=== PATIENT | female | born 1955 | race Caucasian/White ===

== ENCOUNTER → 2023-11-05 12:55 | Outpatient (REF) | payer MEDICARE, BC, SELFPAY | LOC: RAD 12:55 | PROVIDERS: ATTENDING PHYSICIAN Physician Assistant Medical; FAMILY PHYSICIAN Family Medicine | DX: M53.3 Sacrococcygeal disorders, not elsewhere classified (principal) | CPT/HCPCS: 72220 ==

== ENCOUNTER → 2024-01-13 08:18 | Outpatient (REF) | payer MEDICARE, BC, SELFPAY | LOC: WDC 08:18 | PROVIDERS: ATTENDING PHYSICIAN Obstetrics & Gynecology; FAMILY PHYSICIAN Family Medicine | DX: Z12.31 Encounter for screening mammogram for malignant neoplasm of breast (principal) | CPT/HCPCS: 77063; 77067 ==

== ENCOUNTER → 2024-06-11 07:40 | Outpatient (REF) | payer MEDICARE, BC, SELFPAY ==
[2024-06-11 09:21] LABS: ALT (SGPT) 22 U/L (0-35); AST (SGOT) 26 U/L (14-36); Albumin 4.5 g/dl (3.5-5.0); Alkaline Phosphatase 73 U/L (38-126); Blood Urea Nitrogen 23 mg/dl (7-17); Calcium 10.2 mg/dl (8.4-10.2); Carbon Dioxide 29 mmol/L (22-30); Chloride 100 mmol/L (98-107); Glucose 86 mg/dl (70-99); HDL Cholesterol 86 mg/dl; LDL Cholesterol, Calculated 98 mg/dl; Potassium 4.7 mmol/L (3.5-5.1); Sodium 139 mmol/L (135-145); Total Bilirubin 0.7 mg/dl (0.2-1.3); Total Cholesterol 207 mg/dl (50-199); Total Protein 7.1 g/dl (6.3-8.2); Triglyceride 115 mg/dl (10-149); Very Low Density Lipoprotein 23 mg/dl (0-30); eGFR > 60.00
[2024-06-11 10:09] LABS: TSH Reflex To Free T4 0.83 uIU/ml (0.47-4.68)
== END ==
LOC: REG 07:40
PROVIDERS: ATTENDING PHYSICIAN Family Medicine
DX: E87.1 Hypo-osmolality and hyponatremia (principal); I10 Essential (primary) hypertension; E78.5 Hyperlipidemia, unspecified
CPT/HCPCS: 36415; 80053; 80061; 84443

== ENCOUNTER 2024-06-18 15:29 | Emergency (ER) | payer MEDICARE, BC, SELFPAY ==
[2024-06-18 15:32] VITALS: BP 179/92
[2024-06-18 16:03] VITALS: BP 155/77
[2024-06-18 16:04] VITALS: BP 155/77
--- NOTE | 2024-06-18 16:08 | ED.GENMED ---
History of Present Illness
General
Chief Complaint: Blood Pressure Problem
Time Seen by Provider: 06/18/24 16:08
History of Present Illness
History of Present Illness:
HPI: Patient presents due to blood pressure concerns. She states that her blood pressure systolic is normally in the 130s range or so. She takes lisinopril 30 mg daily, metoprolol 100 mg twice a day, and yesterday her primary put her on amlodipine
5 mg. She took that yesterday and this morning and blood pressures were still in the 150s to 170s range. She also had some 'extra beats' and her nurse practitioner sent her here for further evaluation. She tells me she is not stressed about
anything but feels very 'jittery'.
EXAM:
GENERAL: Well appearing in no distress
HEENT: Moist oral mucosa
CARDIOVASCULAR: No murmurs, normal heart rate, regular rhythm, No chest wall tenderness, ectopy noted
PULMONARY: No respiratory distress, breath sounds are clear and equal
ABDOMEN: Soft with no peritoneal signs, no tenderness
NEUROLOGIC: Excellent strength all extremities, no coordination deficits
PSYCHIATRIC: Appropriate mental status, normal insight and judgement, some pressured speech and appears somewhat anxious
EXTREMITIES: Nontender, no edema, moves all extremities equally
SKIN: No rash, no lesions
TIME OF INITIAL ENCOUNTER: 4:15 PM
NUMBER AND COMPLEXITY OF PROBLEMS ADDRESSED AT THE ENCOUNTER
� Chronic conditions affecting care: COPD, high blood pressure, hyperlipidemia
� Acute Exacerbation and/or Progression of Chronic Illness: This is an acute exacerbation of chronic high blood pressure
� Differential Diagnosis includes: Poorly controlled blood pressure, anxiety
AMOUNT AND/OR COMPLEXITY OF DATA TO BE REVIEWED AND ANALYZED
� I performed an independent evaluation of and my interpretation is:
EKG: Sinus 76, atrial and ventricular ectopy noted
CT:
X-rays:
Laboratory Studies: CBC unremarkable, chemistries unremarkable
Other:
� Review of other/old records: I reviewed records, the patient had sigmoid stricture status post robotic low anterior resection in [place] of last year
� Clinical information was obtained by an independent historian: None needed
� Prescriptions/Medications Considered but not given:
� Further testing considered but not performed:
RISK OF COMPLICATIONS AND/OR MORBIDITY OR MORTALITY OF PATIENT MANAGEMENT
� Social determinants of health affecting care: Lives at home with
� Discussion with other providers:
� Escalation of care including admission/observation vs risk of discharge considered: The patient is already on lisinopril and metoprolol. Amlodipine 5 mg was added yesterday and today. She does feel very 'jittery' and we did
give a low dose of Ativan. On reassessment at 6:15 PM, the patient still has a jittery and does feel appear somewhat anxious but she tells me that she is not anxious. We agreed to have her increase amlodipine to 10 mg starting tomorrow and she
already has cardiology follow-up arranged for this coming Saturday.
Past History
Past History
ED Past Medical History: COPD, GERD, HTN and Other
ED Past Surgical History: Orthopedic (Knee surgery)
Social History
Tobacco: Former smoker
Alcohol: Daily (7-7)
Personal:
Living: with family
Employment: Employed
Family History
Family History: Hypertension; Negative Early CAD, CAD or Sudden
Phy Exam
Physical Exam
Physical Exam:
See HPI
Course
Orders/Labs/Results
Orders:
Orders
06/18/24 15:34
EKG [Electrocardiogram (*1)] Urgent
Reason for Study: Hypertension, Benign
EKG- Treatment ONCE
06/18/24 16:22
Lorazepam [Ativan] 0.5 mg IV NOW STA
06/18/24 16:33
Basic Metabolic Panel Urgent
Complete Blood Count/With Diff Urgent
Abnormal Lab Results
06/18/24
16:33
RBC 3.92 L 10^6/uL
(4.20-5.40)
Hct 35.8 L %
(37.0-47.0)
MCH 31.4 H pg
(27.0-31.0)
RDW 15.5 H %
(11.5-14.5)
MPV 11.7 H fL
(7.4-10.4)
Absolute Monos (auto) 0.8 H 10^3/uL
(0.1-0.6)
BUN 29 H mg/dl
(7-17)
06/18/24 16:33
06/18/24 16:33
Vital Signs
Initial and Last Documented VS:
Initial Vital Signs
Temp Pulse Resp BP Pulse Ox
98.2 F 83 16 179/92 98
06/18/24 15:32 06/18/24 15:32 06/18/24 15:32 06/18/24 15:32 06/18/24 15:32
Last Documented Vital Signs
Temp Pulse Resp BP Pulse Ox
98.2 F 85 18 156/77 96
06/18/24 15:32 06/18/24 17:39 06/18/24 17:39 06/18/24 17:39 06/18/24 17:39
*Critical Care Note
Total Time (30-74mins, 75-104mins- exclusive of procedures): Not Applicable
ED Attending Note
-
Portions of this chart may have been created with voice recognition software.� Occasional wrong word or��sound alike� substitutions may have occurred due to the inherent limitations of voice recognition software.
Discharge Plan
Departure
Patient Disposition: Home (Routine Discharge)
Date of Disposition: 06/18/24
Time of Disposition: 18:14
Patient with high blood pressure during this ER visit?: Yes
Discharge Problem:
Poor high blood pressure control
Instructions: High Blood Pressure (DC), BLOOD PRESSURE
Prescriptions:
No Action
metoprolol tartrate 100 MG tablet
100 mg PO BID
Patient Comments:
06/28/23 patient uses [employer]. Note in pharmacy records confirms this
Asmanex Twisthaler 220 mcg/ actuation (120) aerosol powdr breath activated
1 inh INHALATION BID
Stiolto Respimat 2.5-2.5 mcg/actuation mist
2 puff INHALATION DAILY
pantoprazole 40 MG tablet,delayed release (DR/EC)
40 mg PO DAILY
lisinopril 20 mg Tablet
30 mg PO HS
Patient Comments:
06/28/23 patient states she is taking 1 and 1/2 tablets of her lisinopril 20mg.
atorvastatin 10 mg Tablet
10 mg PO HS
multivitamin
1 tab PO DAILY
acetaminophen [acetaminophen] 325 mg tablet
650 mg PO Q4HPRN PRN (Reason: mild pain) Qty: 1 0RF
tramadol 50 mg tablet
25 - 50 mg PO Q6HPRN PRN (Reason: severe pain/breakthrough pain) Qty: 20 0RF
Referrals:
Winifred Catalan DO [Family Provider] -
Activity Restrictions/Additional Instructions:
Your blood pressures have been in the 150s to 160s range. Tomorrow morning, I recommend you take 2 of the amlodipine 5 mg (10 mg at a time). This is in addition to your lisinopril and metoprolol. Follow-up with your electric tool repairer on Saturday.
Return here if worse. Basic blood work is normal. Your EKG shows extra beats which is very common.
Interventions
Interventions:
*Risk Screen - Suicide Last Done: 06/18/24 15:32
*General Assessment Last Done: 06/18/24 15:32
*Neglect/Abuse Screening Last Done: 06/18/24 15:32
*ED COVID-19 Vaccine History Last Done: 06/18/24 15:32
ED- Cardiac Assessment Last Done: 06/18/24 16:05
ED- Neurological Assessment Last Done: 06/18/24 16:05
ED- Pulmonary Assessment Last Done: 06/18/24 16:05
Discharge Date and Time
Print Language: KHMER
[2024-06-18 16:18] VITALS: BP 176/72
[2024-06-18] MEDS: ATIVAN 0.5 MG IV (16:33)
[2024-06-18 17:00] VITALS: BP 156/77
[2024-06-18 17:12] LABS: % Basophils 0.3 % (0-2); % Eosinophils 0.6 % (0-6); % Immature Granulocytes 0.4 % (0-0.5); % Lymphocytes 27.1 % (20.5-51.1); % Monocytes 8.7 % (1.7-9.3); % Neutrophils 62.9 % (42.2-75.2); Absolute Eosinophils 0.1 10^3/uL (0-0.7); Absolute Lymphocytes 2.6 10^3/uL (1.2-3.4); Absolute Monocytes 0.8 10^3/uL (0.1-0.6); Hematocrit 35.8 % (37.0-47.0); Hemoglobin 12.3 g/dL (12.0-16.0); Mean Corp Hgb Conc. 34.4 g/dL (33.0-37.0); Mean Corpuscular Hgb 31.4 pg (27.0-31.0); Mean Corpuscular Volume 91.3 fL (81.0-99.0); Mean Platelet Volume 11.7 fL (7.4-10.4); Nucleated Red Blood Cells % 0 %; Platelet Count 294 10^3/uL (130-400); Red Blood Cell Count 3.92 10^6/uL (4.20-5.40); Red Cell Dist. Width 15.5 % (11.5-14.5); White Blood Cell Count 9.6 10^3/uL (4.8-10.8)
[2024-06-18 17:30] LABS: Blood Urea Nitrogen 29 mg/dl (7-17); Calcium 9.8 mg/dl (8.4-10.2); Carbon Dioxide 24 mmol/L (22-30); Chloride 103 mmol/L (98-107); Glucose 89 mg/dl (70-99); Potassium 4.5 mmol/L (3.5-5.1); Sodium 139 mmol/L (135-145); eGFR > 60.00
[2024-06-18 17:39] VITALS: BP 156/77
== END 2024-06-18 18:36 | disposition home or self-care (01) ==
LOC: EMR 15:29
PROVIDERS: EMERGENCY PHYSICIAN Emergency Medicine; FAMILY PHYSICIAN Family Medicine
DX: I10 Essential (primary) hypertension (principal); Z87.891 Personal history of nicotine dependence
CPT/HCPCS: 99284; 96374; 80048; 85025; 93005

== ENCOUNTER → 2024-06-23 14:15 | Outpatient (REF) | payer MEDICARE, BC, SELFPAY | LOC: RCS 14:15 | PROVIDERS: ATTENDING PHYSICIAN Internal Medicine Interventional Cardiology; FAMILY PHYSICIAN Family Medicine | DX: R06.09 Other forms of dyspnea (principal); I10 Essential (primary) hypertension; R00.2 Palpitations; E78.2 Mixed hyperlipidemia | CPT/HCPCS: 93306 ==

== ENCOUNTER 2024-07-01 11:29 | Emergency (ER) | payer MEDICARE, BC, SELFPAY ==
[2024-07-01 11:37] VITALS: BP 147/76
[2024-07-01 11:54] LABS: % Basophils 0.3 % (0-2); % Eosinophils 0.4 % (0-6); % Immature Granulocytes 0.2 % (0-0.5); % Lymphocytes 13.6 % (20.5-51.1); % Monocytes 7.1 % (1.7-9.3); % Neutrophils 78.4 % (42.2-75.2); Absolute Eosinophils 0.1 10^3/uL (0-0.7); Absolute Lymphocytes 1.6 10^3/uL (1.2-3.4); Absolute Monocytes 0.8 10^3/uL (0.1-0.6); Absolute Neutrophils 9.3 10^3/uL (1.4-6.5); Hematocrit 35.9 % (37.0-47.0); Hemoglobin 12.4 g/dL (12.0-16.0); Mean Corp Hgb Conc. 34.5 g/dL (33.0-37.0); Mean Corpuscular Hgb 30.5 pg (27.0-31.0); Mean Corpuscular Volume 88.4 fL (81.0-99.0); Mean Platelet Volume 10.6 fL (7.4-10.4); Nucleated Red Blood Cells % 0 %; Platelet Count 311 10^3/uL (130-400); Red Blood Cell Count 4.06 10^6/uL (4.20-5.40); Red Cell Dist. Width 14.6 % (11.5-14.5); White Blood Cell Count 11.9 10^3/uL (4.8-10.8)
[2024-07-01 12:20] LABS: ALT (SGPT) 34 U/L (0-35); AST (SGOT) 33 U/L (14-36); Albumin 4.4 g/dl (3.5-5.0); Alkaline Phosphatase 69 U/L (38-126); Blood Urea Nitrogen 23 mg/dl (7-17); Calcium 9.9 mg/dl (8.4-10.2); Carbon Dioxide 25 mmol/L (22-30); Chloride 99 mmol/L (98-107); Glucose 109 mg/dl (70-99); Potassium 4.6 mmol/L (3.5-5.1); Sodium 136 mmol/L (135-145); Total Bilirubin 0.3 mg/dl (0.2-1.3); Total Protein 7.1 g/dl (6.3-8.2); eGFR > 60.00
[2024-07-01 12:22] LABS: Troponin I < 0.012 ng/ml
--- NOTE | 2024-07-01 13:07 | ED.GENMED ---
History of Present Illness
General
Chief Complaint: Heart Rate Problem
Source: patient
Exam Limitations: none
Time Seen by Provider: 07/01/24 12:56
History of Present Illness
History of Present Illness:
68-year-old female presents for reevaluation. She was here about 2 weeks ago for similar complaints including jitteriness heart racing and skipped beats. She was found to have elevated blood pressure reading at that visit and her amlodipine was
increased from 5 mg to 10 mg daily. She states she does not quite feel right. She noted some exertional dyspnea several days ago with her grandkids. She denies chest pain. In the interim she has seen cardiology and had an echocardiogram.
Echocardiogram shows an ejection fraction of 52%. No other wall motion abnormalities noted. She denies swelling in the legs. Occasionally has a burning discomfort in her chest but thinks it might be related to her reflux. She denies fevers. No
headache. No other complaints
Past History
Past History
ED Past Medical History: COPD, GERD, HTN and Other
ED Past Surgical History: Orthopedic (Knee surgery)
Social History
Tobacco: Former smoker
Alcohol: Daily (7-7)
Personal:
Living: with family
Employment: Employed
Family History
Family History: Hypertension; Negative Early CAD, CAD or Sudden
Phy Exam
Physical Exam
Physical Exam:
General: Overall well-appearing female no acute respiratory distress HEENT: Normocephalic atraumatic
Heart: Regular rate and rhythm
Lungs: Clear no wheeze
Abdomen is soft nontender nondistended no guarding or rebound normal bowel sounds
Extremities: No cyanosis or edema
Skin: Warm no rash
Neuro: alert and oriented. No tremor.
Course
Orders/Labs/Results
Orders:
Orders
07/01/24 11:31
Electrocardiogram (*1) Urgent
Reason for Study: Chest Pain
EKG- Treatment ONCE
07/01/24 11:47
CMP [Comprehensive Metabolic Panel] Urgent
Complete Blood Count/With Diff Urgent
Troponin I Urgent
07/01/24 13:11
CR Chest - 2 Views Urgent
Comment:
Reason For Exam: sob
07/01/24 14:41
ECG [Electrocardiogram (*1)] Urgent
Reason for Study: Chest Pain
Other Reason for Exam: serial troponin
EKG- Treatment ONCE
07/01/24 14:42
D-Dimer Urgent
Troponin I Urgent
Abnormal Lab Results
07/01/24
11:47
WBC 11.9 H 10^3/uL
(4.8-10.8)
RBC 4.06 L 10^6/uL
(4.20-5.40)
Hct 35.9 L %
(37.0-47.0)
RDW 14.6 H %
(11.5-14.5)
MPV 10.6 H fL
(7.4-10.4)
Absolute Neuts (auto) 9.3 H 10^3/uL
(1.4-6.5)
Absolute Monos (auto) 0.8 H 10^3/uL
(0.1-0.6)
Neutrophils % 78.4 H %
(42.2-75.2)
Lymphocytes % 13.6 L %
(20.5-51.1)
BUN 23 H mg/dl
(7-17)
Glucose 109 H mg/dl
(70-99)
07/01/24 11:47
07/01/24 11:47
Vital Signs
Initial and Last Documented VS:
Initial Vital Signs
Temp Pulse Resp BP Pulse Ox
98.3 F 85 16 147/76 100
07/01/24 11:37 07/01/24 11:37 07/01/24 11:37 07/01/24 11:37 07/01/24 11:37
Last Documented Vital Signs
Temp Pulse Resp BP Pulse Ox
98.3 F 80 16 139/81 100
07/01/24 11:37 07/01/24 14:55 07/01/24 14:55 07/01/24 14:20 07/01/24 14:55
MDM/Problems Addressed
Differential Diagnosis Includes:
68-year-old female with generalized unwell sensation. Here 2 weeks ago for the same has seen cardiology in the interim. Currently on amlodipine 10 mg daily and metoprolol 100 mg twice a day and lisinopril 30 mg daily. Blood pressure is stable
heart rate in the 70s to 80s. There are premature atrial complexes noted on the EKG.
Labs ordered through triage were reviewed without significant finding. Troponin is undetectable
*Critical Care Note
Total Time (30-74mins, 75-104mins- exclusive of procedures): Not Applicable
Update Note
Update Note:
Patient reevaluated. Initial and repeat troponin undetectable. D-dimer normal. Chest x-ray clear. Vital signs are stable here. Etiology of patient's symptoms somewhat unclear but she does have a an appointment in the near future with cardiology
for stress test. I advise she keep this. No indication for admission at this time. Stable for discharge
ED Attending Note
-
Portions of this chart may have been created with voice recognition software.� Occasional wrong word or��sound alike� substitutions may have occurred due to the inherent limitations of voice recognition software.
Discharge Plan
Departure
Patient Disposition: Home (Routine Discharge)
Date of Disposition: 07/01/24
Time of Disposition: 15:47
Patient with high blood pressure during this ER visit?: No
Discharge Problem:
Weakness
Instructions: Palpitations (DC)
Prescriptions:
No Action
metoprolol tartrate 100 MG tablet
100 mg PO BID
Patient Comments:
06/28/23 patient uses [employer]. Note in pharmacy records confirms this
Asmanex Twisthaler 220 mcg/ actuation (120) aerosol powdr breath activated
1 inh INHALATION BID
Stiolto Respimat 2.5-2.5 mcg/actuation mist
2 puff INHALATION DAILY
pantoprazole 40 MG tablet,delayed release (DR/EC)
40 mg PO DAILY
lisinopril 20 mg Tablet
30 mg PO HS
Patient Comments:
06/28/23 patient states she is taking 1 and 1/2 tablets of her lisinopril 20mg.
atorvastatin 10 mg Tablet
10 mg PO HS
multivitamin
1 tab PO DAILY
acetaminophen [acetaminophen] 325 mg tablet
650 mg PO Q4HPRN PRN (Reason: mild pain) Qty: 1 0RF
tramadol 50 mg tablet
25 - 50 mg PO Q6HPRN PRN (Reason: severe pain/breakthrough pain) Qty: 20 0RF
Referrals:
Winifred Catalan DO [Family Provider] -
Activity Restrictions/Additional Instructions:
Please continue current medications. Return here for worsening symptoms otherwise follow-up with cardiology as planned
Interventions
Interventions:
*Risk Screen - Suicide Last Done: 07/01/24 11:37
*General Assessment Last Done: 07/01/24 11:37
*Neglect/Abuse Screening Last Done: 07/01/24 11:37
*ED COVID-19 Vaccine History Last Done: 07/01/24 11:37
ED- Cardiac Assessment Last Done: 07/01/24 13:00
ED- Pulmonary Assessment Last Done: 07/01/24 13:00
Discharge Date and Time
Print Language: ESTONIAN
[2024-07-01 13:26] VITALS: BMI 20.9
[2024-07-01 14:20] VITALS: BP 139/81
[2024-07-01 15:16] LABS: D-Dimer < 0.27 ug/mlFEU (0.00-0.50)
[2024-07-01 15:19] LABS: Troponin I < 0.012 ng/ml
== END 2024-07-01 16:33 | disposition home or self-care (01) ==
LOC: EMR 11:29
PROVIDERS: Physician Assistant; Student in an Organized Health Care Education/Training Program; EMERGENCY PHYSICIAN Emergency Medicine; FAMILY PHYSICIAN Family Medicine
DX: R53.1 Weakness (principal); J44.9 Chronic obstructive pulmonary disease, unspecified; I10 Essential (primary) hypertension; K21.9 Gastro-esophageal reflux disease without esophagitis; Z82.49 Family history of ischemic heart disease and other diseases of the circulatory system; Z87.891 Personal history of nicotine dependence
CPT/HCPCS: 99283; 71046; 80053; 84484; 85025; 85379; 93005

== ENCOUNTER → 2024-07-08 08:01 | Outpatient (REF) | payer MEDICARE, BC, SELFPAY | LOC: DHCBC/DCA 08:01 | PROVIDERS: ATTENDING PHYSICIAN Internal Medicine Interventional Cardiology; FAMILY PHYSICIAN Family Medicine | DX: R06.09 Other forms of dyspnea (principal); I10 Essential (primary) hypertension; R00.2 Palpitations; E78.2 Mixed hyperlipidemia | CPT/HCPCS: 78452; 93017; A9500 ==

== ENCOUNTER 2024-12-21 23:55 | Inpatient (IN) | payer MEDICARE, BC, SELFPAY ==
[2024-12-21] VITALS (10 sets, daily range): BP systolic 132–191; BP diastolic 76–119; BMI 22.8; BMI 22.7
[2024-12-21 15:26] LABS: % Basophils 0.5 % (0-2); % Eosinophils 1.3 % (0-6); % Immature Granulocytes 0.5 % (0-0.5); % Lymphocytes 20.8 % (20.5-51.1); % Monocytes 7.4 % (1.7-9.3); % Neutrophils 69.5 % (42.2-75.2); Absolute Eosinophils 0.1 10^3/uL (0-0.7); Absolute Lymphocytes 1.7 10^3/uL (1.2-3.4); Absolute Monocytes 0.6 10^3/uL (0.1-0.6); Absolute Neutrophils 5.6 10^3/uL (1.4-6.5); Hematocrit 37.8 % (37.0-47.0); Hemoglobin 12.7 g/dL (12.0-16.0); Mean Corp Hgb Conc. 33.6 g/dL (33.0-37.0); Mean Corpuscular Hgb 30.2 pg (27.0-31.0); Mean Platelet Volume 11.5 fL (7.4-10.4); Nucleated Red Blood Cells % 0 %; Platelet Count 309 10^3/uL (130-400); Red Cell Dist. Width 14.4 % (11.5-14.5)
[2024-12-21 15:35] LABS: ALT (SGPT) 18 U/L (0-35); AST (SGOT) 21 U/L (14-36); Albumin 4.2 g/dl (3.5-5.0); Alkaline Phosphatase 79 U/L (38-126); Blood Urea Nitrogen 19 mg/dl (7-17); Calcium 10.1 mg/dl (8.4-10.2); Carbon Dioxide 23 mmol/L (22-30); Chloride 105 mmol/L (98-107); Estimated Creatinine Clearance 66 ml/min; Glucose 103 mg/dl (70-99); Potassium 4.1 mmol/L (3.5-5.1); Sodium 137 mmol/L (135-145); Total Bilirubin 0.5 mg/dl (0.2-1.3); Total Protein 6.8 g/dl (6.3-8.2); eGFR > 60.00
--- NOTE | 2024-12-21 15:42 | ED.CVA ---
History of Present Illness
<Crystal Sandoval PA-C - Last Filed: 12/21/24 21:34>
General
Chief Complaint: CVA/TIA Symptoms
Source: patient and family
Exam Limitations: none
Time Seen by Provider: 12/21/24 15:22
Onset of Stroke Symptoms
Onset of symptoms known: No
Time pt last seen normal is known: No
History of Present Illness
History of Present Illness:
69yoF with a history of hypertension, hyperlipidemia, and COPD presenting with her for evaluation of speech disturbance. Patient has had speech difficulty over the past 4 to 5 days. She states she is jumbling her words and unable to read.
Her symptoms seem to be gradually getting worse. She is otherwise asymptomatic and denies any headache, visual changes, paresthesias, weakness, balance issues, chest pain, shortness of breath. No prior history of TIA or CVA. She does not take any
blood thinners. No recent travel.
Past History
<Crystal Sandoval PA-C - Last Filed: 12/21/24 21:34>
Past History
ED Past Medical History: COPD, GERD, HTN and Other
ED Past Surgical History: Orthopedic (Knee surgery)
Social History
Tobacco: Former smoker
Alcohol: Daily (7-7)
Personal:
Living: with family
Employment: Employed
Family History
Family History: Hypertension; Negative Early CAD, CAD or Sudden
Phy Exam
<Crystal Sandoval PA-C - Last Filed: 12/21/24 21:34>
General Physical Exam
General Presentation: well appearing and no apparent distress
General age: appears stated age
General Skin: warm and dry
General Habitus: normal
General Mental: alert
ENT Exam
ENT Exam: normocephalic
Eye Exam
Eye Exam: PERRL, EOMI, conjunctiva normal and visual iqbal normal
Pulmonary Exam
Pulmonary Exam: no respiratory distress
Neurological Exam
Neurological Exam: alert, CN II-XII intact, expressive aphasia and other (Expressive aphasia noted. Unable to read any words or phrases on NIHSS cards. Able to name some objects correctly but unable to name most objects on card. No dysarthria.)
NIH Stroke Score
Level of Consciousness: 0 - Alert
LOC questions: 0-Answers both correctly
LOC Commands: 0-Performs both correctly
Best Gaze: 0-Normal
Visual Iqbal: 0=Normal, no visual loss
Facial palsy: 0=Normal, symmetrical
Motor - Right Arm: 0=No drift 10 seconds
Motor - Left Arm: 0=No drift 10 seconds
Motor - Right Le-No drift 5 seconds
Motor - Left Le-No drift 5 seconds
Limb Ataxia: 0-Absent
Sensation: 0-Normal
Best Language: 2-Severe aphasia
Dysarthria: 0-Normal
Extinction and Inattention: 0-No abnormality
Total Score:: 2
Course
<Crystal Sandoval PA-C - Last Filed: 12/21/24 21:34>
Orders/Labs/Results
Orders:
Orders
12/21/24 14:12
CT Head W/o Iv Contrast Urgent
Comment:
Reason For Exam: aphasia 4-5 days
12/21/24 15:16
Complete Blood Count/With Diff Urgent
Comprehensive Metabolic Panel Urgent
12/21/24 15:42
Electrocardiogram (*1) Urgent
Reason for Study: TIA/Stroke
EKG- Treatment ONCE
12/21/24 19:20
Dexamethasone Sod Phosphate [Decadron] 10 mg IV NOW STA
Levetiracetam Injectable [Keppra] 500 mg IV NOW STA
12/22/24 02:00
Dexamethasone Sod Phosphate [Decadron] 4 mg IV Q6H
Abnormal Lab Results
12/21/24
15:16
MPV 11.5 H fL
(7.4-10.4)
BUN 19 H mg/dl
(7-17)
Glucose 103 H mg/dl
(70-99)
12/21/24 15:16
12/21/24 15:16
Vital Signs
Initial and Last Documented VS:
Initial Vital Signs
Temp Pulse Resp BP Pulse Ox
98.2 F 88 16 132/87 97
12/21/24 14:08 12/21/24 14:08 12/21/24 14:08 12/21/24 14:08 12/21/24 14:08
Last Documented Vital Signs
Temp Pulse Resp BP Pulse Ox
98.2 F 79 18 176/90 97
12/21/24 14:08 12/21/24 18:36 12/21/24 18:36 12/21/24 18:36 12/21/24 18:36
<Can Jimenez MD - Last Filed: 12/21/24 21:09>
Orders/Labs/Results
Orders:
Orders
12/21/24 14:12
CT Head W/o Iv Contrast Urgent
Comment:
Reason For Exam: aphasia 4-5 days
12/21/24 15:16
Complete Blood Count/With Diff Urgent
Comprehensive Metabolic Panel Urgent
12/21/24 15:42
Electrocardiogram (*1) Urgent
Reason for Study: TIA/Stroke
EKG- Treatment ONCE
12/21/24 19:20
Dexamethasone Sod Phosphate [Decadron] 10 mg IV NOW STA
Levetiracetam Injectable [Keppra] 500 mg IV NOW STA
12/22/24 02:00
Dexamethasone Sod Phosphate [Decadron] 4 mg IV Q6H
Abnormal Lab Results
12/21/24
15:16
MPV 11.5 H fL
(7.4-10.4)
BUN 19 H mg/dl
(7-17)
Glucose 103 H mg/dl
(70-99)
12/21/24 15:16
12/21/24 15:16
Vital Signs
Initial and Last Documented VS:
Initial Vital Signs
Temp Pulse Resp BP Pulse Ox
98.2 F 88 16 132/87 97
12/21/24 14:08 12/21/24 14:08 12/21/24 14:08 12/21/24 14:08 12/21/24 14:08
Last Documented Vital Signs
Temp Pulse Resp BP Pulse Ox
98.2 F 79 18 176/90 97
12/21/24 14:08 12/21/24 18:36 12/21/24 18:36 12/21/24 18:36 12/21/24 18:36
<Crystal Sandoval PA-C - Last Filed: 12/21/24 21:34>
MDM/Problems Addressed
Differential Diagnosis Includes:
69yoF here with speech difficulty x 4-5 days. Unable to get out her words or read. Otherwise asymptomatic. She has expressive aphasia on exam. Unable to read words on NIHSS cards. Neuro exam otherwise non-focal. Differential diagnosis includes but
is not limited to: CVA, brain tumor, MS
Initial ED plan: Check CBC, CMP, EKG, and CT head.
<Crystal Sandoval PA-C - Last Filed: 12/21/24 21:34>
*Critical Care Note
Total Time (30-74mins, 75-104mins- exclusive of procedures): Not Applicable
<Crystal Sandoval PA-C - Last Filed: 12/21/24 21:34>
Update Note
Update Note:
CT head shows 'New mass within the left parietal lobe measuring approximately 2.1 x 1.8 x 2.2 cm with marked surrounding vasogenic edema. Rightward midline shift.' Findings highly suspicious for neoplasm. Case discussed with neurosurgeon, .
Henok, who recommends transfer to [facility] for further care as well as Decadron 10mg x1 and 4mg Q6 thereafter and Keppra 500mg BID. Results discussed with patient and via phone. [facility] reviewing bed situation. Case signed out to
Dr. Jimenez pending transfer.
ED Attending Note
<Crystal Sandoval PA-C - Last Filed: 12/21/24 21:34>
-
Portions of this chart may have been created with voice recognition software.� Occasional wrong word or��sound alike� substitutions may have occurred due to the inherent limitations of voice recognition software.
<Can Jimenez MD - Last Filed: 12/21/24 21:09>
ED Attending Note
Patient seen and examined by attending physician: Yes
I performed the substantive portion of visit, reviewed & personally made and approve the management plan that is documented in note by myself or JAMIE.: Yes
ED Attending Note:
I have seen and evaluated the patient with a [id number] encounter. I have spoken to the [PA] and involved in the medical history, the physical exam, medical decision making.
Evaluation and management service: agree unless noted differently below.
Results interpretation: agree unless noted differently below.
69-year-old woman presenting to the emergency department concerns for aphasia for the past 4 to 5 days. She denies any numbness tingling. No weakness.
During my evaluation patient without any gross motor or sensory deficits. Does have normal [id number]. She does have some component of expressive aphasia that is only noticeable intermittently.
Concern for CVA versus brain mass.CT scan obtained does show new mass with vasogenic edema and right midline shift. Possible additional lesions in the left frontal and right parietal lobes. Discussed with neurosurgery who recommended transfer,
Decadron and Keppra.
Unfortunately no beds available at [facility] until tomorrow. Discussed with hospitalist who accepted patient to their service.
Discharge Plan
Departure
Patient Disposition: Admit
Date of Disposition: 12/21/24
Time of Disposition: 19:20
Presentation/result/management discussed w/ accepting MD/DO: Hospitalist
Discharge Problem:
Brain mass, Vasogenic cerebral edema
Prescriptions:
No Action
metoprolol tartrate 100 MG tablet
100 mg PO BID
Patient Comments:
06/28/23 patient uses [employer]. Note in pharmacy records confirms this
Asmanex Twisthaler 220 mcg/ actuation (120) aerosol powdr breath activated
1 inh INHALATION R BID
Stiolto Respimat 2.5-2.5 mcg/actuation mist
2 puff INHALATION R DAILY
pantoprazole 40 MG tablet,delayed release (DR/EC)
40 mg PO DAILY
atorvastatin 10 mg Tablet
10 mg PO HS
Theragen Tablet
1 tab PO DAILY Qty: 0
lisinopril 40 mg Tablet
40 mg PO HS
Referrals:
UNKNOWN - PT DOES,NOT KNOW [Family Provider] -
Interventions
Interventions:
*Risk Screen - Suicide Last Done: 12/21/24 14:08
*General Assessment Last Done: 12/21/24 14:08
*Neglect/Abuse Screening Last Done: 12/21/24 16:00
*ED COVID-19 Vaccine History Last Done: 12/21/24 14:08
ED- Pulmonary Assessment Last Done: 12/21/24 15:54
ED- Neurological Assessment Last Done: 12/21/24 15:07
ED- Cardiac Assessment Last Done: 12/21/24 15:54
ED Swallowing Screen Last Done: 12/21/24 18:40
Discharge Date and Time
Print Language: ARMENIAN
[2024-12-21] MEDS: KEPPRA 500 MG IV (19:36)
[2024-12-21] MEDS: DECADRON 10 MG IV (19:37)
--- NOTE | 2024-12-21 23:55 | HPS.HSE ---
Family Physician
-
Family Physician: NOT KNOW UNKNOWN - PT DOES
Chief Complaint
-
Speech abnormality
History of Present Illness
Patient is a 69y F with PMH significant for hypertension and COPD who presents to ED complaining of speech disturbance x several days. Patient has been having jumbled / at times nonsensical speech for about 4-5 days. No noted focal weakness,
numbness, etc. No complaints of headache or vision changes. No prior h/o similar symptoms / complaints.
Patient presented to the ED today for further evaluation.
CT scan done here shows L parietal mass with marked vasogenic edema and midline shift. Possible additional lesions seen in the L frontal and R parietal areas.
No known history of malignancy.
Medical History
Past Medical History
Past Medical History: Reports Other
Additional Past Medical History:
Hypertension
COPD
GERD
Diverticular Disease / Sigmoid Stricture
Anxiety / Depression
Past Surgical History: Reports Other
Additional Past Surgical History:
Robotic Low Anterior Resection / Sigmoidectomy with Primary Anastomosis
Right Knee Arthroscopy
Cataracts
Social History
Tobacco: Former Smoker
Alcohol: None
Drug: None
Family History
Family History: Other (Patient reports strong family history of malignancy.)
Allergies / Home Medications
Allergies reflects when Allergies were last updated in [facility].
Home Medications with original date entered in [facility]
Allergy/Medication List:
Allergies
Allergy/AdvReac Type Severity Reaction Status Date / Time
codeine AdvReac headache Verified 12/21/24 14:11
Home Medications
metoprolol tartrate 100 mg tablet 100 mg PO BID Blood Pressure 04/04/19
mometasone 220 mcg/actuation(120 doses)breath activated powder inhaler (Asmanex Twisthaler) 1 inh inhalation R BID sob 06/05/23
pantoprazole 40 mg tablet,delayed release 40 mg PO DAILY Gastrointestinal Issue 06/05/23
tiotropium 2.5 mcg-olodaterol 2.5 mcg/actuation mist for inhalation (Stiolto Respimat) 2 puff inhalation R DAILY Lung/Breathing Issues 06/05/23
atorvastatin 10 mg tablet 10 mg PO HS High Cholesterol 06/28/23
therapeutic multivitamin 1 tab PO DAILY Supplement ##0 08/23/23
lisinopril 40 mg tablet 40 mg PO HS 12/21/24
Review of Systems
-
History Source: Patient
A 12 point ROS was completed and negative except as noted: Yes
Constitutional: Denies Fever or Chills
Respiratory: Denies Cough or Trouble Breathing
Cardiac: Denies Chest Pain or Palpitations
Abdomen/GI: Denies Abdominal Pain, Nausea, Vomiting or Diarrhea
Musculoskeletal: Denies Joint Pain or Edema
Neurological: Reports Other (Speech disturbance); Denies Dizzy or Headache
Psych: Denies Depression or Anxiety
Physical Exam
Vital Signs
Vital Signs
Temp Pulse Resp BP Pulse Ox
98.2 F 74 24 171/81 94
12/21/24 14:08 12/21/24 21:30 12/21/24 21:30 12/21/24 21:00 12/21/24 21:30
Physical Exam
General: Other (69y F sleeping comfortably. Wakes easily. No distress.)
HEENT: Moist mucous membranes and PERRLA
Respiratory: Clear; No Wheezes, Rales or Rhonchi
Cardiac: S1/S2 and Regular Rhythm; No Murmur
GI: Soft, Non Tender, Non Distended and Normal Bowel Sounds
Musculoskeletal: No Clubbing, No Cyanosis and No Edema
Neuro: Awake, Alert and Other (Moves all extremities without focal weakness, ataxia, etc. No dysarthria, normal words - but content not clear at times. Word-finding difficulty.)
Laboratory Results
-
12/21/24 15:16
12/21/24 15:16
Laboratory Results
Total Bilirubin 0.5 mg/dl (0.2-1.3) 12/21/24 15:16
AST 21 U/L (14-36) 12/21/24 15:16
ALT 18 U/L (0-35) 12/21/24 15:16
Alkaline Phosphatase 79 U/L (38-126) 12/21/24 15:16
Impression/Plan
-
A/P: Patient is a 69y F with PMH significant for hypertension and COPD who presents to ED for evaluation of speech disturbance.
Left Parietal Mass with Marked Vasogenic Edema and Midline Shift
Expressive Aphasia secondary to the above
- Admit to ICU for further evaluation and treatment.
- Patient has been accepted at [facility] by Dr. Whiting and we are awaiting bed availability.
- Continue with IV dexamethasone 4mg IV q6, Keppra 1000mg BID.
- Monitor BP with goal for normotension. IV hydralazine if needed.
- Follow for any changes in neurologic exam.
- MRI in AM if transfer not yet executed.
- two additional lesions suspected in L frontal and R parietal areas.
- ? primary v metastatic disease.
- No prior h/o malignancy. Had sigmoid resection previously for diverticular disease / stricture. Path from that surgery was unremarkable.
Benign Hypertension
- BP somewhat elevated at present - see above re: BP control.
- Continue metoprolol with holding parameters.
- Avoid hypotension.
COPD without Acute Exacerbation
- Albuterol PRN.
DVT Prophylaxis: SCDs
Code Status: Full
[2024-12-22] VITALS (9 sets, daily range): BP systolic 115–157; BP diastolic 59–94
[2024-12-22] MEDS: DECADRON 4 MG IV ×2 (03:07→08:07)
[2024-12-22 06:57] LABS: Hematocrit 40.7 % (37.0-47.0); Hemoglobin 13.9 g/dL (12.0-16.0); Mean Corp Hgb Conc. 34.2 g/dL (33.0-37.0); Mean Corpuscular Hgb 30.8 pg (27.0-31.0); Mean Corpuscular Volume 90.2 fL (81.0-99.0); Mean Platelet Volume 12.2 fL (7.4-10.4); Platelet Count 305 10^3/uL (130-400); Red Blood Cell Count 4.51 10^6/uL (4.20-5.40); Red Cell Dist. Width 14.5 % (11.5-14.5); White Blood Cell Count 9.8 10^3/uL (4.8-10.8)
[2024-12-22 07:20] LABS: Blood Urea Nitrogen 18 mg/dl (7-17); Carbon Dioxide 19 mmol/L (22-30); Chloride 107 mmol/L (98-107); Estimated Creatinine Clearance 76 ml/min; Glucose 140 mg/dl (70-99); Potassium 4.6 mmol/L (3.5-5.1); Sodium 140 mmol/L (135-145); eGFR > 60.00
--- NOTE | 2024-12-22 07:23 | CON.INTV ---
Consultation
Consultation Request
Date/Time Consultation Requested: 12/22/24
Date/Time Consultation Performed: 12/22/24
Performing Provider: Suzanne
Reason for Consultation: ICU
Medical History
-
History of Present Illness:
Patient is a 69-year-old female with previous history of COPD, hypertension presenting with complaints of speech difficulty for several days. She has difficulty expressing her words, at times it is jumbled. At times she does feel confusion. She
has no notable focal deficits or numbness. CT obtained of her head indicating new left parietal mass with marked vasogenic edema with midline shift. There are additional lesions within the left frontal and right parietal areas, she has no known
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 She had a prior CT in 2022 where this mass was not evident.
She does have significant family history of cancers especially in her two brothers, father and nephew. She had been obtaining her yearly routine mammograms and colonoscopies. She is a former smoker but quit over 25 years ago. Chest x-ray
completed was negative.
She is evaluated by neurosurgery at [facility], accepted for transfer to their facility.
Past Medical History
Past Medical History: Other (see list below)
Social History
Tobacco: Former Smoker
Alcohol: None
Drug: None
Family History
Family History: Reviewed & Not Pertinent
Allergies / Home Medications
Allergies
Allergy/AdvReac Type Severity Reaction Status Date / Time
codeine AdvReac headache Verified 12/21/24 14:11
Home Medications
�Medication �Instructions �Recorded �Confirmed �Last Taken �Type
metoprolol tartrate 100 mg tablet 100 mg PO BID Blood Pressure 04/04/19 12/21/24 08/29/23 05:30 History
mometasone 220 mcg/actuation(120 1 inh inhalation R BID sob 06/05/23 12/21/24 08/29/23 05:30 History
doses)breath activated powder
inhaler (Asmanex Twisthaler)
pantoprazole 40 mg tablet,delayed 40 mg PO DAILY Gastrointestinal 06/05/23 12/21/24 08/29/23 05:30 History
release Issue
tiotropium 2.5 mcg-olodaterol 2.5 2 puff inhalation R DAILY 06/05/23 12/21/24 08/26/23 History
mcg/actuation mist for inhalation Lung/Breathing Issues
(Stiolto Respimat)
atorvastatin 10 mg tablet 10 mg PO HS High Cholesterol 06/28/23 12/21/24 08/28/23 23:30 History
therapeutic multivitamin 1 tab PO DAILY Supplement ##0 08/23/23 12/21/24 08/15/23 History
lisinopril 40 mg tablet 40 mg PO HS 12/21/24 12/21/24 Unknown History
Review of Systems
-
History Source: Patient
All other systems: Negative unless noted
Vitals / Labs / Diagnostic Testing
Vital Signs
Temp Pulse Resp BP Pulse Ox
98.2 F 88 17 138/59 94
12/21/24 14:08 12/22/24 05:00 12/22/24 05:00 12/22/24 04:00 12/21/24 21:30
Lab Data
12/22/24 04:20
12/22/24 04:20
Diagnostic Testing:
Physical Exam
-
HEENT: Normocephalic, Anicteric and Moist Mucous Membranes
Cardiovascular: S1/S2 and Regular Rhythm
Respiratory: Clear and Non-Labored Respirations
GI: Soft, Non Distended and Non Tender
Neurology: Awake, Alert, Oriented, No Motor Deficits and Other (fast paced talking)
Skin: Warm and Dry
General: Comfortable and Other (NAD)
Assessment
-
Patient is a 69-year-old female with previous history of COPD, hypertension presenting with complaints of speech difficulty for several days. She has difficulty expressing her words, at times it is jumbled. At times she does feel confusion. She
has no notable focal deficits or numbness. CT obtained of her head indicating new left parietal mass with marked vasogenic edema with midline shift. There are additional lesions within the left frontal and right parietal areas, she has no known
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 She had a prior CT in 2022 where this mass was not evident.
She does have significant family history of cancers especially in her two brothers, father and nephew. She had been obtaining her yearly routine mammograms and colonoscopies. She is a former smoker but quit over 25 years ago. Chest x-ray
completed was negative. She is evaluated by neurosurgery at [place], accepted for transfer to their facility.
Brain mass, new suspicious for primary malignancy
Change in MS, confused speech
Hyperglycemia
Conditions present prior to admission
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
Mild obstruction- [place] 01/28/24 FVC 3.23 L 96%, FEV1 2.03 L 79% ratio 63%
Former smoker, quit >25 years ago, not obtaining yearly LDCTs
Other constipation
Palpitations
Anxiety
Mixed hyperlipidemia
Gastroesophageal reflux disease
Colon stricture
Sigmoid diverticulitis
Hypertension
Basal cell, Right side of nose-MOHS
arthroscopic right knee
tooth impant
Cataract surgery
Low Anterior bowel Resection 08/2023
Plan
Endorses current signs of MS changes/she is able to communicate to me and follow commands
She had sudden change prompting HCT showing new mass, prior scan 2022 negative
Psychiatric history noted above including anxiety
Denies pain at this time.
Pain/sedation: PRN
RASS goals: 0
Neuro and Neurosx evaluation, primary [employer] malignancy suspected
She had routine screening with mammograms/colonscopy--negative
There is strong fam hx of cancers, one brother also had a primary [employer] cancer treated at [place]
Transferred to [facility] to NSx service, accepted
Will likely need PET/CT
Hemodynamically stable, not requiring pressors.
Cardiac history reviewed--HTN
Prior ECHO reviewed indicating no acute findings, stable EF/no RWMA
Resume home meds
Monitor on telemetry
Oxygen needs: stable on Ra
Prior history of lung disease: COPD/emphysema, mild- follows at our office
Can resume inhalers
Supplemental O2 as indicated to maintain sats > 89%
CXR/CT reviewed indicating no acute process
NPO, resume diet when able
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
Aspiration precautions, HOB > 30 degrees
Speech therapy eval can be considered if at elevated risk
GI prophylaxis if indicated for mechanical ventilation >48 hours, prior history of GERD, stress ulcer formation in the critically ill
Creat at baseline, no history of renal disease
Void trials
Follow urine output, critical I/Os
Replete electrolytes as needed
No signs/symptoms suspicious for infectious etiology at this time
Observe off antibiotics for now
Follow fever trend, WBC count
CBC stable, no signs of bleeding or coagulopathy.
DVT prophylaxis as assessed based on risk, including mechanical SCDs
Can transfuse if indicated for Hb <7, plt < 10
INR WNL
No prior h/o diabetes or thyroid disease
Monitor accuchecks PRN/SS coverage if needed
We reviewed her plan of care. Extensive reviewed of medical records.
If bed delayed, can start the process of CT CAP to evaluate for other lesions that may be helpful to biopsy. Otherwise, agree with transfer to NSx service.
Diagnostic Data
Chest X-Ray: 07/01/24- No acute cardiopulmonary abnormality.
CT Scan:
HCT 12/21/24- New mass within the left parietal lobe measuring approximately 2.1 x 1.8 x 2.2 cm with marked surrounding vasogenic edema. Rightward midline shift. Possible additional lesions in the left frontal and right parietal lobes. No intracranial
hemorrhage. No convincing acute infarcts.Findings highly suspicious for intracranial neoplasm (primary and/or metastatic). Further workup with MRI recommended when feasible.
Brain MRI 06/06/23-1. No MRI evidence for acute infarct or intracranial hemorrhage.
2. Minimal periventricular white matter leukoaraiosis.
3. Severe facet joint disease in the upper cervical spine.
HCT 06/05/23- No acute intracranial abnormality.
Echo: 06/23/24- 1. Normal left ventricular size and systolic function without regional wall motion abnormalities. Estimated left ventricular ejection fraction 52% by Sidhu's method. Normal diastolic function.
2. Normal right ventricular size and systolic function.
3. No significant valvular abnormalities.
4. No pericardial effusion.
5. No evidence of pulmonary hypertension.
PFT's: Pulmonary function studies-12/04/21: Spirometry demonstrated mild obstructive lung disease. The forced vital capacity was 3.10 L or 90% of predicted. The FEV1 was 1.91 L or 73% of predicted. The FEV1/FVC ratio was 62%. The midlung flows
were 37% of predicted. The lung volumes revealed a normal total lung capacity of 5.6 L or 103% of predicted. The diffusing capacity was moderately reduced at 14.9 or 63% of predicted
On her 6 minute walk test 12/06/21: She ambulated 1250 feet which was 200 feet further than 2 years previously. Her maximum heart rate increased by 10 bpm. Her lowest oxygen saturation was better at 95% and previously her lowest oxygen saturation
was 93%. Her perceived dyspnea remains negligible
Reports and relevant images were personally reviewed.
Critical Care time 75 mins -- The patient is admitted for acute critical illness for the treatment of vital organ failure and/or prevention of further life-threatening conditions. Total care includes time spent in review of history, physical exam,
medications, hemodynamic/ventilator parameters, laboratory data, imaging and discussion with house staff, pharmacy, respiratory therapy, environmental engineering intern, and nursing.
[2024-12-22] MEDS: KEPPRA 1000 MG IV (08:08)
[2024-12-22] MEDS: PROTONIX 40 MG PO (08:08)
[2024-12-22] MEDS: LOPRESSOR 100 MG PO (08:41)
== END 2024-12-22 09:34 | disposition other institution (70) | DRG 70 ==
LOC: ED 23:55
PROVIDERS: Emergency Medicine; ADMITTING PHYSICIAN Hospitalist; ATTENDING PHYSICIAN Internal Medicine; CONSULT PHYSICIAN Internal Medicine; EMERGENCY PHYSICIAN Student in an Organized Health Care Education/Training Program
DX: G93.89 Other specified disorders of brain (principal); G93.6 Cerebral edema; Z87.891 Personal history of nicotine dependence; Z80.9 Family history of malignant neoplasm, unspecified; I10 Essential (primary) hypertension
CPT/HCPCS: 70450; 80048; 80053; 85025; 85027; 93005; 96374; 96375; 99285

== ENCOUNTER 2025-01-29 22:45 | Inpatient (IN) | payer MEDICARE, BC, SELFPAY ==
[2025-01-29] VITALS (9 sets, daily range): BP systolic 143–174; BP diastolic 58–138
[2025-01-29 16:57] LABS: % Basophils 0.4 % (0-2); % Eosinophils 0.4 % (0-6); % Immature Granulocytes 1.6 % (0-0.5); % Lymphocytes 14.7 % (20.5-51.1); % Monocytes 6.1 % (1.7-9.3); % Neutrophils 76.8 % (42.2-75.2); Absolute Immature Granulocytes 0.1 10^3/uL (0-0.05); Absolute Lymphocytes 1.2 10^3/uL (1.2-3.4); Absolute Monocytes 0.5 10^3/uL (0.1-0.6); Absolute Neutrophils 6.3 10^3/uL (1.4-6.5); Hematocrit 35.9 % (37.0-47.0); Hemoglobin 12.4 g/dL (12.0-16.0); Mean Corp Hgb Conc. 34.5 g/dL (33.0-37.0); Mean Corpuscular Hgb 31.1 pg (27.0-31.0); Mean Platelet Volume 9.9 fL (7.4-10.4); Nucleated Red Blood Cells % 0 %; Platelet Count 280 10^3/uL (130-400); Red Blood Cell Count 3.99 10^6/uL (4.20-5.40); Red Cell Dist. Width 15.2 % (11.5-14.5); White Blood Cell Count 8.2 10^3/uL (4.8-10.8)
[2025-01-29 17:11] LABS: ALT (SGPT) 22 U/L (0-35); AST (SGOT) 21 U/L (14-36); Albumin 3.4 g/dl (3.5-5.0); Alkaline Phosphatase 54 U/L (38-126); Blood Urea Nitrogen 15 mg/dl (7-17); Calcium 8.8 mg/dl (8.4-10.2); Carbon Dioxide 26 mmol/L (22-30); Chloride 100 mmol/L (98-107); Glucose 102 mg/dl (70-99); Potassium 4.1 mmol/L (3.5-5.1); Sodium 127 mmol/L (135-145); Total Bilirubin 0.5 mg/dl (0.2-1.3); Total Protein 5.9 g/dl (6.3-8.2); eGFR > 60.00
[2025-01-29] MEDS: ZOFRAN 4 MG IV (17:18)
[2025-01-29] MEDS: DECADRON 10 MG IV (17:19)
[2025-01-29] MEDS: DILAUDID 0.5 MG IV (17:19)
--- NOTE | 2025-01-29 21:05 | ED.GENMED ---
History of Present Illness
General
Chief Complaint: Change in Mental Status
Source: spouse
Exam Limitations: none
Time Seen by Provider: 01/29/25 16:31
Nursing documentation reviewed up to this point in time: agreed with
History of Present Illness
History of Present Illness:
Patient to ED after syncopal episode at home. Spouse states she became confused this afternoon, follower by a syncopal event. SHe was transported here by EMS. On arrival she is awake but confused. Appears uncomfortable. Currently receiving
treatment for brain CA. She completed a course of radiation last week and is due to begin chemo next week. Spouse also reports that she is no longer taking steroids. Steroids were stopped after last radiation treatment. He denies fever/chlls,
n/v/d. No seizure activty. Brought to ED by EMS for eval.
Past History
Past History
ED Past Medical History: COPD, GERD, HTN and Other
ED Past Surgical History: Orthopedic (Knee surgery)
Social History
Tobacco: Former smoker
Alcohol: Daily (7-7)
Personal:
Living: with family
Employment: Employed
Family History
Family History: Hypertension; Negative Early CAD, CAD or Sudden
Review of Systems
Review of Systems
Allergies reviewed?: Yes
All Other Systems: ROS reviewed and negative except as documented in HPI and ROS
Constitutional: Reports no symptoms
EENT: Reports no symptoms
Respiratory: Reports no symptoms
Cardiac: Reports no symptoms
ABD/GI: Reports no symptoms
: Reports no symptoms
Musculoskeletal: Reports no symptoms
Skin: Reports no symptoms
Neurological: Reports other (confused)
Phy Exam
General Physical Exam
General Presentation: moderate distress
General Skin: warm and dry
General Habitus: frail
General Mental: confused
Cardiovascular Exam
Cardiovascular Exam: regular rate/rhythm
Pulmonary Exam
Pulmonary Exam: lungs clear and no respiratory distress
Gastrointestinal Exam
Gastrointestinal Exam: normal bowel sounds, non tender, soft and no organomegaly
Neurological Exam
Neurological Exam: no motor deficits, no sensory deficits and other (confused)
Musculoskeletal Exam
Musculoskeletal Exam: full ROM
Skin Exam
Skin Exam: normal color, warm/dry and no rash
Psychiatric Exam
Psychiatric Exam: anxious
Course
Orders/Labs/Results
Orders:
Orders
01/29/25 16:37
Electrocardiogram (*1) Urgent
Reason for Study: Fatigue / Weakness
EKG- Treatment ONCE
01/29/25 16:40
CT Head W/o Iv Contrast Urgent
Comment:
Reason For Exam: brain CA, change in mental status, [place] [facility]
01/29/25 16:44
Complete Blood Count/With Diff Urgent
Comprehensive Metabolic Panel Urgent
01/29/25 17:14
Dexamethasone Sod Phosphate [Decadron] 10 mg IV NOW STA
HYDROmorphone [Dilaudid] 0.5 mg IV NOW STA
Ondansetron Injectable [Zofran] 4 mg IV NOW STA
01/29/25 22:21
Admit/Transfer Patient As Directed
Co-Sign Provider:
Level of Care: Inpatient admission
Assign to:: ICU
Physician / Group: Live
Diagnosis: Brain Masses with Edema, Syncope
Reason for Hospitalization: Brain Masses with Edema, Syncope
Expected length of stay greater than two midnights?: Yes
ELOS- Estimated Length of Stay in days: 3
I certify the patient meets the requirements for IP care: Yes
01/29/25 22:22
PRN Pain Medication Management As Directed
May give lesser potent ordered pain med per pt: Yes
preference::
Protocol:: Medication orders for pain may be administered in a
manner that supports deferring to patient preference
when the pt is:
- Requesting an ordered lesser potent pain medication.
Least to most potent pain medications are defined
as: acetaminophen < NSAID < tramadol < opioids
(morphine, oxycodone, hydromorphone).
- Requesting a lesser dose of the same medication IF
ORDERED.
- Requesting a less intrusive route of administration
if both routes are prescribed by the provider (PO <
IV).
01/29/25 22:23
Code Status As Directed
Resuscitation Status: Full Code
01/29/25 23:00
Flush (0.9% Sodium Chloride) [Flush (Nss)] See Dose Instructions IV PER PROTOCOL
01/30/25 01:08
Acetaminophen [Tylenol] 650 mg PO Q4HPRN PRN
Albuterol Nebs [Ventolin Nebules] 2.5 mg INH R Q4HPRN PRN
Dexamethasone Sod Phosphate [Decadron] 6 mg IV Q6
HYDROmorphone [Dilaudid] 0.5 mg IV Q4HPRN PRN
HydrALAZINE [Apresoline] 5 mg IV Q4HPRN PRN
Ondansetron Injectable [Zofran] 4 mg IV Q6HPRN PRN
01/30/25 01:08
Consult Notification Routine
Specialty to Notify: Radiation Oncology
Date consulting provider notified: 01/30/25
Time consulting provider notified: 10:55
Notified:: Provider
Comment: CONSULT CANCELLED
Activity As Directed
Activity Level: Ambulate
With Assistance
Elevate HOB [Head of Bed-Restrictions] As Directed
Elevation Level: 30 degress
I/O [Intake/ Output] As Directed
Frequency: Per unit guidelines
Neurological Checks As Directed
Frequency: q4h
Pneumatic Compression Sleeves As Directed
Type: Knee high
Vital Signs As Directed
Frequency: Per unit guidelines
Oxygen Therapy [O2 Therapy] [RESP] Routine
Titrate/Wean O2 to maintain O2 sat greater than (%): 94
Ot Eval And Treat Routine
PT Consult [Pt Eval And Treat] Routine
Activity Level: Ambulate
With Assistance
Speech Therapy Eval & Treat Routine
DX Deep Vein Thrombosis Video Routine
01/30/25 05:14
Basic Metabolic Panel IN AM
Complete Blood Count/No Diff IN AM
01/30/25 08:00
Amlodipine [Norvasc] 5 mg PO DAILY
Levetiracetam [Keppra] 500 mg PO BID
Metoprolol [Lopressor] 100 mg PO BID
Tiotropium [place] 2.5 Mcg [Spiriva Respimat 2.5 Mcg] 2 puff INH R DAILY
01/30/25 22:00
Atorvastatin [Lipitor] 10 mg PO HS
Abnormal Lab Results
01/29/25
16:44
RBC 3.99 L 10^6/uL
(4.20-5.40)
Hct 35.9 L %
(37.0-47.0)
MCH 31.1 H pg
(27.0-31.0)
RDW 15.2 H %
(11.5-14.5)
Abs Immat Gran (auto) 0.1 H 10^3/uL
(0-0.05)
Immature Gran % 1.6 H %
(0-0.5)
Neutrophils % 76.8 H %
(42.2-75.2)
Lymphocytes % 14.7 L %
(20.5-51.1)
Sodium 127 L mmol/L
(135-145)
Glucose 102 H mg/dl
(70-99)
Total Protein 5.9 L g/dl
(6.3-8.2)
Albumin 3.4 L g/dl
(3.5-5.0)
01/29/25 16:44
01/29/25 16:44
Vital Signs
Initial and Last Documented VS:
Initial Vital Signs
Temp Pulse Resp BP Pulse Ox
97.6 F 71 18 161/81 91
01/29/25 16:32 01/29/25 16:32 01/29/25 16:32 01/29/25 16:32 01/29/25 16:32
Last Documented Vital Signs
Temp Pulse Resp BP Pulse Ox
98.2 F 78 16 135/66 98
01/31/25 11:00 01/31/25 11:00 01/31/25 11:00 01/31/25 11:00 01/31/25 11:00
*Critical Care Note
Total Time (30-74mins, 75-104mins- exclusive of procedures): Not Applicable
Update Note
Update Note:
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 Given decadron and dilaudid and she appears much more comfortable although confusion persists. Case discussed with Dr. Whiting, CT reviewed with him. No need for transfert tonight,
however admission with steroid boost followed by steroid taper recommended. Will admit to hospitalist service.
ED Attending Note
-
Portions of this chart may have been created with voice recognition software.� Occasional wrong word or��sound alike� substitutions may have occurred due to the inherent limitations of voice recognition software.
Discharge Plan
Departure
Patient Disposition: Admit
Date of Disposition: 01/29/25
Time of Disposition: 21:19
Presentation/result/management discussed w/ accepting MD/DO: Hospitalist
Patient with high blood pressure during this ER visit?: No
Condition: Fair
Covid-19: Not Applicable
Discharge Problem:
Confusion
Interventions
Interventions:
*Risk Screen - Suicide Last Done: 01/29/25 17:33
*General Assessment Last Done: 01/29/25 16:42
*Neglect/Abuse Screening Last Done: 01/29/25 17:33
*ED- Fall Risk Assessment Last Done: 01/29/25 22:00
*ED COVID-19 Vaccine History Last Done: 01/29/25 22:00
*Nursing Disposition Last Done: 01/30/25 00:55
ED- Neurological Assessment Last Done: 01/29/25 17:33
Discharge Date and Time
Discharge Date/Time: 01/30/25 00:55
--- NOTE | 2025-01-29 21:37 | PHANOTE ---
med rec note- called spouse on file, went striaht to voice mail, left my nu,cherelle to call back when he can to go over patient medication list
--- NOTE | 2025-01-29 22:26 | HPS.HSE ---
Family Physician
-
Family Physician: Winifred Catalan
Chief Complaint
-
Headache, Syncope
History of Present Illness
Patient is a 69y F with PMH significant for lung cancer with metastases to the brain who presents to ED for evaluation of syncopal episode at home. History obtained from the via phone. Patient previously admitted here 12/21 - 12/22 for
newly noted brain lesions with edema and transferred to [facility] for further evaluation. Patient presented with speech difficulty / confusion. She was started on IV steroids and her clinical symptoms greatly improved. Patient was evaluated at [facility]
where further work-up revealed evidence of lung primary with mets to the brain.
She was treated with several sessions of XRT. Her steroid course was tapered and states that her last nava was Saturday of this week.
Since that time, she has become progressively more restless. She has been sleeping poorly and complaining of intermittent headaches.
Today she was complaining of severe headache at home and she passed out. states that she was unconscious for about 5 minutes. When she regained consciousness she was very confused and had difficulty again with speech / word finding.
In the ED at the time of my examination , patient is resting comfortably. Her headache is improved after medication.
Her speech is not slurred; however, she is unable to answer any of my questions due to confusion / poor recall.
Medical History
Past Medical History
Past Medical History: Reports Other
Additional Past Medical History:
Lung Cancer with Mets to Brain
Hypertension
COPD
GERD
Diverticular Disease / Sigmoid Stricture
Anxiety / Depression
Past Surgical History: Reports Other
Additional Past Surgical History:
Robotic Low Anterior Resection / Sigmoidectomy with Primary Anastomosis
Right Knee Arthroscopy
Cataracts
Social History
Tobacco: Former Smoker
Alcohol: None
Drug: None
Family History
Family History: Other (Patient reports strong family history of malignancy.)
Allergies / Home Medications
Allergies reflects when Allergies were last updated in [employer].
Home Medications with original date entered in [employer]
Allergy/Medication List:
Allergies
Allergy/AdvReac Type Severity Reaction Status Date / Time
codeine Allergy headache Verified 01/29/25 22:06
Home Medications
metoprolol tartrate 100 mg tablet 100 mg PO BID Blood Pressure 04/04/19
mometasone 220 mcg/actuation(120 doses)breath activated powder inhaler (Asmanex Twisthaler) 1 inh inhalation R BID sob 06/05/23
pantoprazole 40 mg tablet,delayed release 40 mg PO DAILY Gastrointestinal Issue 06/05/23
tiotropium 2.5 mcg-olodaterol 2.5 mcg/actuation mist for inhalation (Stiolto Respimat) 2 puff inhalation R DAILY Lung/Breathing Issues 06/05/23
atorvastatin 10 mg tablet 10 mg PO HS High Cholesterol 06/28/23
therapeutic multivitamin 1 tab PO DAILY Supplement ##0 08/23/23
lisinopril 40 mg tablet 40 mg PO HS 12/21/24
amlodipine 5 mg tablet (Norvasc) 5 mg PO DAILY 01/29/25
atorvastatin 10 mg tablet (Lipitor) 10 mg PO DAILY 01/29/25
folic acid 1 mg tablet 1 mg PO DAILY 01/29/25
levetiracetam 500 mg tablet (Keppra) 500 mg PO DAILY 01/29/25
memantine 10 mg tablet 10 mg PO BID 01/29/25
ondansetron HCl 8 mg tablet 8 mg PO [id number] PRN nausea 01/29/25
Review of Systems
-
History Source: Patient and Family
A 12 point ROS was completed and negative except as noted: Yes
Constitutional: Reports Fatigue; Denies Fever or Chills
Respiratory: Denies Cough or Trouble Breathing
Cardiac: Reports Syncope; Denies Chest Pain or Palpitations
Abdomen/GI: Denies Abdominal Pain, Nausea, Vomiting or Diarrhea
: Denies Dysuria or Frequency
Musculoskeletal: Denies Joint Pain or Edema
Neurological: Reports Headache; Denies Dizzy, Weakness or Numbness
Psych: Denies Depression or Anxiety
Physical Exam
Vital Signs
Vital Signs
Temp Pulse Resp BP Pulse Ox
97.6 F 72 17 174/67 93
01/29/25 16:32 01/29/25 21:00 01/29/25 20:30 01/29/25 20:00 01/29/25 20:30
Physical Exam
General: Other (69y F in no acute distress.)
HEENT: Moist mucous membranes and PERRLA
Respiratory: Clear; No Wheezes, Rales or Rhonchi
Cardiac: S1/S2 and Regular Rhythm; No Murmur
GI: Soft, Non Tender, Non Distended and Normal Bowel Sounds
Musculoskeletal: No Clubbing, No Cyanosis and No Edema
Neuro: Other (Awake and interactive. Not oriented to situation / time. Poor recall of recent events. Answers 'I don't know' to most questions.)
Laboratory Results
-
01/29/25 16:44
01/29/25 16:44
Laboratory Results
Total Bilirubin 0.5 mg/dl (0.2-1.3) 01/29/25 16:44
AST 21 U/L (14-36) 01/29/25 16:44
ALT 22 U/L (0-35) 01/29/25 16:44
Alkaline Phosphatase 54 U/L (38-126) 01/29/25 16:44
Impression/Plan
-
A/P: Patient is a 69y F with PMH significant for lung cancer with mets to the brain s/p recent radiation and steroid course who presents to ED for evaluation of headache and syncopal event today.
Left Frontal Lobe Mass with Mild Vasogenic Edema
Left Parietal Lobe Mass with Significant Vasogenic Edema
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
Expressive Aphasia / Confusion secondary to the above
- Admit to ICU for further evaluation and treatment.
- Restart IV dexamethasone at 6mg q6 and begin to taper after initial 24 hours.
- Monitor for clinical improvement with steroids.
- Continue Keppra for seizure prophylaxis.
- Monitor BP with goal for normotension. IV hydralazine if needed.
- Follow for any changes in neurologic exam.
- s/p XRT and scheduled to begin chemo Saturday.
- Local [facility] eval for additional recommendations.
- Has appt with [facility] on Saturday and would like to make that appt if at all possible.
Benign Hypertension
- BP somewhat elevated at present - see above re: BP control.
- Continue metoprolol and amlodipine with holding parameters.
- Avoid hypotension.
COPD without Acute Exacerbation
- Albuterol PRN.
DVT Prophylaxis: SCDs
Code Status: Full
[2025-01-30] VITALS (22 sets, daily range): BP systolic 102–158; BP diastolic 58–120; PULSE 87; O2SAT 94; BMI 24.2
--- NOTE | 2025-01-30 01:46 | PTCARENOTE ---
Pt. transferred from ED, walked to bed from stretcher w.o issues.
Offers no complaints at this time. Confused at times, can be oriented w. assistance.
Hemodynamically stable, RA maintaining own airway.
[2025-01-30] MEDS: DECADRON 6 MG IV ×5 (01:52→23:41)
--- NOTE | 2025-01-30 05:11 | PTCARENOTE ---
No change in pt. assessment.
[2025-01-30 05:30] LABS: Hematocrit 36.6 % (37.0-47.0); Hemoglobin 12.9 g/dL (12.0-16.0); Mean Corp Hgb Conc. 35.2 g/dL (33.0-37.0); Mean Corpuscular Hgb 31.1 pg (27.0-31.0); Mean Corpuscular Volume 88.2 fL (81.0-99.0); Mean Platelet Volume 9.8 fL (7.4-10.4); Platelet Count 285 10^3/uL (130-400); Red Blood Cell Count 4.15 10^6/uL (4.20-5.40); Red Cell Dist. Width 15.1 % (11.5-14.5); White Blood Cell Count 10.7 10^3/uL (4.8-10.8)
[2025-01-30 05:41] LABS: INR 0.94; PT 12.9 Sec (11.4-14.6)
[2025-01-30 05:42] LABS: APTT 25.2 Sec (23.4-35.0)
[2025-01-30 06:08] LABS: Blood Urea Nitrogen 13 mg/dl (7-17); Calcium 9.4 mg/dl (8.4-10.2); Carbon Dioxide 20 mmol/L (22-30); Chloride 106 mmol/L (98-107); Estimated Creatinine Clearance 82 ml/min; Glucose 128 mg/dl (70-99); Phosphorus 3.6 mg/dl (2.5-4.5); Potassium 4.8 mmol/L (3.5-5.1); Sodium 131 mmol/L (135-145); eGFR > 60.00
[2025-01-30] MEDS: NORVASC 5 MG PO (07:54)
[2025-01-30] MEDS: KEPPRA 500 MG PO ×2 (07:54→21:08)
[2025-01-30] MEDS: LOPRESSOR 100 MG PO ×2 (07:54→21:07)
[2025-01-30] MEDS: TYLENOL 650 MG PO ×2 (07:54→12:45)
--- NOTE | 2025-01-30 08:16 | CON.INTV ---
Consultation
Consultation Request
Date/Time Consultation Requested: 01/30/2025 - 0143
Date/Time Consultation Performed: 01/30/2025 - 0758
Requesting Provider: UNIQUE Sher
Performing Provider: Dr. Philip
Reason for Consultation: AMS/Possible seizure
Medical History
-
Chief Complaint: Significant headache, AMS
History of Present Illness:
69-year-old female with a past medical history of metastatic NSCLC with mets to brain s/p XRT X10 sessions (started on 12/24/2024), COPD, GERD, anxiety/depression, and diverticular disease who presented with episode of passing out at home with
headache and altered mental status. Patient has metastatic lung cancer to the brain, with lung biopsy at [facility] on 12/29/2024 showing adenocarcinoma. She started to get radiation treatment on December 24, and was on outpatient steroids until this past
Saturday. She has become more restless with increasing headache and poor sleep since the steroids have stopped. CT head on 01/29/2025 showed multiple intraparenchymal masses with increased size of the left frontal lobe mass, as well as the right
occipitotemporal lobe and right cerebellar mass compared to previous CT head on 12/21/2024. The left parietal lobe mass is stable with large amount of surrounding vasogenic edema. CXR showed no acute cardiopulmonary abnormality with trace left
basilar opacities likely representing atelectasis. She was given Decadron in the ER plus hydromorphone and Zofran. Given her neurological changes, she was admitted to the ICU for further monitoring. [employer] services consulted for additional
recommendations.
When I saw the patient this morning, she was resting in bed in no acute distress. Multiple family members at bedside including the daughter and . Patient is sitting in chair no acute distress, heart rate 86, BP 118/71 and saturating 93% on
room air. She no longer endorses a headache, and is not confused. Denies chest pain, SOB, nausea, fevers or chills.
PMHx: Emphysema, arthritis, history of right sided basal carcinoma s/p Mohs, GERD, history of palpitations, hypertension, anxiety, metastatic NSCLC
PSHx: Right knee arthroscopy, tooth implant surgery, cataract surgery, low anterior resection of bowel (08/2023)
Past Medical History
Past Medical History: Other (Above as per HPI)
Past Surgical History: Other (Above as per HPI)
Social History
Tobacco: Former Smoker (33-jije-srew history, quit smoking at age 39)
Alcohol: Occasional (Socially)
Drug: None
Personal:
Living: With Family (: Isidoro)
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
Family History
Family History: CAD (Father), Cancer (Father: Prostate cancer; Brother: Melanoma) and Other (Mother: Pacemaker)
Allergies / Home Medications
Allergies
Allergy/AdvReac Type Severity Reaction Status Date / Time
codeine Allergy headache Verified 01/29/25 22:06
Home Medications
�Medication �Instructions �Recorded �Confirmed �Last Taken �Type
metoprolol tartrate 100 mg tablet 100 mg PO BID Blood Pressure 04/04/19 12/21/24 08/29/23 05:30 History
mometasone 220 mcg/actuation(120 1 inh inhalation R BID sob 06/05/23 12/21/24 08/29/23 05:30 History
doses)breath activated powder
inhaler (Asmanex Twisthaler)
pantoprazole 40 mg tablet,delayed 40 mg PO DAILY Gastrointestinal 06/05/23 12/21/24 08/29/23 05:30 History
release Issue
tiotropium 2.5 mcg-olodaterol 2.5 2 puff inhalation R DAILY 06/05/23 12/21/24 08/26/23 History
mcg/actuation mist for inhalation Lung/Breathing Issues
(Stiolto Respimat)
atorvastatin 10 mg tablet 10 mg PO HS High Cholesterol 06/28/23 12/21/24 08/28/23 23:30 History
therapeutic multivitamin 1 tab PO DAILY Supplement ##0 08/23/23 12/21/24 08/15/23 History
lisinopril 40 mg tablet 40 mg PO HS Blood Pressure 12/21/24 12/21/24 Unknown History
amlodipine 5 mg tablet (Norvasc) 5 mg PO DAILY Blood Pressure 01/29/25 Unknown History
atorvastatin 10 mg tablet (Lipitor) 10 mg PO DAILY High Cholesterol 01/29/25 Unknown History
folic acid 1 mg tablet 1 mg PO DAILY Supplement 01/29/25 Unknown History
levetiracetam 500 mg tablet 500 mg PO DAILY Seizures 01/29/25 Unknown History
(Keppra)
memantine 10 mg tablet 10 mg PO BID Mental Health/Anxiety 01/29/25 Unknown History
ondansetron HCl 8 mg tablet 8 mg PO [id number] PRN nausea 01/29/25 Unknown History
Review of Systems
-
History Source: Patient
All other systems: Negative unless noted
Vitals / Labs / Diagnostic Testing
Vital Signs
Temp Pulse Resp BP Pulse Ox
98.0 F 85 18 139/71 94
01/30/25 08:00 01/30/25 08:28 01/30/25 08:28 01/30/25 07:54 01/30/25 08:44
Lab Data
01/30/25 05:14
01/30/25 05:14
Laboratory Results
01/30/25
05:14
PT 12.9
INR 0.94
APTT 25.2
Diagnostic Testing:
Physical Exam
-
HEENT: Normocephalic and Anicteric
Cardiovascular: S1/S2 and Peripheral Edema (negative)
Respiratory: Wheeze (negative), Rales (negative), Rhonchi (negative) and Non-Labored Respirations
GI: Soft, Non Distended, Non Tender and Normal Bowel Sounds
Neurology: Awake, Alert, No Motor Deficits (Normal electronics processor strength bilaterally, normal plantarflexion bilaterally), Tremors (negative) and Other (Normal H test, EOMI, pupils equally round at 3 mm and reactive to light)
Skin: Warm and Dry
General: Respiratory Distress (negative), Comfortable, Fever (negative) and Chills (negative)
Assessment
-
Assessment: 69-year-old female with a past medical history of metastatic NSCLC with mets to brain s/p XRT X10 sessions (started on 12/24/2024), COPD, GERD, anxiety/depression, and diverticular disease who presented with episode of passing out at
home with headache and altered mental status. Patient has metastatic lung cancer to the brain, with lung biopsy at [facility] on 12/29/2024 showing adenocarcinoma. She started to get radiation treatment on December 24, and was on outpatient steroids until
this past Saturday. She has become more restless with increasing headache and poor sleep since the steroids have stopped. CT head on 01/29/2025 showed multiple intraparenchymal masses with increased size of the left frontal lobe mass, as well as the
right occipitotemporal lobe and right cerebellar mass compared to previous CT head on 12/21/2024. The left parietal lobe mass is stable with large amount of surrounding vasogenic edema. CXR showed no acute cardiopulmonary abnormality with trace left
basilar opacities likely representing atelectasis. She was given Decadron in the ER plus hydromorphone and Zofran. Given her neurological changes, she was admitted to the ICU for further monitoring. [facility] Blocking Operator services consulted for additional
recommendations.
Chronic conditions DIRECTOR ENGINEERING: Emphysema/COPD, arthritis, history of right sided basal carcinoma s/p Mohs, GERD, history of palpitations, hypertension, anxiety, metastatic NSCLC
Impression:
#Altered mental status with significant headache and episode of unresponsiveness with concern for seizure versus CVA
#Metastatic lung adenocarcinoma with mets to brain s/p brain radiation + outpatient steroids which were recently stopped this past week on Saturday (01/26/2025)
#Hyponatremia (has a history of hyponatremia going back as far as , and it appears her sodium predominantly ranges from 131�137)
#GOLD Class II COPD with insignificant bronchodilator response with no evidence of air trapping or hyperinflation via PFTs from 01/28/2024 � not currently in an acute exacerbation
#GERD
#Hypertension
#Anxiety
#Former tobacco smoker (40-PY Hx - quit smoking at age 39)
Plan:
- Neurosurgery saw the patient and believe that her presentation was most likely postradiation effects and she was resumed on IV steroids which has markedly improved her symptoms
- Continue with Decadron 6 mg IV q6hr for now; transition to PO steroids after 24 hrs of IV steroids as per NSx
- q4hr neurochecks
- No acute neurosurgical intervention recommended at this time
- Continue with Keppra, as per neurosurgery
- Patient has an outpatient neurology appointment on Saturday (02/01/2025), and the family wishes to hopefully be discharged by tomorrow so that Harleen can make this appt
- Official disposition deferred to hospitalist
- Patient follows with [facility] with Dr. Ibrahim. Advised to continue following with Oncology
- Patient is on Stiolto as an outpatient, continue with Spiriva + Striverdi with prn albuterol (not currently bronchospastic)
- Resume her home inhalers upon discharge
- Trend serum Na
- Maintain SpO2 >88-90%
- Maintain MAP>65
- Replete electrolytes with K>4, Mg>2
- Maintain euglycemia with goal BG 140-180
- Trend H/H and transfuse if needed to keep Hb>7g/dL; keep plt>20k, unless there is concern for bleeding then keep plt>50k
- Incentive spirometer encouraged 10x per hour for at least 4 hrs a day
- DVT ppx -deferred to neurosurgery if patient is safe to obtain chemical prophylaxis given her intracranial metastatic disease
Code status: Full code
Patient follows with us in the [facility] office with last visit on 01/28/[address] Trevino. She was told to follow-up in 1 year. Outpatient pulmonary office follow-up will be arranged.
Patient is stable for downgrade out of ICU to telemetry. No additional recommendations at this time. [facility] Blocking Operator/Pulmonary service will now sign off. Thank you for allowing us to be involved in the care of this patient. Please reconsult if there
are any additional questions/concerns, or if patient's respiratory status deteriorates.
Data:
CT head without contrast 01/29/2025:
Redemonstration of multiple intraparenchymal masses, with increased size of masses in the left frontal lobe, right occipitotemporal lobe, and right cerebellum compared to the previous head CT from 12/21/2024. Stable size of the mass in the left
parietal lobe with a large amount of surrounding vasogenic edema. Slightly increased rightward midline shift.
CXR 01/30/2025: No acute cardiopulmonary abnormality. Trace left basilar opacities favored to represent atelectasis.
[facility] imaging:
MRI brain without/with contrast 12/22/2024:
Multiple intracranial masses identified in the supratentorial and infratentorial compartment. Multiplicity of the lesions raises metastasis as primary differential consideration. Dominant partially solid and cystic lesion in the left temporal lobe
is associated with a large amount of vasogenic edema and compression of the atrium and occipital horn of the left lateral ventricle. Additional dominant lesion in the left frontal lobe associated with mild vasogenic edema. There is diffuse left
hemispheric cerebral edema with approximately 3 mm rightward midline shift as well as a mild medial deviation of the left uncus concerning for impending uncal herniation.
Mild lack of FLAIR suppression noted within the left cerebral sulci without appreciable leptomeningeal enhancement. This could be related to venous congestion in the setting of cerebral edema. Leptomeningeal metastasis considered less likely but
not entirely excluded.
CT head without contrast 12/23/2024: Left frontal and parietal as well as right cerebellar lesions. Suggestive of metastasis. Left parietal large vasogenic edema with mass effect and 4 mm midline shift to the right. Periventricular chronic small
vessel ischemia and volume loss.
CT chest/abdomen/pelvis without IV contrast 12/22/2024: 2.2 cm spiculated right upper lobe mass consistent with neoplasm. No other concerning masses. No concerning lymphadenopathy.
Total time spent today was 58 minutes for this encounter. Time includes reviewing laboratory test/imaging results, reviewing pertinent medical records, obtaining and reviewing medical history, performing an appropriate exam, ordering medications,
tests and procedures. Time also includes documentation of this encounter, coordinating patient care and communicating with other healthcare professionals. Total time does not include separately billed tests performed on this date of service.
--- NOTE | 2025-01-30 08:19 | PTCARENOTE ---
Pt received from night shift manager RN. AAOx2-3, impulsive, forgetful and disorganized. Neuro checks intact. NSR on tele, + pulses, no edema. KH SCDs in place. BReath sounds diminished, currently on RA with a 94% sat. Currently on a CLD, pt tells me she
feels like she has a good appetite, she just wants browning and eggs. BRP x1, HOB 30�. IV sites intact. Call romero within reach.
[2025-01-30] MEDS: SPIRIVA RESPIMAT 2.5 MCG 2 PUFF INH (08:22)
[2025-01-30] MEDS: STRIVERDI RESPIMAT 2 PUFF INH (08:22)
--- NOTE | 2025-01-30 09:35 | CON.NS ---
Chief Complaint
-
syncope, known brain mets
History of Present Illness
Harleen is a 69 yo female known to our service for mutliple brain mets. She recently completed XRT and her steroids were stopped on saturday of this past week. She had a syncopal episode and was brought to the ER for evaluation. During the week she was
complaining of headache. Since being admited she has been having speech difficulty. She has been started on high dose steroids.
Review of Systems
-
10 pt ROS completed
Medication and Allergies
Home Medications
Home Medications
�Medication �Instructions �Recorded
metoprolol tartrate 100 mg tablet 100 mg PO BID Blood Pressure 04/04/19
mometasone 220 mcg/actuation(120 1 inh inhalation R BID sob 06/05/23
doses)breath activated powder
inhaler (Asmanex Twisthaler)
pantoprazole 40 mg tablet,delayed 40 mg PO DAILY Gastrointestinal 06/05/23
release Issue
tiotropium 2.5 mcg-olodaterol 2.5 2 puff inhalation R DAILY 06/05/23
mcg/actuation mist for inhalation Lung/Breathing Issues
(Stiolto Respimat)
atorvastatin 10 mg tablet 10 mg PO HS High Cholesterol 06/28/23
therapeutic multivitamin 1 tab PO DAILY Supplement ##0 08/23/23
lisinopril 40 mg tablet 40 mg PO HS Blood Pressure 12/21/24
amlodipine 5 mg tablet (Norvasc) 5 mg PO DAILY Blood Pressure 01/29/25
atorvastatin 10 mg tablet (Lipitor) 10 mg PO DAILY High Cholesterol 01/29/25
folic acid 1 mg tablet 1 mg PO DAILY Supplement 01/29/25
levetiracetam 500 mg tablet 500 mg PO DAILY Seizures 01/29/25
(Keppra)
memantine 10 mg tablet 10 mg PO BID Mental Health/Anxiety 01/29/25
ondansetron HCl 8 mg tablet 8 mg PO [id number] PRN nausea 01/29/25
Allergies
Allergies
Allergy/AdvReac Type Severity Reaction Status Date / Time
codeine Allergy headache Verified 01/29/25 22:06
Physical Exam
-
Exam:
speech clear
MAEx4 without drift
sensory intact
CN's intact
no cerebellar findings
mild right UE weakness
CT head:
Redemonstration of multiple intraparenchymal masses, with increased size of masses in the left frontal lobe, right occipitotemporal lobe, and right cerebellum compared to the previous head CT from 12/21/2024. Stable size of the mass in the left
parietal lobe with a large amount of surrounding vasogenic edema. Slightly increased rightward midline shift.
My interpretation of her films shows relative stability except for some mild increase in left frontal lesion edema
Problems
-
Problem Status Onset Code
Confusion R41.0
Assessment / Plan
-
Brain metastasis
-Likely post radiation effect causing patients presentation
-Rec for 6q6 IV decadron x 24 hours followed by slow taper to off over 5 days (can be transitioned to PO after 24 hours on IV)
-no surgical needs
-continue keppra
-ok to downgrade level of care
-will sign off, reconsult prn
--- NOTE | 2025-01-30 10:01 | W.PN.HOSP.TC ---
Today's Communication/Plan
-
Maintained on steroids
Sodium bicarb 3 doses
Await further recommendation by neurosurgery/radiation oncology
Assessment / Plan
Assessment / Plan
Left Frontal Lobe Mass with Mild Vasogenic Edema
Left Parietal Lobe Mass with Significant Vasogenic Edema
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
Expressive Aphasia / Confusion secondary to the above
- Admit to ICU for further evaluation and treatment.
- Restart IV dexamethasone at 6mg q6 and begin to taper after initial 24 hours.
- Continue Keppra for seizure prophylaxis. Monitor for any seizure-like activity.
- Monitor BP with goal for normotension. IV hydralazine if needed.
- Follow for any changes in neurologic exam.
- s/p XRT and scheduled to begin chemo Saturday.
- Local RadOnc /neurosurgery and oncology has been consulted for further help
- Has appt with [facility] on Saturday and would like to make that appt if at all possible.
Benign Hypertension
- BP somewhat elevated at present - see above re: BP control.
- Continue metoprolol and amlodipine with holding parameters.
- Avoid hypotension.
COPD without Acute Exacerbation
- Albuterol PRN.
Hyponatremia
- Suspecting euvolemic in nature, sodium is improved from 127 to 131
- continue monitor
Metabolic acidosis
- reason unclear, provide some oral bicarb
DVT Prophylaxis: SCDs
Code Status: Full
Total critical care time 39 mins . Total critical care time documented does not include time spent on separately billed procedures or the services of residents, students, nurses or physician assistants. I personally saw and examined the patient. I
have reviewed all diagnostic interpretations and treatment plans as written. I was present for the boudreaux portions of any procedures performed and the inclusive time noted in any critical care statement. Critical care time includes patient management
by me, time spent at the patients bedside, time to review lab and imaging results, discussing patient care, documentation in the medical record, and time spent with the family or caregiver.
Anticipated Discharge: 24 - 48 hours
Subjective/Interval History
-
Date of Service: January 30, 2025
Patient sitting comfortably in bed
Remains forgetful and somewhat disoriented
Have left-sided headache
No nausea or vomiting
No repeat episode of syncope reported
No seizure-like activity reported
Objective Data
-
Labs:
Laboratory Results
01/30/25
05:14
WBC 10.7
Hgb 12.9
Hct 36.6 L
Plt Count 285
PT 12.9
INR 0.94
APTT 25.2
Sodium 131 L
Potassium 4.8
Chloride 106
Carbon Dioxide 20 L
BUN 13
Creatinine 0.5 L
Glucose 128 H
Calcium 9.4
Vital Signs:
Vital Signs
Temp Pulse Resp BP Pulse Ox
98.0 F 85 18 139/71 94
01/30/25 08:00 01/30/25 08:28 01/30/25 08:28 01/30/25 07:54 01/30/25 08:44
I&O
01/29/25 01/30/25 01/31/25
06:59 06:59 06:59
Intake Total 50 / 50
Balance 50 / 50
Review of Systems
-
Respiratory: Reports No Symptoms
Cardiac: Reports No Symptoms
Abdomen/GI: Reports No Symptoms
Physical Exam
-
General: No Apparent Distress and Comfortable
HEENT: Negative Oxygen
Respiratory: Clear to Auscultation
Cardiac: Regular Rhythm and S1/S2; Negative Murmur or Rub
GI: Soft, Nontender and Nondistended
Musculoskeletal: No Edema
Neuro: Awake, Alert, No Motor Deficits and Nonfocal/Grossly Intact; Negative Oriented
Psych: Calm
[2025-01-30] MEDS: SODIUM BICARBONATE 650 MG PO ×2 (10:21→21:08)
--- NOTE | 2025-01-30 10:34 | CM ---
CM following re: discharge planning.
Reviewed p[t's chart, met with pt. pt's and daughter Marii at bedside.
Pt is a 69 year old female, admitted with primary dx of Left Frontal Lobe Mass with Mild Vasogenic Edema. PMH significant for lung cancer with metastases to the brain.
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 pt described herself as independent in all areas [employer]. No DME, VN or SNF history. Pt stated she wll start chemotherapy on coming Saturday. Pt expressed
her desire to return back home at discharge.
PCP: Winifred Catalan
Pharmacy: [facility].
D/C plan: home with anticipated no needs. to transport at discharge.
CM will follow with discharge plan updates as hospitalization progresses
--- NOTE | 2025-01-30 11:45 | PTOTSP ---
Speech Pathology
Clinical Swallow Evaluation
69F with admission for brain masses with edema presents with a functional oropharyngeal swallow. No overt concerns for aspiration or dysphagia this date. Recent lung cancer dx with mets to brain. Recently finished up XRT. Steroids stopped on
Saturday, but has since been resumed during this admission. New c/o difficulties with speech and word finding that was observed during today's evaluation. Family/caregivers state that word finding difficulties have been present in the past, but
resolved with steroid use.
Recommend:
1. Regular textures (IDDSI 7), thin liquids (IDDSI 0)
2. Meds whole with thin liquid wash
3. Reflux precautions
4. [facility]ITEM service to follow up re: to assess diet level tolerance; perform cognitive-communication evaluation
--- NOTE | 2025-01-30 13:08 | PTCARENOTE ---
Pt reassessed, neuro checks intact. OOB to chair. Pt complaining of a 5/10 MONTES DE OCA, worsens intermittently while ambulating with staff. No further complaints. Medicated with tylenol and pt now resting back in bed.
--- NOTE | 2025-01-30 13:26 | CON.ONC ---
Consultation
-
Date Consultation Requested: 01/30/25
Date Consultation Performed: 01/30/25
Requesting Provider: Igor collado
Performing Provider: jose ramon deras
Reason for Consultation: increase size of brain mets
Impression
Impression
- syncope
- ACCOUNT COORDINATOR metastases
- stage IV NSCLC not yet on tx
Plan
Plan
- presenting after syncopal episode at home that was proceeded by worsening headaches since stopping steroids 01/25. CT head with slightly increased size of multiple brain masses with mild vasogenic edema.
- radiation-oncology consulted, no role for additional XRT as completed WBRT 01/11.
- neurosurgery consulted. no surgical intervention with multiple lesions.
- dex 10 followed by dex 6q6 started. continue and can likely wean to dex 4 q8 to continue on discharge.
- pt scheduled to start systemic therapy 02/03 which is best next step to help get control of disease and symptoms. ideally will be able to be discharged to home in next 48 hours to proceed.
Patient History
History of Present Illness
Ms Palacios is a 69y F with oncological hx significant for newly diagnosed lung adenocarcinoma in December with RUL mass, thoracic adenopathy and multiple brain metastases s/p WBRT (completed 01/06) who presented to ED for evaluation of syncopal episode
at home. CT head on admission showed same number of ACCOUNT COORDINATOR lesions with stable larger left parietal lesion however mild growth in size of 3.8 cm, 1.5 cm, 1.6 cm lesions with ongoing mild vasogenic edema. She had weaned off her dexamethasone on 01/25.
She is scheduled to start systemic therapy with carbo/ alimta/Keytruda on 02/03. Pt was experiencing headaches over this week which improved with tylenol and now are almost gone. she notes pain in left hip however this is chronic condition pre-dating
cancer diagnosis, no bone lesion on PET/CT. Denies change in vision, dizziness, gait disturbance, slurred speech now or leading up to event. Her daughter notes some word finding difficulty.
Past-Medical/Surgical History
stage IV lung adenocarcinoma
HTN
HLD
COPD
Patient Medication
�Medication �Instructions �Recorded �Confirmed �Last Taken �Type
metoprolol tartrate 100 mg tablet 100 mg PO BID Blood Pressure 04/04/19 12/21/24 08/29/23 05:30 History
mometasone 220 mcg/actuation(120 1 inh inhalation R BID sob 06/05/23 12/21/24 08/29/23 05:30 History
doses)breath activated powder
inhaler (Asmanex Twisthaler)
pantoprazole 40 mg tablet,delayed 40 mg PO DAILY Gastrointestinal 06/05/23 12/21/24 08/29/23 05:30 History
release Issue
tiotropium 2.5 mcg-olodaterol 2.5 2 puff inhalation R DAILY 06/05/23 12/21/24 08/26/23 History
mcg/actuation mist for inhalation Lung/Breathing Issues
(Stiolto Respimat)
atorvastatin 10 mg tablet 10 mg PO HS High Cholesterol 06/28/23 12/21/24 08/28/23 23:30 History
therapeutic multivitamin 1 tab PO DAILY Supplement ##0 08/23/23 12/21/24 08/15/23 History
lisinopril 40 mg tablet 40 mg PO HS Blood Pressure 12/21/24 12/21/24 Unknown History
amlodipine 5 mg tablet (Norvasc) 5 mg PO DAILY Blood Pressure 01/29/25 Unknown History
atorvastatin 10 mg tablet (Lipitor) 10 mg PO DAILY High Cholesterol 01/29/25 Unknown History
folic acid 1 mg tablet 1 mg PO DAILY Supplement 01/29/25 Unknown History
levetiracetam 500 mg tablet 500 mg PO DAILY Seizures 01/29/25 Unknown History
(Keppra)
memantine 10 mg tablet 10 mg PO BID Mental Health/Anxiety 01/29/25 Unknown History
ondansetron HCl 8 mg tablet 8 mg PO [id number] PRN nausea 01/29/25 Unknown History
Active Medications
Generic Name Dose Route Start Last Admin
Trade Name Freq PRN Reason Stop Dose Admin
Acetaminophen 650 mg 01/30/25 01:08 01/30/25 12:45
Acetaminophen 325 Mg Tablet PO 02/27/25 01:07 650 mg
Q4HPRN PRN Administration
Mild Pain / Temp > 101
Albuterol Sulfate 2.5 mg 01/30/25 01:08
Albuterol Nebs 2.5 Mg/3 Ml Ampul INH
R Q4HPRN PRN
SOB
Protocol
Amlodipine Besylate 5 mg 01/30/25 08:00 01/30/25 07:54
Amlodipine 5 Mg Tablet PO 02/27/25 07:59 5 mg
DAILY HILDA Administration
Atorvastatin Calcium 10 mg 01/30/25 22:00
Atorvastatin (Lipitor) 10 Mg Tablet PO 02/27/25 21:59
HS HILDA
Dexamethasone Sodium Phosphate 6 mg 01/30/25 01:08 01/30/25 12:46
Dexamethasone 4 Mg/Ml 1 Ml Vial IV 02/27/25 01:07 6 mg
Q6 HILDA Administration
Hydralazine HCl 5 mg 01/30/25 01:08
Hydralazine 20 Mg/Ml Vial IV 02/27/25 01:07
Q4HPRN PRN
SBP > 160
Hydromorphone HCl 0.5 mg 01/30/25 01:08
Hydromorphone 0.5 Mg/0.5 Ml Syringe IV 02/13/25 01:07
Q4HPRN PRN
Severe Pain
Levetiracetam 500 mg 01/30/25 08:00 01/30/25 07:54
Levetiracetam 500 Mg Regular Release Tablet PO 02/27/25 07:59 500 mg
BID HILDA Administration
Metoprolol Tartrate 100 mg 01/30/25 08:00 01/30/25 07:54
Metoprolol 100 Mg Regular Release Tablet PO 02/27/25 07:59 100 mg
BID HILDA Administration
Olodaterol 2 puff 01/30/25 08:00 01/30/25 08:22
Olodaterol (Striverdi Respimat) 2.5 Mcg Inhaler INH 02/27/25 07:59 2 puff
R DAILY HILDA Administration
Ondansetron HCl 4 mg 01/30/25 01:08
Ondansetron 4 Mg/2 Ml Vial IV 02/27/25 01:07
Q6HPRN PRN
nausea and vomiting
Sodium Bicarbonate 650 mg 01/30/25 11:00 01/30/25 10:21
Sodium Bicarbonate 650 Mg Tablet PO 01/31/25 08:01 650 mg
BID HILDA Administration
Sodium Chloride 0 flush 01/29/25 23:00
Sodium Chloride 0.9% (Flush) Syringe IV 02/26/25 22:59
PER PROTOCOL HILDA
Tiotropium Loman 2 puff 01/30/25 08:00 01/30/25 08:22
Tiotropium (Spiriva Respimat) 2.5 Mcg Inhaler INH 02/27/25 07:59 2 puff
R DAILY HILDA Administration
Review of Systems
-
History Source: Patient and Family (daughter )
Constitutional: Denies Fever
Respiratory: Reports Cough and Trouble Breathing
Cardiac: Denies Chest Pain
Musculoskeletal: Reports Joint Pain; Denies Joint Swelling
Neuro: Reports Headache; Denies Dizzy, Weakness or Ataxia
Physical Exam
-
General: Well Developed, Well Nourished and No Apparent Distress
HEENT: Other (alopecia ); Negative Jaundice
Cardiology: Normal Sinus Rhythm
Pulmonary: Clear; Negative Wheezes
Musculoskeletal: No Cyanosis and No Edema
Neurology: Non Focal and No Lateralizing Symptoms
Psych: Calm
Labs
Lab Results
WBC 10.7 10^3/uL (4.8-10.8) 01/30/25 05:14
RBC 4.15 10^6/uL (4.20-5.40) L 01/30/25 05:14
Hgb 12.9 g/dL (12.0-16.0) 01/30/25 05:14
Hct 36.6 % (37.0-47.0) L 01/30/25 05:14
MCV 88.2 fL (81.0-99.0) 01/30/25 05:14
MCH 31.1 pg (27.0-31.0) H 01/30/25 05:14
MCHC 35.2 g/dL (33.0-37.0) 01/30/25 05:14
RDW 15.1 % (11.5-14.5) H 01/30/25 05:14
Plt Count 285 10^3/uL (130-400) 01/30/25 05:14
MPV 9.8 fL (7.4-10.4) 01/30/25 05:14
Abs Immat Gran (auto) 0.1 10^3/uL (0-0.05) H 01/29/25 16:44
Absolute Neuts (auto) 6.3 10^3/uL (1.4-6.5) 01/29/25 16:44
Absolute Lymphs (auto) 1.2 10^3/uL (1.2-3.4) 01/29/25 16:44
Absolute Monos (auto) 0.5 10^3/uL (0.1-0.6) 01/29/25 16:44
Absolute Eos (auto) 0.0 10^3/uL (0-0.7) 01/29/25 16:44
Absolute Basos (auto) 0.0 10^3/uL (0-0.2) 01/29/25 16:44
Immature Gran % 1.6 % (0-0.5) H 01/29/25 16:44
Neutrophils % 76.8 % (42.2-75.2) H 01/29/25 16:44
Lymphocytes % 14.7 % (20.5-51.1) L 01/29/25 16:44
Monocytes % 6.1 % (1.7-9.3) 01/29/25 16:44
Eosinophils % 0.4 % (0-6) 01/29/25 16:44
Basophils % 0.4 % (0-2) 01/29/25 16:44
Creatinine 0.5 mg/dL (0.6-1.0) L 01/30/25 05:14
Vital Signs
Vital Signs
Temp Pulse Resp BP Pulse Ox
98.4 F 84 17 102/66 95
01/30/25 12:09 01/30/25 13:00 01/30/25 13:00 01/30/25 13:00 01/30/25 13:00
[2025-01-30] MEDS: FLOVENT 220 MCG INHALER 2 PUFF INH (19:49)
[2025-01-30] MEDS: LIPITOR 10 MG PO (21:08)
--- NOTE | 2025-01-30 21:30 | TRANSFER ---
Received pt via wheelchair as a telemetry downgrade from ICU; AAOx3, offers no complaints, denies pain. Full assessment as documented. Neurological check performed, unchanged from previous, see flowsheet. Pt is oriented but forgetful/impulsive, bed
alarm in place for pt safety. Oriented to new unit, room and call romero, resting comfortably at this time.
[2025-01-31 03:04] VITALS: BP 161/93
[2025-01-31] MEDS: DECADRON 6 MG IV ×2 (06:06→11:27)
[2025-01-31 07:00] VITALS: BP 153/80
[2025-01-31] MEDS: SODIUM BICARBONATE 650 MG PO (07:53)
[2025-01-31] MEDS: SPIRIVA RESPIMAT 2.5 MCG 2 PUFF INH (07:54)
[2025-01-31] MEDS: LOPRESSOR 100 MG PO (07:54)
[2025-01-31] MEDS: STRIVERDI RESPIMAT 2 PUFF INH (07:54)
[2025-01-31] MEDS: NORVASC 5 MG PO (07:54)
[2025-01-31] MEDS: FLOVENT 220 MCG INHALER 2 PUFF INH (07:54)
[2025-01-31] MEDS: KEPPRA 500 MG PO (07:54)
[2025-01-31 08:21] LABS: Blood Urea Nitrogen 18 mg/dl (7-17); Calcium 9.7 mg/dl (8.4-10.2); Carbon Dioxide 25 mmol/L (22-30); Chloride 100 mmol/L (98-107); Estimated Creatinine Clearance 82 ml/min; Glucose 134 mg/dl (70-99); Magnesium 2.2 mg/dl (1.6-2.3); Phosphorus 2.9 mg/dl (2.5-4.5); Potassium 4.7 mmol/L (3.5-5.1); Sodium 132 mmol/L (135-145); eGFR > 60.00
[2025-01-31 08:33] LABS: Hematocrit 36.7 % (37.0-47.0); Hemoglobin 12.7 g/dL (12.0-16.0); Mean Corp Hgb Conc. 34.6 g/dL (33.0-37.0); Mean Corpuscular Volume 89.5 fL (81.0-99.0); Mean Platelet Volume 10.6 fL (7.4-10.4); Platelet Count 344 10^3/uL (130-400); Red Cell Dist. Width 15.4 % (11.5-14.5); White Blood Cell Count 17.1 10^3/uL (4.8-10.8)
[2025-01-31 11:00] VITALS: BP 135/66
--- NOTE | 2025-01-31 11:32 | W.PN.HOSP.TC ---
Today's Communication/Plan
-
d/c home
Assessment / Plan
Assessment / Plan
Left Frontal Lobe Mass with Mild Vasogenic Edema
Left Parietal Lobe Mass with Significant Vasogenic Edema
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
Expressive Aphasia / Confusion secondary to the above
- Continue Keppra for seizure prophylaxis. Monitor for any seizure-like activity.
- Follow for any changes in neurologic exam.
- s/p XRT and scheduled to begin chemo Saturday.
- Not a candidate for further radiation as patient just finished radiation therapy on 01/11.
- Patient is recommended to be discharged on dexamethasone 4 mg every 8 hour by neurology
- Has appt with [facility] on Saturday and would like to make that appt if at all possible.
Benign Hypertension
- BP somewhat elevated at present - see above re: BP control.
- Continue metoprolol and amlodipine with holding parameters.
- Avoid hypotension.
COPD without Acute Exacerbation
- Albuterol PRN.
Hyponatremia
- Suspecting euvolemic in nature, sodium is improved from 127 to 131
- continue monitor
Metabolic acidosis
- reason unclear, provide some oral bicarb
DVT Prophylaxis: SCDs
Code Status: Full
More than 30 minutes spent in discharge including
Final examination of the patient
Summarizing hospital stay
Instructions for continuing care to all relevant caregivers
Preparation of discharge records, prescriptions, and referral forms
Total time spent (in minutes): 40mins
Anticipated Discharge: Today
Subjective/Interval History
-
Date of Service: January 31, 2025
Mentation is improved
Has some headache
No nausea or vomiting
Objective Data
-
Labs:
Laboratory Results
01/31/25
06:30
WBC 17.1 H
Hgb 12.7
Hct 36.7 L
Plt Count 344 D
Sodium 132 L
Potassium 4.7
Chloride 100
Carbon Dioxide 25
BUN 18 H
Creatinine 0.6
Glucose 134 H
Calcium 9.7
Vital Signs:
Vital Signs
Temp Pulse Resp BP Pulse Ox
98.2 F 78 16 135/66 98
01/31/25 11:00 01/31/25 11:00 01/31/25 11:00 01/31/25 11:00 01/31/25 11:00
I&O
01/30/25 01/31/25 02/01/25
06:59 06:59 06:59
Intake Total 50 / 50 480 / 480
Balance 50 / 50 480 / 480
Review of Systems
-
Respiratory: Reports No Symptoms
Cardiac: Reports No Symptoms
Abdomen/GI: Reports No Symptoms
Physical Exam
-
General: No Apparent Distress and Comfortable
HEENT: Negative Oxygen
Respiratory: Clear to Auscultation
Cardiac: Regular Rhythm and S1/S2; Negative Murmur or Rub
GI: Soft, Nontender and Nondistended
Musculoskeletal: No Edema
Neuro: Awake, Alert, No Motor Deficits and Nonfocal/Grossly Intact; Negative Oriented
Psych: Calm
--- NOTE | 2025-01-31 11:52 | W.PN.ONC2 ---
Today's Communication / Plan
-
- ok to d/c today from onc standpoint on Dex 4q8hrs.
Impression
Impression
- syncope
- TRAFFIC LIEUTENANT metastases
- stage IV NSCLC not yet on tx
Plan
Plan
- presenting after syncopal episode at home that was proceeded by worsening headaches since stopping steroids 01/25. CT head with slightly increased size of multiple brain masses with mild vasogenic edema.
- radiation-oncology consulted, no role for additional XRT as completed WBRT 01/11.
- neurosurgery consulted. no surgical intervention with multiple lesions.
- dex 10 followed by dex 6q6 started. can decrease and continue dex 4 q8 to on discharge. will taper after systemic tx started.
- pt scheduled to start systemic therapy 02/03 which is best next step to help get control of disease and symptoms. MONTES DE OCA now resolved and stable for discharge.
Subjective/Objective
Chief Complaint
TRAFFIC LIEUTENANT metastases, MONTES DE OCA, syncope
Subjective
pt with resolution of MONTES DE OCA since steroids restarted. No dizziness or lightheadedness.
Vital Signs:
Vital Signs
Temp Pulse Resp BP Pulse Ox
98.2 F 78 16 135/66 98
01/31/25 11:00 01/31/25 11:00 01/31/25 11:00 01/31/25 11:00 01/31/25 11:00
Lab Results:
Laboratory Data
WBC 17.1 10^3/uL (4.8-10.8) H 01/31/25 06:30
Hgb 12.7 g/dL (12.0-16.0) 01/31/25 06:30
Plt Count 344 10^3/uL (130-400) D 01/31/25 06:30
PT 12.9 Sec (11.4-14.6) 01/30/25 05:14
INR 0.94 01/30/25 05:14
APTT 25.2 Sec (23.4-35.0) 01/30/25 05:14
eGFR > 60.00 01/31/25 06:30
Physical Exam
HEENT: No Jaundice
Cardiology: Normal Sinus Rhythm
Pulmonary: Clear
Extremities: No Edema
Neuro: Non Focal
Review of Systems
Review of Systems
Constitutional: Reports Fatigue; Denies Fever
Respiratory: Denies Dyspnea
Cardiovascular: Denies Chest Pain
Neurological: Denies Headache or Numbness
--- NOTE | 2025-01-31 13:25 | W.DCSUMMARY ---
Discharge Summary
Discharge Data
Date of Admission: 01/29/25
Date of Discharge: 01/31/25
-
Pending Results: No
Hospital Course
Discharging Physician : Dr Igor Barnes
Disposition : To home
Primary care physician : Dr Winifred Catalan
Principal Discharge diagnosis :
Left frontal lobe parietal lobe mass with vasogenic edema
Acute metabolic encephalopathy
Syncope
Chronic Discharge diagnosis :
Essential hypertension
Chronic obstructive pulmonary disease
Chronic hyponatremia
Hyperlipidemia
Hospital Course :
Patient is 69-year-old female with above-mentioned past medical history was brought into [place] ER after having a syncope episode. Patient history of brain mets from primary lung cancer and undergone brain radiation course just recently. Patient
is planned to follow-up with [facility] oncology for initiation of chemotherapy. In ER patient had CT head which showed left frontal lobe/parietal lobe mass with vasogenic edema surrounded. Patient was started on IV steroids.
Neurosurgery/oncology/radiation oncology were involved in care. As patient just recently finished radiation therapy no further radiation was recommended. Not a candidate for any kind of surgery either. Patient was planned to be managed on IV
steroids with which patient had improvement in symptoms within 48 hours. At discharge patient transition to oral dexamethasone 4 mg every 8 hour with patient have a follow-up with you by oncology tomorrow.
Important imaging findings :
None
Procedure findings :
None
Discharge Plan
-
Patient Disposition: Home (Routine Discharge)
Discharge Diagnosis/Procedures: Cerebral edema from metastatic lung cancer
Condition: Fair
Diet: Regular
Activity: As tolerated
Driving Restrictions: As prior to admission
Bathing Restrictions: OK to Shower
Referrals:
Haseeb Trevino MD [Active] - in two to three weeks
Winifred Catalan DO [Family Provider] - in one week
Prescriptions:
New
dexamethasone 4 mg tablet
4 mg PO Q8H Qty: 90 1RF
Continued
metoprolol tartrate 100 MG tablet
100 mg PO BID
Asmanex Twisthaler 220 mcg/ actuation (120) aerosol powdr breath activated
1 inh INHALATION R BID
Stiolto Respimat 2.5-2.5 mcg/actuation mist
2 puff INHALATION R DAILY
pantoprazole 40 MG tablet,delayed release (DR/EC)
40 mg PO DAILY
atorvastatin 10 mg Tablet
10 mg PO HS
therapeutic multivitamin Tablet
1 tab PO DAILY Qty: 0
lisinopril 40 mg Tablet
40 mg PO HS
atorvastatin [Lipitor] 10 mg Tablet
10 mg PO DAILY
levetiracetam [Keppra] 500 mg Tablet
500 mg PO DAILY
ondansetron HCl 8 mg Tablet
8 mg PO [id number] PRN (Reason: nausea)
amlodipine [Norvasc] 5 mg Tablet
5 mg PO DAILY
folic acid 1 mg Tablet
1 mg PO DAILY
memantine 10 mg Tablet
10 mg PO BID
Discharge Orders:
Discharge Patient (As Directed); Ordered 01/31/25
Ordered By: Igor Barnes
Discharge Date and Time
Discharge Date/Time: 01/31/25 12:01
Print Language: [id number]
== END 2025-01-31 12:01 | disposition home or self-care (01) | DRG 80 ==
LOC: 2 NORTH 22:45
PROVIDERS: Nurse Practitioner; Nurse Practitioner Family; ADMITTING PHYSICIAN Hospitalist; ATTENDING PHYSICIAN Hospitalist; CONSULT PHYSICIAN Internal Medicine Critical Care Medicine; CONSULT PHYSICIAN Internal Medicine Hematology & Oncology; EMERGENCY PHYSICIAN Emergency Medicine; FAMILY PHYSICIAN Family Medicine; OTHER PHYSICIAN Neurological Surgery
DX: G93.6 Cerebral edema (principal); G93.41 Metabolic encephalopathy; C34.90 Malignant neoplasm of unspecified part of unspecified bronchus or lung; E87.20 Acidosis, unspecified; C79.31 Secondary malignant neoplasm of brain; E87.1 Hypo-osmolality and hyponatremia; R56.9 Unspecified convulsions; I10 Essential (primary) hypertension; J44.9 Chronic obstructive pulmonary disease, unspecified; E78.00 Pure hypercholesterolemia, unspecified; K21.9 Gastro-esophageal reflux disease without esophagitis; F41.9 Anxiety disorder, unspecified; Z87.891 Personal history of nicotine dependence; Z92.3 Personal history of irradiation; Z79.899 Other long term (current) drug therapy
CPT/HCPCS: 70450; 71045; 80048; 80053; 83735; 84100; 85025; 85027; 85610; 85730; 92610; 93005; 94640; 96374; 96375; 97163; 97167; 99285

== ENCOUNTER → 2025-02-10 10:07 | Outpatient (REF) | payer MEDICARE, BC, SELFPAY ==
[2025-02-10 11:25] LABS: Hematocrit 34.2 % (37.0-47.0); Hemoglobin 11.7 g/dL (12.0-16.0); Mean Corp Hgb Conc. 34.2 g/dL (33.0-37.0); Mean Corpuscular Volume 90.5 fL (81.0-99.0); Mean Platelet Volume 11.2 fL (7.4-10.4); Platelet Count 162 10^3/uL (130-400); Red Blood Cell Count 3.78 10^6/uL (4.20-5.40); Red Cell Dist. Width 15.1 % (11.5-14.5); White Blood Cell Count 32.5 10^3/uL (4.8-10.8)
[2025-02-10 11:51] LABS: % Immature Granulocytes 7.5 % (0-0.5); % Lymphocytes 1.8 % (20.5-51.1); % Monocytes 3.4 % (1.7-9.3); % Neutrophils 87.3 % (42.2-75.2); Absolute Immature Granulocytes 2.4 10^3/uL (0-0.05); Absolute Lymphocytes 0.6 10^3/uL (1.2-3.4); Absolute Monocytes 1.1 10^3/uL (0.1-0.6); Absolute Neutrophils 28.3 10^3/uL (1.4-6.5); Nucleated Red Blood Cells % 0 %
[2025-02-10 11:58] LABS: ALT (SGPT) 27 U/L (0-35); AST (SGOT) 19 U/L (14-36); Albumin 3.8 g/dl (3.5-5.0); Alkaline Phosphatase 104 U/L (38-126); Blood Urea Nitrogen 20 mg/dl (7-17); Calcium 8.9 mg/dl (8.4-10.2); Carbon Dioxide 28 mmol/L (22-30); Chloride 98 mmol/L (98-107); Glucose 89 mg/dl (70-99); Potassium 4.5 mmol/L (3.5-5.1); Sodium 130 mmol/L (135-145); Total Bilirubin 0.9 mg/dl (0.2-1.3); Total Protein 5.9 g/dl (6.3-8.2); eGFR > 60.00
[2025-02-10 12:12] LABS: Free T4 1.18 ng/dl (0.78-2.19)
[2025-02-10 12:26] LABS: TSH 0.14 uIU/ml (0.47-4.68)
[2025-02-13 01:29] LABS: Total T3 (Sendout) 38 ng/dL (80-200)
== END ==
LOC: REG 10:07
PROVIDERS: ATTENDING PHYSICIAN Internal Medicine Hematology & Oncology; FAMILY PHYSICIAN Family Medicine
DX: C34.12 Malignant neoplasm of upper lobe, left bronchus or lung (principal); Z79.899 Other long term (current) drug therapy
CPT/HCPCS: 36415; 80053; 84439; 84443; 84480; 85025

== ENCOUNTER 2025-02-13 23:45 | Observation (INO) | payer MEDICARE, BC, SELFPAY ==
[2025-02-13 20:02] VITALS: BP 190/86
[2025-02-13] MEDS: MORPHINE SULFATE 2 MG IV (21:22)
[2025-02-13 21:26] LABS: Hematocrit 28.6 % (37.0-47.0); Hemoglobin 10.3 g/dL (12.0-16.0); Mean Corpuscular Hgb 31.5 pg (27.0-31.0); Mean Corpuscular Volume 87.5 fL (81.0-99.0); Mean Platelet Volume 11.8 fL (7.4-10.4); Platelet Count 106 10^3/uL (130-400); Red Blood Cell Count 3.27 10^6/uL (4.20-5.40); Red Cell Dist. Width 14.7 % (11.5-14.5); White Blood Cell Count 15.8 10^3/uL (4.8-10.8)
--- NOTE | 2025-02-13 21:36 | ED.GENMED ---
History of Present Illness
General
Chief Complaint: Back Pain
Time Seen by Provider: 02/13/25 20:48
History of Present Illness
History of Present Illness:
Patient presents to the emergency department with lower abdominal and lower back pain. Gradual onset throughout this afternoon. Denies any fevers chills, nausea, vomiting, diarrhea, constipation. Denies urinary symptoms. Has a history of lung
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 She is currently on chemo and radiation. Denies any injury. Denies any pain shooting down the legs. Denies any incontinence or anesthesia between her legs
Past History
Past History
ED Past Medical History: COPD, GERD, HTN and Other
ED Past Surgical History: Orthopedic (Knee surgery)
Social History
Tobacco: Former smoker
Alcohol: Daily (7-7)
Personal:
Living: with family
Employment: Employed
Family History
Family History: Hypertension; Negative Early CAD, CAD or Sudden
Phy Exam
Physical Exam
Physical Exam:
GENERAL APPEARANCE: NAD, well developed/ well nourished
EYES lids/conjunctiva normal
EARS/NOSE/THROAT Mucous membranes moist, uvula midline without oral pharyngeal erythema, exudate or swelling
HEAD/NECK normocephalic atraumatic, neck is supple.
RESPIRATORY respiratory effort normal, speaks in full sentences, no accessory muscle use. Lungs clear to auscultation without rhonchi, wheezes, rales
CARDIAC Regular rate and rhythm, no edema.
ABDOMINAL Soft, mild lower abdominal ttp,
MUSCLES/EXTREMITIES No abnormal range of motion, no swelling.
BACK mild lower lumbar ttp diffusely, no visible or palpable abnormalities
SKIN Warm, pink and dry. No rashes
NEUROLOGICAL Speech is clear and appropriate. Normal level of consciousness. 5/5 strength in all extremities.
PSYCH Normal mood and affect. Judgement/competence is appropriate
Course
Orders/Labs/Results
Orders:
Orders
02/13/25 21:02
Morphine Sulfate 2 mg IV NOW STA
Bladder Scan As Directed
Follow Bladder Retention/Intermittent Cath Algorithm?: No
02/13/25 21:03
CT Abd/Pel (IV only)-DH only Urgent
Comment:
Reason For Exam: lower abdominal pain, low back pain, lung/brain CA
02/13/25 21:16
Complete Blood Count/With Diff Urgent
Comprehensive Metabolic Panel Urgent
02/13/25 22:05
Urinalysis Reflex To Culture Urgent
Date Specimen was Collected: 02/13/25
Time Specimen was Collected: 22:05
02/13/25 22:09
NSS 500mL Bolus over 30 minutes 0.9% Sodium Chloride 500 ml [Nss] 500 ml IV BOLUS
Abnormal Lab Results
02/13/25
21:16
WBC 15.8 H 10^3/uL
(4.8-10.8)
RBC 3.27 L 10^6/uL
(4.20-5.40)
Hgb 10.3 L g/dL
(12.0-16.0)
Hct 28.6 L %
(37.0-47.0)
MCH 31.5 H pg
(27.0-31.0)
RDW 14.7 H %
(11.5-14.5)
Plt Count 106 L D 10^3/uL
(130-400)
MPV 11.8 H fL
(7.4-10.4)
Sodium 126 L mmol/L
(135-145)
BUN 23 H mg/dl
(7-17)
Creatinine 0.5 L mg/dL
(0.6-1.0)
Glucose 104 H mg/dl
(70-99)
Calcium 8.2 L mg/dl
(8.4-10.2)
Total Protein 5.1 L g/dl
(6.3-8.2)
Albumin 3.1 L g/dl
(3.5-5.0)
02/13/25 21:16
02/13/25 21:16
Vital Signs
Initial and Last Documented VS:
Initial Vital Signs
Temp Pulse Resp BP Pulse Ox
97.9 F 72 18 190/86 98
02/13/25 20:02 02/13/25 20:02 02/13/25 20:02 02/13/25 20:02 02/13/25 20:02
Last Documented Vital Signs
Temp Pulse Resp BP Pulse Ox
97.9 F 72 18 190/86 98
02/13/25 20:02 02/13/25 20:02 02/13/25 20:02 02/13/25 20:02 02/13/25 20:02
*Critical Care Note
Total Time (30-74mins, 75-104mins- exclusive of procedures): Not Applicable
ED Attending Note
-
Portions of this chart may have been created with voice recognition software.� Occasional wrong word or��sound alike� substitutions may have occurred due to the inherent limitations of voice recognition software.
Discharge Plan
Departure
Prescriptions:
No Action
Asmanex Twisthaler 220 mcg/ actuation (120) aerosol powdr breath activated
1 inh INHALATION R BID
pantoprazole 40 MG tablet,delayed release (DR/EC)
40 mg PO DAILY
lisinopril 40 mg Tablet
40 mg PO HS
Neulasta 6 mg/0.6 mL Syringe
6 mg SC ONCE
pemetrexed disodium [Alimta] 500 mg Recon Soln
500 mg IV Q21D
Rx Instructions:
Carbo AUC 5 with Alimta (pemetrexed) every 21 days, for 6 cycles
levetiracetam [Keppra] 500 mg Tablet
500 mg PO DAILY
folic acid 1 mg Tablet
1 mg PO DAILY
memantine 10 mg Tablet
10 mg PO BID
dexamethasone 4 mg tablet
4 mg PO Q8H Qty: 90 1RF
Referrals:
Winifred Catalan DO [Family Provider, Family Practice]
Interventions
Interventions:
*Risk Screen - Suicide Last Done: 02/13/25 20:02
*General Assessment Last Done: 02/13/25 20:02
*Neglect/Abuse Screening Last Done: 02/13/25 20:02
*ED- Fall Risk Assessment Last Done: 02/13/25 21:40
ED-Musculoskeletal Assessment Last Done: 02/13/25 21:00
Discharge Date and Time
Print Language: ICELANDIC
[2025-02-13 21:48] LABS: ALT (SGPT) 26 U/L (0-35); AST (SGOT) 16 U/L (14-36); Albumin 3.1 g/dl (3.5-5.0); Alkaline Phosphatase 71 U/L (38-126); Blood Urea Nitrogen 23 mg/dl (7-17); Calcium 8.2 mg/dl (8.4-10.2); Carbon Dioxide 22 mmol/L (22-30); Chloride 102 mmol/L (98-107); Glucose 104 mg/dl (70-99); Potassium 4.3 mmol/L (3.5-5.1); Sodium 126 mmol/L (135-145); Total Bilirubin 0.4 mg/dl (0.2-1.3); Total Protein 5.1 g/dl (6.3-8.2); eGFR > 60.00
[2025-02-13 22:21] LABS: Urine Albumin Negative (Neg - Trace); Urine Bilirubin Negative (Negative); Urine Character Clear (Clear); Urine Color Yellow; Urine Glucose Negative (Negative); Urine Ketone Negative (Negative); Urine Leukocyte 1+ (Negative); Urine Nitrite Negative (Negative); Urine Occult Blood Negative (Negative); Urine Urobilinogen Negative (Neg - 1+); Urine pH 6.5 (5.0-9.0)
[2025-02-13 22:27] LABS: Urine Bacteria Moderate (Negative); Urine Red Blood Cell 0-2 /HPF (0-2); Urine Squamous Cell 0-2 /LPF (Few)
[2025-02-13] MEDS: NSS 500 IV (22:50)
[2025-02-13] MEDS: ROCEPHIN 1000 MG IV (23:13)
--- NOTE | 2025-02-13 23:33 | HPS.HSE ---
Family Physician
-
Family Physician: Winifred Catalan
Chief Complaint
-
Back Pain
History of Present Illness
Patient is a 69y F with PMH significant for lung cancer with mets to the brain who presents to ED complaining of back pain. Patient states that she had sudden onset of low back pain this afternoon. She denies any specific injury, heavy lifting,
fall, trauma, etc. She reports pain across the lower back / bilaterally. She also notes discomfort in the lower abdomen / pelvic area. Patient is followed by [facility] and started chemotherapy with her first dose on 02/03. Her treatment
was followed by Neulasta dose on 02/04.
Patient complains of feeling shaky / jittery on her current steroid dose. Prior attempts to wean her steroids have resulted in aphasia / confusion presentation due to increased cerebral edema (see prior admission 01/29 - 01/31).
Patient denies any fevers, cough, N/V/D. She states that she is urinating less than usual. No dysuria. No hematuria.
Medical History
Past Medical History
Past Medical History: Reports Other
Additional Past Medical History:
Lung Cancer with Mets to Brain
Hypertension
COPD
GERD
Diverticular Disease / Sigmoid Stricture
Anxiety / Depression
Past Surgical History: Reports Other
Additional Past Surgical History:
Robotic Low Anterior Resection / Sigmoidectomy with Primary Anastomosis
Right Knee Arthroscopy
Cataracts
Social History
Tobacco: Former Smoker
Alcohol: None
Drug: None
Family History
Family History: Other (Patient reports strong family history of malignancy.)
Allergies / Home Medications
Allergies reflects when Allergies were last updated in [facility].
Home Medications with original date entered in [facility]
Allergy/Medication List:
Allergies
Allergy/AdvReac Type Severity Reaction Status Date / Time
codeine Allergy headache Verified 01/29/25 22:06
Home Medications
mometasone 220 mcg/actuation(120 doses)breath activated powder inhaler (Asmanex Twisthaler) 1 inh inhalation R BID sob 06/05/23
pantoprazole 40 mg tablet,delayed release 40 mg PO DAILY Gastrointestinal Issue 06/05/23
folic acid 1 mg tablet 1 mg PO DAILY Supplement 01/29/25
levetiracetam 500 mg tablet (Keppra) 500 mg PO DAILY Seizures 01/29/25
dexamethasone 4 mg tablet 4 mg PO Q8H #90 tabs 01/31/25
pegfilgrastim 6 mg/0.6 mL subcutaneous syringe (Neulasta) 6 mg SC ONCE 02/12/25
pemetrexed disodium 500 mg intravenous powder for solution (Alimta) 500 mg IV Q21D 02/12/25
clonazepam 0.5 mg tablet 0.5 mg PO HS PRN Insomnia 02/13/25
ondansetron 8 mg disintegrating tablet 8 mg PO Q8H PRN N/V 02/13/25
Review of Systems
-
History Source: Patient
Constitutional: Reports Fatigue; Denies Fever
EENT: Denies Sore Throat
Respiratory: Denies Cough or Trouble Breathing
Cardiac: Denies Chest Pain or Palpitations
Abdomen/GI: Reports Abdominal Pain; Denies Nausea, Vomiting or Diarrhea
: Reports Difficulty Voiding; Denies Dysuria, Frequency, Urgency or Bleeding
Musculoskeletal: Reports Other (Low Back Pain); Denies Joint Pain or Edema
Neurological: Denies Dizzy or Headache
Psych: Denies Depression or Anxiety
Physical Exam
Vital Signs
Vital Signs
Temp Pulse Resp BP Pulse Ox
97.9 F 72 18 190/86 98
02/13/25 20:02 02/13/25 20:02 02/13/25 20:02 02/13/25 20:02 02/13/25 20:02
Physical Exam
General: Other (69y F in no acute distress.)
HEENT: Moist mucous membranes and PERRLA
Respiratory: Clear; No Wheezes, Rales or Rhonchi
Cardiac: S1/S2 and Regular Rhythm; No Murmur
GI: Soft, Non Distended, Normal Bowel Sounds and Other (Mild suprapubic tenderness. No rebound / guarding. Pos BS.)
Musculoskeletal: No Clubbing, No Cyanosis and Other (Trace - 1+ edema at ankles. Mild tenderness over R paraspinal lumbar area.)
Neuro: AO x 3
Laboratory Results
-
02/13/25 21:16
02/13/25 21:16
Laboratory Results
Total Bilirubin 0.4 mg/dl (0.2-1.3) 02/13/25 21:16
AST 16 U/L (14-36) 02/13/25 21:16
ALT 26 U/L (0-35) 02/13/25 21:16
Alkaline Phosphatase 71 U/L (38-126) 02/13/25 21:16
Impression/Plan
-
A/P: Patient is a 69y F with PMH significant for lung cancer with metastases to the brain s/p XRT and currently on chemotherapy who presents to ED complaining of low back pain / lower abdominal pain.
Low Back Pain / Pelvic Pain
- Observe overnight for further evaluation and treatment.
- ? musculoskeletal pain. ? disc disease, spinal metastases, etc.
- CT scan with no obvious abnormality in abd / pelvis.
- Initial dose of ceftriaxone given in the ED for possible UTI - but UA unimpressive.
- Hold additional doses for now pending culture data.
- Heat to area, pain control, supportive care, PT eval.
- Consider MRI spine for further evaluation if symptoms worsen / persist.
- ? radiculopathy based on distribution of pain.
Leukocytosis
- WBC = 15.8. No differential was performed.
- This is significant decreased from 02/10 (32.5) and is likely due to GCSF and systemic steroid treatment.
- All cell lines are otherwise decreased - likely due to chemotherapy.
- Follow CBC for changes.
- Monitor for any fever or other indication of infection.
- Observe off of additional abx for now as noted above.
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
- No new aphasia, confusion, etc.
- Continue current dexamethasone dose, Keppra prophylaxis, etc.
- Follow-up with [facility] as planned for additional treatment.
Hyponatremia
- Acute on chronic. Na = 126 compared to recent baseline around 130.
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
- Fluid restriction. Follow for improvement.
COPD without Acute Exacerbation
- Continue inhaled medications.
DVT Prophylaxis: SCDs
Code Status: Full
[2025-02-14 00:02] LABS: Lactic Acid 1.2 mmol/L (0.7-2.0)
[2025-02-14 02:02] VITALS: BMI 22.4
[2025-02-14 02:03] VITALS: BP 158/81
--- NOTE | 2025-02-14 02:11 | PTCARENOTE ---
Pt admitted to 330 from ED. Pt AAOx3. Ambulated from stretcher to bed without issues. Pt refusing heating pad and tylenol at this time for reported lower back pain. No N/V. Per patient, takes decadron at 6am, 3pm, and 6pm at home. Pt scheduled
for decadron q8 hours in NOV with dose next due at 0200. Pt refusing med at this time, reporting she would like to stay on her home regimen. ALTAGRACIA Rodriguez made aware of patient's request. Pt on a 1440 mL/day fluid restriction. Pt made aware and
verbalizes understanding. SCDs in place. Call romero within reach. Bed in lowest position.
[2025-02-14 05:58] LABS: Hematocrit 29.8 % (37.0-47.0); Hemoglobin 10.5 g/dL (12.0-16.0); Mean Corp Hgb Conc. 35.2 g/dL (33.0-37.0); Mean Corpuscular Hgb 31.4 pg (27.0-31.0); Mean Corpuscular Volume 89.2 fL (81.0-99.0); Mean Platelet Volume 11.2 fL (7.4-10.4); Platelet Count 96 10^3/uL (130-400); Red Blood Cell Count 3.34 10^6/uL (4.20-5.40); Red Cell Dist. Width 14.7 % (11.5-14.5); White Blood Cell Count 16.6 10^3/uL (4.8-10.8)
[2025-02-14] MEDS: DECADRON 4 MG PO (06:12)
[2025-02-14 06:24] LABS: Blood Urea Nitrogen 19 mg/dl (7-17); Calcium 8.4 mg/dl (8.4-10.2); Carbon Dioxide 23 mmol/L (22-30); Chloride 105 mmol/L (98-107); Estimated Creatinine Clearance 88 ml/min; Glucose 83 mg/dl (70-99); Potassium 4.3 mmol/L (3.5-5.1); Sodium 132 mmol/L (135-145); eGFR > 60.00
[2025-02-14 07:00] VITALS: BP 163/69
[2025-02-14] MEDS: FLOVENT 110 MCG INHALER 2 PUFF INH (07:39)
[2025-02-14] MEDS: KEPPRA 500 MG PO (07:59)
[2025-02-14] MEDS: FOLVITE 1 MG PO (08:00)
[2025-02-14] MEDS: LOPRESSOR 100 MG PO (09:02)
[2025-02-14 10:15] VITALS: BP 136/81; BP 144/75; PULSE 82; PULSE 92; O2SAT 95
--- NOTE | 2025-02-14 10:27 | W.PN.HOSP.TC ---
Today's Communication/Plan
-
dc to home
Assessment / Plan
Assessment / Plan
A/P: Patient is a 69y F with PMH significant for lung cancer with metastases to the brain s/p XRT and currently on chemotherapy who presents to ED complaining of low back pain / lower abdominal pain.
Low Back Pain / Pelvic Pain
- She was observed overnight for further evaluation and treatment and acute symptoms have fully resolved
- ? musculoskeletal pain. ? disc disease, spinal metastases, stool/constipation, etc.
offered to give her a laxative, but she declined, stating she will take at home
- CT scan with no obvious abnormality in abd / pelvis.
- Initial dose of ceftriaxone given in the ED for possible UTI - but UA unimpressive.
- Hold additional doses for now pending culture data.
- Heat to area, pain control, supportive care, PT eval.
- Consider MRI spine for further evaluation if symptoms worsen / persist.
- ? radiculopathy based on distribution of pain.
Leukocytosis
- WBC = 15.8. No differential was performed.
- This is significant decreased from 02/10 (32.5) and is likely due to GCSF and systemic steroid treatment.
- All cell lines are otherwise decreased - likely due to chemotherapy.
- Follow CBC for changes.
- Monitor for any fever or other indication of infection.
- Observe off of additional abx for now as noted above.
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
- No new aphasia, confusion, etc.
- Continue current dexamethasone dose, Keppra prophylaxis, etc.
- Follow-up with [facility] as planned for additional treatment.
Hyponatremia
- Acute on chronic. Na = 126-->132 compared to recent baseline around 130.
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
- Fluid restriction. Follow for improvement.
COPD without Acute Exacerbation
- Continue inhaled medications.
DVT Prophylaxis: SCDs
Code Status: Full
Pt wants to go home and feels comfortable taking her home to continue treatment for the metastatic lung cancer
dc to home
Anticipated Discharge: Today
Subjective/Interval History
-
Date of Service: February 14, 2025
Feels well, abdominal/back pain resolved
Objective Data
-
Labs:
Laboratory Results
02/14/25
04:40
WBC 16.6 H
Hgb 10.5 L
Hct 29.8 L
Plt Count 96 L
Sodium 132 L
Potassium 4.3
Chloride 105
Carbon Dioxide 23
BUN 19 H
Creatinine 0.5 L
Glucose 83
Calcium 8.4
Vital Signs:
Vital Signs
Temp Pulse Resp BP Pulse Ox
98.6 F 74 16 163/69 97
02/14/25 07:00 02/14/25 07:46 02/14/25 07:46 02/14/25 07:00 02/14/25 07:46
Review of Systems
-
History Source: Patient and Family ( at bedside)
Constitutional: Denies Fever
EENT: Reports No Symptoms Reported
Respiratory: Reports No Symptoms
Cardiac: Reports No Symptoms
Abdomen/GI: Reports No Symptoms; Denies Abdominal Pain (resolved)
Genitourinary: Reports No Symptoms
Neuro: Reports No Symptoms
Physical Exam
-
General: Well Developed, Well Nourished and No Apparent Distress
HEENT: Normocephalic, Atraumatic and Moist Mucous Membranes
Respiratory: Clear to Auscultation (distant BS); Negative Wheezes, Rales or Rhonchi
Cardiac: Regular Rhythm and S1/S2
GI: Soft, Nontender and Nondistended
Musculoskeletal: No Clubbing, No Cyanosis and No Edema
--- NOTE | 2025-02-14 10:46 | CM ---
Patient seen at bedside
OBS status - form explained & signed. In chart
hospitalist states to dc today
Lives with in a rancher home, 3 steps to enter. Has supportive daughters.
PLOF: independent, no assistive device
DME: Cane, walker, commode, shower chair
Denies VN/Rehab
PT stated eval-no needs
Denies insecurities
PCP: Winifred Catalan
Pharmacy: [facility]
PLAN: home, no needs
to transport
--- NOTE | 2025-02-14 10:57 | W.DS.TRANS ---
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
-
Discharge Instructions:
Discharge Diagnosis/Procedures Abdominal Pain
Diet As tolerated
Activity As tolerated
Driving Restrictions No driving
Bathing Restrictions None
Instructions:
Stand-Alone Forms:
Changes to Home Medications: No
Discharge Medications:
DC Medications w/original date entered in [facility]
mometasone 220 mcg/actuation(120 doses)breath activated powder inhaler (Asmanex Twisthaler) 1 inh inhalation R BID sob 06/05/23
pantoprazole 40 mg tablet,delayed release 40 mg PO DAILY Gastrointestinal Issue 06/05/23
folic acid 1 mg tablet 1 mg PO DAILY Supplement 01/29/25
dexamethasone 4 mg tablet 4 mg PO Q8H #90 tabs 01/31/25
pegfilgrastim 6 mg/0.6 mL subcutaneous syringe (Neulasta) 6 mg SC ONCE 02/12/25
pemetrexed disodium 500 mg intravenous powder for solution (Alimta) 500 mg IV Q21D 02/12/25
clonazepam 0.5 mg tablet 0.5 mg PO HS PRN Insomnia 02/13/25
ondansetron 8 mg disintegrating tablet 8 mg PO Q8H PRN N/V 02/13/25
amlodipine 5 mg tablet 5 mg PO DAILY #30 tabs 02/14/25
atorvastatin 10 mg tablet (Lipitor) 10 mg PO DAILY #30 tabs 02/14/25
levetiracetam 500 mg tablet (Keppra) 500 mg PO BID Seizures #0 tabs 02/14/25
lisinopril 40 mg tablet 40 mg PO DAILY #30 tabs 02/14/25
metoprolol tartrate 100 mg tablet 100 mg PO BID #0 tabs 02/14/25
Home Medication Changes
Pending Results: Yes (Blood and Urine cultures are negative to date, have not been finalized)
[2025-02-14 11:13] VITALS: BP 117/70
== END 2025-02-14 11:13 | disposition home or self-care (01) ==
LOC: 3 WEST ACU 23:45
PROVIDERS: ADMITTING PHYSICIAN Hospitalist; ATTENDING PHYSICIAN Internal Medicine; EMERGENCY PHYSICIAN Emergency Medicine; FAMILY PHYSICIAN Family Medicine
DX: R10.9 Unspecified abdominal pain (principal); R10.2 Pelvic and perineal pain; M51.360 Other intervertebral disc degeneration, lumbar region with discogenic back pain only; C79.31 Secondary malignant neoplasm of brain; C34.90 Malignant neoplasm of unspecified part of unspecified bronchus or lung; J44.9 Chronic obstructive pulmonary disease, unspecified; I10 Essential (primary) hypertension; K21.9 Gastro-esophageal reflux disease without esophagitis; D72.829 Elevated white blood cell count, unspecified; E87.1 Hypo-osmolality and hyponatremia; F41.9 Anxiety disorder, unspecified; F32.A Depression, unspecified; I70.0 Atherosclerosis of aorta; K57.30 Diverticulosis of large intestine without perforation or abscess without bleeding; Z87.891 Personal history of nicotine dependence; Z82.49 Family history of ischemic heart disease and other diseases of the circulatory system; Z92.21 Personal history of antineoplastic chemotherapy; Z79.52 Long term (current) use of systemic steroids; Z87.19 Personal history of other diseases of the digestive system; Z90.49 Acquired absence of other specified parts of digestive tract; Z88.5 Allergy status to narcotic agent; Z79.51 Long term (current) use of inhaled steroids; Z92.3 Personal history of irradiation
CPT/HCPCS: 51798; 74177; 80048; 80053; 81003; 81015; 83605; 85025; 85027; 87040; 87086; 87088; 87186; 94640; 96374; 96375; 97162; 99285; G0378; Q9967

== ENCOUNTER → 2025-02-16 08:28 | Outpatient (REF) | payer MEDICARE, BC, SELFPAY ==
[2025-02-16 08:53] VITALS: BP 128/78; BP_SYST 76
[2025-02-16 09:05] VITALS: BMI 24.0
[2025-02-16] MEDS: ANCEF 10 IV (09:28)
[2025-02-16 10:35] VITALS: BP 163/67; BP_SYST 64
[2025-02-16 10:40] VITALS: BP 154/66
[2025-02-16 10:55] VITALS: BP 155/68
[2025-02-16 11:15] VITALS: BP 155/80
== END ==
LOC: RADI 08:28
PROVIDERS: ATTENDING PHYSICIAN Internal Medicine Hematology & Oncology; FAMILY PHYSICIAN Family Medicine
DX: C34.12 Malignant neoplasm of upper lobe, left bronchus or lung (principal)
CPT/HCPCS: 36561; 76937; 77001; 99152; 99153; C1788

== ENCOUNTER → 2025-02-19 10:02 | Outpatient (REF) | payer MEDICARE, BC, SELFPAY ==
[2025-02-19 11:38] LABS: Blood Urea Nitrogen 21 mg/dl (7-17); Calcium 8.7 mg/dl (8.4-10.2); Carbon Dioxide 23 mmol/L (22-30); Chloride 101 mmol/L (98-107); Glucose 96 mg/dl (70-99); Potassium 4.7 mmol/L (3.5-5.1); Sodium 128 mmol/L (135-145); eGFR > 60.00
[2025-02-20 15:38] LABS: Adrenocorticotropic Hormone 1.6 pg/mL (7.2-63.3)
== END ==
LOC: REG 10:02
PROVIDERS: ATTENDING PHYSICIAN Registered Nurse; FAMILY PHYSICIAN Family Medicine
DX: C34.12 Malignant neoplasm of upper lobe, left bronchus or lung (principal); Z79.899 Other long term (current) drug therapy
CPT/HCPCS: 36415; 80048; 82024

== ENCOUNTER 2025-02-28 23:47 | Observation (INO) | payer MEDICARE, BC, SELFPAY ==
[2025-02-28 19:29] VITALS: BP 128/96
--- NOTE | 2025-02-28 20:48 | ED.GENMED ---
History of Present Illness
General
Chief Complaint: Cough
Time Seen by Provider: 02/28/25 20:37
History of Present Illness
History of Present Illness:
69-year-old female with history of lung cancer currently on chemotherapy presents to the emergency department for evaluation of intractable productive cough for the past 5 days. She has began chemo this week. Denies chest pain or dyspnea. No
fevers, chills, or sweats but does admit to fatigue secondary to frequent coughing. Last chemo treatment was 5 days ago
Past History
Past History
ED Past Medical History: COPD, GERD, HTN and Other
ED Past Surgical History: Orthopedic (Knee surgery)
Social History
Tobacco: Former smoker
Alcohol: Daily (7-7)
Personal:
Living: with family
Employment: Employed
Family History
Family History: Hypertension; Negative Early CAD, CAD or Sudden
Review of Systems
Review of Systems
Allergies reviewed?: Yes
All Other Systems: ROS reviewed and negative except as documented in HPI and ROS
Phy Exam
Physical Exam
Physical Exam:
GEN: Well appearing, NAD, WDWN
HEENT: Oral mucosa moist, no scleral icterus
Cardiac: Mildly tachycardic, regular. Trace edema bilateral ankles no significant pretibial edema
Lung: No respiratory distress, no tachypnea, lungs clear with the exception of scant wheeze in the right lower field
MSK: No gross deformity or injuries
Skin: Good color, no pallor or jaundice, no rashes
Neuro: AO x3, moves all extremities freely
Psych: Calm, cooperative
Sepsis
Sepsis Screening
Sepsis Assessment: Sepsis Ruled Out
Sepsis Screen
Sepsis Screen: Sepsis Ruled Out
Date: 03/01/25
Time: 02:07
Course
Orders/Labs/Results
Orders:
Orders
02/28/25 19:33
CR Chest - 2 Views Urgent
Comment:
Reason For Exam: cough, on chemo
02/28/25 20:47
Ipratropium/Albuterol Sulfate [Duoneb] 3 ml INH R NOW STA
02/28/25 21:11
COVID-19 Antigen Urgent
Source: Nasal Swab
Influenza A+B Rapid Molecular Urgent
DEE Source: Nasal Swab
Specimen Description:
02/28/25 21:39
Complete Blood Count/With Diff Urgent
Comprehensive Metabolic Panel Urgent
Serum Osmolality Urgent
Comment: ADD ON
02/28/25 22:09
Add On- LAB Urgent
Tests Added?: serum osmolality
02/28/25 23:08
Osmolality, Random Urine Urgent
Date Specimen was Collected: 02/28/25
Time Specimen was Collected: 23:01
Urinalysis Reflex To Culture Urgent
Date Specimen was Collected: 02/28/25
Time Specimen was Collected: 23:01
Urine Microscopic Reflex Cult Urgent
Urine Sodium Urgent
Date Specimen was Collected: 02/28/25
Time Specimen was Collected: 23:01
Urine Culture Urgent
DEE Source: U
Specimen Description:
Date Specimen was Collected: 02/28/25
Time Specimen was Collected: 23:01
02/28/25 23:33
Admit/Transfer Patient As Directed
Co-Sign Provider:
Level of Care: Observation services
Assign to:: Telemetry
Physician / Group: giacomo
Diagnosis: cough, hyponatremia
Reason for Telemetry: Arrhythmia
Date to Stop Telemetry: 03/03/25
Time to Stop Telemetry: 11:00
Code Status As Directed
Resuscitation Status: Full Code
PRN Pain Medication Management As Directed
May give lesser potent ordered pain med per pt: Yes
preference::
Protocol:: Medication orders for pain may be administered in a
manner that supports deferring to patient preference
when the pt is:
- Requesting an ordered lesser potent pain medication.
Least to most potent pain medications are defined
as: acetaminophen < NSAID < tramadol < opioids
(morphine, oxycodone, hydromorphone).
- Requesting a lesser dose of the same medication IF
ORDERED.
- Requesting a less intrusive route of administration
if both routes are prescribed by the provider (PO <
IV).
03/01/25 00:37
Activity As Directed
Activity Level: As Tolerated
Vital Signs As Directed
Frequency: Per unit guidelines
DX Deep Vein Thrombosis Video Routine
03/01/25 06:00
Complete Blood Count/With Diff IN AM
Comprehensive Metabolic Panel IN AM
03/01/25 08:00
CT Chest With Iv Contrast Routine
Reason For Exam: pneumonia cough
Heparin 5,000 units SC Q12
Ipratropium/Albuterol Sulfate [Duoneb] 3 ml INH R QID
03/01/25 Dinner
Regular
At Your Request: Full Participation
Does patient need a safe tray?: No
Fluid Restriction: 1200 mL/day (40 oz)
03/03/25 11:00
DC Protocol for Telemetry ONCE
Abnormal Lab Results
02/28/25 02/28/25
21:39 23:08
WBC 18.4 H 10^3/uL
(4.8-10.8)
RBC 3.25 L 10^6/uL
(4.20-5.40)
Hgb 10.3 L g/dL
(12.0-16.0)
Hct 28.5 L %
(37.0-47.0)
MCH 31.7 H pg
(27.0-31.0)
RDW 15.7 H %
(11.5-14.5)
MPV 10.7 H fL
(7.4-10.4)
Abs Immat Gran (auto) 0.6 H 10^3/uL
(0-0.05)
Absolute Neuts (auto) 17.5 H 10^3/uL
(1.4-6.5)
Absolute Lymphs (auto) 0.3 L 10^3/uL
(1.2-3.4)
Immature Gran % 3.0 H %
(0-0.5)
Neutrophils % 94.7 H %
(42.2-75.2)
Lymphocytes % 1.7 L %
(20.5-51.1)
Monocytes % 0.3 L %
(1.7-9.3)
Sodium 123 L mmol/L
(135-145)
Chloride 95 L mmol/L
(98-107)
BUN 18 H mg/dl
(7-17)
Glucose 126 H mg/dl
(70-99)
Serum Osmolality 263 L mOsm/kg
(275-300)
Calcium 8.2 L mg/dl
(8.4-10.2)
Total Protein 5.4 L g/dl
(6.3-8.2)
Albumin 3.3 L g/dl
(3.5-5.0)
Leukocyte Esterase Rfl 3+ A
(Negative)
Urine WBC (Reflex) 30-40 A /HPF
(0-5)
Urine Bacteria (Reflex) Many A
(Negative)
Urine Osmolality 291 L mOsm/kg
(300-900)
Urine Sodium 28 L mmol/L
(30-90)
02/28/25 21:39
02/28/25 21:39
Vital Signs
Initial and Last Documented VS:
Initial Vital Signs
Temp Pulse Resp BP Pulse Ox
98.1 F 103 24 128/96 96
02/28/25 19:29 02/28/25 19:29 02/28/25 19:29 02/28/25 19:29 02/28/25 19:29
Last Documented Vital Signs
Temp Pulse Resp BP Pulse Ox
97.6 F 95 16 145/82 93
03/01/25 00:39 03/01/25 00:39 03/01/25 00:39 03/01/25 00:39 03/01/25 00:39
MDM/Problems Addressed
MDM/Problems Addressed:
69-year-old female currently on chemotherapy for lung cancer presents for weakness and coughing. In regards to the coughing her chest x-ray is clear and lungs are globally clear, she does have leukocytosis however no fever, most likely viral
etiology at this time. She did improve on a breathing treatment as far as the coughing is concerned. In regards to her weakness this is most likely due to hyponatremia which may be a and syndrome of inappropriate ADH on the basis of her chronic
steroid use, does not take any SSRIs or diuretic medications. Certainly could be hypovolemic in nature given her lack of intake since chemotherapy. Sodium has been gradually downtrending since December however at a level of 123 with systemic weakness
reasonable to admit for further manage
*Critical Care Note
Total Time (30-74mins, 75-104mins- exclusive of procedures): Not Applicable
ED Attending Note
-
Portions of this chart may have been created with voice recognition software.� Occasional wrong word or��sound alike� substitutions may have occurred due to the inherent limitations of voice recognition software.
Discharge Plan
Departure
Patient Disposition: Admit
Date of Disposition: 02/28/25
Time of Disposition: 23:14
Admit to: Med/Surg
Presentation/result/management discussed w/ accepting MD/DO: Hospitalist
Discharge Problem:
Hyponatremia, Upper respiratory infection, viral
Interventions
Interventions:
*Risk Screen - Suicide Last Done: 02/28/25 19:29
*General Assessment Last Done: 02/28/25 19:29
*Neglect/Abuse Screening Last Done: 02/28/25 19:29
*ED- Fall Risk Assessment Last Done: 02/28/25 22:25
*ED COVID-19 Vaccine History Last Done: 02/28/25 22:25
*Nursing Disposition Last Done: 03/01/25 00:30
ED- Pulmonary Assessment Last Done: 02/28/25 21:42
Discharge Date and Time
Discharge Date/Time: 03/01/25 00:44
[2025-02-28] MEDS: DUONEB 3 ML INH (21:04)
[2025-02-28 21:35] LABS: COVID-19 Antigen Negative (Negative)
[2025-02-28 22:05] LABS: ALT (SGPT) 31 U/L (0-35); AST (SGOT) 22 U/L (14-36); Albumin 3.3 g/dl (3.5-5.0); Alkaline Phosphatase 76 U/L (38-126); Blood Urea Nitrogen 18 mg/dl (7-17); Calcium 8.2 mg/dl (8.4-10.2); Carbon Dioxide 23 mmol/L (22-30); Chloride 95 mmol/L (98-107); Glucose 126 mg/dl (70-99); Potassium 4.2 mmol/L (3.5-5.1); Sodium 123 mmol/L (135-145); Total Bilirubin 0.5 mg/dl (0.2-1.3); Total Protein 5.4 g/dl (6.3-8.2); eGFR > 60.00
[2025-02-28 22:06] LABS: % Basophils 0.3 % (0-2); % Lymphocytes 1.7 % (20.5-51.1); % Monocytes 0.3 % (1.7-9.3); % Neutrophils 94.7 % (42.2-75.2); Absolute Basophils 0.1 10^3/uL (0-0.2); Absolute Immature Granulocytes 0.6 10^3/uL (0-0.05); Absolute Lymphocytes 0.3 10^3/uL (1.2-3.4); Absolute Monocytes 0.1 10^3/uL (0.1-0.6); Absolute Neutrophils 17.5 10^3/uL (1.4-6.5); Hematocrit 28.5 % (37.0-47.0); Hemoglobin 10.3 g/dL (12.0-16.0); Mean Corp Hgb Conc. 36.1 g/dL (33.0-37.0); Mean Corpuscular Hgb 31.7 pg (27.0-31.0); Mean Corpuscular Volume 87.7 fL (81.0-99.0); Mean Platelet Volume 10.7 fL (7.4-10.4); Nucleated Red Blood Cells % 0 %; Platelet Count 167 10^3/uL (130-400); Red Blood Cell Count 3.25 10^6/uL (4.20-5.40); Red Cell Dist. Width 15.7 % (11.5-14.5); White Blood Cell Count 18.4 10^3/uL (4.8-10.8)
[2025-02-28 22:22] LABS: Osmolality Serum 263 mOsm/kg (275-300)
[2025-02-28 23:09] VITALS: BP 136/72
[2025-02-28 23:19] LABS: Osmolality Urine 291 mOsm/kg (300-900); Urine Albumin Negative (Neg - Trace); Urine Bilirubin Negative (Negative); Urine Character Slightly Cloudy (Clear); Urine Color Yellow; Urine Glucose Negative (Negative); Urine Ketone Negative (Negative); Urine Leukocyte 3+ (Negative); Urine Nitrite Negative (Negative); Urine Occult Blood Negative (Negative); Urine Urobilinogen Negative (Neg - 1+)
[2025-02-28 23:34] LABS: Urine Sodium 28 mmol/L (30-90); Urine Squamous Cell None seen /LPF (Few); Urine White Cell 30-40 /HPF (0-5)
[2025-02-28 23:35] LABS: Urine Bacteria Many (Negative); Urine Red Blood Cell None Seen /HPF (0-2)
--- NOTE | 2025-02-28 23:35 | HPS.HSE ---
Addendum entered and electronically signed by Ana Martel MD 02/28/25 23:38:
Patient did have some sore throat associated with a cough. This could be viral acute bronchitis.
Original Note:
Family Physician
-
Family Physician: Winifred Catalan
Chief Complaint
-
cough
History of Present Illness
69-year-old female past medical history of metastatic lung cancer with metastases to the brain on chemotherapy status post radiation, hypertension, hyponatremia, COPD, GERD, diverticular disease/sigmoid stricture, anxiety/depression presenting with
productive cough that started yesterday with yellow sputum. She has some shortness of breath. Denies any fevers or chills. She feels very fatigued after the chemotherapy.
Denies any headache, blurry vision, numbness or tingling or neurological symptoms.
She had her last dose of chemotherapy 5 days ago. Patient is on steroids every day.
She denies any vomiting or diarrhea. She is unsure about her fluid intake and states that is variable.
She is a former smoker. Denies alcohol use.
Patient was admitted 2 weeks ago for abdominal pain and lower back pain secondary to constipation.
Medical History
Past Medical History
Past Medical History: Reports Other (metastatic lung cancer with metastases to the brain on chemotherapy status post radiation, hypertension, hyponatremia, COPD, GERD, diverticular disease/sigmoid stricture, anxiety/depression)
Past Surgical History: Reports Other (Orthopedic (Knee surgery))
Social History
Tobacco: Former Smoker
Alcohol: None
Drug: None
Family History
Family History: Not pertinent
Allergies / Home Medications
Allergies reflects when Allergies were last updated in [facility].
Home Medications with original date entered in [facility]
Allergy/Medication List:
Allergies
Allergy/AdvReac Type Severity Reaction Status Date / Time
codeine Allergy headache Verified 01/29/25 22:06
Home Medications
mometasone 220 mcg/actuation(120 doses)breath activated powder inhaler (Asmanex Twisthaler) 1 inh inhalation R BID sob 06/05/23
pantoprazole 40 mg tablet,delayed release 40 mg PO DAILY Gastrointestinal Issue 06/05/23
folic acid 1 mg tablet 1 mg PO DAILY Supplement 01/29/25
dexamethasone 4 mg tablet 4 mg PO Q8H #90 tabs 01/31/25
pegfilgrastim 6 mg/0.6 mL subcutaneous syringe (Neulasta) 6 mg SC ONCE 02/12/25
pemetrexed disodium 500 mg intravenous powder for solution (Alimta) 500 mg IV Q21D 02/12/25
clonazepam 0.5 mg tablet 0.5 mg PO HS PRN Insomnia 02/13/25
ondansetron 8 mg disintegrating tablet 8 mg PO Q8H PRN N/V 02/13/25
amlodipine 5 mg tablet 5 mg PO DAILY #30 tabs 02/14/25
atorvastatin 10 mg tablet (Lipitor) 10 mg PO DAILY #30 tabs 02/14/25
levetiracetam 500 mg tablet (Keppra) 500 mg PO BID Seizures #0 tabs 02/14/25
lisinopril 40 mg tablet 40 mg PO DAILY #30 tabs 02/14/25
metoprolol tartrate 100 mg tablet 100 mg PO BID #0 tabs 02/14/25
Review of Systems
-
History Source: Patient
A 12 point ROS was completed and negative except as noted: Yes
Constitutional: Reports No Symptoms
EENT: Reports No Symptoms
Respiratory: Reports See HPI
Cardiac: Reports No Symptoms
Abdomen/GI: Reports See HPI
: Reports No Symptoms
Musculoskeletal: Reports No Symptoms
Skin: Reports No Symptoms
Neurological: Reports No Symptoms
Endocrine: Reports No Symptoms
Hematologic/Lymphatic: Reports No Symptoms
Psych: Reports No Symptoms
Physical Exam
Vital Signs
Vital Signs
Temp Pulse Resp BP Pulse Ox
98.1 F 103 24 136/72 94
02/28/25 19:29 02/28/25 19:29 02/28/25 19:29 02/28/25 23:09 02/28/25 23:15
Physical Exam
General: Well Developed, Well Nourished and No Apparent Distress
HEENT: NormoCephalic, Moist mucous membranes and Atraumatic
Respiratory: Clear
Cardiac: S1/S2 and Regular Rhythm; No Murmur or Rub
GI: Soft, Non Tender, Non Distended and Normal Bowel Sounds; No Organomegaly
Rectal: Deferred by Provider
Musculoskeletal: No Clubbing, No Cyanosis and No Edema
Skin: No Rash
Neuro: Nonfocal/grossly intact
Laboratory Results
-
02/28/25 21:39
02/28/25 21:39
Laboratory Results
Total Bilirubin 0.5 mg/dl (0.2-1.3) 02/28/25 21:39
AST 22 U/L (14-36) 02/28/25 21:39
ALT 31 U/L (0-35) 02/28/25 21:39
Alkaline Phosphatase 76 U/L (38-126) 02/28/25 21:39
Data Reviewed
-
Lab Data: Labs Reviewed by me
Old Records: Reviewed
Impression/Plan
-
IMPRESSION:
PLAN:
# Cough unclear etiology possibly COPD flare versus pneumonia missed by chest x-ray
-Chest x-ray shows no acute disease of the chest
-Patient already on steroids
- Check COVID and influenza
-DuoNebs every 6 hours
- Check CT chest
# Worsening of chronic hyponatremia likely SIADH from malignancy/brain metastases
- Sodium 123
- Urine sodium, osmolality pending
- 40 ounce fluid restriction
Metastatic lung cancer with metastases to the brain
- Started chemotherapy
- Status post brain radiation
Brain metastases
- Continue Keppra
Leukocytosis
- Possibly secondary to dexamethasone/in the last
Chronic anemia
- Hemoglobin stable 10.3
COPD
Essential hypertension
- Continue amlodipine, metoprolol, lisinopril
GERD
- Continue Protonix
Diverticular disease/stricture status post sigmoidectomy
Anxiety/depression
- Continue clonazepam
Former smoker
Degenerative disc disease
Constipation
Full code
DVT prophylaxis�heparin
Regular diet
[2025-03-01 00:39] VITALS: BP 145/82; BMI 21.8
[2025-03-01 03:24] VITALS: BP 125/70
[2025-03-01 07:15] VITALS: BP 138/71
--- NOTE | 2025-03-01 07:18 | PTCARENOTE ---
Patient arrived on unit @0029 via stretcher from ED, ambulate to room with standby assist. Patient AAOx3, denies any pain or discomfort. Patient with occasional non productive cough, on room air. Skin assessment completed, med rec completed,
oriented to unit, call romero within reach.
[2025-03-01] MEDS: DUONEB 3 ML INH (07:31)
[2025-03-01 09:04] LABS: Hematocrit 29.8 % (37.0-47.0); Hemoglobin 10.7 g/dL (12.0-16.0); Mean Corp Hgb Conc. 35.9 g/dL (33.0-37.0); Mean Corpuscular Hgb 31.3 pg (27.0-31.0); Mean Corpuscular Volume 87.1 fL (81.0-99.0); Mean Platelet Volume 10.2 fL (7.4-10.4); Platelet Count 164 10^3/uL (130-400); Red Blood Cell Count 3.42 10^6/uL (4.20-5.40); Red Cell Dist. Width 15.9 % (11.5-14.5); White Blood Cell Count 13.1 10^3/uL (4.8-10.8)
[2025-03-01 09:21] LABS: ALT (SGPT) 29 U/L (0-35); AST (SGOT) 20 U/L (14-36); Albumin 3.4 g/dl (3.5-5.0); Alkaline Phosphatase 76 U/L (38-126); Blood Urea Nitrogen 13 mg/dl (7-17); Calcium 8.9 mg/dl (8.4-10.2); Carbon Dioxide 27 mmol/L (22-30); Chloride 96 mmol/L (98-107); Estimated Creatinine Clearance 88 ml/min; Glucose 101 mg/dl (70-99); Potassium 3.9 mmol/L (3.5-5.1); Sodium 128 mmol/L (135-145); Total Bilirubin 0.8 mg/dl (0.2-1.3); Total Protein 5.6 g/dl (6.3-8.2); eGFR > 60.00
--- NOTE | 2025-03-01 10:00 | W.PN.UPDATE ---
Update Note
Progress Note Update
Patient is upset and agitated. She wishes to leave AGAINST MEDICAL ADVICE.
Patient was counseled to stay in the hospital for further treatment.
She was informed of her risks of respiratory failure and .
Despite being informed of these risks, she insisted on leaving AGAINST MEDICAL ADVICE.
[2025-03-01 11:00] VITALS: BP 108/62
[2025-03-01 11:19] LABS: % Basophils 0.3 % (0-2); % Eosinophils 0.1 % (0-6); % Immature Granulocytes 7.2 % (0-0.5); % Lymphocytes 5.9 % (20.5-51.1); % Monocytes 0.2 % (1.7-9.3); % Neutrophils 86.3 % (42.2-75.2); Absolute Immature Granulocytes 0.9 10^3/uL (0-0.05); Absolute Lymphocytes 0.8 10^3/uL (1.2-3.4); Absolute Neutrophils 11.3 10^3/uL (1.4-6.5); Nucleated Red Blood Cells % 0 %
[2025-03-01] MEDS: DUONEB INH (11:29)
[2025-03-01 11:42] VITALS: BP 108/67
--- NOTE | 2025-03-01 12:08 | CM ---
CM met with pt at bedside. OBS form signed and placed in chart.
Harleen lives with her in one story home with 3 entry steps. Daughters are supportive.
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
DME: Cane, walker, commode, shower chair
no history of SNF or VN
PCP: Winifred Catalan
Pharmacy: [facility]
PLAN: home, no needs
to transport
[2025-03-01] MEDS: LOPRESSOR 5 MG IV (12:17)
--- NOTE | 2025-03-01 12:20 | PTCARENOTE ---
MD Do just left bedside. pt expressing she wants to leave AMA.. prior to MD Do made aware of pts tachycardia. IV metoprolol administered per orders. pt denies any symptoms, reports she is agitated and has not slept all night. pt continues to be
on monitoring analyst. awaiting further orders and disposition.
--- NOTE | 2025-03-01 12:24 | PTCARENOTE ---
Do presents AMA and going over risk. pt signed form. pt awaiting transportation home.
--- NOTE | 2025-03-01 12:52 | CM ---
Pt is agitated that she has so many people coming into her room; just wants to go home and sleep.
Per RN, pt is going to sign out AMA.
Gallego signed and placed in chart.
--- NOTE | 2025-03-01 15:02 | W.DCSUMMARY ---
Discharge Summary
Discharge Data
Date of Admission: 02/28/25
Date of Discharge: 03/01/25
-
Pending Results: No
Hospital Course
Discharge diagnosis:
Pneumonia
Cough
Worsening chronic hyponatremia
Metastatic lung cancer with metastases to the brain
Brain metastases
Leukocytosis currently on dexamethasone
Chronic anemia
Gastroesophageal reflux disease
Anxiety/depression
CT chest:
Subtle lingular pneumonia.
Right upper lobe pulmonary mass measuring 2 x 1.5 cm. Mild superior right hilar adenopathy. Direct comparison with any prior examination (not available at this facility) is recommended in this patient with history of lung carcinoma treated with
chemotherapy.
Hospital course:
69-year-old female with a past medical history of chronic hyponatremia, metastatic lung cancer with metastases to the brain, chronic anemia, and anxiety/depression presented with a cough. Her chest x-ray upon admission was negative for acute
cardiopulmonary pathology. A chest CT was ordered, which resulted the following day. The plan was to start her on IV antibiotics. However, she was quite distressed about the noise caused by the neighboring patients. She wished to leave AGAINST
MEDICAL ADVICE. She was in sinus tachycardia, with a heart rate in the 130s. She was treated with IV metoprolol. She has hyponatremia likely from SIADH from her lung cancer. Her sodium improved to 128 with fluid restriction, it was 123 upon
admission. She was counseled that she has a risk of worsening respiratory failure and if she leaves AGAINST MEDICAL ADVICE. She was adamant about leaving, and signed the AGAINST MEDICAL ADVICE paperwork. A 7-day course of cefdinir and
doxycycline was sent to her pharmacy. She has been instructed to follow-up with her primary care doctor in 1-2 days, and her usual administrative services director as soon as possible.
Disposition: AGAINST MEDICAL ADVICE
Discharge Plan
-
Patient Disposition: Against Medical Advice
Discharge Diagnosis/Procedures: Subtle pneumonia, lung cancer, cough, hyponatremia, sinus tachycardia
Condition: Serious
Diet: As tolerated
Activity: As tolerated
Activity Restrictions/Additional Instructions:
Please follow-up with your family doctor in 1-2 days, and your administrative services director as soon as possible.
Referrals:
Winifred Catalan DO [Family Provider, Family Practice] - in one to two days
Prescriptions:
New
cefdinir 300 mg capsule
300 mg PO BID 7 Days Qty: 14 0RF
doxycycline monohydrate 100 mg capsule
100 mg PO BID 7 Days Qty: 14 0RF
Continued
Asmanex Twisthaler 220 mcg/ actuation (120) aerosol powdr breath activated
1 inh INHALATION R BID
pantoprazole 40 MG tablet,delayed release (DR/EC)
40 mg PO QPM
folic acid 1 mg Tablet
1 mg PO DAILY
clonazepam 0.5 mg Tablet
0.5 mg PO HSPRN PRN (Reason: Insomnia)
levetiracetam [Keppra] 500 mg Tablet
500 mg PO BID Qty: 0 0RF
atorvastatin [Lipitor] 10 mg tablet
10 mg PO QPM
metoprolol tartrate 100 mg tablet
100 mg PO BID
dexamethasone 4 mg tablet
4 mg PO BID
lisinopril 40 mg tablet
40 mg PO QPM
Stiolto Respimat 2.5-2.5 mcg/actuation Mist
2 puff INHALATION R DAILY
ondansetron HCl 8 mg Tablet
8 mg PO [id number] PRN (Reason: nausea)
therapeutic multivitamin Tablet
1 tab PO DAILY
guaifenesin 100 mg/5 mL Liquid
200 mg PO Q6HPRN PRN (Reason: cough)
docusate sodium [Colace] 100 mg Capsule
100 mg PO BIDPRN PRN (Reason: constipation)
carboplatin 150 mg Recon Soln
506 mg IV Q21D
Keytruda 25 mg/mL Solution
200 mg IV Q21D
pemetrexed 500 mg Recon Soln
900 mg IV Q21D
Discharge Orders:
Discharge Patient (As Directed); Ordered 03/01/25
Ordered By: Yair Astudillo
Discharge Date and Time
Discharge Date/Time: 03/01/25 13:40
Print Language: SALVADOREAN
== END 2025-03-01 13:40 | disposition left against medical advice (07) ==
LOC: 3 WEST ACU 23:47
PROVIDERS: Physician Assistant; ADMITTING PHYSICIAN Hospitalist; ATTENDING PHYSICIAN Family Medicine; EMERGENCY PHYSICIAN Student in an Organized Health Care Education/Training Program; FAMILY PHYSICIAN Family Medicine
DX: R05.8 Other specified cough (principal); J18.9 Pneumonia, unspecified organism; J44.0 Chronic obstructive pulmonary disease with (acute) lower respiratory infection; R53.1 Weakness; K21.9 Gastro-esophageal reflux disease without esophagitis; I10 Essential (primary) hypertension; E87.1 Hypo-osmolality and hyponatremia; D64.9 Anemia, unspecified; K59.00 Constipation, unspecified; D72.829 Elevated white blood cell count, unspecified; F41.9 Anxiety disorder, unspecified; R59.0 Localized enlarged lymph nodes; C34.90 Malignant neoplasm of unspecified part of unspecified bronchus or lung; C79.31 Secondary malignant neoplasm of brain; F32.A Depression, unspecified; Z92.3 Personal history of irradiation; Z92.21 Personal history of antineoplastic chemotherapy; Z87.891 Personal history of nicotine dependence; Z79.52 Long term (current) use of systemic steroids; Z82.49 Family history of ischemic heart disease and other diseases of the circulatory system; Z87.19 Personal history of other diseases of the digestive system; Z88.5 Allergy status to narcotic agent; Z79.51 Long term (current) use of inhaled steroids; Z11.52 Encounter for screening for COVID-19
CPT/HCPCS: 71046; 71260; 80053; 81003; 81015; 83930; 83935; 84300; 85025; 87077; 87086; 87502; 87811; 94640; 99285; Q9967

== ENCOUNTER → 2025-03-03 14:46 | Outpatient (REF) | payer MEDICARE, BC, SELFPAY ==
[2025-03-03 15:14] LABS: % Basophils 0.7 % (0-2); % Immature Granulocytes 2.6 % (0-0.5); % Monocytes 1.7 % (1.7-9.3); Absolute Basophils 0.1 10^3/uL (0-0.2); Absolute Immature Granulocytes 0.2 10^3/uL (0-0.05); Absolute Lymphocytes 0.3 10^3/uL (1.2-3.4); Absolute Monocytes 0.1 10^3/uL (0.1-0.6); Absolute Neutrophils 7.7 10^3/uL (1.4-6.5); Hemoglobin 10.4 g/dL (12.0-16.0); Mean Corp Hgb Conc. 35.9 g/dL (33.0-37.0); Mean Corpuscular Hgb 31.3 pg (27.0-31.0); Mean Corpuscular Volume 87.3 fL (81.0-99.0); Mean Platelet Volume 10.8 fL (7.4-10.4); Nucleated Red Blood Cells % 0 %; Platelet Count 142 10^3/uL (130-400); Red Blood Cell Count 3.32 10^6/uL (4.20-5.40); Red Cell Dist. Width 15.4 % (11.5-14.5); White Blood Cell Count 8.4 10^3/uL (4.8-10.8)
[2025-03-03 15:39] LABS: ALT (SGPT) 34 U/L (0-35); AST (SGOT) 24 U/L (14-36); Albumin 3.6 g/dl (3.5-5.0); Alkaline Phosphatase 73 U/L (38-126); Blood Urea Nitrogen 18 mg/dl (7-17); Calcium 9.2 mg/dl (8.4-10.2); Carbon Dioxide 26 mmol/L (22-30); Chloride 94 mmol/L (98-107); Glucose 125 mg/dl (70-99); Potassium 5.5 mmol/L (3.5-5.1); Sodium 125 mmol/L (135-145); eGFR > 60.00
[2025-03-03 15:57] LABS: Free T4 1.37 ng/dl (0.78-2.19)
[2025-03-03 16:11] LABS: TSH 0.08 uIU/ml (0.47-4.68)
== END ==
LOC: REG 14:46
PROVIDERS: ATTENDING PHYSICIAN Internal Medicine Hematology & Oncology; FAMILY PHYSICIAN Family Medicine
DX: C34.12 Malignant neoplasm of upper lobe, left bronchus or lung (principal); Z79.899 Other long term (current) drug therapy
CPT/HCPCS: 36415; 80053; 84439; 84443; 84480; 85025

== ENCOUNTER 2025-03-04 17:58 | Inpatient (IN) | payer MEDICARE, BC, SELFPAY ==
[2025-03-04] VITALS (7 sets, daily range): BP systolic 130–145; BP diastolic 67–93; BMI 24.0; BMI 21.3
--- NOTE | 2025-03-04 12:46 | ED.GENMED ---
History of Present Illness
General
Chief Complaint: Abnormal Lab Value
Source: patient
Exam Limitations: none
Time Seen by Provider: 03/04/25 12:26
History of Present Illness
History of Present Illness:
Note:
CHIEF COMPLAINT(S)
Persistent cough and low sodium levels.
HISTORY OF PRESENT ILLNESS
The patient is a 69-year-old female with a history of lung cancer and chronic obstructive pulmonary disease (COPD), presenting with a persistent cough that began on and hyponatremia. She reports undergoing chemotherapy with two treatments
and received radiation therapy two months ago. She denies current fever. The cough does not bring up sputum. She has a history of smoking.
ADDITIONAL HISTORY OBTAINED FROM SOURCES OTHER THAN THE PATIENT
Per healthcare providers, the patient was previously advised to stay in the hospital for management of sodium levels but elected to leave.
CHRONIC MEDICAL CONDITIONS SIGNIFICANTLY AFFECTING CARE
Chronic conditions affecting care: lung cancer, chronic obstructive pulmonary disease (COPD).
SOCIAL DETERMINANTS AFFECTING HEALTH
The patient has a history of smoking. She reports no current alcohol or illegal drug use.
PAST SURGICAL HISTORY
The patient has had cataract surgery on both eyes.
PHYSICAL EXAM
- Respiratory: Lungs clear bilaterally, with decreased breath sounds; no wheezing noted.
- Cardiac: S1, S2 present; no S3, S4 noted; no murmurs.
- Abdomen: Soft, non-tender, non-distended.
- Extremities: No edema; normal pulses in lower extremities.
Nursing notes reviewed and vital signs reviewed.
PLAN
- Administer a breathing treatment.
- Obtain a chest X-ray.
- Monitor blood sodium levels.
DIFFERENTIAL DIAGNOSIS
The differential diagnosis includes, in no particular order, and is not limited to:
1. Hyponatremia secondary to SIADH
2. Paraneoplastic syndrome
3. Chronic obstructive pulmonary disease exacerbation
4. Respiratory infection
5. Lung cancer progression
6. Heart failure
7. Pulmonary embolism
8. Medication side effect
9. Aspiration pneumonia
10. Anxiety-related hyperventilation
CARE-UPDATE
03/04/25 - 15:11
Chest x-ray reveals worsening left basal pneumonia. IV ceftazidime and vancomycin initiated for healthcare-associated pneumonia. Patient to be admitted under hospitalist care for ongoing management.
Disposition:
ASSESSMENT
The patient is assessed with pneumonia, hyponatremia, and lung cancer.
DISPOSITION
Admit to telemetry under hospitalist care.
PLAN
Initiate IV cefepime and vancomycin for healthcare-associated pneumonia. Monitor sodium levels and manage care under hospitalist supervision.
RADIOLOGY � INDEPENDENT INTERPRETATION:
- My independent interpretation of the chest X-ray is worsening left basal pneumonia.
MEDICATION RECONCILIATION
Administered IV ceftazidime and vancomycin.
MEDICAL DECISION MAKING
Chronic conditions affecting care: lung cancer, chronic obstructive pulmonary disease (COPD).
Differential diagnoses considered included hyponatremia secondary to SIADH, paraneoplastic syndrome, and possible progression of lung cancer.
PATHOLOGIES TO CONSIDER
- Potential complications related to lung cancer and associated paraneoplastic effects.
- Consider possible pulmonary embolism or cardiac involvement in light of respiratory symptoms and cancer history.
Past History
Past History
ED Past Medical History: COPD, GERD, HTN and Other
ED Past Surgical History: Orthopedic (Knee surgery)
Social History
Tobacco: Former smoker
Alcohol: Daily (7-7)
Personal:
Living: with family
Employment: Employed
Family History
Family History: Hypertension; Negative Early CAD, CAD or Sudden
Phy Exam
Physical Exam
Physical Exam:
.
Course
Orders/Labs/Results
Orders:
Orders
03/04/25 12:31
IV Insert/Care/Rem.- Treatment PRN
03/04/25 12:41
Ipratropium/Albuterol Sulfate [Duoneb] 3 ml INH R NOW STA
03/04/25 12:45
CR Chest - 2 Views Urgent
Comment:
Reason For Exam: short of breath
03/04/25 13:13
Complete Blood Count/With Diff Urgent
Comprehensive Metabolic Panel Urgent
Serum Osmolality Urgent
03/04/25 14:35
Osmolality, Random Urine Urgent
Date Specimen was Collected: 03/04/25
Time Specimen was Collected: 12:34
Urine Sodium Urgent
Date Specimen was Collected: 03/04/25
Time Specimen was Collected: 12:34
03/04/25 15:06
Cefepime HCl [Maxipime] 2,000 mg IV NOW STA
Vancomycin [Vancocin] 2,000 mg 0.9% Sodium Chloride 500 ml [Nss] 500 ml IV NOW
Abnormal Lab Results
03/04/25
13:13
RBC 3.12 L 10^6/uL
(4.20-5.40)
Hgb 9.9 L g/dL
(12.0-16.0)
Hct 26.9 L %
(37.0-47.0)
MCH 31.7 H pg
(27.0-31.0)
RDW 15.3 H %
(11.5-14.5)
Plt Count 114 L 10^3/uL
(130-400)
Abs Immat Gran (auto) 0.1 H 10^3/uL
(0-0.05)
Absolute Lymphs (auto) 0.3 L 10^3/uL
(1.2-3.4)
Immature Gran % 1.2 H %
(0-0.5)
Neutrophils % 89.5 H %
(42.2-75.2)
Lymphocytes % 5.8 L %
(20.5-51.1)
Sodium 125 L mmol/L
(135-145)
Chloride 97 L mmol/L
(98-107)
BUN 18 H mg/dl
(7-17)
Creatinine 0.5 L mg/dL
(0.6-1.0)
Glucose 102 H mg/dl
(70-99)
Serum Osmolality 260 L mOsm/kg
(275-300)
Total Protein 5.5 L g/dl
(6.3-8.2)
Albumin 3.3 L g/dl
(3.5-5.0)
03/04/25 13:13
03/04/25 13:13
Vital Signs
Initial and Last Documented VS:
Initial Vital Signs
Temp Pulse Resp BP Pulse Ox
98.2 F 98 15 145/93 98
03/04/25 12:10 03/04/25 12:10 03/04/25 12:10 03/04/25 12:10 03/04/25 12:10
Last Documented Vital Signs
Temp Pulse Resp BP Pulse Ox
98.2 F 98 15 145/93 98
03/04/25 12:10 03/04/25 12:10 03/04/25 12:10 03/04/25 12:10 03/04/25 12:48
*Pulse Oximetry
SaO2: 98
Oxygen Mode of Delivery: Room air
*Critical Care Note
Total Time (30-74mins, 75-104mins- exclusive of procedures): Not Applicable
ED Attending Note
-
Portions of this chart may have been created with voice recognition software.� Occasional wrong word or��sound alike� substitutions may have occurred due to the inherent limitations of voice recognition software.
Discharge Plan
Departure
Patient Disposition: Admit
Date of Disposition: 03/04/25
Time of Disposition: 15:08
Admit to: Telemetry
Presentation/result/management discussed w/ accepting MD/DO: Hospitalist
Patient with high blood pressure during this ER visit?: Yes
Condition: Fair
Discharge Problem:
Pneumonia, Acute hyponatremia, Lung cancer
Prescriptions:
No Action
Asmanex Twisthaler 220 mcg/ actuation (120) aerosol powdr breath activated
1 inh INHALATION R BID
pantoprazole 40 MG tablet,delayed release (DR/EC)
40 mg PO QPM
folic acid 1 mg Tablet
1 mg PO DAILY
clonazepam 0.5 mg Tablet
0.5 mg PO HSPRN PRN (Reason: Insomnia)
levetiracetam [Keppra] 500 mg Tablet
500 mg PO BID Qty: 0 0RF
atorvastatin [Lipitor] 10 mg tablet
10 mg PO QPM
metoprolol tartrate 100 mg tablet
100 mg PO BID
dexamethasone 4 mg tablet
4 mg PO BID
lisinopril 40 mg tablet
40 mg PO QPM
Stiolto Respimat 2.5-2.5 mcg/actuation Mist
2 puff INHALATION R DAILY
ondansetron HCl 8 mg Tablet
8 mg PO [id number] PRN (Reason: nausea)
therapeutic multivitamin Tablet
1 tab PO DAILY
guaifenesin 100 mg/5 mL Liquid
200 mg PO Q6HPRN PRN (Reason: cough)
docusate sodium [Colace] 100 mg Capsule
100 mg PO BIDPRN PRN (Reason: constipation)
carboplatin 150 mg Recon Soln
506 mg IV Q21D
Keytruda 25 mg/mL Solution
200 mg IV Q21D
pemetrexed 500 mg Recon Soln
900 mg IV Q21D
cefdinir 300 mg capsule
300 mg PO BID 7 Days Qty: 14 0RF
doxycycline monohydrate 100 mg capsule
100 mg PO BID 7 Days Qty: 14 0RF
Referrals:
Jeromy Catalan MD [Family Provider, Internal Medicine]
Interventions
Interventions:
*Risk Screen - Suicide Last Done: 06/19/25 12:10
*General Assessment Last Done: 03/04/25 12:10
*Neglect/Abuse Screening Last Done: 03/04/25 12:10
*ED- Fall Risk Assessment Last Done: 03/04/25 12:24
*ED COVID-19 Vaccine History Last Done: 03/04/25 12:10
Discharge Date and Time
Print Language: CITIZEN [place]
[2025-03-04] MEDS: DUONEB 3 ML INH (12:49)
[2025-03-04 13:44] LABS: % Basophils 0.4 % (0-2); % Immature Granulocytes 1.2 % (0-0.5); % Lymphocytes 5.8 % (20.5-51.1); % Monocytes 3.1 % (1.7-9.3); % Neutrophils 89.5 % (42.2-75.2); Absolute Immature Granulocytes 0.1 10^3/uL (0-0.05); Absolute Lymphocytes 0.3 10^3/uL (1.2-3.4); Absolute Monocytes 0.2 10^3/uL (0.1-0.6); Absolute Neutrophils 4.6 10^3/uL (1.4-6.5); Hematocrit 26.9 % (37.0-47.0); Hemoglobin 9.9 g/dL (12.0-16.0); Mean Corp Hgb Conc. 36.8 g/dL (33.0-37.0); Mean Corpuscular Hgb 31.7 pg (27.0-31.0); Mean Corpuscular Volume 86.2 fL (81.0-99.0); Mean Platelet Volume 9.9 fL (7.4-10.4); Nucleated Red Blood Cells % 0 %; Platelet Count 114 10^3/uL (130-400); Red Blood Cell Count 3.12 10^6/uL (4.20-5.40); Red Cell Dist. Width 15.3 % (11.5-14.5); White Blood Cell Count 5.1 10^3/uL (4.8-10.8)
[2025-03-04 13:47] LABS: Osmolality Serum 260 mOsm/kg (275-300)
[2025-03-04 13:58] LABS: ALT (SGPT) 31 U/L (0-35); AST (SGOT) 20 U/L (14-36); Albumin 3.3 g/dl (3.5-5.0); Alkaline Phosphatase 68 U/L (38-126); Blood Urea Nitrogen 18 mg/dl (7-17); Calcium 8.7 mg/dl (8.4-10.2); Carbon Dioxide 23 mmol/L (22-30); Chloride 97 mmol/L (98-107); Estimated Creatinine Clearance 88 ml/min; Glucose 102 mg/dl (70-99); Potassium 4.4 mmol/L (3.5-5.1); Sodium 125 mmol/L (135-145); Total Bilirubin 0.8 mg/dl (0.2-1.3); Total Protein 5.5 g/dl (6.3-8.2); eGFR > 60.00
[2025-03-04 15:10] LABS: Osmolality Urine 457 mOsm/kg (300-900)
[2025-03-04 15:11] LABS: Urine Sodium 16 mmol/L (30-90)
--- NOTE | 2025-03-04 15:27 | ED.GENMED ---
History of Present Illness
General
Chief Complaint: Abnormal Lab Value
Source: patient
Exam Limitations: none
Time Seen by Provider: 03/04/25 12:26
Nursing documentation reviewed up to this point in time: agreed with
History of Present Illness
History of Present Illness:
Note:
CHIEF COMPLAINT(S)
Persistent cough and low sodium levels.
HISTORY OF PRESENT ILLNESS
The patient is a 69-year-old female with a history of lung cancer and chronic obstructive pulmonary disease (COPD), presenting with a persistent cough that began on and hyponatremia. She reports undergoing chemotherapy with two treatments
and received radiation therapy two months ago. She denies current fever. The cough does not bring up sputum. She has a history of smoking.
ADDITIONAL HISTORY OBTAINED FROM SOURCES OTHER THAN THE PATIENT
Per healthcare providers, the patient was previously advised to stay in the hospital for management of sodium levels but elected to leave.
CHRONIC MEDICAL CONDITIONS SIGNIFICANTLY AFFECTING CARE
Chronic conditions affecting care: lung cancer, chronic obstructive pulmonary disease (COPD).
SOCIAL DETERMINANTS AFFECTING HEALTH
The patient has a history of smoking. She reports no current alcohol or illegal drug use.
PAST SURGICAL HISTORY
The patient has had cataract surgery on both eyes.
PHYSICAL EXAM
- Respiratory: Lungs rhonchi bilaterally, wheezing noted.
- Cardiac: S1, S2 present; no S3, S4 noted; no murmurs.
- Abdomen: Soft, non-tender, non-distended.
- Extremities: No edema; normal pulses in lower extremities.
Nursing notes reviewed and vital signs reviewed.
PLAN
- Administer a breathing treatment.
- Obtain a chest X-ray.
- Monitor blood sodium levels.
DIFFERENTIAL DIAGNOSIS
The differential diagnosis includes, in no particular order, and is not limited to:
1. Hyponatremia secondary to SIADH
2. Paraneoplastic syndrome
3. Chronic obstructive pulmonary disease exacerbation
4. Respiratory infection
5. Lung cancer progression
6. Heart failure
7. Pulmonary embolism
8. Medication side effect
9. Aspiration pneumonia
10. Anxiety-related hyperventilation
CARE-UPDATE
03/04/25 - 15:11
Chest x-ray reveals worsening left basal pneumonia. IV cefepime and vancomycin initiated for healthcare-associated pneumonia. Patient to be admitted under hospitalist care for ongoing management.
Disposition:
ASSESSMENT
The patient is assessed with pneumonia, hyponatremia, and lung cancer.
DISPOSITION
Admit to telemetry under hospitalist care.
PLAN
Initiate IV cefepime and vancomycin for healthcare-associated pneumonia. Monitor sodium levels and manage care under hospitalist supervision.
RADIOLOGY � INDEPENDENT INTERPRETATION:
- My independent interpretation of the chest X-ray is worsening left basal pneumonia.
MEDICATION RECONCILIATION
Administered IV cefepime and vancomycin.
MEDICAL DECISION MAKING
Chronic conditions affecting care: lung cancer, chronic obstructive pulmonary disease (COPD).
Differential diagnoses considered included hyponatremia secondary to SIADH, paraneoplastic syndrome, and possible progression of lung cancer.
PATHOLOGIES TO CONSIDER
- Potential complications related to lung cancer and associated paraneoplastic effects.
- Consider possible pulmonary embolism or cardiac involvement in light of respiratory symptoms and cancer history.
Past History
Past History
ED Past Medical History: COPD, GERD, HTN and Other
ED Past Surgical History: Orthopedic (Knee surgery)
Social History
Tobacco: Former smoker
Alcohol: Daily (7-7)
Personal:
Living: with family
Employment: Employed
Family History
Family History: Hypertension; Negative Early CAD, CAD or Sudden
Phy Exam
Physical Exam
Physical Exam:
.
Course
Orders/Labs/Results
Orders:
Orders
03/04/25 12:31
IV Insert/Care/Rem.- Treatment PRN
03/04/25 12:41
Ipratropium/Albuterol Sulfate [Duoneb] 3 ml INH R NOW STA
03/04/25 12:45
CR Chest - 2 Views Urgent
Comment:
Reason For Exam: short of breath
03/04/25 13:13
Complete Blood Count/With Diff Urgent
Comprehensive Metabolic Panel Urgent
Serum Osmolality Urgent
03/04/25 14:35
Osmolality, Random Urine Urgent
Date Specimen was Collected: 03/04/25
Time Specimen was Collected: 12:34
Urine Sodium Urgent
Date Specimen was Collected: 03/04/25
Time Specimen was Collected: 12:34
03/04/25 15:06
Cefepime HCl [Maxipime] 2,000 mg IV NOW STA
Vancomycin [Vancocin] 2,000 mg 0.9% Sodium Chloride 500 ml [Nss] 500 ml IV NOW
Abnormal Lab Results
03/04/25 03/04/25
13:13 14:35
RBC 3.12 L 10^6/uL
(4.20-5.40)
Hgb 9.9 L g/dL
(12.0-16.0)
Hct 26.9 L %
(37.0-47.0)
MCH 31.7 H pg
(27.0-31.0)
RDW 15.3 H %
(11.5-14.5)
Plt Count 114 L 10^3/uL
(130-400)
Abs Immat Gran (auto) 0.1 H 10^3/uL
(0-0.05)
Absolute Lymphs (auto) 0.3 L 10^3/uL
(1.2-3.4)
Immature Gran % 1.2 H %
(0-0.5)
Neutrophils % 89.5 H %
(42.2-75.2)
Lymphocytes % 5.8 L %
(20.5-51.1)
Sodium 125 L mmol/L
(135-145)
Chloride 97 L mmol/L
(98-107)
BUN 18 H mg/dl
(7-17)
Creatinine 0.5 L mg/dL
(0.6-1.0)
Glucose 102 H mg/dl
(70-99)
Serum Osmolality 260 L mOsm/kg
(275-300)
Total Protein 5.5 L g/dl
(6.3-8.2)
Albumin 3.3 L g/dl
(3.5-5.0)
Urine Sodium 16 L mmol/L
(30-90)
03/04/25 13:13
03/04/25 13:13
Vital Signs
Initial and Last Documented VS:
Initial Vital Signs
Temp Pulse Resp BP Pulse Ox
98.2 F 98 15 145/93 98
03/04/25 12:10 03/04/25 12:10 03/04/25 12:10 03/04/25 12:10 03/04/25 12:10
Last Documented Vital Signs
Temp Pulse Resp BP Pulse Ox
98.2 F 98 15 145/93 98
03/04/25 12:10 03/04/25 12:10 03/04/25 12:10 03/04/25 12:10 03/04/25 12:48
*Pulse Oximetry
SaO2: 98
Oxygen Mode of Delivery: Room air
Patient hypoxic: no
*Critical Care Note
Total Time (30-74mins, 75-104mins- exclusive of procedures): Not Applicable
ED Attending Note
-
Portions of this chart may have been created with voice recognition software.� Occasional wrong word or��sound alike� substitutions may have occurred due to the inherent limitations of voice recognition software.
Discharge Plan
Departure
Patient Disposition: Admit
Date of Disposition: 03/04/25
Time of Disposition: 15:08
Admit to: Telemetry
Presentation/result/management discussed w/ accepting MD/DO: Hospitalist
Patient with high blood pressure during this ER visit?: Yes
Condition: Fair
Discharge Problem:
Pneumonia, Acute hyponatremia, Lung cancer
Prescriptions:
No Action
Asmanex Twisthaler 220 mcg/ actuation (120) aerosol powdr breath activated
1 inh INHALATION R BID
pantoprazole 40 MG tablet,delayed release (DR/EC)
40 mg PO QPM
folic acid 1 mg Tablet
1 mg PO DAILY
clonazepam 0.5 mg Tablet
0.5 mg PO HSPRN PRN (Reason: Insomnia)
levetiracetam [Keppra] 500 mg Tablet
500 mg PO BID Qty: 0 0RF
atorvastatin [Lipitor] 10 mg tablet
10 mg PO QPM
metoprolol tartrate 100 mg tablet
100 mg PO BID
dexamethasone 4 mg tablet
4 mg PO BID
lisinopril 40 mg tablet
40 mg PO QPM
Stiolto Respimat 2.5-2.5 mcg/actuation Mist
2 puff INHALATION R DAILY
ondansetron HCl 8 mg Tablet
8 mg PO [id number] PRN (Reason: nausea)
therapeutic multivitamin Tablet
1 tab PO DAILY
guaifenesin 100 mg/5 mL Liquid
200 mg PO Q6HPRN PRN (Reason: cough)
docusate sodium [Colace] 100 mg Capsule
100 mg PO BIDPRN PRN (Reason: constipation)
carboplatin 150 mg Recon Soln
506 mg IV Q21D
Keytruda 25 mg/mL Solution
200 mg IV Q21D
pemetrexed 500 mg Recon Soln
900 mg IV Q21D
cefdinir 300 mg capsule
300 mg PO BID 7 Days Qty: 14 0RF
doxycycline monohydrate 100 mg capsule
100 mg PO BID 7 Days Qty: 14 0RF
Referrals:
Jeromy Catalan MD [Family Provider, Internal Medicine]
Interventions
Interventions:
*Risk Screen - Suicide Last Done: 03/04/25 12:10
*General Assessment Last Done: 03/04/25 12:10
*Neglect/Abuse Screening Last Done: 03/04/25 12:10
*ED- Fall Risk Assessment Last Done: 03/04/25 12:24
*ED COVID-19 Vaccine History Last Done: 03/04/25 12:10
Discharge Date and Time
Print Language: URDU
[2025-03-04] MEDS: MAXIPIME 2000 MG IV (15:28)
[2025-03-04] MEDS: VANCOCIN 540 MG IV (15:51)
--- NOTE | 2025-03-04 16:19 | PHANOTE ---
03/04/2025, was not able to confirm pt.'s Keytruda, Pemetrexed, and Carboplatin with OID at time of interview.
--- NOTE | 2025-03-04 17:33 | HPS.HSE ---
Family Physician
-
Family Physician: Jeromy Catalan
Chief Complaint
-
cough
History of Present Illness
69, female, history of metastatic lung CA with mets to the brain on chemotherapy/immunotherapy s/p radiation, hypertension, hyponatremia, COPD, GERD, diverticular disease, anxiety/depression, presented with ongoing productive cough which has been
progressively getting worse. He states that the cough began last weekend, yellowish/clear, not too much fever or chills unable to tell me temp associated shortness of breath dyspnea on exertion.
Tells me her next chemotherapy is to Wednesdays from today. She is a former smoker, does not drink alcohol, bowel surgery 2 years ago
Medical History
Past Medical History
Past Medical History: Reports Cancer, COPD and Hypercholesterolemia
Past Surgical History: Reports Bowel Resection
Social History
Tobacco: Former Smoker
Alcohol: None
Drug: None
Family History
Family History: Not pertinent
Allergies / Home Medications
Allergies reflects when Allergies were last updated in [facility].
Home Medications with original date entered in [facility]
Allergy/Medication List:
Allergies
Allergy/AdvReac Type Severity Reaction Status Date / Time
codeine Allergy headache Verified 01/29/25 22:06
Home Medications
mometasone 220 mcg/actuation(120 doses)breath activated powder inhaler (Asmanex Twisthaler) 1 inh inhalation R BID sob 06/05/23
pantoprazole 40 mg tablet,delayed release 40 mg PO QPM Gastrointestinal Issue 06/05/23
folic acid 1 mg tablet 1 mg PO DAILY Supplement 01/29/25
clonazepam 0.5 mg tablet 0.5 mg PO HSPRN PRN Insomnia 02/13/25
levetiracetam 500 mg tablet (Keppra) 500 mg PO BID Seizures #0 tabs 02/14/25
atorvastatin 10 mg tablet (Lipitor) 10 mg PO QPM High Cholesterol 03/01/25
carboplatin 150 mg intravenous solution 506 mg IV Q21D 03/01/25
cefdinir 300 mg capsule 300 mg PO BID 7 days #14 caps 03/01/25
dexamethasone 4 mg tablet 4 mg PO BID Anti-Inflammatory 03/01/25
docusate sodium 100 mg capsule (Colace) 100 mg PO DAILYPRN PRN constipation 03/01/25
doxycycline monohydrate 100 mg capsule 100 mg PO BID 7 days #14 caps 03/01/25
lisinopril 40 mg tablet 40 mg PO QPM Blood Pressure 03/01/25
metoprolol tartrate 100 mg tablet 100 mg PO BID Blood Pressure 03/01/25
pembrolizumab 25 mg/mL intravenous solution (Keytruda) 200 mg IV Q21D 03/01/25
pemetrexed 500 mg intravenous powder for solution 900 mg IV Q21D 03/01/25
therapeutic multivitamin 1 tab PO DAILY 03/01/25
lidocaine-prilocaine 2.5 %-2.5 % topical cream 1 applic topical DIRECTED 03/04/25
Review of Systems
-
A 12 point ROS was completed and negative except as noted: Yes
Physical Exam
Vital Signs
Vital Signs
Temp Pulse Resp BP Pulse Ox
98.2 F 98 15 144/71 91
03/04/25 12:10 03/04/25 12:10 03/04/25 12:10 03/04/25 17:00 03/04/25 17:30
Physical Exam
General: No Apparent Distress
Laboratory Results
-
03/04/25 13:13
03/04/25 13:13
Laboratory Results
Total Bilirubin 0.8 mg/dl (0.2-1.3) 03/04/25 13:13
AST 20 U/L (14-36) 03/04/25 13:13
ALT 31 U/L (0-35) 03/04/25 13:13
Alkaline Phosphatase 68 U/L (38-126) 03/04/25 13:13
Impression/Plan
-
NAD
Scleral Anicteric
MMM
No JVD
CTABL
RRR, S1/S2
Soft, NT, ND, BS+
Warm, Dry
AAOx3
Calm
Pna - likely bacterial, productive cough
- No requiring o2
- Start vanc/zosyn/azithro (immunocompromised/atypical coverage)
- Procal
- Legionella/Strep pneumo AG
- Antitussive/Mucolytics
- ID consult
Chronic hyponatremia likely SIADH from malignancy/brain metastases
- Sodium 125
- 40 ounce fluid restriction
Metastatic lung cancer with metastases to the brain
- On chemo
- Status post brain radiation
Brain metastases
- Continue Keppra
- Continue Dex BID
Essential hypertension
- Continue amlodipine, metoprolol, lisinopril
GERD
- Continue Protonix
Diverticular disease/stricture status post sigmoidectomy
Anxiety/depression
- Continue clonazepam
--- NOTE | 2025-03-04 18:56 | PHA.VAN.IN ---
Assessment
- Assessment
Renal Function: Appears similar to baseline
Concomitant Antimicrobials: ZOSYN, AZITHROMYCIN
- Previous Dosing Experience
Previous Regimen: NONE
AUC Dosing Plan
- Dosing Variables
Dosing Weight (kg): 63.6
Dosing CrCl (ml/min): 88
Vd coefficient (L/kg): 0.7
- Empiric Dosing
Initial / Loading Dose: 2GM [Based on wt of 71.7kg in ED]
Maintenance Regimen: 750MG IV Q12H
Estimated AUC (mcg*h/mL): 452
Estimated Peak (mcg*h/mL): 27.8
Estimated Trough (mcg/ml): 11.9
Estimated Half Life (H): 8.9
Pharmacokinetics Vancomycin I
- -
Patient Age: 69
Patient Sex: Female
Vancomycin Day #: 1
Indication: Pulmonary/Respiratory
Requesting Provider: KEENAN AMARO
Height / Weight:
Height 5 ft 8 in
Actual Weight 63.616 kg
Pertinent Past Medical History: CANCER, COPD
- Vital Signs / Lab Results
Temp Pulse Resp BP Pulse Ox
98.2 F 98 15 135/67 94
03/04/25 12:10 03/04/25 12:10 03/04/25 12:10 03/04/25 18:08 03/04/25 18:05
Lab Results - Hematology
03/04/25
13:13
WBC 5.1
Lab Results - Chemistry
03/04/25
13:13
BUN 18 H
Creatinine 0.5 L
Estimated Creat Clear 88
Albumin 3.3 L
[2025-03-04] MEDS: LOVENOX 40 MG SC (20:06)
[2025-03-04] MEDS: ZITHROMAX 252.5 MG IV (20:06)
[2025-03-04] MEDS: LIPITOR 10 MG PO (20:06)
[2025-03-04] MEDS: PROTONIX 40 MG PO (20:06)
[2025-03-04] MEDS: DECADRON 4 MG PO (20:07)
[2025-03-04] MEDS: KEPPRA 500 MG PO (20:07)
[2025-03-04] MEDS: ZESTRIL 40 MG PO (20:07)
[2025-03-04] MEDS: LOPRESSOR 100 MG PO (20:07)
[2025-03-04] MEDS: ZOSYN 50 IV (22:02)
[2025-03-04] MEDS: KLONOPIN 0.5 MG PO (22:53)
[2025-03-04] MEDS: FLOVENT 110 MCG INHALER INH (23:08)
[2025-03-05 03:11] LABS: Procalcitonin 0.07 ng/ml (0.0-0.25)
[2025-03-05] MEDS: ZOSYN 50 IV ×2 (05:32→11:42)
[2025-03-05 05:58] LABS: Hematocrit 23.9 % (37.0-47.0); Hemoglobin 8.6 g/dL (12.0-16.0); Mean Corpuscular Hgb 31.4 pg (27.0-31.0); Mean Corpuscular Volume 87.2 fL (81.0-99.0); Mean Platelet Volume 11.3 fL (7.4-10.4); Platelet Count 87 10^3/uL (130-400); Red Blood Cell Count 2.74 10^6/uL (4.20-5.40); Red Cell Dist. Width 15.4 % (11.5-14.5); White Blood Cell Count 4.2 10^3/uL (4.8-10.8)
[2025-03-05] MEDS: VANCOCIN 150 IV (06:06)
[2025-03-05 06:30] LABS: Blood Urea Nitrogen 14 mg/dl (7-17); Calcium 8.8 mg/dl (8.4-10.2); Carbon Dioxide 28 mmol/L (22-30); Chloride 104 mmol/L (98-107); Estimated Creatinine Clearance 88 ml/min; Glucose 93 mg/dl (70-99); Potassium 4.2 mmol/L (3.5-5.1); Sodium 137 mmol/L (135-145); eGFR > 60.00
[2025-03-05] MEDS: DUONEB 3 ML INH ×2 (07:13→11:13)
[2025-03-05] MEDS: FLOVENT 110 MCG INHALER 2 PUFF INH (07:13)
[2025-03-05 07:30] VITALS: BP 133/74
--- NOTE | 2025-03-05 08:03 | PHA.VAN.FU ---
Vancomycin Assessment / Plan
- Assessment
Renal Function: Stable
WBC's are: Trending Down (4.2 from 5.1 yesterday)
In the past 24 hrs, patient has been: Afebrile
Concomitant Antimicrobials: Azithromycin, Zosyn
- Dosing Plan
Continue: Vancomycin 750mg IV Q12H
- Monitoring Plan
No level(s) ordered at this time: Consider levels when at steady state with current regimen
- Follow Up
Pharmacy will continue to follow.
Vancomycin Follow UP
- -
Patient Age: 69
Patient Sex: Female
Vancomycin Day #: 2
Indication: Pulmonary/Respiratory
Requesting Provider: KEENAN AMARO
Pertinent Antimicrobial Allergies:
No pertinent allergies to ABX
Height / Weight:
Height 5 ft 8 in
Actual Weight 63.616 kg
Pertinent Past Medical History: CANCER, COPD
- Vital Signs / Lab Results
Temp Pulse Resp BP Pulse Ox
97.6 F 96 18 138/82 94
03/04/25 23:29 03/05/25 07:18 03/05/25 07:18 03/04/25 23:29 03/05/25 07:18
Lab Results - Hematology
03/04/25 03/05/25
13:13 05:25
WBC 5.1 4.2 L
Lab Results - Chemistry
03/04/25 03/05/25
13:13 05:25
BUN 18 H 14
Creatinine 0.5 L 0.5 L
Estimated Creat Clear 88 88
Albumin 3.3 L
[2025-03-05] MEDS: DECADRON 4 MG PO (08:12)
[2025-03-05] MEDS: KEPPRA 500 MG PO (08:12)
[2025-03-05] MEDS: FOLVITE 1 MG PO (08:12)
[2025-03-05] MEDS: LOPRESSOR 100 MG PO (08:13)
[2025-03-05] MEDS: SAFETUSSIN DM (SUGAR/ALCOHOL FREE) 200 MG PO (08:15)
--- NOTE | 2025-03-05 08:50 | CON.ID ---
Consultation
-
Date/Time Consultation Requested: 03/04/2025 1725
Date/Time Consultation Performed: March 05, 2025 0850
Requesting Provider: Dr. Marquis Barnes
Performing Provider: Dr. Macy Mccarthy
Reason for Consultation: Pneumonia
Chief Complaint / Past History
Chief Complaint
Cough
History of Present Illness
69-year-old female with recent diagnosis of non-small cell lung cancer with multiple brain mets completed radiation then started systemic therapy since February 03 and she has had 2 cycles who presented to the hospital March 04 complaining of persistent
productive cough. She had recent multiple hospitalizations last being February 28 to March 01 complaining of cough. Chest x-ray unremarkable. The chest CT showed right upper lung mass with minimal left lingular opacity. COVID negative. Influenza
negative. However patient left AGAINST MEDICAL ADVICE. She was discharged on cefdinir plus doxycycline. She continued to cough productive of clear and some yellow sputum. Positive rhinorrhea. No fevers or chills. No shortness of breath. In
the ER chest x-ray showed progression of the left opacity. Procalcitonin negative. Patient states her recently had similar symptoms with cough no other ill contacts. She has a cold sore on her left upper lip present since last week.
Initially started with a blister and now scabbing.
Past History
Additional Past Medical History:
Stage IV non-small cell lung cancer dx'd 12/29/24 with multiple brain mets status post XRT, started therapy 02/03
COPD
Hypertension
Anxiety/depression
Port placement 02/16/25
Colon stricture status post sigmoidectomy
Right knee arthroscopic surgery
Allergy History:
codeine Allergy (Verified 01/29/25 22:06)
headache
Medications Reviewed: Yes
Current Antibiotics:
Vancomycin
Zosyn
Azithromycin
Social History
Tobacco: Former Smoker
Alcohol: None
Drug: None
Personal:
Living: With Family
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
Family History
Family History: Not Pertinent
Review of Systems
Review of Systems
General: Negative Fever, Chills or Change in Appetite
HEENT: Negative Lymphadenopathy, Headache or Pharyngitis
Cardiovascular: Negative Chest Pain or Edema
Respiratory: Cough; Negative Dyspnea
Gasteroenterology: Negative Nausea, Vomiting or Diarrhea
Genital / Urological: Negative Dysuria or Flank Pain
Endocrine: Negative Weakness
Neurological: Negative Dizziness
All systems: All other systems were reviewed and were negative
Vital Signs
Temp Pulse Resp BP Pulse Ox
97.9 F 106 20 133/74 90
03/05/25 07:30 03/05/25 07:30 03/05/25 07:30 03/05/25 07:30 03/05/25 07:30
Physical Exam
Physical Exam
Constitutional: No Acute Distress and Comfortable
Head: Other (No frontal or max or sinus tenderness)
Eyes: No Conjunctival Hemorrhage and Sclera Anicteric
Oral: Other (Left upper lip)
Cardiovascular: Regular Rate and S1/S2
Pulmonary: Clear
Gastrointestinal: Soft, Non Tender and Non Distended
Extremities: Negative Edema
Musculoskeletal: Negative Spinal Tenderness
Neurological: AO x 3
Lines: Port (Right chest wall no erythema)
Lab / Diagnostic Study Results
03/05/25 05:25
03/05/25 05:25
Abs Immat Gran (auto) 0.1 10^3/uL (0-0.05) H 03/04/25 13:13
Absolute Neuts (auto) 4.6 10^3/uL (1.4-6.5) 03/04/25 13:13
Absolute Lymphs (auto) 0.3 10^3/uL (1.2-3.4) L 03/04/25 13:13
Absolute Monos (auto) 0.2 10^3/uL (0.1-0.6) 03/04/25 13:13
Absolute Basos (auto) 0.0 10^3/uL (0-0.2) 03/04/25 13:13
Immature Gran % 1.2 % (0-0.5) H 03/04/25 13:13
Neutrophils % 89.5 % (42.2-75.2) H 03/04/25 13:13
Lymphocytes % 5.8 % (20.5-51.1) L 03/04/25 13:13
Monocytes % 3.1 % (1.7-9.3) 03/04/25 13:13
Eosinophils % 0.0 % (0-6) 03/04/25 13:13
Basophils % 0.4 % (0-2) 03/04/25 13:13
Procalcitonin 0.07 ng/ml (0.0-0.25) 03/05/25 01:58
Microbiology Results
03/04/25 CXR: Ill-defined right suprahilar mass, better seen on prior CT. Worsening left basilar pneumonia.
03/01/[address]: Subtle lingular pneumonia. Right upper lobe pulmonary mass measuring 2 x 1.5 cm. Mild superior right hilar adenopathy. Direct comparison with any prior examination (not available at this facility) is recommended in this patient
with history of lung carcinoma treated with chemotherapy.
Assessment / Plan
# Cough
# Stage IV lung cancer with brain mets on systemic therapy since 02/03/25
- Procalcitonin 0.07 -> ruled out bacterial pneumonia.
- Suspect Viral PNA vs lung cancer
- DC abx's.
- Recommend supportive care with anti-tussive, nasal spray.
# Orolabial HSV
- can give Valacyclovir 1g po q12 for 2 doses.
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
Stage IV non-small cell lung cancer dx'd 12/29/24 with multiple brain mets status post XRT, started therapy 02/03
COPD
Hypertension
Anxiety/depression
Port placement 02/16/25
Colon stricture status post sigmoidectomy
Right knee arthroscopic surgery
Care Review
Plan reviewed with: Physician (Dr. Curly Barnes)
[2025-03-05] MEDS: VALTREX 1000 MG PO (11:42)
--- NOTE | 2025-03-05 12:20 | CM ---
Per nurse, patient will d/c today. Patient seen bedside w/ spouse, initial assessment completed. Patient is a 69 y/o female, history of metastatic lung CA with mets to the brain on chemotherapy/immunotherapy s/p radiation, hypertension,
hyponatremia, COPD, GERD, diverticular disease, anxiety/depression, presented with ongoing productive cough.
Patient resides w/ spouse in a single story home, 2 steps to enter. Independent in all areas, no DME. Per patient and spouse, they have inherited DME from grandparents but they do not use any at this time. No SNF/HC hx reported.
Address, point of contact and insurance verified
PCP: Jeromy Catalan
Pharmacy: [facility]
Patient aware of d/c today. IMM verbally reviewed, declined copy, copy on chart
Plan: Home, no needs
--- NOTE | 2025-03-05 13:02 | W.DCSUMMARY ---
Addendum entered and electronically signed by Marquis Barnes MD 03/06/25 15:14:
Pancytopenia likely multifactorial in the setting of viral infection leading to leukopenia and thrombocytopenia and anemia secondary to chemo
Original Note:
Discharge Summary
Discharge Data
Date of Admission: 03/04/25
Date of Discharge: 03/05/25
-
Pending Results: No
Hospital Course
69, female, history of metastatic lung CA with mets to the brain on chemotherapy/immunotherapy s/p radiation, hypertension, hyponatremia, COPD, GERD, diverticular disease, anxiety/depression
Presented with worsening productive cough fortunately did not require supplemental oxygen. Started on IV antibiotics by the ER. Procalcitonin was low chest x-ray was unremarkable. Evaluated by infectious diseases did not believe this was a
bacterial infection therefore IV antibiotics discontinued. Discharged home with supportive care. Noted to have a cold sore on the top left lip that appears scabbed over. However, reports getting worse therefore asked for a treatment plan.
2 doses of valacyclovir plan 1 received 1 and final dose should be provided tonight at home.
Outpatient PCP oncology follow-up.
Seen and examined on the day of discharge. No new complaints. No acute overnight events.
updated via phone. Told me about goals were getting worse over the last couple weeks asking for treatment
Informed him that this is likely viral as no white count afebrile low procalcitonin. Recommend supportive care. Informed COVID flu negative from 02/28/2025
NAD
Scleral Anicteric
MMM
Cold sore, scab over top left lip
No JVD
CTABL
RRR, S1/S2
Soft, NT, ND, BS+
Warm, Dry
AAOx3
Calm
More than 30 minutes spent in discharge including
Final examination of the patient
Summarizing hospital stay
Instructions for continuing care to all relevant caregivers
Preparation of discharge records, prescriptions, and referral forms
Total time spent (in minutes): 33mins
Discharge Plan
-
Patient Disposition: Home (Routine Discharge)
Discharge Diagnosis/Procedures: viral bronchitis
hyponatremia
Condition: Good
Diet: As tolerated
Activity: As tolerated
Activity Restrictions/Additional Instructions:
Presented with worsening productive cough fortunately did not require supplemental oxygen. Started on IV antibiotics by the ER. Procalcitonin was low chest x-ray was unremarkable. Evaluated by infectious diseases did not believe this was a
bacterial infection therefore IV antibiotics discontinued. Discharged home with supportive care. Noted to have a cold sore on the top left lip that appears scabbed over. However, reports getting worse therefore asked for a treatment plan.
2 doses of valacyclovir plan 1 received 1 and final dose should be provided tonight at home.
Outpatient PCP oncology follow-up.
Referrals:
Jeromy Catalan MD [Family Provider, Internal Medicine]
Steve Ibrahim MD [Active, Hematology / Oncology] - in two weeks
Prescriptions:
New
dextromethorphan-guaifenesin [MAXTussin DM] 10-100 mg/5 mL Liquid
10 ml PO Q6HPRN PRN (Reason: cough) Qty: 800 0RF
valacyclovir 500 mg Tablet
1,000 mg PO HS Qty: 1 0RF
fluticasone propionate [Allergy Relief (fluticasone)] 50 mcg/actuation spray,suspension
1 spray intranasal BID Qty: 16 0RF
Continued
Asmanex Twisthaler 220 mcg/ actuation (120) aerosol powdr breath activated
1 inh INHALATION R BID
pantoprazole 40 MG tablet,delayed release (DR/EC)
40 mg PO QPM
folic acid 1 mg Tablet
1 mg PO DAILY
clonazepam 0.5 mg Tablet
0.5 mg PO HSPRN PRN (Reason: Insomnia)
levetiracetam [Keppra] 500 mg Tablet
500 mg PO BID Qty: 0 0RF
atorvastatin [Lipitor] 10 mg tablet
10 mg PO QPM
metoprolol tartrate 100 mg tablet
100 mg PO BID
dexamethasone 4 mg tablet
4 mg PO BID
lisinopril 40 mg tablet
40 mg PO QPM
therapeutic multivitamin Tablet
1 tab PO DAILY
docusate sodium [Colace] 100 mg Capsule
100 mg PO DAILYPRN PRN (Reason: constipation)
carboplatin 150 mg Recon Soln
506 mg IV Q21D
Keytruda 25 mg/mL Solution
200 mg IV Q21D
pemetrexed 500 mg Recon Soln
900 mg IV Q21D
lidocaine-prilocaine 2.5-2.5 % Cream
1 applic TOPICAL DIRECTED
Patient Comments:
03/04/2025, apply to port site.
doxycycline monohydrate 100 mg capsule
100 mg PO BID
Patient Comments:
03/04/2025, filled on 03/01/2025 and instructed to take 1 capsule BID for 7 days.
cefdinir 300 mg capsule
300 mg PO BID
Patient Comments:
03/04/2025, filled on 03/01/2025 and instructed to take 1 capsule BID for 7 days.
Discharge Orders:
Discharge Patient (As Directed); Ordered 03/05/25
Ordered By: Marquis Barnes
Discharge Date and Time
Print Language: PANAMANIAN
--- NOTE | 2025-03-05 13:19 | PN.CDI ---
CDI
- -
CDI:
Physician Documentation Request
Admit Date: 03/04/25 17:58
Dear Doctor Cameron,
Please review the following and provide your response in the progress notes.
Clinical Indicators:
Pt admitted with PNA/ Lung cancer with Brain mets
Documented per H&P,' metastatic lung CA with mets to the brain on chemotherapy/immunotherapy...Tells me her next chemotherapy is to Wednesdays from today...pembrolizumab 25 mg/mL intravenous solution (Keytruda) 200 mg IV Q21D 03/01/25 ...'
Bloodcounts are as below
03/05/25
05:25
WBC 4.2 L
Hgb 8.6 L
Hct 23.9 L
Plt Count 87 L D
Please provide a diagnosis for the above lab findings:
Pancytopenia due to chemotherapy
Drug induced Pancytopenia
Anemia /Thrombocytopenia
Other ( please specify)
Use of terms such as suspected, likely, concern for, or probable (associated with a specific diagnosis that is being evaluated, monitored, or treated as if it exists) are acceptable and can be coded in the inpatient setting, when documented at the
time of discharge.
Thank you,
Sarah Salcido RN
CDI Specialist
[place] [facility]
Please use your independent medical judgment in providing your response.
== END 2025-03-05 13:43 | disposition home or self-care (01) | DRG 180 ==
LOC: 4 WEST ACU 17:58
PROVIDERS: ADMITTING PHYSICIAN Hospitalist; CONSULT PHYSICIAN Internal Medicine Infectious Disease; EMERGENCY PHYSICIAN Emergency Medicine; FAMILY PHYSICIAN Family Medicine
DX: C34.90 Malignant neoplasm of unspecified part of unspecified bronchus or lung (principal); D61.810 Antineoplastic chemotherapy induced pancytopenia; J18.9 Pneumonia, unspecified organism; C79.31 Secondary malignant neoplasm of brain; E22.2 Syndrome of inappropriate secretion of antidiuretic hormone; Z87.891 Personal history of nicotine dependence; I10 Essential (primary) hypertension; K21.9 Gastro-esophageal reflux disease without esophagitis; F32.A Depression, unspecified; F41.9 Anxiety disorder, unspecified; K57.30 Diverticulosis of large intestine without perforation or abscess without bleeding; B00.1 Herpesviral vesicular dermatitis; D64.81 Anemia due to antineoplastic chemotherapy; D69.6 Thrombocytopenia, unspecified
CPT/HCPCS: 36415; 71046; 71260; 80048; 80053; 83930; 83935; 84145; 84300; 84439; 84443; 84480; 85025; 85027; 87449; 87641; 87899; 94640; 96374; 96375; 99285; Q9967

== ENCOUNTER → 2025-03-10 12:25 | Outpatient (REF) | payer MEDICARE, BC, SELFPAY ==
[2025-03-10 13:38] LABS: Hematocrit 26.4 % (37.0-47.0); Hemoglobin 9.2 g/dL (12.0-16.0); Mean Corp Hgb Conc. 34.8 g/dL (33.0-37.0); Mean Corpuscular Hgb 31.1 pg (27.0-31.0); Mean Corpuscular Volume 89.2 fL (81.0-99.0); Mean Platelet Volume 11.6 fL (7.4-10.4); Platelet Count 127 10^3/uL (130-400); Red Blood Cell Count 2.96 10^6/uL (4.20-5.40); Red Cell Dist. Width 15.3 % (11.5-14.5); White Blood Cell Count 7.2 10^3/uL (4.8-10.8)
[2025-03-10 13:51] LABS: ALT (SGPT) 38 U/L (0-35); AST (SGOT) 23 U/L (14-36); Albumin 3.9 g/dl (3.5-5.0); Alkaline Phosphatase 57 U/L (38-126); Blood Urea Nitrogen 18 mg/dl (7-17); Calcium 8.9 mg/dl (8.4-10.2); Carbon Dioxide 21 mmol/L (22-30); Chloride 98 mmol/L (98-107); Glucose 99 mg/dl (70-99); Potassium 4.6 mmol/L (3.5-5.1); Sodium 126 mmol/L (135-145); Total Bilirubin 0.5 mg/dl (0.2-1.3); Total Protein 6.2 g/dl (6.3-8.2); eGFR > 60.00
[2025-03-10 14:19] LABS: TSH 0.48 uIU/ml (0.47-4.68)
[2025-03-10 14:39] LABS: Free T4 0.95 ng/dl (0.78-2.19)
[2025-03-10 14:50] LABS: Absolute Neutrophils -Man Diff 5.5 10^3/uL (1.4-6.5); Band Neutrophils 5 % (0-3); Lymphocytes 12 % (20-51); Metamyelocytes 7 % (-); Monocytes 2 % (2-9); Myelocytes 2 % (-); Platelets Checked Yes; Segmented Neutrophils 72 % (42-75)
[2025-03-10 14:51] LABS: Normal RBC Morphology Yes; Nucleated Red Blood Cells 3 (-); Total Cells Counted 100
[2025-03-13 04:50] LABS: Total T3 (Sendout) 52 ng/dL (80-200)
== END ==
LOC: REG 12:25
PROVIDERS: ATTENDING PHYSICIAN Internal Medicine Hematology & Oncology; FAMILY PHYSICIAN Family Medicine
DX: C34.12 Malignant neoplasm of upper lobe, left bronchus or lung (principal); Z79.899 Other long term (current) drug therapy
CPT/HCPCS: 36415; 80053; 84439; 84443; 84480; 84481; 85025

== ENCOUNTER → 2025-03-10 12:53 | Outpatient (REF) | payer MEDICARE, BC, SELFPAY | LOC: PAVMRI 12:53 | PROVIDERS: ATTENDING PHYSICIAN Radiology Diagnostic Radiology; FAMILY PHYSICIAN Family Medicine | DX: C79.31 Secondary malignant neoplasm of brain (principal) | CPT/HCPCS: 70553; A9575 ==

== ENCOUNTER → 2025-03-25 09:02 | Outpatient (REF) | payer MEDICARE, BC, SELFPAY ==
[2025-03-25 10:22] LABS: Hematocrit 21.7 % (37.0-47.0); Hemoglobin 7.9 g/dL (12.0-16.0); Mean Corp Hgb Conc. 36.4 g/dL (33.0-37.0); Mean Corpuscular Volume 87.5 fL (81.0-99.0); Platelet Count 107 10^3/uL (130-400); Red Cell Dist. Width 17.4 % (11.5-14.5)
[2025-03-25 10:42] LABS: ALT (SGPT) 38 U/L (0-35); AST (SGOT) 24 U/L (14-36); Albumin 3.8 g/dl (3.5-5.0); Alkaline Phosphatase 54 U/L (38-126); Blood Urea Nitrogen 20 mg/dl (7-17); Calcium 8.9 mg/dl (8.4-10.2); Carbon Dioxide 23 mmol/L (22-30); Chloride 102 mmol/L (98-107); Glucose 88 mg/dl (70-99); Potassium 4.8 mmol/L (3.5-5.1); Sodium 129 mmol/L (135-145); Total Protein 6.0 g/dl (6.3-8.2); eGFR > 60.00
[2025-03-25 11:14] LABS: TSH 0.89 uIU/ml (0.47-4.68)
[2025-03-25 11:15] LABS: Nucleated Red Blood Cells % 0 %
[2025-03-27 13:20] LABS: Total T3 (Sendout) 70 ng/dL (80-200)
== END ==
LOC: REG 09:02
PROVIDERS: ATTENDING PHYSICIAN Nurse Practitioner; FAMILY PHYSICIAN Family Medicine; REFERRING PHYSICIAN Internal Medicine Hematology & Oncology
DX: C34.12 Malignant neoplasm of upper lobe, left bronchus or lung (principal); Z79.899 Other long term (current) drug therapy; R56.9 Unspecified convulsions; I10 Essential (primary) hypertension
CPT/HCPCS: 36415; 80053; 80177; 84439; 84443; 84480; 85025

== ENCOUNTER 2025-03-26 12:51 | Emergency (ER) | payer MEDICARE, BC, SELFPAY ==
[2025-03-26] VITALS (13 sets, daily range): BP systolic 105–143; BP diastolic 46–61
[2025-03-26 14:20] LABS: Hematocrit 20.2 % (37.0-47.0); Hemoglobin 7.2 g/dL (12.0-16.0); Mean Corp Hgb Conc. 35.6 g/dL (33.0-37.0); Mean Corpuscular Volume 89.0 fL (81.0-99.0); Platelet Count 91 10^3/uL (130-400); Red Cell Dist. Width 17.2 % (11.5-14.5)
[2025-03-26 14:23] LABS: ALT (SGPT) 36 U/L (0-35); AST (SGOT) 19 U/L (14-36); Albumin 3.8 g/dl (3.5-5.0); Alkaline Phosphatase 61 U/L (38-126); Blood Urea Nitrogen 19 mg/dl (7-17); Calcium 8.8 mg/dl (8.4-10.2); Carbon Dioxide 21 mmol/L (22-30); Chloride 100 mmol/L (98-107); Glucose 106 mg/dl (70-99); Potassium 4.0 mmol/L (3.5-5.1); Sodium 125 mmol/L (135-145); Total Protein 5.8 g/dl (6.3-8.2); eGFR > 60.00
[2025-03-26 14:43] LABS: Absolute Neutrophils -Man Diff 3.8 10^3/uL (1.4-6.5); Normal RBC Morphology Yes; Platelets Checked Yes; Total Cells Counted 100
--- NOTE | 2025-03-26 15:11 | ED.GENMED ---
History of Present Illness
General
Chief Complaint: Abnormal Lab Value
Time Seen by Provider: 03/26/25 14:55
History of Present Illness
History of Present Illness:
69-year-old female with history of metastatic lung cancer currently undergoing chemotherapy presents to the emergency department for evaluation of low hemoglobin. Blood work was done yesterday showing hemoglobin below 7.5. She reports general
fatigue but denies any new chest pain or shortness of breath. Denies any black or bloody stool.
Past History
Past History
ED Past Medical History: COPD, GERD, HTN and Other
ED Past Surgical History: Orthopedic (Knee surgery)
Social History
Tobacco: Former smoker
Alcohol: Daily (7-7)
Personal:
Living: with family
Employment: Employed
Family History
Family History: Hypertension; Negative Early CAD, CAD or Sudden
Review of Systems
Review of Systems
Allergies reviewed?: Yes
All Other Systems: ROS reviewed and negative except as documented in HPI and ROS
Phy Exam
Physical Exam
Physical Exam:
GEN: Well appearing, NAD, WDWN
HEENT: Oral mucosa moist, no scleral icterus
Cardiac: Regular rate and rhythm, no murmurs
Lung: No respiratory distress, no tachypnea
MSK: No gross deformity or injuries
Skin: Good color, minimally pale
Neuro: AO x3, moves all extremities freely
Psych: Calm, cooperative
Course
Orders/Labs/Results
Orders:
Orders
03/26/25 13:55
Type And Crossmatch [Type+Screen] Urgent
Complete Blood Count/With Diff Urgent
Comprehensive Metabolic Panel Urgent
Manual Differential Urgent
03/26/25 15:25
Blood Bank Products [* Blood Bank Products] Urgent
Blood Bank Products: *Packed RBC Leuko(PRBC's)
Quantity: 1
Transfuse Today: Yes
Reason: Anemia
Abnormal Lab Results
03/26/25
13:55
WBC 4.6 L 10^3/uL
(4.8-10.8)
RBC 2.27 L 10^6/uL
(4.20-5.40)
Hgb 7.2 L g/dL
(12.0-16.0)
Hct 20.2 L* %
(37.0-47.0)
MCH 31.7 H pg
(27.0-31.0)
RDW 17.2 H %
(11.5-14.5)
Plt Count 91 L 10^3/uL
(130-400)
MPV 11.1 H fL
(7.4-10.4)
Segmented Neutrophils 83 H %
(42-75)
Lymphocytes (Manual) 6 L %
(20-51)
Sodium 125 L mmol/L
(135-145)
Carbon Dioxide 21 L mmol/L
(22-30)
BUN 19 H mg/dl
(7-17)
Glucose 106 H mg/dl
(70-99)
ALT 36 H U/L
(0-35)
Total Protein 5.8 L g/dl
(6.3-8.2)
Crossmatch IS Only See Detail
03/26/25 13:55
03/26/25 13:55
Vital Signs
Initial and Last Documented VS:
Initial Vital Signs
Temp Pulse Resp BP Pulse Ox
98.0 F 95 16 115/54 98
03/26/25 12:59 03/26/25 12:59 03/26/25 12:59 03/26/25 12:59 03/26/25 12:59
Last Documented Vital Signs
Temp Pulse Resp BP Pulse Ox
98.5 F 71 14 123/53 98
03/26/25 16:27 03/26/25 16:45 03/26/25 16:45 03/26/25 16:27 03/26/25 16:45
MDM/Problems Addressed
MDM/Problems Addressed:
Patient became quite agitated at the suggestion that we obtain stool specimen for Hemoccult. She was also unwilling to undergo further evaluation for her hyponatremia. She states that 'every time I come to the hospital with something else'. She
is pancytopenic which likely indicates her anemia is due to chemo treatments however cannot rule out a GI bleed at this point. She states she plans to follow-up with her primary care physician to have this evaluated further at a later time. Given
1 unit of packed red blood cells in the ED with no complications
*Pulse Oximetry
SaO2: 98
Oxygen Mode of Delivery: Room air
Patient hypoxic: no
*Critical Care Note
Total Time (30-74mins, 75-104mins- exclusive of procedures): Not Applicable
ED Attending Note
-
Portions of this chart may have been created with voice recognition software.� Occasional wrong word or��sound alike� substitutions may have occurred due to the inherent limitations of voice recognition software.
Discharge Plan
Departure
Patient Disposition: Home (Routine Discharge)
Date of Disposition: 03/26/25
Time of Disposition: 18:15
Patient with high blood pressure during this ER visit?: No
Discharge Problem:
Symptomatic anemia, Acute hyponatremia
Instructions: Anemia in adults, possibly from low iron - ED discharge instructions
Prescriptions:
No Action
Asmanex Twisthaler 220 mcg/ actuation (120) aerosol powdr breath activated
1 inh INHALATION R BID
pantoprazole 40 MG tablet,delayed release (DR/EC)
40 mg PO QPM
folic acid 1 mg Tablet
1 mg PO DAILY
clonazepam 0.5 mg Tablet
0.5 mg PO HSPRN PRN (Reason: Insomnia)
levetiracetam [Keppra] 500 mg Tablet
500 mg PO BID Qty: 0 0RF
atorvastatin [Lipitor] 10 mg tablet
10 mg PO QPM
metoprolol tartrate 100 mg tablet
100 mg PO BID
dexamethasone 4 mg tablet
4 mg PO BID
lisinopril 40 mg tablet
40 mg PO QPM
therapeutic multivitamin Tablet
1 tab PO DAILY
docusate sodium [Colace] 100 mg Capsule
100 mg PO DAILYPRN PRN (Reason: constipation)
carboplatin 150 mg Recon Soln
506 mg IV Q21D
Keytruda 25 mg/mL Solution
200 mg IV Q21D
pemetrexed 500 mg Recon Soln
900 mg IV Q21D
lidocaine-prilocaine 2.5-2.5 % Cream
1 applic TOPICAL DIRECTED
Patient Comments:
03/04/2025, apply to port site.
doxycycline monohydrate 100 mg capsule
100 mg PO BID
Patient Comments:
03/04/2025, filled on 03/01/2025 and instructed to take 1 capsule BID for 7 days.
cefdinir 300 mg capsule
300 mg PO BID
Patient Comments:
03/04/2025, filled on 03/01/2025 and instructed to take 1 capsule BID for 7 days.
dextromethorphan-guaifenesin [MAXTussin DM] 10-100 mg/5 mL Liquid
10 ml PO Q6HPRN PRN (Reason: cough) Qty: 800 0RF
valacyclovir 500 mg Tablet
1,000 mg PO HS Qty: 1 0RF
fluticasone propionate [Allergy Relief (fluticasone)] 50 mcg/actuation spray,suspension
1 spray intranasal BID Qty: 16 0RF
Referrals:
Winifred Catalan DO [Family Provider, Family Practice]
Jasmin Child MD [Active, Nephrology]
Activity Restrictions/Additional Instructions:
Suspected is due to cancer treatment however cannot rule out possible intestinal bleed. Please follow-up with your primary provider for further evaluation of this or consider return to the ER if your symptoms worsen
We also discussed that your sodium was low likely on the basis of your cancer and treatments. Please maintain your 40 ounce fluid restriction and follow-up with the nephrology team as we discussed. If you begin to have worsening fatigue or
dizziness return to the ER immediately
Interventions
Interventions:
*Risk Screen - Suicide Last Done: 03/26/25 12:59
*General Assessment Last Done: 03/26/25 16:49
*Neglect/Abuse Screening Last Done: 03/26/25 12:59
*ED- Fall Risk Assessment Last Done: 03/26/25 16:49
*ED COVID-19 Vaccine History Last Done: 03/26/25 16:49
Discharge Date and Time
Print Language: MAORI
--- NOTE | 2025-03-26 19:33 | VATNOTE ---
Patient's port was flushed with 10ml nss and then a heparin flush per protocol as patient is being discharged. Port was deaccessed.
== END 2025-03-26 19:25 | disposition home or self-care (01) ==
LOC: EMR 12:51
PROVIDERS: Emergency Medicine; EMERGENCY PHYSICIAN Emergency Medicine; FAMILY PHYSICIAN Family Medicine
DX: D64.9 Anemia, unspecified (principal); E87.1 Hypo-osmolality and hyponatremia; R53.83 Other fatigue; C34.90 Malignant neoplasm of unspecified part of unspecified bronchus or lung; C79.9 Secondary malignant neoplasm of unspecified site; J44.9 Chronic obstructive pulmonary disease, unspecified; I10 Essential (primary) hypertension; K21.9 Gastro-esophageal reflux disease without esophagitis; Z87.891 Personal history of nicotine dependence; Z88.5 Allergy status to narcotic agent
CPT/HCPCS: 99285; 36430; 80053; 85025; 86850; 86900; 86901; 86920; P9016

== ENCOUNTER → 2025-04-09 09:55 | Outpatient (REF) | payer MEDICARE, BC, SELFPAY | LOC: RAD 09:55 | PROVIDERS: ATTENDING PHYSICIAN Nurse Practitioner Family; FAMILY PHYSICIAN Family Medicine | DX: J18.9 Pneumonia, unspecified organism (principal) | CPT/HCPCS: 71046 ==

== ENCOUNTER → 2025-04-14 15:13 | Outpatient (REF) | payer MEDICARE, BC, SELFPAY ==
[2025-04-14 15:50] LABS: Hematocrit 22.6 % (37.0-47.0); Hemoglobin 7.7 g/dL (12.0-16.0); Mean Corp Hgb Conc. 34.1 g/dL (33.0-37.0); Mean Corpuscular Volume 91.9 fL (81.0-99.0); Nucleated Red Blood Cells % 0 %; Platelet Count 170 10^3/uL (130-400); Red Cell Dist. Width 18.0 % (11.5-14.5)
[2025-04-14 16:12] LABS: ALT (SGPT) 30 U/L (0-35); AST (SGOT) 22 U/L (14-36); Albumin 4.1 g/dl (3.5-5.0); Alkaline Phosphatase 53 U/L (38-126); Blood Urea Nitrogen 21 mg/dl (7-17); Calcium 9.0 mg/dl (8.4-10.2); Carbon Dioxide 23 mmol/L (22-30); Chloride 99 mmol/L (98-107); Glucose 105 mg/dl (70-99); Potassium 4.4 mmol/L (3.5-5.1); Sodium 128 mmol/L (135-145); Total Protein 6.1 g/dl (6.3-8.2); eGFR > 60.00
[2025-04-14 16:41] LABS: TSH 0.33 uIU/ml (0.47-4.68)
[2025-04-17 04:42] LABS: Total T3 (Sendout) 53 ng/dL (80-200)
== END ==
LOC: REG 15:13
PROVIDERS: ATTENDING PHYSICIAN Internal Medicine Hematology & Oncology; FAMILY PHYSICIAN Family Medicine
DX: C34.12 Malignant neoplasm of upper lobe, left bronchus or lung (principal); Z79.899 Other long term (current) drug therapy
CPT/HCPCS: 36415; 80053; 84439; 84443; 84480; 85025

== ENCOUNTER 2025-04-15 13:44 | Emergency (ER) | payer MEDICARE, BC, SELFPAY ==
[2025-04-15 13:44] VITALS: BMI 23.1
[2025-04-15 13:51] VITALS: BP 119/72
[2025-04-15 16:23] VITALS: BP 145/130
--- NOTE | 2025-04-15 16:48 | ED.GENMED ---
History of Present Illness
<Bobbi Bauman GRIDCAP MACHINE OPERATOR - Last Filed: 04/15/25 22:58>
General
Chief Complaint: Abnormal Lab Value
Source: patient
Exam Limitations: none
Time Seen by Provider: 04/15/25 16:21
Nursing documentation reviewed up to this point in time: agreed with
History of Present Illness
History of Present Illness:
69-year-old female w h/o metastatic lung CA who presents for a blood transfusion due to low hemoglobin. She reports that yesterday, a blood test showed a significantly low hemoglobin level, she received two phone calls today recommending she come
here for a transfusion. She denies CP but has felt 'a little' short of breath. She thinks that may be from her chemotherapy. She does not know who she spoke with on the phone, she cannot remember who her oncologist is and she does not know what her
hemoglobin was.
Past History
<Bobbi Bauman, GRIDCAP MACHINE OPERATOR - Last Filed: 04/15/25 22:58>
Past History
ED Past Medical History: COPD, GERD, HTN and Other
ED Past Surgical History: Orthopedic (Knee surgery)
Social History
Tobacco: Former smoker
Alcohol: Daily (7-7)
Personal:
Living: with family
Employment: Employed
Family History
Family History: Hypertension; Negative Early CAD, CAD or Sudden
Review of Systems
<Bobbi Bauman, GRIDCAP MACHINE OPERATOR - Last Filed: 04/15/25 22:58>
Review of Systems
Allergies reviewed?: Yes
All Other Systems: ROS reviewed and negative except as documented in HPI and ROS
Constitutional: Denies fever
Respiratory: Reports other ('a little' SOB)
Cardiac: Denies chest pain
ABD/GI: Denies abdominal pain, nausea, vomiting, diarrhea, bloody stools or black stools
: Denies dysuria or difficulty voiding
Musculoskeletal: Denies edema
Skin: Reports other (access port right upper chest)
Neurological: Denies dizzy or headache
Phy Exam
<Bobbi Bauman, GRIDCAP MACHINE OPERATOR - Last Filed: 04/15/25 22:58>
Physical Exam
Physical Exam:
GENERAL: No acute distress. A&Ox3.
CONSTITUTIONAL: Afebrile.
EYES: clear, conjunctivae normal
ENMT: moist mucus membranes, Pharynx nl
RESPIRATORY: Regular respirations, nonlabored, lungs clear.
CARDIOVASCULAR: Regular rate and rhythm, no murmurs, no rubs.
GI: Soft, nontender, normal BS
MUSCULOSKELETAL: Moves with ease. Well perfused.
SKIN: Warm, dry, pale
PSYCH: Normal mood and affect. Well kept, interactive and appropriate
NEUROLOGIC: Awake, alert and oriented. No focal neurological deficits
Course
<Bobbi Bauman, GRIDCAP MACHINE OPERATOR - Last Filed: 04/15/25 22:58>
Orders/Labs/Results
Orders:
Orders
04/15/25 16:56
Diphenhydramine [Benadryl] 50 mg IV NOW STA
Hydrocortisone Sod Succinate [Solu-Cortef] 200 mg IV NOW STA
04/15/25 17:02
Type And Crossmatch [Type+Screen] Urgent
Complete Blood Count/With Diff Urgent
Comprehensive Metabolic Panel Urgent
04/15/25 17:22
CR Chest - 2 Views Urgent
Comment:
Reason For Exam: sob
Abnormal Lab Results
04/15/25
17:02
RBC 2.21 L 10^6/uL
(4.20-5.40)
Hgb 7.1 L g/dL
(12.0-16.0)
Hct 20.1 L* %
(37.0-47.0)
MCH 32.1 H pg
(27.0-31.0)
RDW 18.2 H %
(11.5-14.5)
Abs Immat Gran (auto) 0.2 H 10^3/uL
(0-0.05)
Absolute Neuts (auto) 7.7 H 10^3/uL
(1.4-6.5)
Absolute Lymphs (auto) 0.6 L 10^3/uL
(1.2-3.4)
Immature Gran % 1.8 H %
(0-0.5)
Neutrophils % 88.2 H %
(42.2-75.2)
Lymphocytes % 6.6 L %
(20.5-51.1)
Sodium 128 L mmol/L
(135-145)
BUN 28 H mg/dl
(7-17)
Total Protein 6.1 L g/dl
(6.3-8.2)
04/15/25 17:02
04/15/25 17:02
Vital Signs
Initial and Last Documented VS:
Initial Vital Signs
Temp Pulse Resp BP Pulse Ox
98.5 F 88 16 119/72 98
04/15/25 13:51 04/15/25 13:51 04/15/25 13:51 04/15/25 13:51 04/15/25 13:51
Last Documented Vital Signs
Temp Pulse Resp BP Pulse Ox
98 F 81 18 129/69 94
04/15/25 16:27 04/15/25 17:30 04/15/25 17:30 04/15/25 17:00 04/15/25 18:43
Analytics Associate consulted with Physician
Analytics Associate consulted with physician?: Yes (Bob)
Onofrelt;Abdoulaye Rojas, DO - Last Filed: 04/15/25 18:32>
Orders/Labs/Results
Orders:
Orders
04/15/25 16:56
Diphenhydramine [Benadryl] 50 mg IV NOW STA
Hydrocortisone Sod Succinate [Solu-Cortef] 200 mg IV NOW STA
04/15/25 17:02
Type And Crossmatch [Type+Screen] Urgent
Complete Blood Count/With Diff Urgent
Comprehensive Metabolic Panel Urgent
04/15/25 17:22
CR Chest - 2 Views Urgent
Comment:
Reason For Exam: sob
Abnormal Lab Results
04/15/25
17:02
RBC 2.21 L 10^6/uL
(4.20-5.40)
Hgb 7.1 L g/dL
(12.0-16.0)
Hct 20.1 L* %
(37.0-47.0)
MCH 32.1 H pg
(27.0-31.0)
RDW 18.2 H %
(11.5-14.5)
Abs Immat Gran (auto) 0.2 H 10^3/uL
(0-0.05)
Absolute Neuts (auto) 7.7 H 10^3/uL
(1.4-6.5)
Absolute Lymphs (auto) 0.6 L 10^3/uL
(1.2-3.4)
Immature Gran % 1.8 H %
(0-0.5)
Neutrophils % 88.2 H %
(42.2-75.2)
Lymphocytes % 6.6 L %
(20.5-51.1)
Sodium 128 L mmol/L
(135-145)
BUN 28 H mg/dl
(7-17)
Total Protein 6.1 L g/dl
(6.3-8.2)
04/15/25 17:02
04/15/25 17:02
Vital Signs
Initial and Last Documented VS:
Initial Vital Signs
Temp Pulse Resp BP Pulse Ox
98.5 F 88 16 119/72 98
04/15/25 13:51 04/15/25 13:51 04/15/25 13:51 04/15/25 13:51 04/15/25 13:51
Last Documented Vital Signs
Temp Pulse Resp BP Pulse Ox
98 F 81 18 129/69 94
04/15/25 16:27 04/15/25 17:30 04/15/25 17:30 04/15/25 17:00 04/15/25 18:43
<Bobbi Bauman, GRIDCAP MACHINE OPERATOR - Last Filed: 04/15/25 22:58>
MDM/Problems Addressed
Differential Diagnosis Includes:
anemia, side effect from medications
MDM/Problems Addressed:
69-year-old female w h/o metastatic lung CA who presents for a blood transfusion due to low hemoglobin. She reports that yesterday, a blood test showed a significantly low hemoglobin level, she received two phone calls today recommending she come
here for a transfusion. She denies CP but has felt 'a little' short of breath. She thinks that may be from her chemotherapy. She does not know who she spoke with on the phone, she cannot remember who her oncologist is and she does not know what her
hemoglobin was.
Spoke with oncologist Dr. Davey who reviewed patient's chart and states with a hemoglobin of 7.7 there is no need for her to be transfused. It was noted in her chart that whoever spoke with patient on the phone earlier noted that patient said she
felt short of breath and dizzy and that is why she was sent to the emergency room, not specifically for a blood transfusion.
I discussed this with the patient and she states 'a little' when asked that she felt short of breath and again she said she thinks it is from her medication.
Dr. Davey stated that she just finished chemotherapy and is now starting immunotherapy. Patient has an appointment with oncology on 05/05
Due to the shortness of breath I will obtain a chest x-ray, patient's pulse ox is 99%, we did a road test around the hallway and she maintained a pulse ox of above 92% on RA.
Pt wants to go home.
CBC: Hemoglobin 7.1
CMP: Sodium 128 (her baseline), BUN 28, otherwise unremarkable
CXR: NAD
Dr. Rojas into evaluate patient, agrees she is stable for discharge.
<Bobbi Bauman, GRIDCAP MACHINE OPERATOR - Last Filed: 04/15/25 22:58>
*Pulse Oximetry
SaO2: 98
Oxygen Mode of Delivery: Room air
Patient hypoxic: no
*Critical Care Note
Total Time (30-74mins, 75-104mins- exclusive of procedures): Not Applicable
ED Attending Note
<Bobbi Bauman, GRIDCAP MACHINE OPERATOR - Last Filed: 04/15/25 22:58>
-
Portions of this chart may have been created with voice recognition software.� Occasional wrong word or��sound alike� substitutions may have occurred due to the inherent limitations of voice recognition software.
<Abdoulaye Rojas, DO - Last Filed: 04/15/25 18:32>
ED Attending Note
Patient seen and examined by attending physician: Yes
I performed the substantive portion of visit, reviewed & personally made and approve the management plan that is documented in note by myself or JAMIE.: Yes
ED Attending Note:
Seen with GRIDCAP MACHINE OPERATOR examined independently agree with assessment and plan oncology patient with fatigue, chronic anemia chest x-ray noted
Discharge Plan
Departure
Patient Disposition: Home (Routine Discharge)
Date of Disposition: 04/15/25
Time of Disposition: 18:28
Patient with high blood pressure during this ER visit?: No
Condition: Fair
Discharge Problem:
Anemia, Mild shortness of breath
Instructions: Shortness of breath in adults - ED discharge instructions
Prescriptions:
No Action
Asmanex Twisthaler 220 mcg/ actuation (120) aerosol powdr breath activated
1 inh INHALATION R BID
pantoprazole 40 MG tablet,delayed release (DR/EC)
40 mg PO QPM
folic acid 1 mg Tablet
1 mg PO DAILY
clonazepam 0.5 mg Tablet
0.5 mg PO HSPRN PRN (Reason: Insomnia)
levetiracetam [Keppra] 500 mg Tablet
500 mg PO BID Qty: 0 0RF
atorvastatin [Lipitor] 10 mg tablet
10 mg PO QPM
metoprolol tartrate 100 mg tablet
100 mg PO BID
dexamethasone 4 mg tablet
4 mg PO BID
lisinopril 40 mg tablet
40 mg PO QPM
therapeutic multivitamin Tablet
1 tab PO DAILY
docusate sodium [Colace] 100 mg Capsule
100 mg PO DAILYPRN PRN (Reason: constipation)
carboplatin 150 mg Recon Soln
506 mg IV Q21D
Keytruda 25 mg/mL Solution
200 mg IV Q21D
pemetrexed 500 mg Recon Soln
900 mg IV Q21D
lidocaine-prilocaine 2.5-2.5 % Cream
1 applic TOPICAL DIRECTED
Patient Comments:
03/04/2025, apply to port site.
doxycycline monohydrate 100 mg capsule
100 mg PO BID
Patient Comments:
03/04/2025, filled on 03/01/2025 and instructed to take 1 capsule BID for 7 days.
cefdinir 300 mg capsule
300 mg PO BID
Patient Comments:
03/04/2025, filled on 03/01/2025 and instructed to take 1 capsule BID for 7 days.
dextromethorphan-guaifenesin [MAXTussin DM] 10-100 mg/5 mL Liquid
10 ml PO Q6HPRN PRN (Reason: cough) Qty: 800 0RF
valacyclovir 500 mg Tablet
1,000 mg PO HS Qty: 1 0RF
fluticasone propionate [Allergy Relief (fluticasone)] 50 mcg/actuation spray,suspension
1 spray intranasal BID Qty: 16 0RF
Referrals:
Winifred Catalan DO [Family Provider, Family Practice]
Steve Ibrahim MD [Active, Hematology / Oncology] - Keep scheduled appt
Activity Restrictions/Additional Instructions:
As you said, your shortness of breath is most likely due to your recent chemotherapy and now immunotherapy.
Your Hemoglobin is 7.1, this has been your baseline
Your chest x-ray shows nothing worrisome
Interventions
Interventions:
*Risk Screen - Suicide Last Done: 04/15/25 13:51
*General Assessment Last Done: 04/15/25 13:51
*Neglect/Abuse Screening Last Done: 04/15/25 13:51
*ED- Fall Risk Assessment Last Done: 04/15/25 13:51
*ED COVID-19 Vaccine History Last Done: 04/15/25 13:51
*Nursing Disposition Last Done: 04/15/25 18:43
Discharge Date and Time
Discharge Date/Time: 04/15/25 19:09
Print Language: ECUADOREAN
[2025-04-15 17:00] VITALS: BP 129/69
[2025-04-15 17:17] LABS: Hematocrit 20.1 % (37.0-47.0); Hemoglobin 7.1 g/dL (12.0-16.0); Mean Corp Hgb Conc. 35.3 g/dL (33.0-37.0); Mean Corpuscular Volume 91.0 fL (81.0-99.0); Nucleated Red Blood Cells % 0 %; Platelet Count 140 10^3/uL (130-400); Red Cell Dist. Width 18.2 % (11.5-14.5)
[2025-04-15 17:24] LABS: ALT (SGPT) 29 U/L (0-35); AST (SGOT) 22 U/L (14-36); Albumin 3.9 g/dl (3.5-5.0); Alkaline Phosphatase 52 U/L (38-126); Blood Urea Nitrogen 28 mg/dl (7-17); Calcium 8.9 mg/dl (8.4-10.2); Carbon Dioxide 22 mmol/L (22-30); Chloride 101 mmol/L (98-107); Estimated Creatinine Clearance 75 ml/min; Glucose 94 mg/dl (70-99); Potassium 4.3 mmol/L (3.5-5.1); Sodium 128 mmol/L (135-145); Total Protein 6.1 g/dl (6.3-8.2); eGFR > 60.00
== END 2025-04-15 19:09 | disposition home or self-care (01) ==
LOC: EMR 13:44
PROVIDERS: Emergency Medicine; EMERGENCY PHYSICIAN Emergency Medicine; FAMILY PHYSICIAN Family Medicine
DX: D64.9 Anemia, unspecified (principal); R06.02 Shortness of breath; C78.00 Secondary malignant neoplasm of unspecified lung; I10 Essential (primary) hypertension; J44.9 Chronic obstructive pulmonary disease, unspecified; Z82.49 Family history of ischemic heart disease and other diseases of the circulatory system; Z87.891 Personal history of nicotine dependence
CPT/HCPCS: 99283; 71046; 80053; 85025; 86850; 86900; 86901

== ENCOUNTER 2025-04-17 13:24 | Inpatient (IN) | payer MEDICARE, BC, SELFPAY ==
[2025-04-17] VITALS (15 sets, daily range): BP systolic 110–149; BP diastolic 52–73; BMI 22.8; BMI 22.1
--- NOTE | 2025-04-17 07:57 | ED.GENMED ---
History of Present Illness
General
Chief Complaint: Back Pain
Time Seen by Provider: 04/17/25 07:56
History of Present Illness
History of Present Illness:
PAST MEDICAL HISTORY AND REVIEW OF OLD RECORDS
- I reviewed records, the patient was seen here 2 days ago. At that time her hemoglobin was 7.1. This has been slowly falling since January of this year when it is in the 12-13 range. The patient was admitted 1 month ago. I reviewed those notes
which indicate the patient has metastatic lung cancer with mets to the brain on chemotherapy/immunotherapy and is status post radiation.
Note:
CHIEF COMPLAINT(S)
Weakness and severe lower back pain in a patient with metastatic lung cancer.
HISTORY OF PRESENT ILLNESS
The patient is a 69-year-old female with a known history of metastatic lung cancer affecting the brain, currently undergoing chemotherapy. She presented with increased weakness and severe lower back pain. The patient describes her weakness as
significant, stating she 'can barely stand' due to the pain and fatigue. Her spouse corroborates these symptoms, indicating that the patients back pain is intense and they are unsure whether the pain or weakness is more debilitating.
The patient was directed to the emergency department by her hematology and oncology providers for a blood transfusion due to a hemoglobin level of 7.0. However, upon arrival, her transfusion was deferred by the hematology group, and the patient was
sent home without receiving treatment. Currently, there is a decision pending regarding a transfusion, with a conversation indicating a transfusion should occur if hemoglobin drops below 7.0. Despite the confusion, the team plans to repeat blood
work to reassess her current hemoglobin levels and reevaluate the necessity for a transfusion.
The patient also reports lower back pain localized to the lumbar region. The pain is severe and impacts her mobility significantly. The patient is not aware of any bone metastasis.
The medical team plans to initiate intravenous (IV) access and administer pain medication to address her discomfort.
CHRONIC MEDICAL CONDITIONS SIGNIFICANTLY AFFECTING CARE
Metastatic lung cancer to the brain.
PHYSICAL EXAM
General: Alert, appears uncomfortable.
Skin: Warm, dry. Pale.
Head: Normocephalic, atraumatic.
Neck: Supple, trachea midline.
Eye, Ears, Nose, Mouth, and Throat: Oral mucosa moist.
Cardiovascular: Normal peripheral perfusion, no edema.
Respiratory: Respirations are non-labored. Breath sounds clear.
Gastrointestinal: Abdomen nondistended.
Back: Lumbar region tender to palpation in the midline along with decreased active range of motion of the thoracolumbar spine due to pain.
Musculoskeletal: No bony extremity tenderness.
Neurological: Alert and oriented to person, place, time, and situation, no focal neurological deficit observed.
Psychiatric: Cooperative, appropriate mood and affect.
PROBLEM LIST
Acute:
1. Severe lower back pain.
2. Weakness due to chemotherapy and/or anemia.
Chronic:
1. Metastatic lung cancer to the brain.
PLAN
1. Repeat blood tests to reassess hemoglobin levels and determine the need for a blood transfusion.
2. Initiate IV access and administer pain medication for relief.
3. Communicate with the patients hematology and oncology team to clarify the plan for transfusion and ongoing management.
4. Provide supportive care and monitor vital signs closely.
DIFFERENTIAL DIAGNOSIS
The Differential Diagnosis includes, in no particular order and is not limited to:
1. Anemia due to chemotherapy.
2. Progression of metastatic cancer.
3. Bone metastasis causing back pain.
4. Chemotherapy-induced weakness.
5. Vertebral fracture secondary to metastasis.
6. Spinal cord compression.
7. Neuropathic pain due to central nervous system involvement.
8. Osteoporosis-related fracture.
9. Paraneoplastic syndrome affecting the musculature.
10. Hypocalcemia secondary to malignancy.
SUMMARY OF ENCOUNTER
The patient, a 69-year-old female with metastatic lung cancer currently undergoing chemotherapy, presented to the emergency department with complaints of increased weakness and severe lower back pain. Her hemoglobin level was previously noted at
7.0, warranting consideration for a blood transfusion, although it was deferred by her hematology team. The patient was found to be afebrile and not tachycardic upon examination. IV access was initiated, and plans were made to manage her pain and
reassess her hemoglobin levels through blood work. Pain management and supportive care were priorities.
DISPOSITION
Admission.
ASSESSMENT
1. Severe lower back pain, but no obvious sign of metastatic disease
2. Weakness, potentially due to anemia, chemotherapy-induced effects, or metastatic cancer progression.
PLAN
1. Repeat blood tests to reassess hemoglobin levels to determine the need for a blood transfusion.
2. Administer IV pain medication to manage severe lower back pain.
3. Consult hematology/oncology team to clarify the plan for transfusion and ongoing cancer management.
4. Provide supportive care, monitor vital signs closely, and arrange for close outpatient follow-up.
INDEPENDENT REVIEW OF LABS AND INTERPRETATION OF TESTS
My independent review of prior labs indicates a hemoglobin level of 6.0 from a Complete Blood Count (CBC), suggesting anemia that may need transfusion evaluation.
FOLLOW-UP INSTRUCTIONS
Please follow up with your hematology/oncology team to discuss your ongoing cancer management and reassessment of transfusion needs.
MEDICAL DECISION MAKING
- Complexity of Data Reviewed: Chronic conditions affecting care include metastatic lung cancer to the brain, as mentioned in the history. The Differential Diagnosis includes potential anemia due to chemotherapy, progression of metastatic cancer,
and bone metastasis causing back pain, among other possibilities.
- Data:
Category 1
No specific external records were reviewed today.
Category 2
Clinical information was obtained from the patients spouse, corroborating the patients symptoms.
Category 3
Discussion occurred about management with the hematology/oncology team and considered hospital admission but ultimately managed the patient with outpatient care with close follow-up.
- Risk:
Prescription medication was prescribed: . Escalation of care including admission/observation was considered given the complexity and risk of the patients presenting complaint, exam findings, and their underlying comorbidities. Plan admission for
pain control and transfusion .
DIAGNOSIS
1. Severe back pain secondary to metastatic cancer (ICD-10: G89.3).
2. Weakness and fatigue possibly related to chemotherapy-induced anemia (ICD-10: R53.1).
RADIOLOGY
- I reviewed recent CT imaging of the chest and abdomen pelvis but no bony metastatic disease noted at that time
LABS
- Hemoglobin 6.0, platelets 76
UPDATE
- I recommended to the patient that we should do a rectal examination however the patient declines.
Past History
Past History
ED Past Medical History: COPD, GERD, HTN and Other
ED Past Surgical History: Orthopedic (Knee surgery)
Social History
Tobacco: Former smoker
Alcohol: Daily (7-7)
Personal:
Living: with family
Employment: Employed
Family History
Family History: Hypertension; Negative Early CAD, CAD or Sudden
Phy Exam
Physical Exam
Physical Exam:
See HPI
Course
Orders/Labs/Results
Orders:
Orders
04/17/25 08:05
HYDROmorphone [Dilaudid] 0.5 mg IV NOW STA
Ondansetron Injectable [Zofran] 4 mg IV NOW STA
04/17/25 08:47
Complete Blood Count/With Diff Urgent
Comprehensive Metabolic Panel Urgent
Ferritin Urgent
Comment: ADD ON
Iron Urgent
Comment: ADD ON
Total Iron Binding Urgent
Comment: ADD ON
04/17/25 08:48
Type+Screen Urgent
BBK Wristband Number:
04/17/25 09:00
Heparin Pf [Heparin Lock Flush] 500 unit IV PER PROTOCOL
04/17/25 09:19
* Blood Bank Products Urgent
Blood Bank Products: *Packed RBC Leuko(PRBC's)
Quantity: 2
Transfuse Today: Yes
Reason: Anemia
04/17/25 09:20
Add On- LAB Urgent
Tests Added?: iron, TIBC, ferritin
Abnormal Lab Results
04/17/25 04/17/25
08:47 08:48
RBC 1.91 L 10^6/uL
(4.20-5.40)
Hgb 6.0 L* g/dL
(12.0-16.0)
Hct 17.4 L* %
(37.0-47.0)
MCH 31.4 H pg
(27.0-31.0)
RDW 18.1 H %
(11.5-14.5)
Plt Count 76 L D 10^3/uL
(130-400)
Abs Immat Gran (auto) 0.1 H 10^3/uL
(0-0.05)
Absolute Lymphs (auto) 0.4 L 10^3/uL
(1.2-3.4)
Immature Gran % 0.9 H %
(0-0.5)
Neutrophils % 86.2 H %
(42.2-75.2)
Lymphocytes % 6.8 L %
(20.5-51.1)
Sodium 129 L mmol/L
(135-145)
TIBC 216 L ug/dl
(265-497)
Total Protein 5.2 L g/dl
(6.3-8.2)
Albumin 3.3 L g/dl
(3.5-5.0)
Crossmatch IS Only See Detail
04/17/25 08:47
04/17/25 08:47
Vital Signs
Initial and Last Documented VS:
Initial Vital Signs
Temp Pulse Resp BP Pulse Ox
37.1 C 91 18 127/66 98
04/17/25 07:49 04/17/25 07:49 04/17/25 07:49 04/17/25 07:49 04/17/25 07:49
Last Documented Vital Signs
Temp Pulse Resp BP Pulse Ox
36.5 C 63 16 125/55 98
04/17/25 11:42 04/17/25 11:42 04/17/25 11:42 04/17/25 11:42 04/17/25 11:42
*Pulse Oximetry
SaO2: 98
Oxygen Mode of Delivery: Room air
Patient hypoxic: no
*Critical Care Note
Total Time (30-74mins, 75-104mins- exclusive of procedures): Not Applicable
ED Attending Note
-
Portions of this chart may have been created with voice recognition software.� Occasional wrong word or��sound alike� substitutions may have occurred due to the inherent limitations of voice recognition software.
Discharge Plan
Departure
Patient Disposition: Admit
Date of Disposition: 04/17/25
Time of Disposition: 09:59
Presentation/result/management discussed w/ accepting MD/DO: Hospitalist
Discharge Problem:
Anemia
Prescriptions:
No Action
Asmanex Twisthaler 220 mcg/ actuation (120) aerosol powdr breath activated
1 inh INHALATION R BID
pantoprazole 40 MG tablet,delayed release (DR/EC)
40 mg PO QPM
folic acid 1 mg Tablet
1 mg PO DAILY
clonazepam 0.5 mg Tablet
0.5 mg PO HSPRN PRN (Reason: Insomnia)
levetiracetam [Keppra] 500 mg Tablet
500 mg PO BID Qty: 0 0RF
atorvastatin [Lipitor] 10 mg tablet
10 mg PO QPM
metoprolol tartrate 100 mg tablet
100 mg PO BID
dexamethasone 4 mg tablet
4 mg PO BID
lisinopril 40 mg tablet
40 mg PO QPM
therapeutic multivitamin Tablet
1 tab PO DAILY
docusate sodium [Colace] 100 mg Capsule
100 mg PO DAILYPRN PRN (Reason: constipation)
carboplatin 150 mg Recon Soln
506 mg IV Q21D
Keytruda 25 mg/mL Solution
200 mg IV Q21D
pemetrexed 500 mg Recon Soln
900 mg IV Q21D
lidocaine-prilocaine 2.5-2.5 % Cream
1 applic TOPICAL DIRECTED
Patient Comments:
03/04/2025, apply to port site.
doxycycline monohydrate 100 mg capsule
100 mg PO BID
Patient Comments:
03/04/2025, filled on 03/01/2025 and instructed to take 1 capsule BID for 7 days.
cefdinir 300 mg capsule
300 mg PO BID
Patient Comments:
03/04/2025, filled on 03/01/2025 and instructed to take 1 capsule BID for 7 days.
dextromethorphan-guaifenesin [MAXTussin DM] 10-100 mg/5 mL Liquid
10 ml PO Q6HPRN PRN (Reason: cough) Qty: 800 0RF
valacyclovir 500 mg Tablet
1,000 mg PO HS Qty: 1 0RF
fluticasone propionate [Allergy Relief (fluticasone)] 50 mcg/actuation spray,suspension
1 spray intranasal BID Qty: 16 0RF
Referrals:
Winifred Catalan DO [Family Provider, Family Practice]
Interventions
Interventions:
*Risk Screen - Suicide Last Done: 04/17/25 07:49
*General Assessment Last Done: 04/17/25 07:49
*Neglect/Abuse Screening Last Done: 04/17/25 07:49
ED-Musculoskeletal Assessment Last Done: 04/17/25 08:20
Discharge Date and Time
Print Language: AMHARIC
[2025-04-17] MEDS: ZOFRAN 4 MG IV (09:03)
[2025-04-17] MEDS: DILAUDID 0.5 MG IV (09:04)
[2025-04-17 09:12] LABS: Hematocrit 17.4 % (37.0-47.0); Hemoglobin 6.0 g/dL (12.0-16.0); Mean Corp Hgb Conc. 34.5 g/dL (33.0-37.0); Mean Corpuscular Volume 91.1 fL (81.0-99.0); Nucleated Red Blood Cells % 0.4 %; Platelet Count 76 10^3/uL (130-400); Red Cell Dist. Width 18.1 % (11.5-14.5)
[2025-04-17 09:35] LABS: ALT (SGPT) 23 U/L (0-35); AST (SGOT) 18 U/L (14-36); Albumin 3.3 g/dl (3.5-5.0); Alkaline Phosphatase 55 U/L (38-126); Blood Urea Nitrogen 17 mg/dl (7-17); Calcium 8.7 mg/dl (8.4-10.2); Carbon Dioxide 25 mmol/L (22-30); Chloride 102 mmol/L (98-107); Estimated Creatinine Clearance 75 ml/min; Glucose 89 mg/dl (70-99); Potassium 3.9 mmol/L (3.5-5.1); Sodium 129 mmol/L (135-145); Total Protein 5.2 g/dl (6.3-8.2); eGFR > 60.00
[2025-04-17 10:24] LABS: Iron 93 ug/dl (37-170)
[2025-04-17 10:33] LABS: Total Iron Binding Capacity 216 ug/dl (265-497)
--- NOTE | 2025-04-17 10:40 | HPS.HSE ---
Addendum entered and electronically signed by Asim Pearl MD 04/17/25 14:10:
Allergies
Allergy/AdvReac Type Severity Reaction Status Date / Time
codeine Allergy headache Verified 04/17/25 07:49
Home Medications
mometasone 220 mcg/actuation(120 doses)breath activated powder inhaler (Asmanex Twisthaler) 1 inh inhalation R BID sob 06/05/23
pantoprazole 40 mg tablet,delayed release 40 mg PO QPM Gastrointestinal Issue 06/05/23
folic acid 1 mg tablet 1 mg PO DAILY Supplement 01/29/25
clonazepam 0.5 mg tablet 0.5 mg PO HSPRN PRN Insomnia 02/13/25
levetiracetam 500 mg tablet (Keppra) 500 mg PO BID Seizures #0 tabs 02/14/25
atorvastatin 10 mg tablet (Lipitor) 10 mg PO QPM High Cholesterol 03/01/25
carboplatin 150 mg intravenous solution 506 mg IV Q21D Cancer 03/01/25
dexamethasone 4 mg tablet 4 mg PO BID Anti-Inflammatory 03/01/25
docusate sodium 100 mg capsule (Colace) 100 mg PO DAILYPRN PRN constipation 03/01/25
lisinopril 40 mg tablet 40 mg PO QPM Blood Pressure 03/01/25
metoprolol tartrate 100 mg tablet 100 mg PO BID Blood Pressure 03/01/25
pembrolizumab 25 mg/mL intravenous solution (Keytruda) 200 mg IV Q21D Cancer 03/01/25
therapeutic multivitamin 1 tab PO DAILY Supplement 03/01/25
lidocaine-prilocaine 2.5 %-2.5 % topical cream 1 applic topical DIRECTED Skin Issues 03/04/25
valacyclovir 500 mg tablet 1,000 mg (2 x 500 mg) PO HS #1 tab 03/05/25
Original Note:
Family Physician
-
Family Physician: Winifred Catalan
Chief Complaint
-
weakness and back pain
History of Present Illness
69-year-old female past medical history of lung cancer with metastasis who is presenting with complaint of weakness and low back pain. Patient states the back pain exacerbated after she moved abnormally in the bed. States he was unable to sleep
overnight. Pain continued to worsen. Also stating of severe fatigue. States she has anemia and her hemoglobin has been downtrending. States of back pain mid lower region. No radiation. Denies urinary or fecal incontinence. Denies any numbing
or tingling in the legs. Denies any lightheadedness or dizziness. Denies any nausea, vomiting abdominal pain or chest pain or shortness of breath. States back pain improved after she received IV Dilaudid in the ER. In the ER patient was found to
have a hemoglobin of 6 and after discussion with oncology blood transfusion was ordered by ER.
Medical History
Past Medical History
Past Medical History: Reports Other
Additional Past Medical History:
Stage IV lung cancer with brain metastasis status post radiation. On chemo.
Chronic anemia
COPD
Primary hypertension
Anxiety/depression
Past Surgical History: Reports Other
Additional Past Surgical History:
Colonic stricture status post sigmoidectomy
Port placement
Right knee surgery
Social History
Tobacco: Former Smoker
Personal:
Living: With Family
Family History
Family History: Not pertinent
Allergies / Home Medications
Allergies reflects when Allergies were last updated in [employer]
Home Medications with original date entered in [employer]
Allergy/Medication List:
Medications on admission are unable to be verified or confirmed at this time.
Review of Systems
-
History Source: Patient
A 12 point ROS was completed and negative except as noted: Yes
Physical Exam
Vital Signs
Vital Signs
Temp Pulse Resp BP Pulse Ox
98.7 F 91 18 127/66 98
04/17/25 07:49 04/17/25 07:49 04/17/25 07:49 04/17/25 07:49 04/17/25 08:01
Physical Exam
General: Well Developed, Well Nourished and No Apparent Distress
HEENT: NormoCephalic, Moist mucous membranes, Atraumatic and Other (Port noted)
Respiratory: Clear
Cardiac: S1/S2 and Regular Rhythm; No Murmur or Rub
GI: Soft, Non Tender, Non Distended and Normal Bowel Sounds; No Organomegaly
Rectal: Deferred by Provider
Musculoskeletal: No Clubbing, No Cyanosis, No Edema and Other (Tender to palpation mid lower back paraspinal region)
Skin: No Rash
Neuro: Awake, Alert, Oriented, No Motor Deficits and Nonfocal/grossly intact
Psych: Calm
Laboratory Results
-
04/17/25 08:47
04/17/25 08:47
Laboratory Results
Total Bilirubin 0.3 mg/dl (0.2-1.3) 04/17/25 08:47
AST 18 U/L (14-36) 04/17/25 08:47
ALT 23 U/L (0-35) 04/17/25 08:47
Alkaline Phosphatase 55 U/L (38-126) 04/17/25 08:47
Data Reviewed
-
CT Scan: Report Reviewed by me and Discussed with Patient
Lab Data: Labs Reviewed by me and Discussed with Patient
Impression/Plan
-
#Symptomatic anemia secondary to chemotherapy
#Thrombocytopenia likely secondary to chemotherapy
Hemoglobin of 6 on admission
2 units of PRBC ordered in the ER
Check anemia panel
Continue to trend hemoglobin. Denies any luminal bleeding.
Heme test stool. Not on any anticoagulation.
Oncology has been consulted
#Stage IV lung cancer with metastasis s/p radiation on chemotherapy
Continue with Decadron
Continue with Keppra for seizure prophylaxis
Oncology consulted
#Mid to lower back pain
Seems musculoskeletal
Will check with x-ray imaging
Had CT abdomen pelvis on 02/13/2025 during which time lumbar region with mild discogenic disease. No comment was made on metastasis to the spine. Patient unaware of any mets to her spine.
Consider MRI spine for further evaluation if symptoms worsen / persist.
Oncology input if patient requires MRI
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
Continue to trend BMP
Fluid restriction
COPD without acute exacerbation
Bronchodilators as needed
DVT prophylaxis SCDs in the setting of thrombocytopenia and severe anemia
Full code
I spent a total of 80 minutes with the patient or on the floor. More than 50% of this time involved counseling and coordination of care.
--- NOTE | 2025-04-17 11:58 | CM ---
Reviewed the chart notes and spoke with the patient at the bedside. Patient has a history of metastatic lung cancer affecting the brain, currently undergoing chemotherapy. Patient admitted for hgb 6.0. Ordered 2 units PRBC, first unit infusing
now. The patient resides with her spouse in a one story home with three steps to enter. The patient has available if needed a rolling walker, cane, commode, and shower chair. Patient reports no VN or SNF in the past. The patient confirmed her
pharmacy of choice is [facility] [place]. continues to be available to patient/family and is monitoring medical plan for needs at discharge.
Plan: Discharge to home when medically stable. No needs identified at this time.
[2025-04-17 12:05] LABS: Ferritin 1230.0 ng/ml (11.1-264.0)
[2025-04-17] MEDS: KEPPRA 500 MG PO ×2 (14:23→21:20)
[2025-04-17] MEDS: MIRALAX 17 GRAMS PO (14:24)
[2025-04-17] MEDS: MORPHINE SULFATE 2 MG IV ×2 (14:24→18:24)
[2025-04-17] MEDS: LIDOCAINE 4% PATCH 1 PATCH TOPICAL (14:24)
[2025-04-17] MEDS: ULTRAM 50 MG PO ×2 (15:53→21:36)
[2025-04-17] MEDS: LIPITOR 10 MG PO (18:15)
[2025-04-17] MEDS: ZESTRIL 40 MG PO (18:15)
[2025-04-17] MEDS: PROTONIX 40 MG PO (18:15)
[2025-04-17] MEDS: SENOKOT-S 1 TABLET PO (18:20)
--- NOTE | 2025-04-17 18:41 | PTCARENOTE ---
2nd unit of PRBCs transfused, no reaction noted, VSS.
[2025-04-17] MEDS: FLOVENT 110 MCG INHALER 2 PUFF INH (19:49)
[2025-04-17] MEDS: DECADRON 4 MG PO (21:20)
[2025-04-17] MEDS: LOPRESSOR 100 MG PO (21:20)
[2025-04-17] MEDS: REMOVE LIDOCAINE PATCH 1 PATCH REMOVE (21:21)
[2025-04-17] MEDS: VALTREX PO (21:34)
[2025-04-18] MEDS: SENOKOT-S 1 TABLET PO ×2 (06:38→20:55)
[2025-04-18] MEDS: MORPHINE SULFATE 2 MG IV (06:38)
[2025-04-18 06:46] LABS: Hematocrit 27.3 % (37.0-47.0); Hemoglobin 9.5 g/dL (12.0-16.0); Mean Corp Hgb Conc. 34.8 g/dL (33.0-37.0); Mean Corpuscular Volume 88.3 fL (81.0-99.0); Nucleated Red Blood Cells % 0.6 %; Platelet Count 82 10^3/uL (130-400); Red Cell Dist. Width 17.5 % (11.5-14.5)
[2025-04-18 07:36] LABS: Blood Urea Nitrogen 14 mg/dl (7-17); Calcium 9.1 mg/dl (8.4-10.2); Carbon Dioxide 25 mmol/L (22-30); Chloride 102 mmol/L (98-107); Estimated Creatinine Clearance 88 ml/min; Glucose 94 mg/dl (70-99); Potassium 5.0 mmol/L (3.5-5.1); Sodium 133 mmol/L (135-145); eGFR > 60.00
[2025-04-18] MEDS: FLOVENT 110 MCG INHALER 2 PUFF INH ×2 (07:38→19:41)
[2025-04-18 07:39] VITALS: BP 158/79
[2025-04-18] MEDS: ULTRAM 50 MG PO ×3 (09:45→23:21)
[2025-04-18] MEDS: KEPPRA 500 MG PO ×2 (09:45→20:55)
[2025-04-18] MEDS: LOPRESSOR 100 MG PO ×2 (09:45→20:54)
[2025-04-18] MEDS: FOLVITE 1 MG PO (09:45)
[2025-04-18] MEDS: DECADRON 4 MG PO ×2 (09:45→20:55)
[2025-04-18] MEDS: LIDOCAINE 4% PATCH 1 PATCH TOPICAL (09:46)
--- NOTE | 2025-04-18 10:45 | W.PN.HOSP.TC ---
Today's Communication/Plan
-
Pain control
Out of bed with PT
Trend hemoglobin
Assessment / Plan
Assessment / Plan
General: Well Developed, Well Nourished and No Apparent Distress
HEENT: NormoCephalic, Moist mucous membranes, Atraumatic and Other (Port noted)
Respiratory: Clear
Cardiac: S1/S2 and Regular Rhythm; No Murmur or Rub
GI: Soft, Non Tender, Non Distended and Normal Bowel Sounds; No Organomegaly
Rectal: Deferred by Provider
Musculoskeletal: No Clubbing, No Cyanosis, No Edema and Other (Tender to palpation mid lower back and paraspinal region)
Skin: No Rash
Neuro: Awake, Alert, Oriented, No Motor Deficits and Nonfocal/grossly intact
Psych: Calm
#Symptomatic anemia secondary to chemotherapy
#Thrombocytopenia likely secondary to chemotherapy
Hemoglobin of 6 on admission
Status post units of PRBC and hemoglobin responded appropriately to 9.5.
Continue to trend hemoglobin. Denies any luminal bleeding.
Heme test stool. Not on any anticoagulation.
Oncology has been consulted
#Stage IV lung cancer with metastasis s/p radiation on chemotherapy
Continue with Decadron
Continue with Keppra for seizure prophylaxis
Oncology consulted
#Mid to lower back pain likely secondary to subacute T10 compression fracture
X-ray imaging noted
Consider MRI spine for further evaluation if symptoms worsen / persist.
Adjust pain medication per increase morphine dose
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
Continue to trend BMP
Fluid restriction
Sodium improved to 133.
COPD without acute exacerbation
Bronchodilators as needed
DVT prophylaxis SCDs in the setting of thrombocytopenia and severe anemia
Full code
Anticipated Discharge: 24 - 48 hours
Subjective/Interval History
-
Date of Service: April 18, 2025
states of back pain
Objective Data
-
Labs:
Laboratory Results
04/18/25
06:25
WBC 6.4
Hgb 9.5 L D
Hct 27.3 L
Plt Count 82 L
Sodium 133 L
Potassium 5.0 D
Chloride 102
Carbon Dioxide 25
BUN 14
Creatinine 0.5 L
Glucose 94
Calcium 9.1
Vital Signs:
Vital Signs
Temp Pulse Resp BP Pulse Ox
98 F 74 21 158/79 97
04/18/25 07:39 04/18/25 07:39 04/18/25 07:39 04/18/25 07:39 04/18/25 07:39
I&O
04/17/25 04/18/25 04/19/25
06:59 06:59 06:59
Intake Total 740 / 740
Balance 740 / 740
--- NOTE | 2025-04-18 12:16 | CON.ONC ---
Consultation
-
Date Consultation Requested: 04/17/25
Date Consultation Performed: 04/18/25
Requesting Provider: Dr. Pearl
Performing Provider: Dr. Ibrahim
Reason for Consultation: h/o NSCLC
Impression
Impression
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
back pain - progressive
anemia - post chemotherapy
thrombocytopenia - post chemotherapy
Plan
Plan
1. Anemia/ thrombocytopenia - post chemotherapy
-hemoglobin improved s/p transfusion PRBCs
-follow CBC
2. Back pain
-xrays w/ compression deformity at T10
-will proceed w/ MRI thoracic and lumbar spine to r/o metastatic disease
Will continue to follow with you.
Patient History
History of Present Illness
69y/o female seen in oncology consultation today regarding h/o stage IV NSCLC - adenocarcinoma subtype.
The patient was diagnosed w/ stage IV NSCLC w/ brain metastasis in December. She underwent whole brain radiation therapy in December w/ Dr. Narvaez. She subsequently initiated chemoimmunotherapy in January w/ carboplatin/ alimta/ keytruda. She is now s/p 4
cylces - last 04/07.
She now presents to the [facility] ER w/ increased fatigue and lethargy in the context of significant anemia w/ hemoglobin 6.0g/dl. She also has been experiencing progressive mid-back pain. She has been transfused 2 units PRBCs w/
improvement in her hemoglobin today of 9.5g/dl. Xrays of the back did reveal a T10 severe compression deformity.
Clinically, she feels better today. However, back pain persists. She denies LE weakness, or numbness. No changes in bowel or bladder function. Pain is localized to the mid-lower thoracic spine. No SOB at rest or chest pain. No fevers or chills. She
has some constipation.
Past-Medical/Surgical History
PMH:
Stage IV NSCLC - adenocarinoma w/ brain mets - s/p WBRT - 4 cyles carbo/alimta/keytruda
arthritis
hearing impairment
hiatal hernia
GERD
diverticulitis
HTN
hyperlipidemia
COPD
Anxiety/depression
PSH:
Colonic stricture status post sigmoidectomy
Port placement
Right knee surgery
bronchoscopy - 01/08
Social History
Tobacco: Former Smoker
ETOH: denies significant ETOH use
Family History
Family History: Not pertinent
Allergies: codeine
Patient Medication
�Medication �Instructions �Recorded �Confirmed �Last Taken �Type
mometasone 220 mcg/actuation(120 1 inh inhalation R BID sob 06/05/23 04/17/25 03/04/25 History
doses)breath activated powder
inhaler (Asmanex Twisthaler)
pantoprazole 40 mg tablet,delayed 40 mg PO QPM Gastrointestinal Issue 06/05/23 04/17/25 04/16/25 History
release
folic acid 1 mg tablet 1 mg PO DAILY Supplement 01/29/25 04/17/25 04/17/25 History
clonazepam 0.5 mg tablet 0.5 mg PO HSPRN PRN Insomnia 02/13/25 04/17/25 04/16/25 History
levetiracetam 500 mg tablet 500 mg PO BID Seizures #0 tabs 02/14/25 04/17/25 04/17/25 Rx
(Keppra)
atorvastatin 10 mg tablet (Lipitor) 10 mg PO QPM High Cholesterol 03/01/25 04/17/25 04/16/25 History
carboplatin 150 mg intravenous 506 mg IV Q21D Cancer 03/01/25 04/17/25 04/14/25 History
solution
dexamethasone 4 mg tablet 4 mg PO BID Anti-Inflammatory 03/01/25 04/17/25 03/04/25 History
docusate sodium 100 mg capsule 100 mg PO DAILYPRN PRN constipation 03/01/25 04/17/25 04/17/25 14:37 History
(Colace)
lisinopril 40 mg tablet 40 mg PO QPM Blood Pressure 03/01/25 04/17/25 04/16/25 History
metoprolol tartrate 100 mg tablet 100 mg PO BID Blood Pressure 03/01/25 04/17/25 04/17/25 History
pembrolizumab 25 mg/mL intravenous 200 mg IV Q21D Cancer 03/01/25 04/17/25 04/17/25 14:37 History
solution (Keytruda)
therapeutic multivitamin 1 tab PO DAILY Supplement 03/01/25 04/17/25 04/17/25 History
lidocaine-prilocaine 2.5 %-2.5 % 1 applic topical DIRECTED Skin 03/04/25 04/17/25 04/17/25 14:39 History
topical cream Issues
valacyclovir 500 mg tablet 1,000 mg (2 x 500 mg) PO HS #1 tab 03/05/25 04/17/25 04/16/25 Rx
Active Medications
Generic Name Dose Route Start Last Admin
Trade Name Freq PRN Reason Stop Dose Admin
Acetaminophen 650 mg 04/17/25 14:08
Acetaminophen 325 Mg Tablet PO 05/15/25 14:07
Q4HPRN PRN
mild pain/[place] [facility]/temp> 100.4F
Atorvastatin Calcium 10 mg 04/17/25 18:00 04/17/25 18:15
Atorvastatin (Lipitor) 10 Mg Tablet PO 05/15/25 17:59 10 mg
QPM HILDA Administration
Bisacodyl 10 mg 04/17/25 14:08
Bisacodyl 10 Mg Rectal Suppository RECTAL 05/15/25 14:07
[id number] PRN
constipation
Clonazepam 0.5 mg 04/17/25 20:00
Clonazepam 0.5 Mg Tablet PO 05/15/25 19:59
HSPRN PRN
Insomnia
Dexamethasone 4 mg 04/17/25 20:00 04/18/25 09:45
Dexamethasone 4 Mg Tablet PO 05/15/25 19:59 4 mg
BID HILDA Administration
Fluticasone Propionate 2 puff 04/17/25 20:00 04/18/25 07:38
Fluticasone 110mcg Inhaler INH 05/15/25 19:59 2 puff
R BID HILDA Administration
Folic Acid 1 mg 04/18/25 08:00 04/18/25 09:45
Folic Acid 1 Mg Tablet PO 05/16/25 07:59 1 mg
DAILY HILDA Administration
Heparin Sodium (Porcine) 500 unit 04/17/25 09:00 04/18/25 06:39
Heparin Flush Pf (100 Unit/Ml) 5 Ml Syringe IV 05/15/25 08:59 500 unit
PER PROTOCOL HILDA Administration
Levetiracetam 500 mg 04/17/25 14:08 04/18/25 09:45
Levetiracetam 500 Mg Regular Release Tablet PO 05/15/25 14:07 500 mg
BID HILDA Administration
Lidocaine 1 patch 04/17/25 14:08 04/18/25 09:46
Lidocaine 4% Topical Patch TOPICAL 05/15/25 14:07 1 patch
DAILY HILDA Administration
Protocol
Lisinopril 40 mg 04/17/25 18:00 04/17/25 18:15
Lisinopril 20 Mg Tablet PO 05/15/25 17:59 40 mg
QPM HILDA Administration
Metoprolol Tartrate 100 mg 04/17/25 20:00 04/18/25 09:45
Metoprolol 100 Mg Regular Release Tablet PO 05/15/25 19:59 100 mg
BID HILDA Administration
Morphine Sulfate 3 mg 04/18/25 10:45
Morphine 2 Mg/Ml Syringe IV 05/01/25 14:07
Q4HPRN PRN
severe pain
Pantoprazole Sodium 40 mg 04/17/25 18:00 04/17/25 18:15
Pantoprazole 40 Mg Delayed Release Tablet PO 05/15/25 17:59 40 mg
QPM HILDA Administration
Patch Removal 0 patch 04/17/25 20:00 04/17/25 21:21
Remove Lidocaine Patch REMOVE 05/15/25 19:59 1 patch
DAILY@2000 HILDA Administration
Polyethylene Glycol 17 grams 04/17/25 14:08 04/17/25 14:24
Polyethylene Glycol Powder 17 Grams Packet PO 05/15/25 14:07 17 grams
DAILYPRN PRN Administration
constipation
Senna/Docusate Sodium 1 tablet 04/18/25 20:00
Docusate W/Senna (Pari-Colace) Tablet PO 05/16/25 19:59
BID HILDA
Sodium Chloride 0 flush 04/17/25 15:00
Sodium Chloride 0.9% (Flush) Syringe IV 05/15/25 14:59
PER PROTOCOL HILDA
Tramadol HCl 50 mg 04/17/25 14:08 04/18/25 09:45
Tramadol Hcl 50 Mg Tablet PO 05/15/25 14:07 50 mg
Q6HPRN PRN Administration
moderate pain
Valacyclovir HCl 1,000 mg 04/17/25 22:00 04/17/25 21:34
Valacyclovir Hcl 500 Mg Tablet PO 04/27/25 21:59 Not Given
HS HILDA
Review of Systems
-
A ROS was performed w/ pertinent findings as per HPI.
Physical Exam
-
General: Well Developed and No Apparent Distress
Cardiology: Normal Sinus Rhythm
Pulmonary: Clear
GI: Soft
Extremities: No C/C/E
Neurology: Non Focal
Labs
Lab Results
WBC 6.4 10^3/uL (4.8-10.8) 04/18/25 06:25
RBC 3.09 10^6/uL (4.20-5.40) L 04/18/25:25
Hgb 9.5 g/dL (12.0-16.0) L D 04/18/25:25
Hct 27.3 % (37.0-47.0) L 04/18/25:25
MCV 88.3 fL (81.0-99.0) 04/18/25:
MCH 30.7 pg (27.0-31.0) 04/18/25:
MCHC 34.8 g/dL (33.0-37.0) 04/18/25:25
RDW 17.5 % (11.5-14.5) H 04/18/25:25
Plt Count 82 10^3/uL (130-400) L 04/18/25:25
MPV 10.7 fL (7.4-10.4) H 04/18/25:25
Abs Immat Gran (auto) 0.0 10^3/uL (0-0.05) 04/18/25:25
Absolute Neuts (auto) 5.7 10^3/uL (1.4-6.5) 04/18/25:25
Absolute Lymphs (auto) 0.4 10^3/uL (1.2-3.4) L 04/18/25:25
Absolute Monos (auto) 0.2 10^3/uL (0.1-0.6) 04/18/25:25
Absolute Eos (auto) 0.0 10^3/uL (0-0.7) 04/18/25:25
Absolute Basos (auto) 0.0 10^3/uL (0-0.2) 04/18/25:25
Immature Gran % 0.6 % (0-0.5) H 04/18/25:25
Neutrophils % 89.8 % (42.2-75.2) H 04/18/25:25
Lymphocytes % 6.1 % (20.5-51.1) L 04/18/25:25
Monocytes % 3.3 % (1.7-9.3) 04/18/25 06:25
Eosinophils % 0.0 % (0-6) 04/18/25 06:25
Basophils % 0.2 % (0-2) 04/18/25 06:25
Creatinine 0.5 mg/dL (0.6-1.0) L 04/18/25 06:25
Vital Signs
Vital Signs
Temp Pulse Resp BP Pulse Ox
98 F 74 21 158/79 97
04/18/25 07:39 04/18/25 07:39 04/18/25 07:39 04/18/25 07:39 04/18/25 07:39
[2025-04-18 15:55] VITALS: BP 161/69
[2025-04-18 16:07] VITALS: BP 161/69; PULSE 77
--- NOTE | 2025-04-18 16:28 | PTCARENOTE ---
Patient ambulating in halls with walker and a steady gait.Patient tolerating >50% of meals. Patient c/o mid back pain-02/23 Tramadol given with good relief. Patient states,'I was finally able to sleep.' Spouse at bedside.
[2025-04-18] MEDS: PROTONIX 40 MG PO (17:20)
[2025-04-18] MEDS: LIPITOR 10 MG PO (17:20)
[2025-04-18] MEDS: ZESTRIL 40 MG PO (17:20)
[2025-04-18] MEDS: MIRALAX 17 GRAMS PO (17:22)
--- NOTE | 2025-04-18 17:25 | PTCARENOTE ---
Patient c/o constipation, Miralax given.
[2025-04-18] MEDS: VALTREX 1000 MG PO (20:54)
[2025-04-18] MEDS: TYLENOL PO (20:54)
[2025-04-18] MEDS: REMOVE LIDOCAINE PATCH 1 PATCH REMOVE (20:55)
[2025-04-18 23:00] VITALS: BP 138/72
--- NOTE | 2025-04-18 23:41 | PTCARENOTE ---
Pt paranoid during medication pass despite reviewing before administering. Taking medications out and putting on the table instead of taking. Requested tylenol for pain but when given the tylenol refused to take.
[2025-04-19 05:53] VITALS: BMI 21.7
[2025-04-19] MEDS: ULTRAM 50 MG PO ×2 (05:58→15:34)
[2025-04-19 06:05] LABS: Hematocrit 27.5 % (37.0-47.0); Hemoglobin 9.5 g/dL (12.0-16.0); Mean Corp Hgb Conc. 34.5 g/dL (33.0-37.0); Mean Corpuscular Volume 88.1 fL (81.0-99.0); Nucleated Red Blood Cells % 0.5 %; Platelet Count 71 10^3/uL (130-400); Red Cell Dist. Width 17.2 % (11.5-14.5)
[2025-04-19 06:47] LABS: Blood Urea Nitrogen 10 mg/dl (7-17); Calcium 9.3 mg/dl (8.4-10.2); Carbon Dioxide 24 mmol/L (22-30); Chloride 101 mmol/L (98-107); Estimated Creatinine Clearance 88 ml/min; Glucose 89 mg/dl (70-99); Potassium 4.4 mmol/L (3.5-5.1); Sodium 131 mmol/L (135-145); eGFR > 60.00
--- NOTE | 2025-04-19 07:26 | W.PN.ONC2 ---
Today's Communication / Plan
-
pain management
f/u MRI L spine
OP follow up upon discharge
Impression
Impression
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
back pain - progressive
anemia - post chemotherapy
thrombocytopenia - post chemotherapy
hyponatremia
Plan
Plan
1. Anemia/ thrombocytopenia - post chemotherapy
-transfuse Hgb <7 or as needed for sxs anemia
-follow CBC
2. Back pain
-acute to subacute compression fractures involving T10 and T2. No evidence for significant retropulsed fragment - there are no findings that would suggest metastatic disease involving the spine
-MRI L spine pending
-on dexamethasone, Lidoderm patch, tramadol prn
Will continue to follow with you.
Subjective/Objective
Subjective
no new complaints
Vital Signs:
Vital Signs
Temp Pulse Resp BP Pulse Ox
98.0 F 70 16 138/72 96
04/18/25 23:00 04/18/25 23:00 04/18/25 23:00 04/18/25 23:00 04/19/25 02:18
Lab Results:
Laboratory Data
WBC 6.5 10^3/uL (4.8-10.8) 04/19/25 05:41
Hgb 9.5 g/dL (12.0-16.0) L 04/19/25 05:41
Plt Count 71 10^3/uL (130-400) L 04/19/25 05:41
eGFR > 60.00 04/19/25 05:41
Physical Exam
HEENT: Moist Mucous Membranes; No Jaundice
Pulmonary: Other (unlabored)
GI: Soft
Extremities: Pulses Present
[2025-04-19] MEDS: FLOVENT 110 MCG INHALER 2 PUFF INH ×2 (07:29→19:28)
[2025-04-19 07:30] VITALS: BP 166/78
--- NOTE | 2025-04-19 07:33 | W.PN.HOSP.TC ---
Today's Communication/Plan
-
Pain Control
Physical Therapy
Assessment / Plan
Assessment / Plan
Physical Exam
General: Mild moderate distress d/t severe back pain
HEENT: NormoCephalic, Moist mucous membranes, Atraumatic
Respiratory: Clear
Cardiac: S1/S2 and Regular Rhythm; No Murmur or Rub, Port noted
GI: Soft, Non Tender, Non Distended and Normal Bowel Sounds; No Organomegaly
Musculoskeletal: No Clubbing, No Cyanosis, No Edema, Tenderness to palpation mid lower back and paraspinal region
Skin: No Rash
Neuro: AOx3 conversant coherent
Psych: Calm
69F stage IV Lung Ca Brain Mets here for evaluation severe back pain with associate weakness and severe anemia.
#Symptomatic anemia secondary to chemotherapy
#Thrombocytopenia likely secondary to chemotherapy
Hemoglobin of 6 on admission
Status post 2 units of PRBC and hemoglobin responded appropriately to 9.5.
H&H remains stable since transfusion
Oncology appreciated
#Stage IV lung cancer with metastasis s/p radiation on chemotherapy
Continue with Decadron
Continue with Keppra for seizure prophylaxis
Oncology consult appreciated
#Mid to lower back pain likely secondary to subacute T10 and T12 compression fractures
X-ray imaging noted
pain control scheduled Tylenol, Bengay-like cream, lidocaine patch, prn Tramadol Morphine
PT eval appreciated Home Health
Thoracic Spine MRI appreciated Compression fractures T10 T12 no metastatic dz
Lumbar Spine MRI appreciated chronic mild degenerative dz, no metastatic dz
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
Continue to trend BMP
Fluid restriction
Sodium improved to 130s
COPD without acute exacerbation
Bronchodilators as needed
stable respiratory status on room air
DVT prophylaxis SCDs
Full code
I spent a total of 40 minutes with the patient or on the floor. More than 50% of this time involved counseling and coordination of care.
Anticipated Discharge: 24 - 48 hours
Subjective/Interval History
-
Date of Service: April 19, 2025
Sitting up in bed, significant Back pain/tenderness persists. Patient also notes cramping/spasms same area.
Objective Data
-
Labs:
Laboratory Results
04/19/25
05:41
WBC 6.5
Hgb 9.5 L
Hct 27.5 L
Plt Count 71 L
Sodium 131 L
Potassium 4.4
Chloride 101
Carbon Dioxide 24
BUN 10
Creatinine 0.4 L
Glucose 89
Calcium 9.3
Vital Signs:
Vital Signs
Temp Pulse Resp BP Pulse Ox
98.0 F 70 16 138/72 96
04/18/25 23:00 04/18/25 23:00 04/18/25 23:00 04/18/25 23:00 04/19/25 02:18
I&O
04/18/25 04/19/25 04/20/25
06:59 06:59 06:59
Intake Total 740 / 740 1020 / 1020
Balance 740 / 740 1020 / 1020
[2025-04-19] MEDS: MORPHINE SULFATE 3 MG IV ×2 (09:00→17:47)
[2025-04-19] MEDS: TYLENOL 650 MG PO ×3 (09:03→22:45)
[2025-04-19] MEDS: SENOKOT-S 1 TABLET PO ×2 (09:04→22:45)
[2025-04-19] MEDS: KEPPRA 500 MG PO ×2 (09:04→22:43)
[2025-04-19] MEDS: DECADRON 4 MG PO ×2 (09:04→22:43)
[2025-04-19] MEDS: LIDOCAINE 4% PATCH 1 PATCH TOPICAL (09:04)
[2025-04-19] MEDS: FOLVITE 1 MG PO (09:04)
[2025-04-19] MEDS: LOPRESSOR 100 MG PO ×2 (09:04→22:43)
[2025-04-19 15:00] VITALS: BP 138/78
[2025-04-19] MEDS: LIORESAL 2.5 MG PO ×2 (15:25→22:47)
[2025-04-19] MEDS: BenGay-Like 1 APPLIC TOPICAL ×2 (15:26→22:45)
[2025-04-19] MEDS: MIRALAX 17 GRAMS PO (15:37)
--- NOTE | 2025-04-19 16:23 | CM ---
CM continues to follow for discharge to home.
Plan: Discharge to home with no identified needs at this time.
[2025-04-19] MEDS: LIPITOR 10 MG PO (17:47)
[2025-04-19] MEDS: PROTONIX 40 MG PO (17:48)
[2025-04-19] MEDS: ZESTRIL 40 MG PO (17:48)
--- NOTE | 2025-04-19 19:19 | PTCARENOTE ---
While talking with the pt and her son, he tells me that she had recently fallen in the shower onto her back and he thinks that may be how she developed compression fractures.
[2025-04-19] MEDS: REMOVE LIDOCAINE PATCH 1 PATCH REMOVE (22:44)
[2025-04-19] MEDS: VALTREX 1000 MG PO (22:48)
[2025-04-19 23:00] VITALS: BP 154/85
[2025-04-20] MEDS: TYLENOL PO ×3 (02:08→08:25)
[2025-04-20] MEDS: TYLENOL 650 MG PO ×4 (04:01→20:42)
[2025-04-20 04:52] LABS: Hematocrit 25.3 % (37.0-47.0); Hemoglobin 8.7 g/dL (12.0-16.0); Mean Corp Hgb Conc. 34.4 g/dL (33.0-37.0); Mean Corpuscular Volume 89.1 fL (81.0-99.0); Platelet Count 58 10^3/uL (130-400); Red Cell Dist. Width 17.1 % (11.5-14.5)
[2025-04-20 05:09] LABS: Blood Urea Nitrogen 10 mg/dl (7-17); Calcium 8.9 mg/dl (8.4-10.2); Carbon Dioxide 25 mmol/L (22-30); Chloride 100 mmol/L (98-107); Estimated Creatinine Clearance 88 ml/min; Glucose 102 mg/dl (70-99); Magnesium 1.4 mg/dl (1.6-2.3); Potassium 4.4 mmol/L (3.5-5.1); Sodium 129 mmol/L (135-145); eGFR > 60.00
[2025-04-20] MEDS: FLOVENT 110 MCG INHALER 2 PUFF INH ×2 (07:56→19:50)
--- NOTE | 2025-04-20 08:00 | W.PN.HOSP.TC ---
Today's Communication/Plan
-
cont pain control
Replete Mg
Likely discharge tomorrow Home services if cont to improve/remains stable
Assessment / Plan
Assessment / Plan
Physical Exam
General: no acute distress, appears relatively comfortable at this time
HEENT: NormoCephalic, Moist mucous membranes, Atraumatic
Respiratory: Clear
Cardiac: S1/S2 and Regular Rhythm; No Murmur or Rub, Port noted
GI: Soft, Non Tender, Non Distended and Normal Bowel Sounds; No Organomegaly
Musculoskeletal: No Clubbing, No Cyanosis, No Edema, Tenderness to palpation mid lower back and paraspinal region
Skin: No Rash
Neuro: AOx3 conversant coherent
Psych: Calm
69F stage IV Lung Ca Brain Mets here for evaluation severe back pain with associate weakness and severe anemia.
#Symptomatic anemia secondary to chemotherapy
#Thrombocytopenia likely secondary to chemotherapy
Hemoglobin of 6 on admission
Status post 2 units of PRBC and hemoglobin responded appropriately to 9.5.
H&H remains stable since transfusion
Oncology appreciated
#Stage IV lung cancer with metastasis s/p radiation on chemotherapy
Continue with Decadron
Continue with Keppra for seizure prophylaxis
Oncology consult appreciated
#Mid to lower back pain likely secondary to subacute T10 and T12 compression fractures
X-ray imaging noted
pain control scheduled Tylenol, Bengay-like cream, lidocaine patch, prn Tramadol Morphine
PT eval appreciated Home Health
Thoracic Spine MRI appreciated Compression fractures T10 T12 no metastatic dz
Lumbar Spine MRI appreciated chronic mild degenerative dz, no metastatic dz
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
Fluid restriction
COPD without acute exacerbation
Bronchodilators as needed
stable respiratory status on room air
#Hypomagnesemia
monitor and replete as necessary
DVT prophylaxis SCDs
Full code
discussed with patient and patient's Brian.
I spent a total of 40 minutes with the patient or on the floor. More than 50% of this time involved counseling and coordination of care.
Anticipated Discharge: Within 24 hours
Subjective/Interval History
-
Date of Service: April 20, 2025
No acute distress, resting comfortably in bed, pain improving though persists. Brian present during evaluation.
Objective Data
-
Labs:
Laboratory Results
04/20/25
04:21
WBC 3.9 L
Hgb 8.7 L
Hct 25.3 L
Plt Count 58 L
Sodium 129 L
Potassium 4.4
Chloride 100
Carbon Dioxide 25
BUN 10
Creatinine 0.5 L
Glucose 102 H
Calcium 8.9
Vital Signs:
Vital Signs
Temp Pulse Resp BP Pulse Ox
97.7 F 63 18 154/85 97
04/19/25 23:00 04/20/25 07:59 04/20/25 07:59 04/19/25 23:00 04/20/25 07:59
I&O
04/19/25 04/20/25 04/21/25
06:59 06:59 06:59
Intake Total 1020 / 1020 840 / 840 480 / 480
Balance 1020 / 1020 840 / 840 480 / 480
[2025-04-20 08:05] VITALS: BP 136/70
[2025-04-20] MEDS: BenGay-Like 1 APPLIC TOPICAL ×3 (08:22→20:45)
[2025-04-20] MEDS: LIDOCAINE 4% PATCH 1 PATCH TOPICAL (08:22)
[2025-04-20] MEDS: DECADRON 4 MG PO ×2 (08:23→20:43)
[2025-04-20] MEDS: LIORESAL 2.5 MG PO ×3 (08:23→20:43)
[2025-04-20] MEDS: FOLVITE 1 MG PO (08:24)
[2025-04-20] MEDS: LOPRESSOR 100 MG PO ×2 (08:24→20:43)
[2025-04-20] MEDS: KEPPRA 500 MG PO ×2 (08:24→20:43)
[2025-04-20] MEDS: SENOKOT-S 1 TABLET PO ×2 (08:24→20:43)
[2025-04-20] MEDS: ULTRAM 50 MG PO ×2 (08:28→19:30)
--- NOTE | 2025-04-20 09:17 | W.PN.ONC2 ---
Today's Communication / Plan
-
PET CT due this month, has OP follow up with Dr. Ibrahim to review PET and continued pembro 05/05
Impression
Impression
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
back pain - progressive -MRI L and T spine show no mets -pain likely related to T10 and T2 compression fractures and DJD L spine
anemia - post chemotherapy
thrombocytopenia - post chemotherapy
hyponatremia
Plan
Plan
1. Anemia/ thrombocytopenia - post chemotherapy
-transfuse Hgb <7 or as needed for sxs anemia
-follow CBC
2. Back pain
-acute to subacute compression fractures involving T10 and T2. No evidence for significant retropulsed fragment - DJD L spine- there are no findings that would suggest metastatic disease involving the spine
-on dexamethasone, Lidoderm patch, tramadol prn -management per primary service
Will continue to follow with you.
Subjective/Objective
Subjective
using Lidoderm patch, Tylenol, and tramadol prn back pain. required morphine IV x 1 dose for severe back pain last evening
using bowel regimen
Vital Signs:
Vital Signs
Temp Pulse Resp BP Pulse Ox
97.9 F 76 10 136/70 98
04/20/25 08:05 04/20/25 08:24 04/20/25 08:05 04/20/25 08:24 04/20/25 08:05
Lab Results:
Laboratory Data
WBC 3.9 10^3/uL (4.8-10.8) L 04/20/25 04:21
Hgb 8.7 g/dL (12.0-16.0) L 04/20/25 04:21
Plt Count 58 10^3/uL (130-400) L 04/20/25 04:21
eGFR > 60.00 04/20/25 04:21
Physical Exam
HEENT: Moist Mucous Membranes; No Jaundice
Pulmonary: Other (unlabored)
GI: Soft
Extremities: Pulses Present
--- NOTE | 2025-04-20 12:04 | PTOTSP ---
Speech Therapy Evaluation:
Pt with chronic risk factors of dysphagia including stage IV lung CA with brain mets. Pt endorsed 'bubbling' feeling in upper chest/throat area, which has intermittently occurred over the past couple of days. She reported sensation usually
alleviates over time. She denied any difficulty swallowing otherwise. At bedside, oropharyngeal swallow appeared WFL. No overt s/sx of aspiration or pt c/o 'bubbling.' Provided education in aspiration and reflux precautions. [employer]Y ELECT[employer]IC TRAIN REPAIRER to follow
Recommend:
1. Continue regular solids and thin liquids
2. Medications as tolerated
3. General aspiration and reflux precautions: upright all meals, small bites/sips, slow rate, alternate solids/liquids, remain upright for at least 30 minutes following intake
4. TOY ELECTRIC TRAIN REPAIRER to follow to monitor tolerance of diet and determine if pt would benefit from instrumental assessment
--- NOTE | 2025-04-20 12:27 | CM ---
Patient seen at bedside
PT rec Home Health
discussed options-declining VN at this time
states has a walker at home
PLAN: Home, declining VN at this time, CM to continue to follow
[2025-04-20] MEDS: MAGNESIUM SULFATE 100 IV (14:14)
[2025-04-20] MEDS: MORPHINE SULFATE 3 MG IV (14:23)
[2025-04-20 15:18] VITALS: BP 138/66
[2025-04-20] MEDS: ZESTRIL 40 MG PO (17:27)
[2025-04-20] MEDS: PROTONIX 40 MG PO (17:27)
[2025-04-20] MEDS: LIPITOR 10 MG PO (17:27)
[2025-04-20 20:41] VITALS: BP 138/71
[2025-04-20] MEDS: VALTREX 1000 MG PO (20:43)
[2025-04-20] MEDS: REMOVE LIDOCAINE PATCH 1 PATCH REMOVE (20:49)
[2025-04-20 23:29] VITALS: BP 150/68
[2025-04-21] MEDS: TYLENOL PO ×2 (01:00→05:20)
[2025-04-21 05:03] LABS: Hematocrit 25.7 % (37.0-47.0); Hemoglobin 8.8 g/dL (12.0-16.0); Mean Corp Hgb Conc. 34.2 g/dL (33.0-37.0); Mean Corpuscular Volume 88.9 fL (81.0-99.0); Platelet Count 69 10^3/uL (130-400); Red Cell Dist. Width 17.4 % (11.5-14.5)
[2025-04-21 05:26] LABS: Blood Urea Nitrogen 10 mg/dl (7-17); Calcium 8.8 mg/dl (8.4-10.2); Carbon Dioxide 26 mmol/L (22-30); Chloride 100 mmol/L (98-107); Estimated Creatinine Clearance 88 ml/min; Glucose 114 mg/dl (70-99); Magnesium 2.2 mg/dl (1.6-2.3); Potassium 4.6 mmol/L (3.5-5.1); Sodium 131 mmol/L (135-145); eGFR > 60.00
[2025-04-21 07:03] VITALS: BP 150/92
--- NOTE | 2025-04-21 07:35 | W.PN.HOSP.TC ---
Addendum entered and electronically signed by Deny Ojeda MD 04/22/25 04:27:
Pancytopenia likely 2/2 chemo
Original Note:
Today's Communication/Plan
-
discharge
Assessment / Plan
Assessment / Plan
Physical Exam
General: no acute distress, appears relatively comfortable at this time
HEENT: NormoCephalic, Moist mucous membranes, Atraumatic
Respiratory: Clear
Cardiac: S1/S2 and Regular Rhythm; No Murmur or Rub, Port noted
GI: Soft, Non Tender, Non Distended and Normal Bowel Sounds; No Organomegaly
Musculoskeletal: No Clubbing, No Cyanosis, No Edema, Tenderness to palpation mid lower back and paraspinal region
Skin: No Rash
Neuro: AOx3 conversant coherent
Psych: Calm
69F stage IV Lung Ca Brain Mets here for evaluation severe back pain with associate weakness and severe anemia.
#Symptomatic anemia secondary to chemotherapy
#Thrombocytopenia likely secondary to chemotherapy
Hemoglobin of 6 on admission
Status post 2 units of PRBC and hemoglobin responded appropriately to 9.5.
H&H remains stable since transfusion
Oncology appreciated
#Stage IV lung cancer with metastasis s/p radiation on chemotherapy
Continue with Decadron
Continue with Keppra for seizure prophylaxis
Oncology consult appreciated
#Mid to lower back pain likely secondary to subacute T10 and T12 compression fractures
X-ray imaging noted
pain control scheduled Tylenol, Bengay-like cream, lidocaine patch, prn Tramadol Morphine
PT eval appreciated Home Health
Thoracic Spine MRI appreciated Compression fractures T10 T12 no metastatic dz
Lumbar Spine MRI appreciated chronic mild degenerative dz, no metastatic dz
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
Fluid restriction
COPD without acute exacerbation
Bronchodilators as needed
stable respiratory status on room air
#Hypomagnesemia
resolved
DVT prophylaxis SCDs
Full code
Medically Stable for discharge home with home services and outpatient follow up recommendations.
discussed with patient and patient's Brian.
Total Time Preparing Discharge ___40____ minutes including examination of the patient, summary of the hospital stay, instructions for continuing care to all relevant caregivers; and preparation of discharge records, prescriptions, and referral
forms if necessary.
Anticipated Discharge: Today
Subjective/Interval History
-
Date of Service: April 21, 2025
Pain persists, patient otherwise relatively comfortable at this time. Eager to go home. Denies new acute issues.
Objective Data
-
Labs:
Laboratory Results
04/21/25
04:40
WBC 2.8 L
Hgb 8.8 L
Hct 25.7 L
Plt Count 69 L
Sodium 131 L
Potassium 4.6
Chloride 100
Carbon Dioxide 26
BUN 10
Creatinine 0.5 L
Glucose 114 H
Calcium 8.8
Vital Signs:
Vital Signs
Temp Pulse Resp BP Pulse Ox
97.7 F 68 18 150/68 95
04/20/25 23:29 04/20/25 23:29 04/20/25 23:29 04/20/25 23:29 04/20/25 23:29
I&O
04/20/25 04/21/25 04/22/25
06:59 06:59 06:59
Intake Total 840 / 840 1420 / 1420 240 / 240
Balance 840 / 840 1420 / 1420 240 / 240
[2025-04-21] MEDS: FLOVENT 110 MCG INHALER 2 PUFF INH (07:50)
[2025-04-21] MEDS: TYLENOL 650 MG PO ×2 (09:01→11:54)
[2025-04-21] MEDS: KEPPRA 500 MG PO (09:01)
[2025-04-21] MEDS: LIORESAL 2.5 MG PO (09:01)
[2025-04-21] MEDS: LOPRESSOR 100 MG PO (09:01)
[2025-04-21] MEDS: DECADRON 4 MG PO (09:02)
[2025-04-21] MEDS: SENOKOT-S 1 TABLET PO (09:03)
[2025-04-21] MEDS: LIDOCAINE 4% PATCH TOPICAL ×2 (09:03→09:21)
[2025-04-21] MEDS: FOLVITE 1 MG PO (09:03)
[2025-04-21] MEDS: BenGay-Like 1 APPLIC TOPICAL (09:04)
[2025-04-21] MEDS: MORPHINE SULFATE 3 MG IV (09:16)
[2025-04-21 11:33] VITALS: BP 148/76
[2025-04-21 11:38] VITALS: BP 148/76
--- NOTE | 2025-04-21 12:32 | CM ---
CM contacted by OT regarding concern for patient going home without services due to her impulsivity and recent fall into the tub when attempting to bathe without assistance/supervision.
CM call pt's to discuss discharge recommendations, as pt had already left the hospital immediately after the therapy visit.
Per , pt is strong willed and likely will not accept VN services, as she does not like people coming into her home. Pt is known to an outpatient therapy office near home. Pt's is hopeful that she will agree to go to outpatient
PT/OT; he will drive her to/from outpatient therapy. I advised that he will need to obtain a prescription for outpatient PT and OT from [facility]'s PCP.
Plan: to contact PCP to request Rx for outpatient PT/OT which pt has previously attended.
IMM reviewed verbally via telephone and both patient and agree that [facility] was ready for discharge. Verbal consent obtained for signature on IMM.
--- NOTE | 2025-04-21 13:21 | W.DCSUMMARY ---
Discharge Summary
Discharge Data
Date of Admission: 04/17/25
Date of Discharge: 04/21/25
-
Pending Results: No
Hospital Course
69F stage IV Lung Ca Brain Mets here for evaluation severe back pain with associate weakness and severe anemia. Symptomatic anemia secondary to chemotherapy. Thrombocytopenia likely secondary to chemotherapy. Hemoglobin of 6 on admission, status
post 2 units of PRBC and hemoglobin responded appropriately to 9.5. H&H remained stable since transfusion. Stage IV lung cancer with metastasis s/p radiation on chemotherapy. Continued with Decadron and seizure prophylaxis Keppra. Oncology
consult appreciated. Mid to lower back pain likely secondary to subacute T10 and T12 compression fractures noted on X-ray/MRI imaging. Pain control scheduled Tylenol, Bengay-like cream, lidocaine patch, prn Tramadol Morphine. PT eval appreciated
Home Health. Thoracic Spine MRI appreciated compression fractures T10 T12, no metastatic dz. Lumbar Spine MRI appreciated chronic mild degenerative dz, no metastatic dz. 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
Fluid restriction. Pain control improving, medically stable, patient was discharged home with home services and outpatient follow up recommendations.
Discharge Plan
-
Patient Disposition: Home (Routine Discharge)
Discharge Diagnosis/Procedures: Symptomatic anemia secondary to chemotherapy
Thrombocytopenia likely secondary to chemotherapy
Stage IV lung cancer with metastasis
Back pain due to T10 and T12 compression fractures
Chronic hyponatremia
Hypomagnesemia Resolved
COPD
Condition: Fair
Diet: Regular
Activity: As tolerated and With Walker
Driving Restrictions: As prior to admission
Bathing Restrictions: None
Blood Work: Repeat CBC and BMP with primary care provider in 1 week of discharge.
Other Services: PT and OT
Activity Restrictions/Additional Instructions:
Follow up with primary care provider and oncologist in 1 week of discharge.
For back pain, as needed Tylenol (available over the counter), Bengay-like cream (available over the counter), lidocaine patches, baclofen, and tramadol have been prescribed.
Please take medications as prescribed/recommended and follow up with primary care provider and/or other healthcare provider involved in your care for refills and/or further adjustment to your medication regimen as necessary.
Referrals:
Winifred Catalan DO [Family Provider, Family Practice] - in one week
Prescriptions:
New
Analgesic [place] (m.salic-menth) 15-10 % Cream
1 applic topical TID PRN (Reason: muscle pain) Qty: 85 0RF
lidocaine 4 % Adhesive Patch,Medicated
1 patch topical DAILY Qty: 10 0RF
Rx Instructions:
Back pain
baclofen 5 mg Tablet
2.5 mg PO TID PRN (Reason: muscle spasm) Qty: 30 0RF
tramadol 50 mg Tablet
50 mg PO Q6HPRN PRN (Reason: moderate severe pain) Qty: 28 0RF
acetaminophen [Tylenol Extra Strength] 500 mg Tablet
1,000 mg PO Q6HPRN PRN (Reason: pain/fever/headache) Qty: 240 0RF
Continued
Asmanex Twisthaler 220 mcg/ actuation (120) aerosol powdr breath activated
1 inh INHALATION R BID
pantoprazole 40 MG tablet,delayed release (DR/EC)
40 mg PO QPM
folic acid 1 mg Tablet
1 mg PO DAILY
clonazepam 0.5 mg Tablet
0.5 mg PO HSPRN PRN (Reason: Insomnia)
levetiracetam [Keppra] 500 mg Tablet
500 mg PO BID Qty: 0 0RF
atorvastatin [Lipitor] 10 mg tablet
10 mg PO QPM
metoprolol tartrate 100 mg tablet
100 mg PO BID
dexamethasone 4 mg tablet
4 mg PO BID
lisinopril 40 mg tablet
40 mg PO QPM
therapeutic multivitamin Tablet
1 tab PO DAILY
docusate sodium [Colace] 100 mg Capsule
100 mg PO DAILYPRN PRN (Reason: constipation)
carboplatin 150 mg Recon Soln
506 mg IV Q21D
Keytruda 25 mg/mL Solution
200 mg IV Q21D
lidocaine-prilocaine 2.5-2.5 % Cream
1 applic TOPICAL DIRECTED
Patient Comments:
03/04/2025, apply to port site.
valacyclovir 500 mg Tablet
1,000 mg PO HS Qty: 1 0RF
Discharge Orders:
Discharge Patient (As Directed); Ordered 04/21/25
Ordered By: Deny Ojeda
Discharge Date and Time
Discharge Date/Time: 04/21/25 14:59
Print Language: KYRGYZ
--- NOTE | 2025-04-21 13:42 | PN.CDI ---
CDI
- -
CDI:
Physician Documentation Request
Admit Date: 04/17/25 13:24
Dear Doctor Rusty,
Please review the following and provide your response in the progress notes.
Clinical Indicators:
Pt admitted for Symptomatic anemia secondary to chemotherapy and Mid to lower back pain likely secondary to subacute T10 and T12 compression fractures.
04/21 Progress Note: 'Thrombocytopenia likely secondary to chemotherapy'
Laboratory Tests
04/20/25 04/21/25
04:21 04:40
WBC 3.9 L 2.8 L
Hgb 8.7 L 8.8 L
Plt Count 58 L 69 L
Based on the above, could you clarify in the progress notes, the appropriate diagnosis, if significant, that supports the above Lab abnormalities and additional evaluation, monitoring and/or treatment rendered:
Pancytopenia
Thrombocytopenia only
Other
Use of terms such as suspected, likely, concern for, or probable (associated with a specific diagnosis that is being evaluated, monitored, or treated as if it exists) are acceptable and can be coded in the inpatient setting, when documented at the
time of discharge.
Thank you,
Lizzy Banks RN, BSN
CDI Specialist
[place] [facility]
Please use your independent medical judgment in providing your response.
[2025-04-21 14:00] VITALS: BP 151/90
--- NOTE | 2025-04-21 14:59 | PTCARENOTE ---
pt received Morphine for c/o right lower back pain with good relief, tolerating diet, vss, for discharge to home with her
== END 2025-04-21 14:59 | disposition home or self-care (01) | DRG 542 ==
LOC: 3 WEST ACU 13:24
PROVIDERS: ADMITTING PHYSICIAN Hospitalist; ATTENDING PHYSICIAN Internal Medicine; EMERGENCY PHYSICIAN Emergency Medicine; FAMILY PHYSICIAN Family Medicine; OTHER PHYSICIAN Internal Medicine Hematology & Oncology
PROC: 30243N1 Transfusion of Nonautologous Red Blood Cells into Central Vein, Percutaneous Approach (ICD-10-PCS; 2025-04-17)
DX: M48.54XA Collapsed vertebra, not elsewhere classified, thoracic region, initial encounter for fracture (principal); D61.810 Antineoplastic chemotherapy induced pancytopenia; C79.31 Secondary malignant neoplasm of brain; C34.90 Malignant neoplasm of unspecified part of unspecified bronchus or lung; E22.2 Syndrome of inappropriate secretion of antidiuretic hormone; K56.699 Other intestinal obstruction unspecified as to partial versus complete obstruction; D64.81 Anemia due to antineoplastic chemotherapy; T45.1X5A Adverse effect of antineoplastic and immunosuppressive drugs, initial encounter; D69.59 Other secondary thrombocytopenia; Z92.3 Personal history of irradiation; J44.9 Chronic obstructive pulmonary disease, unspecified; E83.42 Hypomagnesemia; Z88.5 Allergy status to narcotic agent; G47.00 Insomnia, unspecified; I10 Essential (primary) hypertension; F32.A Depression, unspecified; F41.9 Anxiety disorder, unspecified; Z87.891 Personal history of nicotine dependence; E78.5 Hyperlipidemia, unspecified; H91.90 Unspecified hearing loss, unspecified ear; K21.9 Gastro-esophageal reflux disease without esophagitis; Z79.899 Other long term (current) drug therapy
CPT/HCPCS: 36415; 36430; 71046; 72072; 72100; 72157; 72158; 80048; 80053; 82728; 83540; 83550; 83735; 84100; 84439; 84443; 84480; 85025; 85027; 86850; 86900; 86901; 86920; 92610; 94640; 96374; 96375; 97116; 97162; 97167; 97535; 99283; 99285; A9575; P9016

== ENCOUNTER → 2025-04-29 10:36 | Outpatient (REF) | payer MEDICARE, BC, SELFPAY ==
[2025-04-29 11:41] LABS: Hematocrit 26.9 % (37.0-47.0); Hemoglobin 9.3 g/dL (12.0-16.0); Mean Corp Hgb Conc. 34.6 g/dL (33.0-37.0); Mean Corpuscular Volume 91.8 fL (81.0-99.0); Platelet Count 210 10^3/uL (130-400); Red Cell Dist. Width 19.3 % (11.5-14.5)
[2025-04-29 12:07] LABS: Absolute Neutrophils -Man Diff 12.1 10^3/uL (1.4-6.5); Anisocytosis 1+; Normal RBC Morphology No; Platelets Checked Yes; Polychromasia Slight; Total Cells Counted 100
[2025-04-29 12:16] LABS: ALT (SGPT) 30 U/L (0-35); AST (SGOT) 24 U/L (14-36); Albumin 4.1 g/dl (3.5-5.0); Alkaline Phosphatase 67 U/L (38-126); Blood Urea Nitrogen 18 mg/dl (7-17); Calcium 9.0 mg/dl (8.4-10.2); Carbon Dioxide 22 mmol/L (22-30); Chloride 99 mmol/L (98-107); Glucose 99 mg/dl (70-99); Potassium 4.3 mmol/L (3.5-5.1); Sodium 127 mmol/L (135-145); Total Protein 6.1 g/dl (6.3-8.2); eGFR > 60.00
[2025-04-29 12:38] LABS: TSH 0.20 uIU/ml (0.47-4.68)
[2025-05-01 20:05] LABS: Total T3 (Sendout) 50 ng/dL (80-200)
== END ==
LOC: REG 10:36
PROVIDERS: ATTENDING PHYSICIAN Internal Medicine Hematology & Oncology; FAMILY PHYSICIAN Family Medicine
DX: C34.12 Malignant neoplasm of upper lobe, left bronchus or lung (principal); Z79.899 Other long term (current) drug therapy
CPT/HCPCS: 36415; 80053; 84439; 84443; 84480; 85025

== ENCOUNTER 2025-05-10 12:55 | Emergency (ER) | payer MEDICARE, BC, SELFPAY ==
[2025-05-10 13:09] VITALS: BP 132/77
[2025-05-10 13:41] LABS: Hematocrit 28.1 % (37.0-47.0); Hemoglobin 9.5 g/dL (12.0-16.0); Mean Corp Hgb Conc. 33.8 g/dL (33.0-37.0); Mean Corpuscular Volume 92.7 fL (81.0-99.0); Nucleated Red Blood Cells % 0.1 %; Platelet Count 211 10^3/uL (130-400); Red Cell Dist. Width 20.1 % (11.5-14.5)
[2025-05-10 13:56] LABS: ALT (SGPT) 27 U/L (0-35); AST (SGOT) 21 U/L (14-36); Albumin 3.7 g/dl (3.5-5.0); Alkaline Phosphatase 70 U/L (38-126); Blood Urea Nitrogen 15 mg/dl (7-17); Calcium 8.8 mg/dl (8.4-10.2); Carbon Dioxide 26 mmol/L (22-30); Chloride 97 mmol/L (98-107); Glucose 101 mg/dl (70-99); Potassium 4.8 mmol/L (3.5-5.1); Sodium 128 mmol/L (135-145); Total Protein 6.0 g/dl (6.3-8.2); eGFR > 60.00
[2025-05-10 14:06] LABS: Troponin I < 0.012 ng/ml
[2025-05-10 14:32] VITALS: BP 161/84
[2025-05-10 14:42] VITALS: BMI 22.8
[2025-05-10 15:00] VITALS: BP 129/72
--- NOTE | 2025-05-10 15:03 | ED.GENMED ---
History of Present Illness
General
Chief Complaint: Fainting Sensation
Source: patient and spouse
Exam Limitations: none
Time Seen by Provider: 05/10/25 14:46
Nursing documentation reviewed up to this point in time: agreed with
History of Present Illness
History of Present Illness:
69-year-old female with history as documented notable for metastatic lung cancer who presents to the ER with her for evaluation of fatigue and lightheadedness. Patient has been on chemotherapy and follows with Dr. Ibrahim for oncology. She
has been on chronic dexamethasone since December at dose of 4 mg twice a day due to brain metastasis and edema. Apparently last week steroid dose was decreased from 4 mg twice daily to 4 mg once daily. Since then patient has had increasing fatigue
and has had multiple episodes of lightheadedness/near syncope especially with positional changes/walking. This prompted patient presenting to the ER today. She has not had any associated chest pain or shortness of breath, palpitations. She denies
any other acute issues today. notes that she had similar symptoms when steroids were decreased in the past.
Past History
Past History
ED Past Medical History: COPD, GERD, HTN and Other
ED Past Surgical History: Orthopedic (Knee surgery)
Social History
Tobacco: Former smoker
Alcohol: Daily (7-7)
Personal:
Living: with family
Employment: Employed
Family History
Family History: Hypertension; Negative Early CAD, CAD or Sudden
Review of Systems
Review of Systems
All Other Systems: ROS reviewed and negative except as documented in HPI and ROS
Constitutional: Reports fatigue; Denies fever
Respiratory: Denies trouble breathing
Cardiac: Reports syncope; Denies chest pain
ABD/GI: Reports constipated (Chronic); Denies abdominal pain, nausea, vomiting or diarrhea
Neurological: Denies headache
Phy Exam
Physical Exam
Physical Exam:
General: Awake, alert, oriented x3; chronically ill-appearing but not in acute distress
Head: Normocephalic, atraumatic
Eyes: Conjunctiva normal, pupils equal round and reactive to light bilaterally
Throat: Airway intact, handling secretions
Neck: Trachea midline, no JVD
Lungs: Clear to auscultation bilaterally, no wheezing, rales, rhonchi
Heart: Regular rate and rhythm, no murmurs, gallops, or rubs; tunneled port right chest wall
Abd: Soft, non distended, nontender
Neuro: Cranial nerves intact, speech fluid, motor and sensory intact and symmetric in all extremities
Extremities: No edema in extremities, warm and well-perfused
Scores
Heart Failure Risk
Heart Failure Risk Score: Not Applicable
Heart Score for Chest Pain Patients
STEMI patient?: Not applicable
Withdrawal Assessment of Alcohol
Withdrawal Assessment Completed?: Not applicable
Course
Orders/Labs/Results
Orders:
Orders
05/10/25 13:14
Electrocardiogram (*1) Urgent
Reason for Study: Syncope
05/10/25 13:15
EKG- Treatment ONCE
05/10/25 13:18
Complete Blood Count/With Diff Urgent
Comprehensive Metabolic Panel Urgent
Troponin I Urgent
05/10/25 16:19
ACTH [Adrenocorticotropic Hormone] [S] Urgent
Cortisol, Random Urgent
Abnormal Lab Results
05/10/25
13:18
WBC 14.9 H 10^3/uL
(4.8-10.8)
RBC 3.03 L 10^6/uL
(4.20-5.40)
Hgb 9.5 L g/dL
(12.0-16.0)
Hct 28.1 L %
(37.0-47.0)
MCH 31.4 H pg
(27.0-31.0)
RDW 20.1 H %
(11.5-14.5)
Abs Immat Gran (auto) 0.4 H 10^3/uL
(0-0.05)
Absolute Neuts (auto) 13.6 H 10^3/uL
(1.4-6.5)
Absolute Lymphs (auto) 0.6 L 10^3/uL
(1.2-3.4)
Immature Gran % 2.6 H %
(0-0.5)
Neutrophils % 90.8 H %
(42.2-75.2)
Lymphocytes % 3.8 L %
(20.5-51.1)
Sodium 128 L mmol/L
(135-145)
Chloride 97 L mmol/L
(98-107)
Glucose 101 H mg/dl
(70-99)
Total Protein 6.0 L g/dl
(6.3-8.2)
05/10/25 13:18
05/10/25 13:18
Vital Signs
Initial and Last Documented VS:
Initial Vital Signs
Temp Pulse Resp BP Pulse Ox
36.7 C 75 16 132/77 94
05/10/25 13:09 05/10/25 13:09 05/10/25 13:09 05/10/25 13:09 05/10/25 13:09
Last Documented Vital Signs
Temp Pulse Resp BP Pulse Ox
36.7 C 72 16 161/84 97
05/10/25 13:09 05/10/25 14:33 05/10/25 14:33 05/10/25 14:32 05/10/25 15:09
MDM/Problems Addressed
Differential Diagnosis Includes:
Symptomatic anemia, adrenal insufficiency, hypovolemia/dehydration, electrolyte derangement, dysrhythmia
MDM/Problems Addressed:
69-year-old female presents for evaluation of increasing fatigue and multiple near syncopal events over the past week since her chronic steroid dose was cut in half. Vital signs here are within acceptable range. Physical exam as above. Labs were
sent off including a CBC which shows stable leukocytosis, stable chronic anemia with a hemoglobin of 9.5. CMP shows hyponatremia which is stable�known SIADH in the setting of malignancy. She had an EKG in triage which shows sinus rhythm with no
ectopy, no AV block, no signs of Brug[place], no delta wave, QT normal. She denies any chest pain at any point in time but a troponin was sent in triage which was undetectable. Suspect this is likely adrenal insufficiency in the setting of recent
steroid taper. Will discuss case with oncology.
Discussed with oncology�recommended increasing dexamethasone from 4 mg daily to 4 mg a.m. and 2 mg p.m. Recommended sending random cortisol and ACTH levels. I had a long discussion with the patient as she has been hemodynamically stable,
reassuring workup otherwise�I offered admission for observation but patient wishes to go home and I think is a reasonable plan. Using shared decision making we will discharge on increased dose of steroids and patient will follow-up with oncology as
an outpatient. Spoke about return precautions and all questions answered.
Chronic conditions affecting care:
Metastatic cancer
*Pulse Oximetry
SaO2: 97
Oxygen Mode of Delivery: Room air
Patient hypoxic: no (97%)
*EKG
Interpreted by ED Provider?: Yes
Heart Rate: 74
Rate: normal
Rhythm: sinus
[place]: left axis deviation
Interval: normal interval and normal QT interval
QRS Pattern: left vent hypertrophy
*Critical Care Note
Total Time (30-74mins, 75-104mins- exclusive of procedures): Not Applicable
Data Reviewed
Review of Other/Old Records Reveals: Labs, Records and Discharge Summary
Source: patient, records and spouse
Patient Management
Discussion with other providers: Community Recreation Coordinator (Discussed with oncology)
Escalation/DeEscalation of care consider admission/obs:
Offered admission�shared decision making discharged
ED Attending Note
-
Portions of this chart may have been created with voice recognition software.� Occasional wrong word or��sound alike� substitutions may have occurred due to the inherent limitations of voice recognition software.
Discharge Plan
Departure
Patient with high blood pressure during this ER visit?: Yes
Discharge Problem:
Lightheadedness
Instructions: Syncope (Fainting) (DC)
Prescriptions:
New
dexamethasone 2 mg tablet
2 mg PO DAILY Qty: 30 0RF
No Action
Asmanex Twisthaler 220 mcg/ actuation (120) aerosol powdr breath activated
1 inh INHALATION R BID
pantoprazole 40 MG tablet,delayed release (DR/EC)
40 mg PO QPM
folic acid 1 mg Tablet
1 mg PO DAILY
clonazepam 0.5 mg Tablet
0.5 mg PO HSPRN PRN (Reason: Insomnia)
levetiracetam [Keppra] 500 mg Tablet
500 mg PO BID Qty: 0 0RF
atorvastatin [Lipitor] 10 mg tablet
10 mg PO QPM
metoprolol tartrate 100 mg tablet
100 mg PO BID
dexamethasone 4 mg tablet
4 mg PO BID
lisinopril 40 mg tablet
40 mg PO QPM
therapeutic multivitamin Tablet
1 tab PO DAILY
docusate sodium [Colace] 100 mg Capsule
100 mg PO DAILYPRN PRN (Reason: constipation)
carboplatin 150 mg Recon Soln
506 mg IV Q21D
Keytruda 25 mg/mL Solution
200 mg IV Q21D
lidocaine-prilocaine 2.5-2.5 % Cream
1 applic TOPICAL DIRECTED
Patient Comments:
03/04/2025, apply to port site.
valacyclovir 500 mg Tablet
1,000 mg PO HS Qty: 1 0RF
Analgesic [place] (m.salic-menth) 15-10 % Cream
1 applic topical TID PRN (Reason: muscle pain) Qty: 85 0RF
lidocaine 4 % Adhesive Patch,Medicated
1 patch topical DAILY Qty: 10 0RF
Rx Instructions:
Back pain
baclofen 5 mg Tablet
2.5 mg PO TID PRN (Reason: muscle spasm) Qty: 30 0RF
tramadol 50 mg Tablet
50 mg PO Q6HPRN PRN (Reason: moderate severe pain) Qty: 28 0RF
acetaminophen [Tylenol Extra Strength] 500 mg Tablet
1,000 mg PO Q6HPRN PRN (Reason: pain/fever/headache) Qty: 240 0RF
Referrals:
Winifred Catalan DO [Family Provider, Family Practice]
Steve Ibrahim MD [Active, Hematology / Oncology] - Call in 1-3 days for appt
Activity Restrictions/Additional Instructions:
You should increase your dosing of dexamethasone from 4 mg daily to 4 mg in the morning and 2 mg in the evening. You should follow-up with your oncologist as soon as possible.
Thank you for visiting the Emergency Department at [facility].
1. Please schedule a follow up appointment as directed. Call first thing tomorrow morning to make an appointment.
2. If indicated, please take your medications as instructed and indicated on discharge paperwork.
3. If any of your symptoms do not improve, or persist, or become more severe within 6-12 hours, please return to the emergency department for further care.
4. Please return to the emergency department if you develop a headache, neck pain/stiffness, fever greater than 100.4F, chest pain, shortness of breath, persistent nausea, vomiting, slurred speech, difficulty walking, numbness/tingling, weakness,
signs of infection or any other symptoms that are worrisome to you.
Please call [phone] if you have any questions.
Interventions
Interventions:
*Risk Screen - Suicide Last Done: 05/10/25 14:43
*General Assessment Last Done: 05/10/25 14:43
*Neglect/Abuse Screening Last Done: 05/10/25 14:43
*ED- Fall Risk Assessment Last Done: 05/10/25 14:43
*ED COVID-19 Vaccine History Last Done: 05/10/25 14:46
ED- Cardiac Assessment Last Done: 05/10/25 14:43
ED- Neurological Assessment Last Done: 05/10/25 14:43
Discharge Date and Time
Print Language: [place]EN[place]
[2025-05-10 16:00] VITALS: BP 138/77
[2025-05-10] MEDS: DECADRON 4 MG PO (16:41)
[2025-05-10 17:24] VITALS: BP 142/84
[2025-05-10 17:39] LABS: Cortisol, Random 0.9 ug/dl
== END 2025-05-10 17:15 | disposition home or self-care (01) ==
LOC: EMR 12:55
PROVIDERS: Emergency Medicine; EMERGENCY PHYSICIAN Emergency Medicine; FAMILY PHYSICIAN Family Medicine
DX: R42 Dizziness and giddiness (principal); C79.31 Secondary malignant neoplasm of brain; D64.9 Anemia, unspecified; E22.2 Syndrome of inappropriate secretion of antidiuretic hormone; D72.829 Elevated white blood cell count, unspecified; I10 Essential (primary) hypertension; J44.9 Chronic obstructive pulmonary disease, unspecified; K21.9 Gastro-esophageal reflux disease without esophagitis; Z87.891 Personal history of nicotine dependence; Z82.49 Family history of ischemic heart disease and other diseases of the circulatory system
CPT/HCPCS: 99284; 80053; 82024; 82533; 84484; 85025; 93005

== ENCOUNTER → 2025-05-20 14:41 | Outpatient (REF) | payer MEDICARE, BC, SELFPAY ==
[2025-05-20 16:03] LABS: Hematocrit 29.5 % (37.0-47.0); Hemoglobin 9.7 g/dL (12.0-16.0); Mean Corp Hgb Conc. 32.9 g/dL (33.0-37.0); Mean Corpuscular Volume 93.7 fL (81.0-99.0); Nucleated Red Blood Cells % 0.4 %; Platelet Count 253 10^3/uL (130-400); Red Cell Dist. Width 20.5 % (11.5-14.5)
[2025-05-20 16:15] LABS: ALT (SGPT) 23 U/L (0-35); AST (SGOT) 22 U/L (14-36); Albumin 3.9 g/dl (3.5-5.0); Alkaline Phosphatase 76 U/L (38-126); Blood Urea Nitrogen 22 mg/dl (7-17); Calcium 9.6 mg/dl (8.4-10.2); Carbon Dioxide 27 mmol/L (22-30); Chloride 99 mmol/L (98-107); Glucose 105 mg/dl (70-99); Potassium 4.6 mmol/L (3.5-5.1); Sodium 132 mmol/L (135-145); Total Protein 6.3 g/dl (6.3-8.2); eGFR > 60.00
[2025-05-20 16:47] LABS: TSH 0.27 uIU/ml (0.47-4.68)
== END ==
LOC: REG 14:41
PROVIDERS: ATTENDING PHYSICIAN Internal Medicine Hematology & Oncology; FAMILY PHYSICIAN Family Medicine
DX: C34.12 Malignant neoplasm of upper lobe, left bronchus or lung (principal); C34.11 Malignant neoplasm of upper lobe, right bronchus or lung; Z79.899 Other long term (current) drug therapy
CPT/HCPCS: 36415; 80053; 84439; 84443; 84480; 85025

== ENCOUNTER 2025-06-08 16:00 | Emergency (ER) | payer MEDICARE, BC, SELFPAY ==
[2025-06-08 16:19] VITALS: BP 148/85
[2025-06-08 16:36] LABS: Hematocrit 30.6 % (37.0-47.0); Hemoglobin 10.1 g/dL (12.0-16.0); Mean Corp Hgb Conc. 33.0 g/dL (33.0-37.0); Mean Corpuscular Volume 93.3 fL (81.0-99.0); Nucleated Red Blood Cells % 0.4 %; Platelet Count 248 10^3/uL (130-400); Red Cell Dist. Width 18.6 % (11.5-14.5)
[2025-06-08 16:55] LABS: ALT (SGPT) 20 U/L (0-35); AST (SGOT) 20 U/L (14-36); Albumin 3.8 g/dl (3.5-5.0); Alkaline Phosphatase 73 U/L (38-126); Blood Urea Nitrogen 20 mg/dl (7-17); Calcium 9.4 mg/dl (8.4-10.2); Carbon Dioxide 23 mmol/L (22-30); Chloride 98 mmol/L (98-107); Glucose 123 mg/dl (70-99); Lipase 91 U/L (23-300); Potassium 4.6 mmol/L (3.5-5.1); Sodium 128 mmol/L (135-145); Total Protein 6.1 g/dl (6.3-8.2); eGFR > 60.00
[2025-06-08 19:36] VITALS: BP 183/102
[2025-06-08 19:37] VITALS: BP 183/103
--- NOTE | 2025-06-08 19:41 | ED.GENMED ---
History of Present Illness
General
Chief Complaint: Abdominal Pain
Time Seen by Provider: 06/08/25 19:41
History of Present Illness
History of Present Illness:
FOCUSED PAST MEDICAL HISTORY
- Metastatic lung cancer to the brain, T10 compression fracture
REVIEW OF OLD RECORDS
- The patient was admitted with anemia in April 2025 and was admitted in February 2025 with hyponatremia
Note:
CHIEF COMPLAINT(S)
Back pain, abdominal distension, and increased pain post vertebroplasty.
HISTORY OF PRESENT ILLNESS
The patient is a 69-year-old female with a history of metastatic lung cancer to the brain, who presented with worsening back pain and abdominal distension. She had a recent vertebral compression fracture in the thoracic spine, specifically around
T-10, diagnosed in March at [facility]. Vertebroplasty was performed by Dr. Joaquin Brar; however, the patient reports that her pain has become 'twice as bad,' rather than improving post-procedure. The pain originates in the middle of the back and
radiates outward. Current treatments include oxycodone and tramadol, which are insufficiently managing the pain. An epidural steroid injection has been scheduled but not until June 23.
The patient also reports abdominal distension, which she suspects may be related to previous chemotherapy. This issue has been persistent for over a week. There is no significant abdominal pain noted during palpation, though slight tenderness was
elicited. Additionally, the patient is on dexamethasone for metastatic brain disease but experienced episodes of collapse upon tapering the dosage, resulting in confusion and mental fog.
PAST MEDICAL AND SURIGICAL HISTORY
Metastatic lung cancer with brain metastases diagnosed in December. Vertebroplasty for vertebral compression fracture.
CHRONIC MEDICAL CONDITIONS SIGNIFICANTLY AFFECTING CARE
- Metastatic lung cancer to the brain, affecting medication regimen and symptom management.
- Low serum sodium historically noted.
SOCIAL DETERMINANTS AFFECTING HEALTH
Previous history of smoking, ceased 30-40 years ago.
MEDICATIONS
Current medications include oxycodone, tramadol, and dexamethasone. Magnesium citrate and MiraLAX are being taken for constipation management.
PHYSICAL EXAM
General: Alert, appears fairly comfortable as she is just resting in bed
Skin: Warm, dry.
Head: Normocephalic, atraumatic.
Neck: Supple, trachea midline.
Eyes, Ears, Nose, and Throat: Oral mucosa moist.
Cardiovascular: Normal peripheral perfusion, no edema.
Respiratory: Respirations are non-labored. Port noted to the right anterior chest wall
Gastrointestinal: No significant abdominal tenderness, minimal distention
Back: There is some mild low thoracic tenderness at the midline creased active range of motion due to pain
Musculoskeletal: Normal strength, limited by pain.
Neurological: Alert and oriented to person, place, time, and situation. No focal neurological deficits observed, though she seems to give some unreliable answers at times
Psychiatric: Cooperative, appropriate mood, and affect.
PROBLEM LIST
Acute:
- Worsening back pain post vertebroplasty.
- Abdominal distension.
Chronic:
- Metastatic lung cancer to the brain.
- History of low serum sodium.
PLAN
1. Perform CT scan of the abdomen and thoracic spine to evaluate possible underlying causes of current symptoms.
2. Pain management discussion, possible administration of an intravenous narcotic.
3. Address sodium level management in view of the patients history of hyponatremia.
4. Coordination with the nursing team to access the port for imaging and potential medication administration.
DIFFERENTIAL DIAGNOSIS
The Differential Diagnosis includes, in no particular order and is not limited to:
1. Persistent osteoporotic vertebral fracture pain.
2. Metastatic disease progression.
3. Epidural hematoma post-procedure.
4. Abdominal organomegaly secondary to metastatic disease.
5. Constipation causing abdominal distension.
6. Malabsorption syndrome.
7. Hyponatremia-related cognitive changes.
8. Medication side effects (e.g., narcotics, dexamethasone).
9. Infectious process within the abdomen or spine.
10. Paraneoplastic syndrome causing systemic symptoms.
RADIOLOGY
- CT imaging obtained
LABS
- White count normal, hemoglobin 10.1 (improved), sodium 128
UPDATE
-SUMMARY OF ENCOUNTER
The patient, a 69-year-old female, presented with new onset back pain. Imaging revealed a new compression fracture at T-12, compared to previous studies. The patient recently underwent vertebroplasty at T-10 at [facility] which was not effective in
managing her pain. Currently, her pain is well managed due to medication provided. There is also a suspicion that either during the previous procedure, an issue may have arisen, or the patients osteoporotic changes contributed to the new fracture.
She does not currently report pain due to the administration of intravenous medication during the visit. The patient has metastatic lung cancer with brain involvement, and recent imaging did not reveal any new metastasis to the bone. Given the new
compression fracture and current limitations on in-hospital spine surgical intervention, coordination with outside spine specialists such as those at [facility] and [facility] was advised.
ASSESSMENT
The patient presented with a new compression fracture at T-12. Possible causes include progression of osteoporotic changes or procedural complications during the previous vertebroplasty. She reports no current pain, suggesting successful temporary
relief from administered treatment.
PLAN
1. Provide the patient with a copy of the imaging studies.
2. Advise the patient to contact [facility] and [facility] promptly for further evaluation and possible intervention given the new T-12 fracture.
3. Consider alternative arrangements like rehabilitation if pain management or mobility issues persist.
4. Encourage coordination of care with family members to facilitate scheduling and appointments.
PATIENT EDUCATION AND COUNSELING
The patient and her family were educated about the new T-12 compression fracture and its possible implications. They were advised on the importance of timely follow-up with spine specialists to discuss further intervention options, as well as
consideration of potential exacerbations due to her underlying conditions.
MEDICATION RECONCILIATION
The patient has received intravenous narcotics for pain relief during the visit.
MEDICAL DECISION MAKING
-Complexity of Data Reviewed: Chronic conditions affecting care include metastatic lung cancer to the brain, and history of vertebroplasty for vertebral compression fracture. Differential diagnosis considered included persistent osteoporotic
vertebral fracture pain and possible metastatic disease progression.
-Data:
Category 1
Reviewed recent imaging showing new T-12 compression fracture and prior radiology reports showing no new bone metastasis.
-Risk:
Patients medication intake involves narcotic pain management. Consideration of admission or further interventional procedures was bypassed due to pain relief achieved with current intervention and presence of outpatient options for specialized spine
care.
DIAGNOSIS
1. New compression fracture, thoracic region (M48.56XA)
2. Metastatic lung cancer (C34.90)
The patient was advised to closely follow up with specialists for ongoing management due to the complexity and risks associated with her condition.
Past History
Past History
ED Past Medical History: COPD, GERD, HTN and Other
ED Past Surgical History: Orthopedic (Knee surgery)
Social History
Tobacco: Former smoker
Alcohol: Daily (7-7)
Personal:
Living: with family
Employment: Employed
Family History
Family History: Hypertension; Negative Early CAD, CAD or Sudden
Phy Exam
Physical Exam
Physical Exam:
See HPI
Course
Orders/Labs/Results
Orders:
Orders
06/08/25 16:30
Complete Blood Count/With Diff Urgent
Comprehensive Metabolic Panel Urgent
Lipase Urgent
06/08/25 19:43
CT Abd/pelvis W Iv Cont Urgent
Comment:
Reason For Exam: back and abd pain
06/08/25 19:52
HYDROmorphone [Dilaudid] 1 mg IV NOW STA
Ondansetron Injectable [Zofran] 4 mg IV NOW STA
Abnormal Lab Results
06/08/25
16:30
RBC 3.28 L 10^6/uL
(4.20-5.40)
Hgb 10.1 L g/dL
(12.0-16.0)
Hct 30.6 L %
(37.0-47.0)
RDW 18.6 H %
(11.5-14.5)
Abs Immat Gran (auto) 0.3 H 10^3/uL
(0-0.05)
Absolute Neuts (auto) 9.2 H 10^3/uL
(1.4-6.5)
Absolute Lymphs (auto) 0.5 L 10^3/uL
(1.2-3.4)
Immature Gran % 2.6 H %
(0-0.5)
Neutrophils % 89.6 H %
(42.2-75.2)
Lymphocytes % 4.6 L %
(20.5-51.1)
Sodium 128 L mmol/L
(135-145)
BUN 20 H mg/dl
(7-17)
Glucose 123 H mg/dl
(70-99)
Total Protein 6.1 L g/dl
(6.3-8.2)
06/08/25 16:30
06/08/25 16:30
Vital Signs
Initial and Last Documented VS:
Initial Vital Signs
Temp Pulse Resp BP Pulse Ox
36.7 C 78 18 148/85 96
06/08/25 16:19 06/08/25 16:19 06/08/25 16:19 06/08/25 16:19 06/08/25 16:19
Last Documented Vital Signs
Temp Pulse Resp BP Pulse Ox
36.7 C 58 18 164/97 96
06/08/25 16:19 06/08/25 21:00 06/08/25 19:31 06/08/25 21:00 06/08/25 19:43
*Pulse Oximetry
SaO2: 96
Oxygen Mode of Delivery: Room air
Patient hypoxic: no
*Critical Care Note
Total Time (30-74mins, 75-104mins- exclusive of procedures): Not Applicable
ED Attending Note
-
Portions of this chart may have been created with voice recognition software.� Occasional wrong word or��sound alike� substitutions may have occurred due to the inherent limitations of voice recognition software.
Discharge Plan
Departure
Patient Disposition: Home (Routine Discharge)
Date of Disposition: 06/08/25
Time of Disposition: 22:49
Patient with high blood pressure during this ER visit?: Yes
Discharge Problem:
Compression fracture of T12 vertebra
Instructions: Vertebral compression fracture
Prescriptions:
No Action
Asmanex Twisthaler 220 mcg/ actuation (120) aerosol powdr breath activated
1 inh INHALATION R BID
pantoprazole 40 MG tablet,delayed release (DR/EC)
40 mg PO QPM
folic acid 1 mg Tablet
1 mg PO DAILY
clonazepam 0.5 mg Tablet
0.5 mg PO HSPRN PRN (Reason: Insomnia)
levetiracetam [Keppra] 500 mg Tablet
500 mg PO BID Qty: 0 0RF
atorvastatin [Lipitor] 10 mg tablet
10 mg PO QPM
metoprolol tartrate 100 mg tablet
100 mg PO BID
dexamethasone 4 mg tablet
4 mg PO BID
lisinopril 40 mg tablet
40 mg PO QPM
therapeutic multivitamin Tablet
1 tab PO DAILY
docusate sodium [Colace] 100 mg Capsule
100 mg PO DAILYPRN PRN (Reason: constipation)
carboplatin 150 mg Recon Soln
506 mg IV Q21D
Keytruda 25 mg/mL Solution
200 mg IV Q21D
lidocaine-prilocaine 2.5-2.5 % Cream
1 applic TOPICAL DIRECTED
Patient Comments:
03/04/2025, apply to port site.
valacyclovir 500 mg Tablet
1,000 mg PO HS Qty: 1 0RF
Analgesic [place] (m.salic-menth) 15-10 % Cream
1 applic topical TID PRN (Reason: muscle pain) Qty: 85 0RF
lidocaine 4 % Adhesive Patch,Medicated
1 patch topical DAILY Qty: 10 0RF
Rx Instructions:
Back pain
baclofen 5 mg Tablet
2.5 mg PO TID PRN (Reason: muscle spasm) Qty: 30 0RF
tramadol 50 mg Tablet
50 mg PO Q6HPRN PRN (Reason: moderate severe pain) Qty: 28 0RF
acetaminophen [Tylenol Extra Strength] 500 mg Tablet
1,000 mg PO Q6HPRN PRN (Reason: pain/fever/headache) Qty: 240 0RF
dexamethasone 2 mg tablet
2 mg PO DAILY Qty: 30 0RF
Referrals:
Winifred Catalan DO [Family Provider, Family Practice]
Activity Restrictions/Additional Instructions:
You have a new severe compression fracture at T12. There is a mild L1 compression fracture. The compression fracture at T10 is stable. The abdominal portion did not show any clear cause for pain. Follow-up with either Dr. Alejandre or with [facility] by
calling them tomorrow.
Interventions
Interventions:
*Risk Screen - Suicide Last Done: 06/08/25 16:19
*General Assessment Last Done: 06/08/25 16:19
*Neglect/Abuse Screening Last Done: 06/08/25 16:19
[facility] Assessment Last Done: 06/08/25 19:40
Discharge Date and Time
Print Language: MALAYSIAN
[2025-06-08 20:00] VITALS: BP 171/95
[2025-06-08 21:00] VITALS: BP 164/97
[2025-06-08] MEDS: ZOFRAN 4 MG IV (21:04)
[2025-06-08] MEDS: DILAUDID 1 MG IV (21:05)
== END 2025-06-08 23:32 | disposition home or self-care (01) ==
LOC: EMR 16:00
PROVIDERS: Emergency Medicine; EMERGENCY PHYSICIAN Emergency Medicine; FAMILY PHYSICIAN Family Medicine
DX: M48.54XA Collapsed vertebra, not elsewhere classified, thoracic region, initial encounter for fracture (principal); C34.90 Malignant neoplasm of unspecified part of unspecified bronchus or lung; C79.31 Secondary malignant neoplasm of brain; I10 Essential (primary) hypertension; J44.9 Chronic obstructive pulmonary disease, unspecified; K21.9 Gastro-esophageal reflux disease without esophagitis; Z87.891 Personal history of nicotine dependence; Z82.49 Family history of ischemic heart disease and other diseases of the circulatory system
CPT/HCPCS: 99284; 96374; 96375; 74177; 80053; 83690; 85025; Q9967

== ENCOUNTER 2025-06-09 17:36 | Inpatient (IN) | payer MEDICARE, BC, SELFPAY ==
[2025-06-09 11:20] VITALS: BP 118/69
--- NOTE | 2025-06-09 12:40 | ED.GENMED ---
History of Present Illness
<UNIQUE Carter - Last Filed: 06/09/25 15:12>
General
Chief Complaint: Back Pain
Source: patient
Exam Limitations: none
Time Seen by Provider: 06/09/25 12:30
Nursing documentation reviewed up to this point in time: agreed with
History of Present Illness
History of Present Illness:
Patient is a 6-year-old female past medical history of metastatic lung cancer( right upper lobe) to brain recent vertebral compression fractures in the thoracic spine status post vertebroplasty history of hyponatremia presents to the ER for
evaluation. Since this morning patient has felt' bubbling coming up her throat.' at bedside reports patient is unable to swallow her own secretions and drink water. He reports recently she has had troulbe swallowing her pills.
reports she has had similar symptoms in the past however 'it usually passes .' PT last had PET scan 04/27/25 stable right upper lobe nodule no suspicious lesions in head and neck and no suspicious lesions in mediastinum.
Pt was seen here last night for woresning back pain and dx with a new compression fracture
Past History
<UNIQUE Carter - Last Filed: 06/09/25 15:12>
Past History
ED Past Medical History: COPD, GERD, HTN and Other
ED Past Surgical History: Orthopedic (Knee surgery)
Social History
Tobacco: Former smoker
Alcohol: Daily (7-7)
Personal:
Living: with family
Employment: Employed
Family History
Family History: Hypertension; Negative Early CAD, CAD or Sudden
Phy Exam
<UNIQUE Carter - Last Filed: 06/09/25 15:12>
General Physical Exam
General Presentation: no apparent distress
General age: appears stated age
General Skin: warm and dry
General Habitus: elderly
General Mental: alert
General Hydration: appears well hydrated
Cardiovascular Exam
Cardiovascular Exam: regular rate/rhythm, no murmur and normal peripheral pulses
Pulmonary Exam
Pulmonary Exam: lungs clear and no respiratory distress
Neurological Exam
Neurological Exam: alert and oriented x3
Musculoskeletal Exam
Musculoskeletal Exam: other (Scattered ecchymosis to extremities)
Skin Exam
Skin Exam: normal color and warm/dry
Psychiatric Exam
Psychiatric Exam: normal mood/affect
Course
<UNIQUE Carter - Last Filed: 06/09/25 15:12>
Orders/Labs/Results
Orders:
Orders
06/09/25 13:13
IV Insert/Care/Rem.- Treatment PRN
0.9% Sodium Chloride 1000 ml [Nss] 1,000 ml IV BOLUS
06/09/25 13:21
Complete Blood Count/With Diff Urgent
Comprehensive Metabolic Panel Urgent
06/09/25 14:34
Urinalysis Reflex To Culture Urgent
Date Specimen was Collected: 06/09/25
Time Specimen was Collected: 14:33
Urine Microscopic Reflex Cult Urgent
Pantoprazole [Protonix IV] 40 mg IV NOW STA
Abnormal Lab Results
06/09/25 06/09/25
13:21 14:34
WBC 11.4 H 10^3/uL
(4.8-10.8)
RBC 3.31 L 10^6/uL
(4.20-5.40)
Hgb 10.1 L g/dL
(12.0-16.0)
Hct 30.9 L %
(37.0-47.0)
MCHC 32.7 L g/dL
(33.0-37.0)
RDW 18.7 H %
(11.5-14.5)
Abs Immat Gran (auto) 0.3 H 10^3/uL
(0-0.05)
Absolute Neuts (auto) 10.0 H 10^3/uL
(1.4-6.5)
Absolute Lymphs (auto) 0.6 L 10^3/uL
(1.2-3.4)
Immature Gran % 2.6 H %
(0-0.5)
Neutrophils % 87.9 H %
(42.2-75.2)
Lymphocytes % 5.2 L %
(20.5-51.1)
Sodium 131 L mmol/L
(135-145)
BUN 20 H mg/dl
(7-17)
Urine Albumin (Reflex) 1+ A
(Neg - Trace)
06/09/25 13:21
06/09/25 13:21
Vital Signs
Initial and Last Documented VS:
Initial Vital Signs
Temp Pulse Resp BP Pulse Ox
98.1 F 102 20 118/69 98
06/09/25 11:20 06/09/25 11:20 06/09/25 11:20 06/09/25 11:20 06/09/25 11:20
Last Documented Vital Signs
Temp Pulse Resp BP Pulse Ox
98.1 F 102 20 118/69 98
06/09/25 11:20 06/09/25 11:20 06/09/25 11:20 06/09/25 11:20 06/09/25 12:40
Agriculture Engineer consulted with Physician
Agriculture Engineer consulted with physician?: Yes
Name of Physician Consulted: DR Rojas
<Abdoulaye Rojas, DO - Last Filed: 06/09/25 13:21>
Orders/Labs/Results
Orders:
Orders
06/09/25 13:13
IV Insert/Care/Rem.- Treatment PRN
0.9% Sodium Chloride 1000 ml [Nss] 1,000 ml IV BOLUS
06/09/25 13:21
Complete Blood Count/With Diff Urgent
Comprehensive Metabolic Panel Urgent
06/09/25 14:34
Urinalysis Reflex To Culture Urgent
Date Specimen was Collected: 06/09/25
Time Specimen was Collected: 14:33
Urine Microscopic Reflex Cult Urgent
Pantoprazole [Protonix IV] 40 mg IV NOW STA
Abnormal Lab Results
06/09/25 06/09/25
13:21 14:34
WBC 11.4 H 10^3/uL
(4.8-10.8)
RBC 3.31 L 10^6/uL
(4.20-5.40)
Hgb 10.1 L g/dL
(12.0-16.0)
Hct 30.9 L %
(37.0-47.0)
MCHC 32.7 L g/dL
(33.0-37.0)
RDW 18.7 H %
(11.5-14.5)
Abs Immat Gran (auto) 0.3 H 10^3/uL
(0-0.05)
Absolute Neuts (auto) 10.0 H 10^3/uL
(1.4-6.5)
Absolute Lymphs (auto) 0.6 L 10^3/uL
(1.2-3.4)
Immature Gran % 2.6 H %
(0-0.5)
Neutrophils % 87.9 H %
(42.2-75.2)
Lymphocytes % 5.2 L %
(20.5-51.1)
Sodium 131 L mmol/L
(135-145)
BUN 20 H mg/dl
(7-17)
Urine Albumin (Reflex) 1+ A
(Neg - Trace)
06/09/25 13:21
06/09/25 13:21
Vital Signs
Initial and Last Documented VS:
Initial Vital Signs
Temp Pulse Resp BP Pulse Ox
98.1 F 102 20 118/69 98
06/09/25 11:20 06/09/25 11:20 06/09/25 11:20 06/09/25 11:20 06/09/25 11:20
Last Documented Vital Signs
Temp Pulse Resp BP Pulse Ox
98.1 F 102 20 118/69 98
06/09/25 11:20 06/09/25 11:20 06/09/25 11:20 06/09/25 11:20 06/09/25 12:40
<UNIQUE Carter - Last Filed: 06/09/25 15:12>
MDM/Problems Addressed
Differential Diagnosis Includes:
Not limited to food bolus, gastritis, esophagitis, achalasia
MDM/Problems Addressed:
Patient is a 69-year-old female with metastatic lung cancer with mets to the brain presents for difficulty swallowing. Patient has had difficulty swallowing her secretions and swallowing water today. Apparently she has had issues in the past that
have passed. Here she is having trouble drinking water however is in no acute distress lungs are clear no shortness of breath. Patient has not urinated in addition since last night and has not been able to void on her own. Bladder scan shows
greater than 700 cc will plan to straight cath. Case discussed with ED physician who evaluated patient . Pt will require admission for dysphagia will need hydration. Fluids ordered via her port. will order iv protonix.
Chronic conditions affecting care:
Metastatic lung cancer
<UNIQUE Carter - Last Filed: 06/09/25 15:12>
*Pulse Oximetry
SaO2: 98
Oxygen Mode of Delivery: Room air
Patient hypoxic: no
*Critical Care Note
Total Time (30-74mins, 75-104mins- exclusive of procedures): Not Applicable
Data Reviewed
Review of Other/Old Records Reveals: Labs, Radiology Studies, Discharge Summary and Other (ER visit from last night)
ED Attending Note
<UNIQUE Carter - Last Filed: 06/09/25 15:12>
-
Portions of this chart may have been created with voice recognition software.� Occasional wrong word or��sound alike� substitutions may have occurred due to the inherent limitations of voice recognition software.
<Abdoulaye Rojas DO - Last Filed: 06/09/25 13:21>
ED Attending Note
Patient seen and examined by attending physician: Yes
I performed the substantive portion of visit, reviewed & personally made and approve the management plan that is documented in note by myself or JAMIE.: Yes
ED Attending Note:
Seen with LIAISON OFFICER examined independently agree with assessment and plan 69-year-old female metastatic lung cancer seen here yesterday with back pain diagnosed with a fracture now presents with painful difficulty swallowing
Differential is wide includes gastritis esophagitis metastatic disease food bolus conceivably achalasia obstruction
This point I will believe will be prudent to admit her to the hospital get her pain under control start her on a PPI sideration for specialty consultation and/or advanced imaging
Discharge Plan
Departure
Patient Disposition: Admit
Date of Disposition: 06/09/25
Time of Disposition: 15:05
Admit to: Med/Surg
Admit to doctor: hospitalist
Presentation/result/management discussed w/ accepting MD/DO: Hospitalist
Patient with high blood pressure during this ER visit?: No
Condition: Fair
Covid-19: Not Applicable
Discharge Problem:
Dysphagia, Acute urinary retention
Prescriptions:
No Action
Asmanex Twisthaler 220 mcg/ actuation (120) aerosol powdr breath activated
1 inh INHALATION R BID
pantoprazole 40 MG tablet,delayed release (DR/EC)
40 mg PO QPM
folic acid 1 mg Tablet
1 mg PO DAILY
clonazepam 0.5 mg Tablet
0.5 mg PO HSPRN PRN (Reason: Insomnia)
levetiracetam [Keppra] 500 mg Tablet
500 mg PO BID Qty: 0 0RF
atorvastatin [Lipitor] 10 mg tablet
10 mg PO QPM
metoprolol tartrate 100 mg tablet
100 mg PO BID
dexamethasone 4 mg tablet
4 mg PO BID
lisinopril 40 mg tablet
40 mg PO QPM
therapeutic multivitamin Tablet
1 tab PO DAILY
docusate sodium [Colace] 100 mg Capsule
100 mg PO DAILYPRN PRN (Reason: constipation)
carboplatin 150 mg Recon Soln
506 mg IV Q21D
Keytruda 25 mg/mL Solution
200 mg IV Q21D
lidocaine-prilocaine 2.5-2.5 % Cream
1 applic TOPICAL DIRECTED
Patient Comments:
03/04/2025, apply to port site.
valacyclovir 500 mg Tablet
1,000 mg PO HS Qty: 1 0RF
Analgesic [place] (m.salic-menth) 15-10 % Cream
1 applic topical TID PRN (Reason: muscle pain) Qty: 85 0RF
lidocaine 4 % Adhesive Patch,Medicated
1 patch topical DAILY Qty: 10 0RF
Rx Instructions:
Back pain
baclofen 5 mg Tablet
2.5 mg PO TID PRN (Reason: muscle spasm) Qty: 30 0RF
tramadol 50 mg Tablet
50 mg PO Q6HPRN PRN (Reason: moderate severe pain) Qty: 28 0RF
acetaminophen [Tylenol Extra Strength] 500 mg Tablet
1,000 mg PO Q6HPRN PRN (Reason: pain/fever/headache) Qty: 240 0RF
dexamethasone 2 mg tablet
2 mg PO DAILY Qty: 30 0RF
Referrals:
Winifred Catalan DO [Family Provider, Family Practice]
Interventions
Interventions:
*Risk Screen - Suicide Last Done: 06/09/25 11:20
*General Assessment Last Done: 06/09/25 13:23
*Neglect/Abuse Screening Last Done: 06/09/25 11:20
*ED- Fall Risk Assessment Last Done: 06/09/25 13:23
*ED COVID-19 Vaccine History Last Done: 06/09/25 13:23
ED-Musculoskeletal Assessment Last Done: 06/09/25 13:23
Discharge Date and Time
Print Language: UKRAINIAN
[2025-06-09 13:23] VITALS: BMI 22.3
[2025-06-09] MEDS: NSS 1000 IV (13:50)
[2025-06-09 14:36] LABS: Hematocrit 30.9 % (37.0-47.0); Hemoglobin 10.1 g/dL (12.0-16.0); Mean Corp Hgb Conc. 32.7 g/dL (33.0-37.0); Mean Corpuscular Volume 93.4 fL (81.0-99.0); Nucleated Red Blood Cells % 0.5 %; Platelet Count 252 10^3/uL (130-400); Red Cell Dist. Width 18.7 % (11.5-14.5)
[2025-06-09] MEDS: PROTONIX IV 40 MG IV (14:44)
[2025-06-09 14:50] LABS: ALT (SGPT) 22 U/L (0-35); AST (SGOT) 18 U/L (14-36); Albumin 3.8 g/dl (3.5-5.0); Alkaline Phosphatase 83 U/L (38-126); Blood Urea Nitrogen 20 mg/dl (7-17); Calcium 9.9 mg/dl (8.4-10.2); Carbon Dioxide 26 mmol/L (22-30); Chloride 100 mmol/L (98-107); Estimated Creatinine Clearance 75 ml/min; Glucose 85 mg/dl (70-99); Potassium 3.7 mmol/L (3.5-5.1); Sodium 131 mmol/L (135-145); Total Protein 6.3 g/dl (6.3-8.2); eGFR > 60.00
[2025-06-09 14:53] LABS: Urine Character Slightly Cloudy (Clear)
[2025-06-09 15:06] LABS: Urine Red Blood Cell 0-2 /HPF (0-2); Urine Squamous Cell 0-2 /LPF (Few); Urine White Cell 0-2 /HPF (0-5)
[2025-06-09 16:22] VITALS: BP 147/79
--- NOTE | 2025-06-09 16:54 | HPS.HSE ---
Addendum entered and electronically signed by Ana Martel MD 06/09/25 18:03:
This is an addendum to H&P written by Rosa Hall on 06/09/2025. �Patient seen and examined independently with resident.
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
hyponatremia secondary to SIADH, COPD, hypomagnesemia, presenting with difficulty swallowing bubbling up to her throat that started today. � states she is unable to swallow her secretions and drink water and she has trouble swallowing pills.
�She was eating normally until today. Denies food getting stuck or chest pain.�
At this time symptoms are improved after IV fluids and Protonix.
She was seen here last night for worsening back pain diagnosed with new T12 compression fracture. �She underwent kyphoplasty a month ago.
She was also found to be retaining urine greater than 700 cc.
Vital signs show slight tachycardia at 102.
Labs show leukocytosis of 11.4. �Stable anemia of 10.1. �Stable hyponatremia 131. �CT abdomen pelvis from yesterday shows no acute disease of the abdomen pelvis.
Patient with dysphagia in the setting of stage IV lung cancer with brain mets. �Seems pharyngeal.�Recent speech evaluation from 04/20 shows normal oropharyngeal swallow. �Regular solids and thin liquids recommended. �Seems that pharyngeal swallowing
was normal as of 04/20. �Seems that the symptoms are improved. Check beside speech and swallow and attempt regular diet if allowed, check speech and swallow evaluation. �Does not seem esophageal in nature, GI was notified in ER although does not seem
necessary at this time unless patient has further difficulty.
Last bowel movement was 2 days ago.
Patient with urinary retention greater than 700 cc. �Urinary retention likely due to T12 compression fracture, opiate use, back pain, immobility and ongoing constipation. �Bladder scan protocol and Rasheed catheter if necessary.
Original Note:
Family Physician
-
Family Physician: Winifred Catalan
Chief Complaint
-
Dysphagia, increased secretions.
History of Present Illness
69-year-old female with PMHx significant for COPD, GERD, hypertension, stage IV non-squamous cell lung cancer-adenocarcinoma with brain mets s/p WBRT-4 cycles last done on 04/07 (carbo/Alimta/Keytruda), anxiety, depression, vertebral compression
fractures s/p vertebroplasty at T10 level, most recent T12 vertebral fracture chronic hyponatremia from SIADH, anemia of chronic disease presents to ER for evaluation of dysphagia and gagging. She woke up in the morning, was trying to have
breakfast and had copious amounts of clear and bubbly secretions, and constantly continued to gag. She could not take her pills today and her gagging and secretions would not go away for at least more than 30 minutes. This warranted them to come
to the emergency room. Her last meal was yesterday night, she was able to tolerate the food well, no difficulty swallowing solids or liquids yesterday night. She had a similar episode of gagging and choking with clear and bubbly secretions in her
mouth that lasted for few minutes about 3 days ago. She denies any progressive dysphagia or odynophagia for solids or liquids. She also reports to have acute urinary retention for the last 7 days. She states that her urine output has been only
once in the morning followed by a distended and enlarged abdomen, and no urine output for the rest of the day. However she denies having dysuria, frequency, hesitancy, urgency. She also reports to have constipation, and is on a bowel regimen
states that her bowel regimen is a hit or miss. Her last bowel movement was more than 2 days ago. When she has bowel movement she usually has a blowout stool.
She denies nausea, vomiting, chest pain, palpitations, orthopnea, abdominal pain, heartburn, fevers, chills or night sweats. She denies having cough, sputum production, change in voice, weakness in legs, new onset paresthesias in bilateral lower
extremities or perianal area, bowel or bladder incontinence.
she reports to have occasional PND
Upon arrival to the ER she is tachycardic and tachypneic, afebrile, with normal blood pressure and sating 98% on room air. Never home oxygen dependent.
Medical History
Past Medical History
Past Medical History: Reports Other (COPD, GERD, hypertension, stage IV lung adenocarcinoma with brain mets, anxiety, depression, vertebral compression fractures, s/p vertebroplasty at T10, chronic hyponatremia from SIADH, and anemia.)
Past Surgical History: Reports Other (Colonic stricture s/p sigmoidectomy, port placement, right knee surgery.)
Social History
Tobacco: Former Smoker
Alcohol: None
Drug: None
Personal:
Living: With Family
Employment: Retired
Family History
Family History: Not pertinent
Allergies / Home Medications
Allergies reflects when Allergies were last updated in [facility].
Home Medications with original date entered in [facility]
Allergy/Medication List:
Allergies
Allergy/AdvReac Type Severity Reaction Status Date / Time
No Known Allergies Allergy Verified 06/09/25 11:24
Home Medications
mometasone 220 mcg/actuation(120 doses)breath activated powder inhaler (Asmanex Twisthaler) 1 inh inhalation R BID sob 06/05/23
pantoprazole 40 mg tablet,delayed release 40 mg PO QPM Gastrointestinal Issue 06/05/23
folic acid 1 mg tablet 1 mg PO DAILY Supplement 01/29/25
clonazepam 0.5 mg tablet 0.5 mg PO HSPRN PRN Insomnia 02/13/25
levetiracetam 500 mg tablet (Keppra) 500 mg PO BID Seizures #0 tabs 02/14/25
atorvastatin 10 mg tablet (Lipitor) 10 mg PO QPM High Cholesterol 03/01/25
carboplatin 150 mg intravenous solution 506 mg IV Q21D Cancer 03/01/25
dexamethasone 4 mg tablet 4 mg PO BID Anti-Inflammatory 03/01/25
docusate sodium 100 mg capsule (Colace) 100 mg PO DAILYPRN PRN constipation 03/01/25
lisinopril 40 mg tablet 40 mg PO QPM Blood Pressure 03/01/25
metoprolol tartrate 100 mg tablet 100 mg PO BID Blood Pressure 03/01/25
pembrolizumab 25 mg/mL intravenous solution (Keytruda) 200 mg IV Q21D Cancer 03/01/25
therapeutic multivitamin 1 tab PO DAILY Supplement 03/01/25
lidocaine-prilocaine 2.5 %-2.5 % topical cream 1 applic topical DAILYPRN PRN port access 03/04/25
acetaminophen 500 mg tablet (Tylenol Extra Strength) 500 mg PO Q6H Pain 06/09/25
baclofen 5 mg tablet 2.5 mg PO TIDPRN PRN muscle spasm 06/09/25
methocarbamol 500 mg tablet 500 mg PO HS Muscle Spasms 06/09/25
oxycodone-acetaminophen 5 mg-325 mg tablet 1 tab PO QID Pain 06/09/25
polyethylene glycol 3350 17 gram oral powder packet (Miralax) 17 g PO DAILYPRN PRN constipation 06/09/25
pregabalin 25 mg capsule (Lyrica) 25 mg PO BID Pain 06/09/25
Review of Systems
-
History Source: Patient
A 12 point ROS was completed and negative except as noted: Yes
Constitutional: Reports Fatigue and Night Sweats
EENT: Reports Other (Increased secretions, gagging and choking x 30 minutes. Oropharyngeal dysphagia.)
Respiratory: Reports No Symptoms
Cardiac: Reports No Symptoms
Abdomen/GI: Reports No Symptoms
: Reports Other (Urinary retention.)
Musculoskeletal: Reports No Symptoms
Skin: Reports No Symptoms
Neurological: Reports Weakness (Generalized.)
Endocrine: Reports No Symptoms
Hematologic/Lymphatic: Reports No Symptoms
Psych: Reports No Symptoms
Physical Exam
Vital Signs
Vital Signs
Temp Pulse Resp BP Pulse Ox
98.1 F 91 16 147/79 94
06/09/25 11:20 06/09/25 16:22 06/09/25 16:22 06/09/25 16:22 06/09/25 16:22
Physical Exam
General: Comfortable and Conversant
Respiratory: Clear; No Wheezes, Rales or Rhonchi
Cardiac: S1/S2 and Regular Rhythm; No Murmur, Rub or Gallop
GI: Soft, Non Tender, Normal Bowel Sounds and Other (Bilateral lower quadrants-mildly distended, no tenderness.); No Non Distended
Genito-urinary: Deferred by me
Musculoskeletal: No Clubbing, No Cyanosis, Edema, Left Lower Extremity (1+ pitting edema extending up to mid shins) and Edema, Right Lower Extremity (1+ pitting edema extending up to mid shins)
Skin: Warm and Other (Multiple bruises and petechiae all over her body.)
Neuro: AO x 3, No Motor Deficits and Nonfocal/grossly intact
Psych: Calm
Laboratory Results
-
06/09/25 13:21
06/09/25 13:21
Laboratory Results
Total Bilirubin 0.5 mg/dl (0.2-1.3) 06/09/25 13:21
AST 18 U/L (14-36) 06/09/25 13:21
ALT 22 U/L (0-35) 06/09/25 13:21
Alkaline Phosphatase 83 U/L (38-126) 06/09/25 13:21
Data Reviewed
-
Diagnostic Radiology: Image Personally Visualized and interpreted, Report Reviewed by me, Discussed with Physician and Discussed with Patient
Lab Data: Labs Reviewed by me, Discussed with Physician, Discussed with Patient and Discussed with Family
Impression/Plan
-
IMPRESSION: 69-year-old female with complicated past medical history of COPD GERD hypertension, stage IV lung cancer with brain mets, vertebral compression fractures s/p vertebroplasty at T10, hyponatremia from SIADH and anemia presents for
evaluation of oropharyngeal dysphagia.
PLAN:
#Oropharyngeal dysphagia-
Less likely esophageal in nature,
Admit to MedSurg.
patient denies having dysphagia for solids or liquids or progressively worsening odynophagia.
Video swallow study in April 2025 within normal limits.
No hoarseness in voice, no cough, no sputum production.
Less likely from recurrent laryngeal nerve compression or direct infiltration of tumor.
Bedside swallow study ordered, if cleared good to eat regular foods.
If not cleared NPO.
I reviewed with my attending who agreed that GI consult is too early at this point of time, GI is already notified by ER.
# Acute urinary retention-
Serum creatinine and eGFR normal.
Likely neurogenic from a confluence of being on opioids, constipation, T10 vertebral compression fracture for which she received vertebroplasty/kyphoplasty.
Initiate bladder scan protocols.
# Stage IV lung cancer with metastasis to brain-
Continue oral Decadron, Keppra at home doses.
# Chronic hyponatremia likely from SIADH
Continue to trend BMP
Fluid restriction.
# Chronic COPD
Currently stable, continue home inhalers.
Bronchodilators as needed.
# Essential hypertension-
Continue metoprolol tartrate 100 mg twice daily, lisinopril 40 mg once a day
# Hyperlipidemia-
Continue statin.
# Back pain-
On Percocet.
Continue skeletal muscle relaxants
# Constipation-
On home bowel regimen.
# DVT prophylaxis-
Lovenox at bedtime
# CODE STATUS-
DNR.
[2025-06-09 19:55] VITALS: BP 146/88; BMI 21.2
--- NOTE | 2025-06-09 20:32 | PTCARENOTE ---
Rn staff development coordinator- Completed nursing admission assessment via phone interview with patient and daughter.
[2025-06-09] MEDS: LOVENOX 40 MG SC (20:47)
--- NOTE | 2025-06-09 20:51 | PTCARENOTE ---
Patient arrived from the ED via stretcher. AAOx3 but forgetful, VSS. Patient oriented to the room. Patient able to swallow sips of water. No coughing or choking observed. Patient's called this RN stating he did not want her taking any oral
medications as of now no matter what. Very frustrated that all medications ordered are by PO. MOWER SHARPENER aware. Patient updated on plan of care. Call romero is within reach. Bed alarm in place.
[2025-06-09] MEDS: ZESTRIL PO (21:13)
[2025-06-09] MEDS: LIPITOR PO (21:13)
[2025-06-09] MEDS: LOPRESSOR PO (21:14)
[2025-06-09] MEDS: LYRICA PO (21:14)
[2025-06-09] MEDS: KEPPRA 500 MG IV (22:14)
[2025-06-09] MEDS: DECADRON 4 MG IV (22:14)
[2025-06-09 23:49] VITALS: BP 135/61
[2025-06-10 07:20] VITALS: BP 142/90
[2025-06-10] MEDS: FLOVENT 110 MCG INHALER 2 PUFF INH ×2 (07:51→19:26)
[2025-06-10] MEDS: FOLVITE PO (08:08)
[2025-06-10] MEDS: KEPPRA 500 MG IV ×2 (08:08→20:36)
--- NOTE | 2025-06-10 08:33 | CON.GI ---
Addendum entered and electronically signed by Lindsey Kelly Do, MD 06/10/25 16:08:
I saw and evaluated the patient. I reviewed the resident�s note and agree with findings and plan as documented in the resident�s note.
Harleen is a 69yo W with h/o stage 4 lung ca with mets to brain and vertebral compression who was admitted with dysphagia to solids after ingesting a new pill. She now feels improved. She is planned for XRT to lungs next week. She does report
reflux and heartburn on PPI. She has had wt loss with cancer diagnosis. She denies abd pain. There is constipation and urinary retention. Vitals stable exam chronically ill with hair loss pale appearing mildly distended abd, soft. 2+ LE
swelling. Labs reviewed
Impression
- Dysphagia
ddx includes ulcer, hiatal hernia or pill esophagitis
- Stage 4 lung ca
- Mets to brain s/p chemoXRT
- Vertebral compression
- COPD
- GERD
- Chronic anemia
Recommendations
- Dysphagia improved
- Passed video swallow recs for puree type 7 diet.
- Await results of UGI done not yet resulted
- C/w PPI BID
- HOB elevated
Will follow with you
Original Note:
Consultation
-
Date/Time Consultation Requested: 06/10/2025
Date/Time Consultation Performed: 06/10/2025
Requesting Provider: Asim Pearl MD
Performing Provider: Lindsey Astudillo MD; Yasir Gee MD
Reason for Consultation: oropharyngeal dysphagia
Medical History
Chief Complaint / HPI
Chief Complaint: dysphagia
History of Present Illness:
69 yo F PMH stage 4 metastatic lung adenocarcinoma (to brain), vertebral compression fractures s/p vertebroplasty, COPD, GERD, SIADH, anemia of chronic disease p/w difficulty swallowing.
She reports that for the past few days, she has secretions/saliva bubbling up. The secretions continued that she reqiuried using a rag to wipe them off, she says that she was not able to tolerate them and did endorse some dyspnea, prompting her to
present to the ED. She also reports that she sometimes has to cough after eating. She denies any nausea/vomiting or changes to bowel habits.
She states that thicker foods are more likley to cause her to postprandial cough vs water, but she's uncertain about a clear progression from worsenign dysphagia from solids to liquids. She also denied to me that food feels like it gets stuck, more
so salivations/secreations and coughing after eating.
Her last bowel movement was few days ago, Her last meal was 2 days prior, which she says she was okay with.
She does experience heartburn
she has received chemotherapy and radiation to brain for treatment of her metastatic lung cancer.
She denies any fevers or sick contacts.
Past Medical History
Past Medical History: Other ((COPD, GERD, hypertension, stage IV lung adenocarcinoma with brain mets, anxiety, depression, vertebral compression fractures, s/p vertebroplasty at T10, chronic hyponatremia from SIADH, and anemia.)
Past Surgical History: Other (Colonic stricture s/p sigmoidectomy, port placement, right knee surgery)
Social History
Tobacco: Former Smoker
Alcohol: None
Drug: None
Personal:
Living: With Family
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
Allergies / Home Medications
Allergy/AdvReac Type Severity Reaction Status Date / Time
No Known Allergies Allergy Verified 06/09/25 11:24
�Medication �Instructions �Recorded
mometasone 220 mcg/actuation(120 1 inh inhalation R BID sob 06/05/23
doses)breath activated powder
inhaler (Asmanex Twisthaler)
pantoprazole 40 mg tablet,delayed 40 mg PO QPM Gastrointestinal Issue 06/05/23
release
folic acid 1 mg tablet 1 mg PO DAILY Supplement 01/29/25
clonazepam 0.5 mg tablet 0.5 mg PO HSPRN PRN Insomnia 02/13/25
levetiracetam 500 mg tablet 500 mg PO BID Seizures #0 tabs 02/14/25
(Keppra)
atorvastatin 10 mg tablet (Lipitor) 10 mg PO QPM High Cholesterol 03/01/25
carboplatin 150 mg intravenous 506 mg IV Q21D Cancer 03/01/25
solution
dexamethasone 4 mg tablet 4 mg PO BID Anti-Inflammatory 03/01/25
docusate sodium 100 mg capsule 100 mg PO DAILYPRN PRN constipation 03/01/25
(Colace)
lisinopril 40 mg tablet 40 mg PO QPM Blood Pressure 03/01/25
metoprolol tartrate 100 mg tablet 100 mg PO BID Blood Pressure 03/01/25
pembrolizumab 25 mg/mL intravenous 200 mg IV Q21D Cancer 03/01/25
solution (Keytruda)
therapeutic multivitamin 1 tab PO DAILY Supplement 03/01/25
lidocaine-prilocaine 2.5 %-2.5 % 1 applic topical DAILYPRN PRN port 03/04/25
topical cream access
acetaminophen 500 mg tablet 500 mg PO Q6H Pain 06/09/25
(Tylenol Extra Strength)
baclofen 5 mg tablet 2.5 mg PO TIDPRN PRN muscle spasm 06/09/25
methocarbamol 500 mg tablet 500 mg PO HS Muscle Spasms 06/09/25
oxycodone-acetaminophen 5 mg-325 1 tab PO QID Pain 06/09/25
mg tablet
polyethylene glycol 3350 17 gram 17 g PO DAILYPRN PRN constipation 06/09/25
oral powder packet (Miralax)
pregabalin 25 mg capsule (Lyrica) 25 mg PO BID Pain 06/09/25
Review of Systems
-
History Source: Patient
Constitutional: Reports No Symptoms
EENT: Reports Other (oral secretions, dysphagia)
Respiratory: Reports Cough
Cardiac: Reports No Symptoms
Abdomen/GI: Reports No Symptoms
Skin: Reports Other (bruising generalized)
Neurological: Reports No Symptoms
Vital Signs
Temp Pulse Resp BP Pulse Ox
98.3 F 82 16 135/61 96
06/09/25 23:49 06/10/25 07:55 06/10/25 07:55 06/09/25 23:49 06/10/25 08:20
Physical Exam
Exam
General: Comfortable
HEENT: Normocephalic and Other (mucus membranes did not appear erythematous, prior dental work/crowns visible, no white lesions near pharynx or on tongue)
Respiratory: Clear (on my exam)
Cardiac: Other (no murmurs on my exam)
GI: Soft, Non Tender, Distended and Other (hypoactive bowel sounds)
Musculoskeletal: No Edema
Skin: Other (multiple bruising spots )
Neuro: AO x 3 and No Motor Deficits
Psych: Calm
Results
WBC 11.4 10^3/uL (4.8-10.8) H 06/09/25 13:21
Hgb 10.1 g/dL (12.0-16.0) L 06/09/25 13:21
Hct 30.9 % (37.0-47.0) L 06/09/25 13:21
MCV 93.4 fL (81.0-99.0) 06/09/25 13:21
Plt Count 252 10^3/uL (130-400) 06/09/25 13:21
Absolute Neuts (auto) 10.0 10^3/uL (1.4-6.5) H 06/09/25 13:21
Sodium 131 mmol/L (135-145) L 06/09/25 13:21
Potassium 3.7 mmol/L (3.5-5.1) 06/09/25 13:21
Chloride 100 mmol/L (98-107) 06/09/25 13:21
Carbon Dioxide 26 mmol/L (22-30) 06/09/25 13:21
BUN 20 mg/dl (7-17) H 06/09/25 13:21
Creatinine 0.7 mg/dL (0.6-1.0) 06/09/25 13:21
Calcium 9.9 mg/dl (8.4-10.2) 06/09/25 13:21
Total Bilirubin 0.5 mg/dl (0.2-1.3) 06/09/25 13:21
AST 18 U/L (14-36) 06/09/25 13:21
ALT 22 U/L (0-35) 06/09/25 13:21
Alkaline Phosphatase 83 U/L (38-126) 06/09/25 13:21
Diagnostic Image Results:
CT Abdomen pelvis 06/08/2025
FINDINGS:
Lung Bases: Mild right lower lobe atelectasis versus scarring.
Bone: Osseous structures of the abdomen and pelvis show a mild scoliosis and mild degenerative disease. There is a severe compression fracture of T12. This is new. There is a severe compression fracture of T10. This is stable. There is a mild
compression fracture of L3. This is new..
Abdomen and pelvis: The liver, spleen, gallbladder and pancreas are unremarkable. The adrenal glands and kidneys are unremarkable. The abdominal aorta is normal caliber. There moderate atherosclerotic vascular disease. No significant lymphadenopathy
is noted. Bowel loops are normal caliber. The terminal ileum and appendix are within normal limits.
No free fluid is noted. The urinary bladder is unremarkable.
IMPRESSION: . No acute disease of the abdomen and pelvis identified
New severe T12 and mild L1 compression fractures. Stable severe T10 compression fracture.
Prior GI Procedures:
EGD:
06/14/2020
Impression: - Normal examined duodenum.
- Erythematous mucosa in the antrum. Biopsied.
- Medium-sized hiatal hernia.
- Z-line variable, 35 cm from the incisors. Biopsied.
- Widely patent Schatzki ring.
- Esophageal mucosal changes suspicious for
eosinophilic esophagitis. Biopsied.
Pathology from EGD:
A. Stomach, NOS � antrum (biopsy):
- Gastric antral/oxyntic-type mucosa with mild chronic inflammation and reactive
epithelial changes.
- Negative for intestinal metaplasia and dysplasia.
- Negative for Helicobacter by immunohistochemical stain*.
B. EG junction � GE junction at 35 cm (biopsy):
- Squamous and gastric glandular-type mucosa with moderate chronic inflammation and
reactive epithelial changes.
- Negative for intestinal metaplasia and dysplasia.
C. Esophagus, NOS � random esophagus (biopsy):
- Squamous epithelium with no specific pathologic change.
- No evidence of eosinophilic esophagitis
Colonoscopy:
06/14/2020
Findings:
The perianal and digital rectal examinations were normal.
The terminal ileum appeared normal.
A benign-appearing, intrinsic severe stenosis was found in the
recto-sigmoid colon AT 15 CM and was traversed with difficulty.
Multiple small and large-mouthed diverticula were found in the sigmoid
colon and descending colon.
Internal hemorrhoids were found during retroflexion.
Assessment / Plan
-
In summary, 69 yo F PMH stage 4 metastatic lung adenocarcinoma (to brain), vertebral compression fractures s/p vertebroplasty, COPD, GERD, SIADH, anemia of chronic disease p/w difficulty swallowing with oral secretions.
# Dysphagia
- dysphagia generally can be classified as oropharyngeal or esophageal. Given her reported history of secretions and coughing after eating, this points towards oropharyngeal classification
- she denied sensation of food getting stuck, though she does endorse reflux and is on home PPI.
- the ddx of oropharyngeal dysphagia is broad and includes structural, oral, neuromuscular causes.
- In this patient, the most likely explanations are structural, and medication causes.
- specifically, she has a history of metastatic lung cancer to brain with hx of radiation to brain (which the radiation field would likely encompass the neck region)
- Hence, the brain metastases may be contributing to difficulty initiating the swallow from a structural and neuromuscular perspective, and the hx of radiation may have led to an altered anatomy in pharynx.
- I could not appreciate clear oral erythema which could suggest mucositis (she reports she received radiation few months ago, and is due for a chemotherapy cycle in the next few weeks).
- Reviewing her medication list, she is on baclofen, methocarbamol which are skeletal muscle relaxants and may be implicated in dysphagia.
- The most likely etiology is oropharyngeal dysphagia due to metastatic tumor burden and radiation-related changes to her pharyngeal function/anatomy.
Plan:
- Recommendations are not final until discussed with Dr. Astudillo, GI attg
- Continue pantoprazole
- Pending speech evaluation with instrumental video swallow study (and if able to tolerate PO intake), would consider an upper GI series to evaluate for any structural abnormalities
-
-
Thank you for consultation and allowing me to participate in the patient's care. Please call the application security consultant GI physician during the after hours with any questions or concerns.
[2025-06-10] MEDS: LR 1000 IV (09:13)
[2025-06-10] MEDS: DECADRON 4 MG IV ×2 (09:14→22:04)
[2025-06-10] MEDS: LIORESAL 2.5 MG PO (10:32)
--- NOTE | 2025-06-10 10:46 | PTOTSP ---
Dysphagia Evaluation:
Given PMH (stage IV lung cancer, COPD, HTD), acute onset of dysphagia symptoms, and s/s of aspiration during bedside swallow evaluation, instrumental video swallow study recommended to objectively determine aspiration occurrence. During bedside
swallow exam, pt cleared throat, gurgled, and coughed after sequential sips of thins and cleared throat after puree tsps.
Recommendations:
1. NPO
2. Medications as best tolerated
3. ARHP: Single sips of thin liquids sparingly for comfort
4. Instrumental video swallow study to objectively determine occurrence of aspiration and identify appropriate diet level.
--- NOTE | 2025-06-10 12:22 | W.PN.HOSP.TC ---
Addendum entered and electronically signed by Asim Pearl MD 06/10/25 17:21:
family requested transfer to [facility] (daughter works at [facility] location) for back pain as pt with compression fracture. At family request, called the transfer center around [phone].. Messaged relayed to them and transfer center stated they
will call back. Awaiting a call back to discuss case.
Original Note:
Today's Communication/Plan
-
NPO. IVF.
IV steroids/IV AEDs
VSE
May require EGD
PPI IV
GI following
Assessment / Plan
Assessment / Plan
General: Comfortable and Conversant
Respiratory: Clear; No Wheezes, Rales or Rhonchi
Cardiac: S1/S2 and Regular Rhythm; No Murmur, Rub or Gallop
GI: Soft, Non Tender, Normal Bowel Sounds and Other (Bilateral lower quadrants-mildly distended, no tenderness.); No Non Distended
Genito-urinary: Deferred by me
Musculoskeletal: No Clubbing, No Cyanosis, Edema, Left Lower Extremity (1+ pitting edema extending up to mid shins) and Edema, Right Lower Extremity (1+ pitting edema extending up to mid shins)
Skin: Warm and Other (Multiple bruises and petechiae all over her body.)
Neuro: AO x 3, No Motor Deficits and Nonfocal/grossly intact
Psych: Calm
IMPRESSION: 69-year-old female with complicated past medical history of COPD GERD hypertension, stage IV lung cancer with brain mets, vertebral compression fractures s/p vertebroplasty at T10, hyponatremia from SIADH and anemia presents for
evaluation of oropharyngeal dysphagia.
PLAN:
#Oropharyngeal dysphagia-
Less likely esophageal in nature,
No hoarseness in voice, no cough, no sputum production.
Speech eval the patient r recommended video swallow evaluation.
IV PPI started
Strict n.p.o.'s. Likely started on IV fluids in the interim. GI evaluation
# Acute urinary retention-
Serum creatinine and eGFR normal.
Likely neurogenic from a confluence of being on opioids, constipation, T10 vertebral compression fracture for which she received vertebroplasty/kyphoplasty.
Initiate bladder scan protocols.
# Stage IV lung cancer with metastasis to brain-
Transition patient to IV Decadron and Keppra.
# Chronic hyponatremia likely from SIADH
Continue to trend BMP
Fluid restriction.
# Chronic COPD
Currently stable, continue home inhalers.
Bronchodilators as needed.
# Essential hypertension-
Hold metoprolol tartrate 100 mg twice daily, lisinopril 40 mg once a day
# Hyperlipidemia-
Hold statin.
# Back pain-
pain control
# DVT prophylaxis-
Lovenox at bedtime
# CODE STATUS-
DNR.
Anticipated Discharge: > 48 hours
Subjective/Interval History
-
Date of Service: June 10, 2025
States of epigastric burning sensation
Objective Data
-
Vital Signs:
Vital Signs
Temp Pulse Resp BP Pulse Ox
97.9 F 82 16 142/90 96
06/10/25 07:20 06/10/25 07:55 06/10/25 07:55 06/10/25 07:20 06/10/25 08:20
I&O
06/09/25 06/10/25 06/11/25
06:59 06:59 06:59
Output Total 650 / 650
Balance -650 / -650
Data Reviewed
-
Total Time Spent with Patient (in minutes): 55
[2025-06-10] MEDS: MORPHINE SULFATE 1 MG IV ×3 (13:27→22:09)
[2025-06-10] MEDS: PROTONIX IV 40 MG IV ×2 (13:28→20:35)
[2025-06-10] MEDS: NSS (PRESERVATIVE FREE) 10 ML IV ×2 (13:29→20:35)
--- NOTE | 2025-06-10 13:38 | PTOTSP ---
Speech Therapy Evaluation:
Patient presents with functional oral and mild pharyngeal stage of swallowing. There was trace transient upper laryngeal penetration that occurred consistently with thin liquids and intermittently with mildly thick liquids. No aspiration seen
throughout the study. Mild-moderate pharyngeal residue observed, in which liquid washes were most effective at reducing. Moderate distal esophageal retention seen on esophageal sweep. Please see patient care note for full details of penetration and
swallowing physiology.
Recommend:
1. IDDSI 7 (Regular) and thin liquids
2. Medications as tolerated
3. Strict aspiration and reflux precautions: upright all meals, small bites/sips, cyclic ingestion, dry swallows, liquid washes, remain upright 30 minutes following meal
4. Modifiable risk factors for aspiration pneumonia including encouraging frequent and thorough oral care, pulmonary hygiene measures, and increasing physical mobility as medically feasible
5. SHIPS OR BARGES LOADER to follow for education regarding VSE findings and recommendations and training in aspiration and reflux precautions
[2025-06-10 15:05] VITALS: BP 158/97
--- NOTE | 2025-06-10 16:00 | CM ---
Reviewed chart. Met with pt and bedside. IMM on 06/09/25. IA completed. Pt lives with spouse in a single level home with 2 steps at the entrance. No hx of home O2, SNF or HH. DME: rolling walker and spc. Confirmed PCP, Rx insurance and drug
coverage. NO insecurities identified.
Pt had been fully independent with ADLs until the past few weeks.Now requires assistance with personal care. When ask if they would like resources for personal care, they told CM they are currently trying to have the pt transferred to [facility] in
[place] to have care provided from her compression fracture. CM will revisit this topic in a few days if pt remains at [place].
PCP: Winifred Catalan
Rx: JAREK/ Kamari
Plan: transfer to [facility] in [place] for care
[2025-06-10] MEDS: LOVENOX 40 MG SC (17:28)
[2025-06-10] MEDS: ZESTRIL 40 MG PO (17:29)
[2025-06-10] MEDS: LIPITOR 10 MG PO (17:29)
[2025-06-10] MEDS: TYLENOL 500 MG PO (17:29)
[2025-06-10] MEDS: LOPRESSOR 100 MG PO (20:36)
[2025-06-10] MEDS: LYRICA 25 MG PO (20:36)
[2025-06-10 23:13] VITALS: BP 136/74
[2025-06-10] MEDS: TYLENOL PO (23:28)
[2025-06-11 05:08] LABS: Hematocrit 26.2 % (37.0-47.0); Hemoglobin 8.5 g/dL (12.0-16.0); Mean Corp Hgb Conc. 32.4 g/dL (33.0-37.0); Mean Corpuscular Volume 94.9 fL (81.0-99.0); Nucleated Red Blood Cells % 0.3 %; Platelet Count 179 10^3/uL (130-400); Red Cell Dist. Width 19.2 % (11.5-14.5)
[2025-06-11 05:24] LABS: Blood Urea Nitrogen 15 mg/dl (7-17); Calcium 8.9 mg/dl (8.4-10.2); Carbon Dioxide 25 mmol/L (22-30); Chloride 105 mmol/L (98-107); Estimated Creatinine Clearance 87 ml/min; Glucose 127 mg/dl (70-99); Potassium 4.1 mmol/L (3.5-5.1); Sodium 134 mmol/L (135-145); eGFR > 60.00
[2025-06-11] MEDS: TYLENOL 500 MG PO ×2 (05:58→11:38)
[2025-06-11 07:22] VITALS: BP 160/83
[2025-06-11] MEDS: FLOVENT 110 MCG INHALER 2 PUFF INH (07:35)
[2025-06-11] MEDS: MORPHINE SULFATE 1 MG IV ×2 (08:23→12:24)
[2025-06-11] MEDS: NSS (PRESERVATIVE FREE) 10 ML IV (08:24)
[2025-06-11] MEDS: PROTONIX IV 40 MG IV (08:24)
[2025-06-11] MEDS: LYRICA 25 MG PO (08:24)
[2025-06-11] MEDS: FOLVITE 1 MG PO (08:25)
[2025-06-11] MEDS: KEPPRA 500 MG IV (08:26)
[2025-06-11] MEDS: LOPRESSOR 100 MG PO (08:26)
--- NOTE | 2025-06-11 09:05 | W.PN.HOSP.TC ---
Today's Communication/Plan
-
Stated physical therapy might worsen back pain
Continue with home regimen of medication
Regular diet consistency
PPI switched to twice daily
Assessment / Plan
Assessment / Plan
General: Comfortable and Conversant
Respiratory: Clear; No Wheezes, Rales or Rhonchi
Cardiac: S1/S2 and Regular Rhythm; No Murmur, Rub or Gallop
GI: Soft, Non Tender, Normal Bowel Sounds and Other (Bilateral lower quadrants-mildly distended, no tenderness.); No Non Distended
Genito-urinary: Deferred by me
Musculoskeletal: No Clubbing, No Cyanosis, Edema, Left Lower Extremity (1+ pitting edema extending up to mid shins) and Edema, Right Lower Extremity (1+ pitting edema extending up to mid shins)
Skin: Warm and Other (Multiple bruises and petechiae all over her body.)
Neuro: AO x 3, No Motor Deficits and Nonfocal/grossly intact
Psych: Calm
IMPRESSION: 69-year-old female with complicated past medical history of COPD GERD hypertension, stage IV lung cancer with brain mets, vertebral compression fractures s/p vertebroplasty at T10, hyponatremia from SIADH and anemia presents for
evaluation of oropharyngeal dysphagia.
PLAN:
#Oropharyngeal dysphagia-
Less likely esophageal in nature,
No hoarseness in voice, no cough, no sputum production.
Speech eval the patient r recommended video swallow evaluation. S/p video swallow evaluation and patient was able to pass. Patient was started on regular diet consistency.
Transition patient to PPI twice daily.
# Acute urinary retention-
Serum creatinine and eGFR normal.
Likely neurogenic from a confluence of being on opioids, constipation, T10 vertebral compression fracture for which she received vertebroplasty/kyphoplasty.
Initiate bladder scan protocols.
Patient is able to void while sitting on commode without any difficulty.
# Stage IV lung cancer with metastasis to brain-
Continue with p.o. Decadron and Keppra
# Chronic hyponatremia likely from SIADH
Continue to trend BMP
Fluid restriction.
#Chronic back pain secondary to compression fractures
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
Follows with pain management as outpatient
# Chronic COPD
Currently stable, continue home inhalers.
Bronchodilators as needed.
# Essential hypertension-
Restart home med
# Hyperlipidemia-
Restart home meds
# Back pain-
pain control
# DVT prophylaxis-
Lovenox at bedtime
# CODE STATUS-
DNR.
Patient family requested transfer to [facility]. Call [place] transfer center on 06/10/2025. Dr. Alex Santiago refused transfer.
Discussed with patient in detail once again over the phone today that transfer was refused.
More than 30 minutes spent in discharge including
Final examination of the patient
Summarizing hospital stay
Instructions for continuing care to all relevant caregivers
Preparation of discharge records, prescriptions, and referral forms
Total time spent (in minutes): 52
Anticipated Discharge: Today
Subjective/Interval History
-
Date of Service: June 11, 2025
Patient is able to tolerate diet without difficulty.
Objective Data
-
Labs:
Laboratory Results
06/11/25
04:13
WBC 7.2
Hgb 8.5 L
Hct 26.2 L
Plt Count 179 D
Sodium 134 L
Potassium 4.1
Chloride 105
Carbon Dioxide 25
BUN 15
Creatinine 0.5 L
Glucose 127 H
Calcium 8.9
Vital Signs:
Vital Signs
Temp Pulse Resp BP Pulse Ox
97.7 F 80 16 160/83 96
06/10/25 23:13 06/11/25 08:26 06/11/25 07:39 06/11/25 08:26 06/11/25 07:39
I&O
06/10/25 06/11/25 06/12/25
06:59 06:59 06:59
Output Total 650 / 650
Balance -650 / -650
--- NOTE | 2025-06-11 10:08 | W.PN.GI.CBS2 ---
Today's Communication / Plan
-
Plan:
- Continue pantoprazole IV 40mg bid
- Consider increase to pantoprazole 40mg PO bid upon discharge
- Screedman/Laborer patient on speech aspiration/reflux precautions; and follow-up speech recommendations
- Elevated head of bed
- Sleep >2 hours after meal
- To consider EGD, but upper GI series reassured against mass/stricture/hiatal hernia. Endoscopic evaluation may not be necessary (patient is also chronically ill with metastatic lung cancer)
- Recommendations are not final until discussed with Dr. Soto, GI attg
Assessment / Plan
-
In summary, 69 yo F PMH stage 4 metastatic lung adenocarcinoma (to brain), vertebral compression fractures s/p vertebroplasty, COPD, GERD, SIADH, anemia of chronic disease p/w dysphagia
# Dysphagia
- Upper GI series showed esophageal dysmotility but no mass or stricture, no hiatal hernia
- Speech eval cleared her to be on diet, and she is tolerating PO intake (no cough, no regurgitation)
- She denies any of the symptoms (excess secretions, bubbling) that prompted her to initially present to the ED
- the etiology of her dysphagia could be a combination of esophageal dysmotility and structural (related to metastatic lung cancer to brain; structural changes from radiation therapy)
- Also possible that the bubbling sensation was related to undertreated reflux/heartburn, consider increase PPI dose upon discharge from her currently home qpm dose to bid
Plan:
- Continue pantoprazole IV 40mg bid
- Consider increase to pantoprazole 40mg PO bid upon discharge
- Screedman/Laborer patient on speech aspiration/reflux precautions; and follow-up speech recommendations
- Elevated head of bed
- Try to sleep >2 hours after meal
- To consider EGD, but upper GI series reassured against mass/stricture/hiatal hernia. Endoscopic evaluation may not be necessary (patient is also chronically ill with metastatic lung cancer)
- Recommendations are not final until discussed with Dr. Soto, GI attg
Subjective
Subjective
Date of Service: June 11, 2025
Interim events, had upper GI series and speech eval yesterday, cleared for a diet.
Upper GI series read as esophageal dysmotility. did not show evidence of obstruction or stricture
This morning, she reports doing well. able to tolerate diet, had dinner (chicken) and breakfast (scrambled eggs) with no issues.
denies coughing, regurgitation, heartburn, dypnea, excess secretions, or vomiting.
She had a bowel movement last night
Per review of primary team documentations, a potential transfer to [facility] at request of daughter was noted on 06/10 afternoon.
Objective
Data Reviewed
Laboratory Data:
Laboratory Results
06/11/25 04:13
06/11/25 04:13
Laboratory Results
Total Bilirubin 0.5 mg/dl (0.2-1.3) 06/09/25 13:21
AST 18 U/L (14-36) 06/09/25 13:21
ALT 22 U/L (0-35) 06/09/25 13:21
Alkaline Phosphatase 83 U/L (38-126) 06/09/25 13:21
Imaging studies
Upper GI series 06/10/2025
FINDINGS:
Contrast was present within the esophagus and stomach secondary to immediate prior barium swallow examination.
The esophagus demonstrates decreased motility. There is no evidence of intrinsic or extrinsic mass. There is no mucosal ulceration.
There is no hiatal hernia. Right chest wall port.
IMPRESSION:
Moderate esophageal dysmotility. There is no evidence of esophageal mass or stricture.
Laborer Plumbing recommendations:
Speech evaluation Recommend on 06/10/2025
1. IDDSI 7 (Regular) and thin liquids
2. Medications as tolerated
3. Strict aspiration and reflux precautions: upright all meals, small bites/sips, cyclic ingestion, dry swallows, liquid washes, remain upright 30 minutes following meal
4. Modifiable risk factors for aspiration pneumonia including encouraging frequent and thorough oral care, pulmonary hygiene measures, and increasing physical mobility as medically feasible
5. FEDERAL LAW CLERK to follow for education regarding VSE findings and recommendations and training in aspiration and reflux precautions
Vital Signs and I&O:
Vital Signs
Temp Pulse Resp BP Pulse Ox
98.3 F 80 16 160/83 96
06/11/25 07:22 06/11/25 08:26 06/11/25 07:39 06/11/25 08:26 06/11/25 07:39
I&O
06/10/25 06/11/25 06/12/25
06:59 06:59 06:59
Output Total 650 / 650
Balance -650 / -650
Physical Exam
Physical Exam
HEENT: Anicteric
Cardiology: Other (no murmurs on my exam)
Pulmonary: Clear (on my exam)
GI: Soft, Non Distended, Non Tender and Normal Bowel Sounds
Extremities: No Edema
Neuro: Non Focal
--- NOTE | 2025-06-11 11:14 | CM ---
Reviewed chart. Met at bedside (pt was in [place]). stated he was taking the patient to [facility] for continued care. He will drive her. She is on room air and ambulated to the bathroom with rolling walker.
Plan: Discharge; going directly to [facility]
--- NOTE | 2025-06-11 11:36 | W.DCSUMMARY ---
Discharge Summary
Discharge Data
Date of Admission: 06/09/25
Date of Discharge: 06/11/25
-
Pending Results: No
Hospital Course
69-year-old female with complicated past medical history of COPD GERD hypertension, stage IV lung cancer with brain mets, vertebral compression fractures s/p vertebroplasty at T10, hyponatremia from SIADH and anemia presents for evaluation of
oropharyngeal dysphagia. Patient was evaluated by speech pathologist and marine mammal trainer during hospitalization. Patient underwent bedside speech and swallow evaluation and they recommended video swallow evaluation. Patient underwent video
swallow evaluation and esophagogram. Video swallow evaluation patient with mild pharyngeal dysphagia and no aspiration was noted. Patient was cleared for regular diet. PPI was adjusted to twice daily. Gastroenterology recommended patient to eat
soft and bite-size meals if difficulty with regular meals and small frequent meals. Patient requested transfer to [facility] for patient chronic back pain which is associated with compression fractures. [facility] denied
transfer which was relayed to patient and . Patient stated he will take patient to a different institution for her chronic back pain as soon as patient is discharged from the hospital. Once patient diet was restarted she was able to
tolerate without any difficulty. IV fluid was discontinued. Vital signs were stable.
Discharge Plan
-
Patient Disposition: Home (Routine Discharge)
Discharge Diagnosis/Procedures: Oropharyngeal dysphagia
Chronic back pain
Condition: Fair
Diet: Other diet
Additional Diets: stay on soft foods if having difficulty with solids intermittently. Small frequent meals.
Activity: With assistance and As tolerated
Driving Restrictions: Not until seen by your Dr
Referrals:
Winifred Catalan DO [Family Provider, Family Practice] - in less than 1 week
Prescriptions:
Continued
Asmanex Twisthaler 220 mcg/ actuation (120) aerosol powdr breath activated
1 inh INHALATION R BID
folic acid 1 mg Tablet
1 mg PO DAILY
clonazepam 0.5 mg Tablet
0.5 mg PO HSPRN PRN (Reason: Insomnia)
levetiracetam [Keppra] 500 mg Tablet
500 mg PO BID Qty: 0 0RF
atorvastatin [Lipitor] 10 mg tablet
10 mg PO QPM
metoprolol tartrate 100 mg tablet
100 mg PO BID
dexamethasone 4 mg tablet
4 mg PO BID
lisinopril 40 mg tablet
40 mg PO QPM
therapeutic multivitamin Tablet
1 tab PO DAILY
docusate sodium [Colace] 100 mg Capsule
100 mg PO DAILYPRN PRN (Reason: constipation)
carboplatin 150 mg Recon Soln
506 mg IV Q21D
Keytruda 25 mg/mL Solution
200 mg IV Q21D
lidocaine-prilocaine 2.5-2.5 % Cream
1 applic TOPICAL DAILYPRN PRN (Reason: port access)
methocarbamol 500 mg Tablet
500 mg PO HS
polyethylene glycol 3350 [Miralax] 17 gram Powder In Packet
17 g PO DAILYPRN PRN (Reason: constipation)
oxycodone-acetaminophen 5-325 mg Tablet
1 tab PO QID
pregabalin [Lyrica] 25 mg Capsule
25 mg PO BID
acetaminophen [Tylenol Extra Strength] 500 mg tablet
500 mg PO Q6H
baclofen 5 mg tablet
2.5 mg PO TIDPRN PRN (Reason: muscle spasm)
Changed
pantoprazole 40 MG tablet,delayed release (DR/EC)
40 mg PO BID 30 Days Qty: 60 0RF
Discharge Orders:
Discharge Patient (As Directed); Ordered 06/11/25
Ordered By: Asim Pearl
Discharge Date and Time
Discharge Date/Time: 06/11/25 13:57
Print Language: PRYDEINIG
[2025-06-11] MEDS: LIORESAL 2.5 MG PO (11:38)
[2025-06-11 13:08] VITALS: BP 146/76; PULSE 81; O2SAT 94
== END 2025-06-11 13:57 | disposition home or self-care (01) | DRG 392 ==
LOC: 4 EAST ACU 17:36
PROVIDERS: Nurse Practitioner; ADMITTING PHYSICIAN Hospitalist; ATTENDING PHYSICIAN Hospitalist; CONSULT PHYSICIAN Internal Medicine Gastroenterology; EMERGENCY PHYSICIAN Emergency Medicine; FAMILY PHYSICIAN Family Medicine
DX: R13.12 Dysphagia, oropharyngeal phase (principal); C79.31 Secondary malignant neoplasm of brain; C34.90 Malignant neoplasm of unspecified part of unspecified bronchus or lung; E22.2 Syndrome of inappropriate secretion of antidiuretic hormone; M48.54XA Collapsed vertebra, not elsewhere classified, thoracic region, initial encounter for fracture; R33.0 Drug induced retention of urine; Z66 Do not resuscitate; E78.5 Hyperlipidemia, unspecified; F32.A Depression, unspecified; F41.9 Anxiety disorder, unspecified; G89.29 Other chronic pain; I10 Essential (primary) hypertension; I25.10 Atherosclerotic heart disease of native coronary artery without angina pectoris; J44.9 Chronic obstructive pulmonary disease, unspecified; K21.9 Gastro-esophageal reflux disease without esophagitis; Z87.891 Personal history of nicotine dependence; Z79.899 Other long term (current) drug therapy; Z92.21 Personal history of antineoplastic chemotherapy; Z92.3 Personal history of irradiation; R33.8 Other retention of urine; K59.00 Constipation, unspecified; T40.2X5A Adverse effect of other opioids, initial encounter; D63.0 Anemia in neoplastic disease
CPT/HCPCS: 74221; 74230; 80048; 80053; 81003; 81015; 85025; 92610; 92611; 94640; 96361; 96374; 97163; 99285

== ENCOUNTER 2025-07-02 09:08 | Inpatient (IN) | payer MEDICARE, BC, SELFPAY ==
[2025-07-02] VITALS (18 sets, daily range): BP systolic 89–125; BP diastolic 51–104; BMI 21.6
--- NOTE | 2025-07-02 05:00 | EDRN ---
pt arrived with fentanyl patch from home, Dr. Schmitt gave okay for it to remain in place
[2025-07-02 05:18] LABS: Hematocrit 36.1 % (37.0-47.0); Hemoglobin 11.7 g/dL (12.0-16.0); Mean Corp Hgb Conc. 32.4 g/dL (33.0-37.0); Mean Corpuscular Volume 95.0 fL (81.0-99.0); Platelet Count 174 10^3/uL (130-400); Red Cell Dist. Width 18.0 % (11.5-14.5)
[2025-07-02 05:35] LABS: ALT (SGPT) 27 U/L (0-35); AST (SGOT) 34 U/L (14-36); Albumin 3.3 g/dl (3.5-5.0); Alkaline Phosphatase 144 U/L (38-126); Blood Urea Nitrogen 23 mg/dl (7-17); Calcium 9.3 mg/dl (8.4-10.2); Carbon Dioxide 28 mmol/L (22-30); Chloride 99 mmol/L (98-107); Estimated Creatinine Clearance 64 ml/min; Glucose 80 mg/dl (70-99); Lipase 350 U/L (23-300); Potassium 4.2 mmol/L (3.5-5.1); Sodium 134 mmol/L (135-145); Total Protein 6.1 g/dl (6.3-8.2); eGFR > 60.00
[2025-07-02 05:44] LABS: Nucleated Red Blood Cells % 3.7 %
--- NOTE | 2025-07-02 06:07 | ED.GENMED ---
History of Present Illness
General
Chief Complaint: Abdominal Symptoms
Source: patient, spouse and ambulance crew
Exam Limitations: none
Time Seen by Provider: 07/02/25 04:35
Nursing documentation reviewed up to this point in time: agreed with
History of Present Illness
History of Present Illness:
Note:
CHIEF COMPLAINT(S)
Back pain and constipation.
HISTORY OF PRESENT ILLNESS
The patient is a 69-year-old female presenting with back pain and constipation. She reports the presence of a wedge fracture at the thoracic vertebrae T9 and T5, accompanied by associated symptoms of pain in both the back and the abdomen.
Additionally, there is a noted neoplastic process in the brain, raising concerns about possible metastatic disease. The patient also mentioned experiencing periodic nausea.
MEDICATIONS
The patient mentions having an oncologist and appears to be under treatment, possibly for the brain neoplasm, although specific medications were not discussed in detail.
PHYSICAL EXAM
General: Alert, responding accurately to orientation questions about the year and month.
Musculoskeletal: Reported pain in the back at T9 and T5 with a known wedge fracture.
Neurological: Presence of a brain neoplasm, although specific symptoms were not detailed.
PROBLEM LIST
Acute Problems:
- Back pain
- Constipation
Chronic Problems:
- Wedge fracture at T9 and T5
- Brain neoplasm
PLAN
The patient should follow up with her oncologist, presumably for the management of the brain neoplasm. Pain management and treatment for constipation should be addressed, given the patient�s current symptoms.
DIFFERENTIAL DIAGNOSIS
The Differential Diagnosis includes, in no particular order and is not limited to:
- Metastatic disease affecting the spine
- Neoplasm-related constipation
- Chronic low back pain
- Spinal fracture
- Herniated disc
- Osteoarthritis
- Degenerative disc disease
- Spinal stenosis
- Constipation due to medication or neoplasm
- Neurological effects from the brain neoplasm affecting bowel movements
Disposition:
SUMMARY OF ENCOUNTER
A 69-year-old female presented to the emergency department with confusion and abdominal pain, alongside a history of constipation. Her primary caregiver, her , reported administering laxatives, which resulted in a bowel movement. The patient
is also a Do Not Resuscitate (DNR) order varner. The laboratory analysis indicated an elevated lipase level compared to previous measurements during a hospital stay, suggestive of possible pancreatic involvement. Additionally, her Blood Urea
Nitrogen (BUN) was slightly elevated, warranting the administration of intravenous fluids. Given these findings and her clinical presentation, the decision was made to admit the patient for further management and evaluation.
DISPOSITION
Admit
ASSESSMENT
The patient is being assessed for potential pancreatitis, contributing to her symptoms of abdominal pain and confusion. Constipation has been noted, possibly influenced by her current medication or underlying neoplastic process.
INDEPENDENT REVIEW OF LABS AND INTERPRETATION OF TESTS
My independent review of lipase is elevated, compared to prior results indicating potential pancreatic involvement.
My independent review of BMP indicates slightly elevated BUN, suggesting possible renal involvement due to dehydration or other processes.
MEDICAL DECISION MAKING
-Complexity of Data Reviewed: Chronic conditions affecting care include wedge fractures at T9 and T5, and brain neoplasm. Differential Diagnosis: Metastatic disease affecting the spine, neoplasm-related constipation, chronic low back pain, spinal
fracture, herniated disc, osteoarthritis, degenerative disc disease, spinal stenosis, constipation due to medication or neoplasm, and neurological effects from brain neoplasm affecting bowel movements.
-Data:
Category 1
My independent review of the patients laboratory data indicates elevated lipase and slightly elevated BUN.
-Risk:
The patient�s risk assessment includes decisions regarding diagnostic testing and interventions necessary due to elevated lab values and underlying conditions, with management adjusted accordingly for hospitalization.
DIAGNOSIS
- Pancreatitis, unspecified (ICD-10: K85.9)
- Confusion, unspecified (ICD-10: R41.0)
- Constipation, unspecified (ICD-10: K59.00)
Past History
Past History
ED Past Medical History: COPD, GERD, HTN and Other
ED Past Surgical History: Orthopedic (Knee surgery)
Social History
Tobacco: Former smoker
Alcohol: Daily (7-7)
Personal:
Living: with family
Employment: Employed
Family History
Family History: Hypertension; Negative Early CAD, CAD or Sudden
Phy Exam
Physical Exam
Physical Exam:
.
General Physical Exam
General age: appears older than age
General Skin: pale
General Habitus: cachetic, debilitated, failure to thrive and frail
General Mental: confused
General Hydration: dry mucous membranes
Cardiovascular Exam
Cardiovascular Exam: regular rate/rhythm and no murmur
Pulmonary Exam
Respiratory Effort: hyperventilation
Respirations: mild increase in effort
Breath Sounds: Wheeze: generalized
Neurological Exam
Neurological Exam: confused
Course
Orders/Labs/Results
Orders:
Orders
07/02/25 04:58
Complete Blood Count/With Diff Urgent
Comprehensive Metabolic Panel Urgent
Lipase Urgent
07/02/25 05:31
CT Head W/o Iv Contrast Urgent
Comment:
Reason For Exam: confusion
07/02/25 05:47
CT Abd/pel Without Iv Or Oral Urgent
Comment:
Reason For Exam: abd pain, constipation
07/02/25 06:06
Morphine Sulfate 4 mg IV NOW STA
Ondansetron Injectable [Zofran] 4 mg IV NOW STA
07/02/25 06:15
0.9% Sodium Chloride 1000 ml [Nss] 1,000 ml IV 100 mls/hr
07/02/25 08:47
Admit/Transfer Patient As Directed
Co-Sign Provider:
Level of Care: Inpatient admission
Assign to:: IMU- Intermediate Care
Physician / Group: bisi Ojeda
Diagnosis: Enterovesical fistula
Reason for Hospitalization: Enterovesical fistula
Expected length of stay greater than two midnights?: Yes
ELOS- Estimated Length of Stay in days: 3
I certify the patient meets the requirements for IP care: Yes
07/02/25 08:48
PRN Pain Medication Management As Directed
May give lesser potent ordered pain med per pt: Yes
preference::
Protocol:: Medication orders for pain may be administered in a
manner that supports deferring to patient preference
when the pt is:
- Requesting an ordered lesser potent pain medication.
Least to most potent pain medications are defined
as: acetaminophen < NSAID < tramadol < opioids
(morphine, oxycodone, hydromorphone).
- Requesting a lesser dose of the same medication IF
ORDERED.
- Requesting a less intrusive route of administration
if both routes are prescribed by the provider (PO <
IV).
07/02/25 08:52
Code Status As Directed
Resuscitation Status: Do not resuscitate
Reached after discussion with pt or family/Healthcare POA: Yes
07/02/25 08:56
DNR Bracelet Application ONCE
07/02/25 09:02
CR Chest Portable - 1 View Urgent
Comment:
Reason For Exam: Hypoxia
Reason Study Needs to be Portable: Unable to Transport
07/02/25 10:24
HYDROmorphone [Dilaudid] 0.5 mg IV Q3HPRN PRN
07/02/25 12:01
0.9% Sodium Chloride 1000 ml [Nss] 1,000 ml IV 60 mls/hr
Lidocaine 2.5%/Prilocaine 2.5% [Emla Cream] 1 gram TOPICAL DAILYPRN PRN port access
07/02/25 12:01
Fentanyl Patch Confirmation BID@[id number]
Sequential Compression Device [Pneumatic Compression Sleeves] As Directed
Type: Knee high
Rx Incentive Spirometry [RESP] Routine
Frequency: q1h while awake
DX Deep Vein Thrombosis Video Routine
07/02/25 13:00
FentaNYL 12 MCG/HR PATCH [Duragesic 12 Mcg/Hr Patch] 1 patch TRANSDERM Q72H
REMOVE fentaNYL PATCH [Remove Duragesic Patch] See Dose Instructions REMOVE Q72H
07/02/25 18:00
Lisinopril [Zestril] 40 mg PO QPM
07/02/25 20:00
Dexamethasone [Decadron] 2 mg PO DAILY@2000
Metoprolol [Lopressor] 100 mg PO BID
07/03/25 08:00
Pantoprazole [Protonix IV] 40 mg IV DAILY
Abnormal Lab Results
07/02/25
04:58
RBC 3.80 L 10^6/uL
(4.20-5.40)
Hgb 11.7 L g/dL
(12.0-16.0)
Hct 36.1 L %
(37.0-47.0)
MCHC 32.4 L g/dL
(33.0-37.0)
RDW 18.0 H %
(11.5-14.5)
MPV 11.3 H fL
(7.4-10.4)
Abs Immat Gran (auto) 0.5 H 10^3/uL
(0-0.05)
Absolute Lymphs (auto) 0.3 L 10^3/uL
(1.2-3.4)
Immature Gran % 7.4 H %
(0-0.5)
Neutrophils % 86.0 H %
(42.2-75.2)
Lymphocytes % 4.4 L %
(20.5-51.1)
Monocytes % 1.0 L %
(1.7-9.3)
Sodium 134 L mmol/L
(135-145)
BUN 23 H mg/dl
(7-17)
Alkaline Phosphatase 144 H U/L
(38-126)
Total Protein 6.1 L g/dl
(6.3-8.2)
Albumin 3.3 L g/dl
(3.5-5.0)
Lipase 350 H U/L
(23-300)
07/02/25 04:58
07/02/25 04:58
Vital Signs
Initial and Last Documented VS:
Initial Vital Signs
Temp Pulse Resp Pulse Ox
97.9 F 129 22 90
07/02/25 04:37 07/02/25 04:37 07/02/25 04:37 07/02/25 04:37
Last Documented Vital Signs
Temp Pulse Resp BP Pulse Ox
97.9 F 92 20 150/92 96
07/03/25 19:15 07/03/25 20:38 07/03/25 20:12 07/03/25 20:38 07/03/25 20:12
*Pulse Oximetry
SaO2: 97
Nasal Cannula flow liters per minute: 3
Oxygen Mode of Delivery: Room air
Patient hypoxic: no
*Critical Care Note
Total Time (30-74mins, 75-104mins- exclusive of procedures): Not Applicable
Update Note
Update Note:
NAME: JONNIE CABRERA
DATE OF EXAM: 07/02/2025
Patient No: [id number]
Physician: CANDY
Date of : 1955
Past Medical History (entered by Technologist):
Reason For Exam (entered by Technologist):
Other Notes (entered by Technologist):
Additional Information (per [facility] Radiologist):
CT head without IV contrast
CT abdomen and pelvis with IV contrast
IMPRESSION:
CT HEAD: No hemorrhage, hydrocephalus, or herniation. Intracranial masses with surrounding edema, difficult to assess without the use of IV contrast. Recommend contrast enhanced MRI brain for further assessment if not recently performed.
Neurology/neurosurgical follow-up recommended.
CT ABDOMEN AND PELVIS: Limited assessment without IV contrast. No cholecystitis or pancreatitis. Appendix is normal. No bowel obstruction. No cholecystitis or pancreatitis. Renal atrophy without obstructing stone. Diffuse atherosclerotic
disease of the aorta and its branches. Interval slightly worsening height loss of the L3 vertebral body with new age-indeterminate minimal L2 and L4 compression fractures, relative to recent CT 06/08/2025. A few age-indeterminate thoracic spine
mild vertebral body compression fractures. Consider MRI thoracic and lumbar spine for further assessment.
Case finalized on 07/02/25 06:06 EDT
Andreas Dejesus M.D.
This report has been electronically signed and verified by the Radiologist whose name is printed above.
ED Attending Note
-
Portions of this chart may have been created with voice recognition software.� Occasional wrong word or��sound alike� substitutions may have occurred due to the inherent limitations of voice recognition software.
Discharge Plan
Departure
Patient Disposition: Admit
Date of Disposition: 07/02/25
Time of Disposition: 05:42
Admit to: Med/Surg
Presentation/result/management discussed w/ accepting MD/DO: Hospitalist
Discharge Problem:
Acute confusion, Brain cancer, Abdominal pain, Lung cancer, Back pain
Interventions
Interventions:
*Risk Screen - Suicide Last Done: 07/02/25 04:37
*General Assessment Last Done: 07/02/25 04:37
*Neglect/Abuse Screening Last Done: 07/02/25 04:37
*ED- Fall Risk Assessment Last Done: 07/02/25 04:37
*ED COVID-19 Vaccine History Last Done: 07/02/25 04:37
*ED Influenza Vaccine History Last Done: 07/02/25 04:37
*Nursing Disposition Last Done: 07/02/25 21:14
EN-Daajyd-Mdxeafnmtr Assessment Last Done: 07/02/25 20:13
Discharge Date and Time
Discharge Date/Time: 07/02/25 21:14
[2025-07-02] MEDS: ZOFRAN 4 MG IV (06:12)
[2025-07-02] MEDS: MORPHINE SULFATE 4 MG IV (06:12)
[2025-07-02] MEDS: NSS 1000 IV ×3 (06:13→15:02)
--- NOTE | 2025-07-02 07:45 | HPS.HSE ---
Addendum entered and electronically signed by Deny Ojeda MD 07/02/25 11:13:
I interviewed and examined the patient. Discussed with Dr. Hlal and agree with findings and plan as documented in note, with exceptions additions as follows:
69F COPD, GERD, HTN, stage IV non-squamous cell lung cancer-adenocarcinoma with brain mets s/p WBRT-4 cycles last done on 04/07 (carbo/Alimta/Keytruda), anxiety, depression, vertebral compression fractures s/p vertebroplasty at T10 T12 p/w acute on
chronic abdominal pain started night prior to presentation following resolution severe constipation after laxative use. Patient had blowout diarrhea with associate/following severe pain 06/25. Denied fever/chills/chest pain/dysuria. AOx2,
disoriented to time, conversant coherent. Patient has been functionally declining for some time now d/t cancer. Recently bedbound for past few weeks requiring use of diaper.
Physical Exam
General: Mild distress
HEENT: EOMI normocephalic atraumatic
Respiratory: Clear; No Wheezes, Rales, Rhonchi or Crackles
Cardiac: S1/S2, Regular Rhythm and Tachycardia; No Murmur, Rub, Gallop or JVD
GI: soft diffusely tender hypoactive bowel sounds.
Musculoskeletal: No Clubbing, No Cyanosis and No Edema
Neuro: AOx2 disoriented to time conversant largely coherent
Psych: Calm
Acute intractable abdominal pain
possible enterovesical fistula.
-NPO except meds
-IVF hydration
-CRS eval requested
-cont pain control
New Hypoxia requiring 4L w/ associate sinus tachycardia
CXR concerning for possible RML pna suspect aspiration
-EKG
-check CT PE study, cont IVF ppx contrast nephropathy
-Incentive spirometer
-NPO except meds, eventual speech eval if no plans for surgical intervention/diet resumed
-empiric unasyn
Ongoing goals of care discussion
Discussed with patient, patient's Brian, patient's daughter Marii, Resident, and Colorectal Surgeon
I spent a total of 60 minutes with the patient or on the floor. More than 50% of this time involved counseling and coordination of care.
Original Note:
Family Physician
-
Family Physician: Winifred Catalan
Chief Complaint
-
Abdominal pain and back pain
History of Present Illness
69-year-old female with PMHx significant for COPD, GERD, hypertension, stage IV non-squamous cell lung cancer-adenocarcinoma with brain mets s/p WBRT-4 cycles last done on 04/07 (carbo/Alimta/Keytruda), anxiety, depression, vertebral compression
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 Hide abdominal pain started about 6 PM in the
night yesterday with severe constipation. She used MiraLAX, with no bowel movement then reached out to visiting nurse who advised to take prune juice and after a couple of glasses of prune juice patient started to have a blowout diarrhea
and her bowels were empty. She reports to be in 10/10 pain all night yesterday, with lightheadedness and a sensation of fainting but denies having near-syncope or syncopal episodes.
She does not have fevers or chills. She denies having chest pain, shortness of breath on exertion, change in bladder habits-dysuria, frequency, hesitancy. She has been in diapers for about 2 weeks since the diagnosis of cancer, and it was hard to
distinguish if she was passing any gas in her urine.
Upon review of systems her reports that she is awake alert and oriented but there is new onset confusion and fidgetiness since yesterday p.m, which is not her baseline. When asked, patient is oriented to herself, and her family but not
oriented to date or place.
Medical History
Past Medical History
Past Medical History: Reports Other (PMHx significant for COPD, GERD, hypertension, stage IV non-squamous cell lung cancer-adenocarcinoma with brain mets s/p WBRT-4 cycles last done on 04/07 (carbo/Alimta/Keytruda), anxiety, depression, vertebral
compression fractures s/p vertebroplasty at T10 level, most recent T12 vertebral fracture c)
Past Surgical History: Reports Other (Colonic stricture s/p sigmoidectomy, port placement, right knee surgery.)
Social History
Tobacco: Former Smoker
Alcohol: None
Drug: None
Personal:
Living: With Family
Employment: Retired
Family History
Family History: Not pertinent
Allergies / Home Medications
Allergies reflects when Allergies were last updated in [facility].
Home Medications with original date entered in [facility]
Allergy/Medication List:
Allergies
Allergy/AdvReac Type Severity Reaction Status Date / Time
No Known Allergies Allergy Verified 06/09/25 11:24
Home Medications
folic acid 1 mg tablet 1 mg PO DAILY Supplement 01/29/25
levetiracetam 500 mg tablet (Keppra) 500 mg PO BID Seizures #0 tabs 02/14/25
atorvastatin 10 mg tablet (Lipitor) 10 mg PO QPM High Cholesterol 03/01/25
dexamethasone 4 mg tablet 2 mg PO BID Anti-Inflammatory 03/01/25
lisinopril 40 mg tablet 40 mg PO QPM Blood Pressure 03/01/25
metoprolol tartrate 100 mg tablet 100 mg PO BID Blood Pressure 03/01/25
lidocaine-prilocaine 2.5 %-2.5 % topical cream 1 applic topical DAILYPRN PRN port access 03/04/25
acetaminophen 500 mg tablet (Tylenol Extra Strength) 500 mg PO Q6H Pain 06/09/25
polyethylene glycol 3350 17 gram oral powder packet (Miralax) 17 g PO DAILYPRN PRN constipation 06/09/25
pregabalin 25 mg capsule (Lyrica) 25 mg PO BID Pain 06/09/25
pantoprazole 40 mg tablet,delayed release 40 mg PO BID Gastrointestinal Issue 30 days #60 tabs 06/11/25
fentanyl 12 mcg/hr transdermal patch 12 07/02/25
Review of Systems
-
History Source: Patient
A 12 point ROS was completed and negative except as noted: No
Constitutional: Reports No Symptoms
EENT: Reports No Symptoms
Respiratory: Reports No Symptoms
Cardiac: Reports No Symptoms
Abdomen/GI: Reports No Symptoms
Musculoskeletal: Reports No Symptoms
Skin: Reports No Symptoms
Neurological: Reports No Symptoms
Endocrine: Reports No Symptoms
Hematologic/Lymphatic: Reports No Symptoms
Psych: Reports No Symptoms
Physical Exam
Vital Signs
Vital Signs
Temp Pulse Resp BP Pulse Ox
97.9 F 115 22 105/70 96
07/02/25 04:37 07/02/25 06:45 07/02/25 06:45 07/02/25 05:00 07/02/25 06:45
Physical Exam
General: Appears in Distress (mild), Pain and Cachectic
HEENT: PERRLA and Other (Pallor)
Respiratory: Clear; No Wheezes, Rales, Rhonchi or Crackles
Cardiac: S1/S2, Regular Rhythm and Tachycardia; No Murmur, Rub, Gallop or JVD
GI: Tender (in the left upper and lower quadrant), Distended (in the lower quadrant) and Other (Bilateral lower quadrants-mildly distended, no tenderness.); No Normal Bowel Sounds
Genito-urinary: Deferred by me
Musculoskeletal: No Clubbing, No Cyanosis and No Edema
Neuro: Awake, Alert and Oriented (Oriented to herself her entire family, not oriented to other people, place or time.)
Psych: Calm
Laboratory Results
-
07/02/25 04:58
07/02/25 04:58
Laboratory Results
Total Bilirubin 0.9 mg/dl (0.2-1.3) 07/02/25 04:58
AST 34 U/L (14-36) 07/02/25 04:58
ALT 27 U/L (0-35) 07/02/25 04:58
Alkaline Phosphatase 144 U/L (38-126) H 07/02/25 04:58
Lipase 350 U/L (23-300) H 07/02/25 04:58
Data Reviewed
-
CT Scan: Image Personally Visualized and interpreted, Report Reviewed by me, Discussed with Physician, Discussed with Patient and Discussed with Family
Medical Tests (Nuc Med, Echo, EKG etc): Image Personally Visualized and interpreted, Report Reviewed by me, Discussed with Physician and Discussed with Patient
Lab Data: Labs Reviewed by me, Discussed with Physician, Discussed with Patient and Discussed with Family
Impression/Plan
-
IMPRESSION: 69-year-old female with PMHx significant for COPD, GERD, hypertension, stage IV non-squamous cell lung cancer-adenocarcinoma with brain mets s/p WBRT-4 cycles last done on 04/07 (carbo/Alimta/Keytruda), anxiety, depression, vertebral
compression fractures s/p vertebroplasty at T10 level, most recent T12 vertebral fracture chronic hyponatremia from SIADH, anemia of chronic disease presents to ER for evaluation of acute onset abdominal pain. She is diagnosed with enterovesical
fistula.
PLAN:
Acute intractable abdominal pain-
Likely secondary to enterovesical fistula.
Given patient's poor overall general health, the prognosis or her ability to tolerate the surgery or procedure further would be very low. Offered hospice as a treatment option for the patient. Patient and her family need to discuss hospice care as
they have not thought about it yet.
Currently continue regular diet with thin liquids per dietitian recommendations.
IV pain medications, optimal pain control.
IV hydration. If patient starts to throw up, make her n.p.o.
Consult colorectal surgery as needed.
History of colonic stricture removal and surgery in the past,
History of urinary retention during prior hospitalization, 06/09 through 06/11. Was thought to be neurogenic from a confluence of being on opioids, constipation, T10 vertebral compression fracture for which she received kyphoplasty. Currently with
T12, T11 and L4-L5 vertebral compression fractures. With bony and liver mets.
# Stage IV lung cancer with metastasis to brain-
Continue oral Decadron, Keppra at home doses.
# Chronic hyponatremia likely from SIADH
Continue to trend BMP
Fluid restriction.
# Chronic COPD
Currently stable, continue home inhalers.
Bronchodilators as needed.
# Essential hypertension-
Continue metoprolol tartrate 100 mg twice daily, lisinopril 40 mg once a day
# Hyperlipidemia-
Continue statin.
# Back pain-
On Percocet.
Continue skeletal muscle relaxants
# Constipation-
On home bowel regimen.
# DVT prophylaxis-
Sequential compression devices.
# CODE STATUS-
DNR.
Had an extensive conversation about patient's overall prognosis given the diagnosis of lung cancer with metastasis to the brain and recurrent bone fractures. Overall patient would be a poor candidate for surgery. Currently she is tachycardic and
tachypneic but her blood pressure is holding up with no leukocytosis or fevers. Not septic. While family continues to have a discussion we will monitor the patient closely for further deterioration. Will consult colorectal surgery if family has
not come up with a plan yet. Continue current optimal care with Decadron and Keppra and all her home meds along with optimal pain management. Hospice discussions to be held in future for patient's benefit.
[2025-07-02] MEDS: DILAUDID 0.5 MG IV (11:56)
--- NOTE | 2025-07-02 12:37 | CON.CRS ---
Consultation
-
Date/Time Consultation Requested: 07/02/2025, 10:49
Date/Time Consultation Performed: 07/02/2025,
Requesting Provider: francis Johnson MD
Performing Provider: Brian Elizondo MD
Reason for Consultation: abdominal pain
Medical History
-
Chief Complaint: abdominal pain
History of Present Illness:
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
complaining of abdominal pain with constipation. The patient took laxatives and then proceeded to have a substantial abdominal pain. Unfortunately due to her compression fractures, she has been bedbound for the past several weeks and has required
the use of a diaper. She has missed the last two rounds of Keytruda due to inability to transport to [facility]. Denies nausea or vomiting. Otherwise she has been tolerating a diet. She has flatus. Denies nausea or vomiting. Urinating without difficulty.
Her pain was initially a '20/10' but is now a 3/10. Per family, she had a recent UTI.
She was hospitalized back in 2022 where she underwent a low anterior resection secondary to a distal sigmoid stricture. This was performed Dr. Brian Elizondo.
She was recently hospitalized from 06/09/2025 to 06/11/2025 due to dysphagia. She was eval by gastroenterology who reviewed a barium swallow which showed esophageal dysmotility with no obvious stricture. She was advised to eat small frequent meals.
CT of the abdomen and pelvis shows air in the urinary bladder either related to recent instrumentation versus enteric vascular fistula. There is no evidence of internal obstruction, bowel inflammatory process, or abscess. A compression fracture of
L3 was new/increased compared to prior CAT scan on 06/08/2025. In the ER her WBC is 7.0. Her hemoglobin is 11.7. She is afebrile and her blood pressure is within normal limits. She is tachycardic with a pulse between 116 and 129. She was started
on Unasyn and a chest CT pulmonary embolism study is pending. Given her history as well as her abdominal pain, we have been consulted for further surgical recommendations.
Past Medical History
Past Medical History: Other (COPD, GERD, hypertension, stage IV non-squamous cell lung cancer-adenocarcinoma with brain mets s/p WBRT-4 cycles last done on 04/07 (carbo/Alimta/Keytruda), anxiety, depression, vertebral compression fractures s/p
vertebroplasty at T10 level, most recent T12 vertebral fracture)
Social History
Tobacco: Non-Smoker
Alcohol: None
Drug: None
Allergies / Home Medications
Allergy/AdvReac Type Severity Reaction Status Date / Time
No Known Allergies Allergy Verified 06/09/25 11:24
�Medication �Instructions �Recorded �Confirmed �Type
folic acid 1 mg tablet 1 mg PO DAILY Supplement 01/29/25 07/02/25 History
levetiracetam 500 mg tablet 500 mg PO BID Seizures #0 tabs 02/14/25 07/02/25 Rx
(Keppra)
atorvastatin 10 mg tablet (Lipitor) 10 mg PO QPM High Cholesterol 03/01/25 07/02/25 History
dexamethasone 4 mg tablet 2 mg PO BID Anti-Inflammatory 03/01/25 07/02/25 History
lisinopril 40 mg tablet 40 mg PO QPM Blood Pressure 03/01/25 07/02/25 History
metoprolol tartrate 100 mg tablet 100 mg PO BID Blood Pressure 03/01/25 07/02/25 History
lidocaine-prilocaine 2.5 %-2.5 % 1 applic topical DAILYPRN PRN port 03/04/25 07/02/25 History
topical cream access
acetaminophen 500 mg tablet 500 mg PO Q6H Pain 06/09/25 07/02/25 History
(Tylenol Extra Strength)
polyethylene glycol 3350 17 gram 17 g PO DAILYPRN PRN constipation 06/09/25 07/02/25 History
oral powder packet (Miralax)
pregabalin 25 mg capsule (Lyrica) 25 mg PO BID Pain 06/09/25 07/02/25 History
pantoprazole 40 mg tablet,delayed 40 mg PO BID Gastrointestinal 06/11/25 07/02/25 Rx
release Issue 30 days #60 tabs
fentanyl 12 mcg/hr transdermal 12 mcg topical Q72H 07/02/25 07/02/25 History
patch
Review of Systems
-
History Source: Patient and Family
Abdomen/GI: Abdominal Pain, Diarrhea and Constipated
A 10 point review of systems was completed, and was negative except as per HPI.
Physical Exam
Vital Signs
Temp 97.9 F 07/02/25 04:37
Pulse 129 07/02/25 10:00
Resp Rate 19 07/02/25 10:00
Blood pressure 100/74 07/02/25 10:00
SaO2 96 07/02/25 10:00
07/01/25 07/02/25 07/03/25
06:59 06:59 06:59
Actual Weight 62.5 kg
Body Mass Index (BMI) 21.6
Lab Results / Allergies
07/02/25 04:58
07/02/25 04:58
WBC 7.0 10^3/uL (4.8-10.8) 07/02/25 04:58
Hgb 11.7 g/dL (12.0-16.0) L 07/02/25 04:58
Hct 36.1 % (37.0-47.0) L 07/02/25 04:58
Plt Count 174 10^3/uL (130-400) 07/02/25 04:58
Abs Immat Gran (auto) 0.5 10^3/uL (0-0.05) H 07/02/25 04:58
Neutrophils % 86.0 % (42.2-75.2) H 07/02/25 04:58
Allergy/AdvReac Type Severity Reaction Status Date / Time
No Known Allergies Allergy Verified 06/09/25 11:24
Physical Exam
General: No Apparent Distress
GI: Soft, Tender (LLQ- mild/moderate) and Distended (mild)
Skin: Warm and Dry
Neuro: AO x 3
Data Reviewed
-
CT Scan: Image Personally Visualized and interpreted, Report Reviewed by me and Discussed with Physician
Labs: Labs Reviewed by me, Discussed with Physician and Discussed with Patient
Assessment / Plan
-
Assessment: 69yo female with stage IV lung ca and 2 years out from a LAR from a diverticular stricture presents with acute abdominal pain and constipation/diarrhea
-CT reviewed, no acute abdominal findings
-Air noted in bladder, recommend urology consult
-Will order UA
-Chest PE study pending
-No plans for surgery at this time
--- NOTE | 2025-07-02 13:18 | EDCM ---
CM reviewed chart and met with pt, and daughter bedside in ED. Lives with her in 1 story home, [address] but family also said there is a ramp at entrance.
Recently has required total care at home, has been mostly bedbound, unable to stand. is caregiver.
DME at home, adjustable bed, fernando lift, wheelchair, shower chair, rolling walker, single point cane, commode and over bed table.
confirms prescription coverage.
Current with [facility] for [facility], PT was supposed to visit today
Recent hx [facility], also hx [place]
PCP: Winifred Catalan
Pharmacy: [facility]
Anticipate discharge home with [facility], CM will continue to follow for all discharge planning needs.
[2025-07-02] MEDS: DURAGESIC 25 MCG/HR PATCH 1 PATCH TRANSDERM (13:32)
[2025-07-02] MEDS: DURAGESIC 12 MCG/HR PATCH 1 PATCH TRANSDERM (13:32)
[2025-07-02] MEDS: DECADRON 4 MG PO (13:39)
[2025-07-02] MEDS: UNASYN IV ×3 (13:43→23:53)
[2025-07-02] MEDS: REMOVE DURAGESIC PATCH 12.5 PATCH REMOVE (13:44)
--- NOTE | 2025-07-02 13:45 | EDRN ---
Patient Fentanyl patch 12mcg/hr from home was removed per MD order, patch was replaced with 12.5mcg/hr and 25mcg/hr per order in combination, see MAR.
[2025-07-02] MEDS: DILAUDID 1 MG IV ×2 (14:58→18:06)
[2025-07-02] MEDS: ZESTRIL PO (18:32)
[2025-07-02] MEDS: NSS 500 IV (19:14)
[2025-07-02] MEDS: DECADRON 2 MG PO (20:35)
[2025-07-02] MEDS: KEPPRA 500 MG PO (20:39)
[2025-07-02] MEDS: LOPRESSOR 100 MG PO (20:39)
[2025-07-02] MEDS: PROTONIX 40 MG PO (20:40)
[2025-07-02] MEDS: TYLENOL 500 MG PO (21:01)
[2025-07-03] VITALS (24 sets, daily range): BP systolic 94–176; BP diastolic 57–97
--- NOTE | 2025-07-03 01:43 | PTCARENOTE ---
Addendum entered by Day Daley RN 07/03/25 04:43:
All old dressing taken off by adhesive remover, wounds cleaned and redressed. Wound consult placed.
Original Note:
Assumed care of Pt from ED RN. Pt has a 12.5 and 25mcg Fentanyl patch, 2 RN sign off. Pt oriented to self able to answer some personal questions. Pt skin very fragile. On admission Pt has scattered bruising through out entire body and multiple skin
tares all in different stages of healing. Pt also has stage 1 and 2 on b/l buttock, see work list. Call romero within reach, bed in lowest position.
[2025-07-03] MEDS: DILAUDID 1 MG IV (02:24)
[2025-07-03] MEDS: TYLENOL PO (03:36)
[2025-07-03 04:13] LABS: Hematocrit 25.8 % (37.0-47.0); Hemoglobin 8.4 g/dL (12.0-16.0); Mean Corp Hgb Conc. 32.6 g/dL (33.0-37.0); Mean Corpuscular Volume 97.4 fL (81.0-99.0); Platelet Count 112 10^3/uL (130-400); Red Cell Dist. Width 18.2 % (11.5-14.5)
[2025-07-03 04:26] LABS: Blood Urea Nitrogen 25 mg/dl (7-17); Calcium 7.9 mg/dl (8.4-10.2); Carbon Dioxide 27 mmol/L (22-30); Chloride 109 mmol/L (98-107); Estimated Creatinine Clearance 85 ml/min; Glucose 112 mg/dl (70-99); Potassium 4.5 mmol/L (3.5-5.1); Sodium 136 mmol/L (135-145); eGFR > 60.00
--- NOTE | 2025-07-03 05:09 | PTCARENOTE ---
Change in h&h and Plt, TURNAROUND PLANNER made aware repeat labs ordered.
[2025-07-03] MEDS: UNASYN IV (05:17)
[2025-07-03 05:50] LABS: Hematocrit 25.0 % (37.0-47.0); Hemoglobin 8.0 g/dL (12.0-16.0); Mean Corp Hgb Conc. 32.0 g/dL (33.0-37.0); Mean Corpuscular Volume 98.4 fL (81.0-99.0); Platelet Count 109 10^3/uL (130-400); Red Cell Dist. Width 18.1 % (11.5-14.5)
--- NOTE | 2025-07-03 07:46 | W.PN.HOSP.TC ---
Today's Communication/Plan
-
cont abx
wean O2 supplementation as tolerated
follow urine cx
Urology and Pulmonology Eval
Ongoing goals of care discussion.
Assessment / Plan
Assessment / Plan
Physical Exam
General: no acute distress, appears comfortable at this time
HEENT: EOMI normocephalic atraumatic
Respiratory: Clear; No Wheezes, Rales, Rhonchi or Crackles, stable respiratory status but requiring 6L at time of evaluation
Cardiac: S1/S2, Regular Rhythm and Tachycardia; No Murmur, Rub, Gallop or JVD
GI: soft, mild tenderness, hypoactive bowel sounds.
Musculoskeletal: No Clubbing, No Cyanosis and No Edema
Neuro: AOx2 disoriented to time conversant largely coherent some confusion noted
Psych: Calm
69F COPD, GERD, HTN, stage IV non-squamous cell lung cancer-adenocarcinoma with brain mets s/p WBRT-4 cycles last done on 04/07 (carbo/Alimta/Keytruda), anxiety, depression, vertebral compression fractures s/p vertebroplasty at T10 T12 p/w acute on
chronic abdominal pain started night prior to presentation following resolution severe constipation after laxative use. Patient had blowout diarrhea with associate/following severe pain 06/25. Denied fever/chills/chest pain/dysuria. AOx2,
disoriented to time, conversant coherent. Patient has been functionally declining for some time now d/t cancer. Recently bedbound for past few weeks requiring use of diaper.
Acute intractable abdominal pain since improved
History of colonic stricture removal and surgery in the past
Gas noted in Bladder CT abd/pelvis, possible enterovesical fistula unlikely as per CRS
Urinalysis suggestive UTI
-gentle IVF hydration support, ok to dc if tolerating diet and good oral intake
-CRS eval appreciated
-cont pain control
-pain since improved
-follow urine cx
-Empiric Cefazolin 07/03
-urology eval appreciated started flomax d/t concern retention, bladder scan prn
Hx COPD baseline room air
New Hypoxia requiring 6L w/ associate sinus tachycardia
CXR concerning for possible RML pna suspect aspiration
-EKG appreciated sinus tachy, chest pain free
-CT Chest neg for PE
- Tachycardia possibly d/t pain since improved with pain control
-Incentive spirometer
-started on empiric unasyn switched to Cefazolin as above for coverage both pna and uti
-Pulm eval requested
Anemia
Thrombocytopenia
-drop in Hgb and Plt following admission most likely dilutional
-monitor H&H Platelet
Stage IV lung cancer with metastasis to brain-
Chronic Opiate Dependence
-Continue oral Decadron, Keppra at home doses.
-pain control
-Bowel regimen for opiate induced constipation ppx
Mild Hyponatremia
-monitor
Essential hypertension-
-Continue metoprolol tartrate 100 mg BID with holding parameters
-Lisinopril on hold at this time d/t low/soft pressures
Hyperlipidemia
-Continue statin.
DVT ppx SCD
CODE STATUS- DNR.
Ongoing goals of care discussion
Discussed with patient, patient's Brian, and patient's daughter Marii
I spent a total of 55 minutes with the patient or on the floor. More than 50% of this time involved counseling and coordination of care.
Anticipated Discharge: 24 - 48 hours
Subjective/Interval History
-
Date of Service: July 03, 2025
Seen and examined at bedside in no acute distress sitting up comfortably in bed. Overall appears symptomatically improved, pain better controlled. Stable respiratory status but requiring 6L. AOx2 disoriented to time, conversant, largely coherent.
Brian present during evaluation.
Objective Data
-
Labs:
Laboratory Results
07/03/25 07/03/25
03:50 05:20
WBC 6.5 6.1
Hgb 8.4 L D 8.0 L
Hct 25.8 L 25.0 L
Plt Count 112 L D 109 L
Sodium 136
Potassium 4.5
Chloride 109 H
Carbon Dioxide 27
BUN 25 H
Creatinine 0.5 L
Glucose 112 H
Calcium 7.9 L
Vital Signs:
Vital Signs
Temp Pulse Resp BP Pulse Ox
97.9 F 82 10 110/63 97
07/03/25 03:38 07/03/25 07:00 07/03/25 07:00 07/03/25 07:00 07/03/25 07:00
I&O
07/02/25 07/03/25 07/04/25
06:59 06:59 06:59
Intake Total 930 / 930
Balance 930 / 930
[2025-07-03 08:46] LABS: Urine Character Slightly Cloudy (Clear)
[2025-07-03] MEDS: TYLENOL 500 MG PO ×3 (09:41→20:38)
[2025-07-03] MEDS: LOPRESSOR 100 MG PO ×2 (09:41→20:38)
[2025-07-03] MEDS: PROTONIX 40 MG PO ×2 (09:41→20:38)
[2025-07-03] MEDS: DECADRON 4 MG PO (09:42)
[2025-07-03] MEDS: KEPPRA 500 MG PO ×2 (09:42→20:38)
[2025-07-03] MEDS: FOLVITE 1 MG PO (09:43)
[2025-07-03] MEDS: NSS IV (11:50)
--- NOTE | 2025-07-03 12:01 | W.PN.UPDATE ---
Update Note
Progress Note Update
see dictated note
pt with met lung ca
no known gu hx
admitted may 2025 with intractable pain- also required cic for urinary retention- but was not discharged with damon
was admitted to outside hospital after this admit and several care facilities- no known cath- managed with diaper or pure wick
now admitted again with intractable back and abd pain
elevated pvr's- has required cath once
ua +- no cx sent
had ct- air in bladder
plan
reviewed with pt and family at bedside
she is not uncomfortable
at time of recent cic- urine was not feculant
on my review of ct- no evid of fistula- suspect air due to instrumentation/uti and retention
discussed options- i suggested cath if retention persists- they are reluctant at this time understanding risks/benefits
check ucx- ancef being started
q8 pvr checks- cath for residuals > 400cc
flomax if tolerated
will follow
[2025-07-03] MEDS: ROXICODONE 7.5 MG PO ×2 (12:10→16:28)
[2025-07-03] MEDS: ANCEF 5 IV ×2 (12:12→20:38)
--- NOTE | 2025-07-03 12:25 | CM ---
MD entered hospice consult
Spoke with Brian he agreed he would like more information on hopsice from [facility].
Kelly ROSS information and referral in care port.
PLAN Hospice evaluation
[2025-07-03 12:42] LABS: Iron 20 ug/dl (37-170)
[2025-07-03 12:51] LABS: Total Iron Binding Capacity 142 ug/dl (265-497)
--- NOTE | 2025-07-03 13:32 | HOSPNOTE ---
Rec'd referral - spoke with spouse Brian - discussed Hospice philosophy. His goal would be to get Harleen home. He would like to have some time to discuss it with her and their daughter. Discussed that DME could be brought into the home to help
with taking care of Harleen - he has private caregivers in the past but Harleen would not allow them to be in the home. He would reach out to them again when the time comes. Updated CM.
[2025-07-03 13:48] LABS: Folate > 20.0 ng/ml (2.76-20); Vitamin B12 > 1000 pg/ml (239-931)
[2025-07-03 14:03] LABS: Ferritin 1440.0 ng/ml (11.1-264.0)
[2025-07-03] MEDS: MIACALCIN/FORTICAL NASAL SPRAY 1 SPRAY NASAL (14:18)
[2025-07-03 17:05] LABS: Hematocrit 24.2 % (37.0-47.0); Hemoglobin 7.5 g/dL (12.0-16.0)
[2025-07-03] MEDS: FLOMAX 0.4 MG PO (18:29)
[2025-07-03] MEDS: LIPITOR 10 MG PO (18:29)
[2025-07-03] MEDS: NON-FORMULARY ITEM 1 INH INH (20:04)
[2025-07-03] MEDS: DUONEB 3 ML INH (20:04)
[2025-07-03] MEDS: SENOKOT-S 1 TABLET PO (20:38)
[2025-07-03] MEDS: DECADRON 2 MG PO (20:38)
[2025-07-04] VITALS (23 sets, daily range): BP systolic 108–178; BP diastolic 66–99
[2025-07-04] MEDS: TYLENOL PO ×2 (05:36→15:23)
[2025-07-04] MEDS: ANCEF 5 IV (05:42)
[2025-07-04 05:49] LABS: Hematocrit 22.2 % (37.0-47.0); Hemoglobin 7.3 g/dL (12.0-16.0); Mean Corp Hgb Conc. 32.9 g/dL (33.0-37.0); Mean Corpuscular Volume 96.5 fL (81.0-99.0); Platelet Count 99 10^3/uL (130-400); Red Cell Dist. Width 17.9 % (11.5-14.5)
[2025-07-04 06:03] LABS: Blood Urea Nitrogen 25 mg/dl (7-17); Calcium 8.3 mg/dl (8.4-10.2); Carbon Dioxide 27 mmol/L (22-30); Chloride 106 mmol/L (98-107); Estimated Creatinine Clearance 85 ml/min; Glucose 125 mg/dl (70-99); Magnesium 2.5 mg/dl (1.6-2.3); Potassium 4.0 mmol/L (3.5-5.1); Sodium 132 mmol/L (135-145); eGFR > 60.00
[2025-07-04 06:04] LABS: Procalcitonin 3.65 ng/ml (0.0-0.25)
--- NOTE | 2025-07-04 06:20 | PTCARENOTE ---
Pt only oriented to self throughout shift. Confused conversation; calling out for at night saying 'he's supposed to pick me up and take me home'. Attempted to reorient pt to explain that it was the middle of the night but pt was unable to
grasp the concept. Did not c/o pain at all throughout shift, even when asked. Procal resulted at 3.65 with morning labs. Notified BUILD MANAGER.
[2025-07-04] MEDS: NSS 1000 IV (06:37)
--- NOTE | 2025-07-04 07:07 | CON.PUL ---
Consultation
Consultation Request
Date/Time Consultation Requested: 07/03/2025
Date/Time Consultation Performed: 07/04/2025
Medical History
-
Chief Complaint: Abdominal pain
History of Present Illness:
Patient is a very pleasant 69-year-old female with known history of COPD, stage IV non-small cell lung cancer with brain metastasis s/p chemo and whole brain radiation, who presented to the hospital for worsening abdominal discomfort. Patient
reportedly has severe constipation, known history of vertebral compression fractures and uses MiraLAX at home. In view of constipation she also took some prune juice which subsequently led to diarrhea. In view of abdominal pain she presented to
the emergency room. Workup here has been negative for any acute abdominal pathology and she has been evaluated by surgery and urology service. In the emergency room patient was noted to be hypoxic and additional imaging was pursued. CT chest was
negative for pulmonary embolism however showed increased opacities in the right upper and middle lobe around the area of original lung cancer, thought to be pneumonia versus CT changes suggestive of lung cancer treatment. Pulmonary consultation was
requested for further input. At baseline patient is on room air but currently requiring close to 6 L supplemental oxygen.
Past Medical History: Reports Other (PMHx significant for COPD, GERD, hypertension, stage IV non-squamous cell lung cancer-adenocarcinoma with brain mets s/p WBRT-4 cycles last done on 04/07 (carbo/Alimta/Keytruda), anxiety, depression, vertebral
compression fractures s/p vertebroplasty at T10 level, most recent T12 vertebral fracture c)
Past Surgical History: Reports Other (Colonic stricture s/p sigmoidectomy, port placement, right knee surgery.)
Social History
Tobacco: Former Smoker
Alcohol: None
Drug: None
Personal:
Living: With Family
Employment: Retired
Family History
Family History: Not pertinent
Allergies / Home Medications
Allergies / Home Medications
Allergies
Allergy/AdvReac Type Severity Reaction Status Date / Time
No Known Allergies Allergy Verified 06/09/25 11:24
Home Medications
�Medication �Instructions �Recorded �Confirmed �Last Taken �Type
folic acid 1 mg tablet 1 mg PO DAILY Supplement 01/29/25 07/02/25 04/17/25 History
levetiracetam 500 mg tablet 500 mg PO BID Seizures #0 tabs 02/14/25 07/02/25 06/08/25 Rx
(Keppra)
atorvastatin 10 mg tablet (Lipitor) 10 mg PO QPM High Cholesterol 03/01/25 07/02/25 06/08/25 History
dexamethasone 4 mg tablet 4 mg PO DAILY Anti-Inflammatory 03/01/25 07/02/25 06/08/25 History
lisinopril 40 mg tablet 40 mg PO QPM Blood Pressure 03/01/25 07/02/25 06/08/25 History
metoprolol tartrate 100 mg tablet 100 mg PO BID Blood Pressure 03/01/25 07/02/25 06/08/25 History
lidocaine-prilocaine 2.5 %-2.5 % 1 applic topical DAILYPRN PRN port 03/04/25 07/02/25 04/17/25 14:39 History
topical cream access
acetaminophen 500 mg tablet 500 mg PO Q6H Pain 06/09/25 07/02/25 06/08/25 History
(Tylenol Extra Strength)
polyethylene glycol 3350 17 gram 17 g PO DAILYPRN PRN constipation 06/09/25 07/02/25 Unknown History
oral powder packet (Miralax)
pantoprazole 40 mg tablet,delayed 40 mg PO BID Gastrointestinal 06/11/25 07/02/25 06/08/25 Rx
release Issue 30 days #60 tabs
calcitonin (salmon) 200 1 spray intranasal DAILY bone pain 07/02/25 07/02/25 Unknown History
unit/actuation nasal spray
clonazepam 0.5 mg tablet 0.5 mg PO DAILYPRN PRN 07/02/25 07/02/25 Unknown History
anxiety/sleep
dexamethasone 2 mg tablet 2 mg PO DAILY@199907/02/25 07/02/25 Unknown History
fentanyl 12 mcg/hr transdermal 12 mcg topical Q72H 07/02/25 07/02/25 Unknown History
patch
oxycodone 15 mg tablet 7.5 mg PO Q4 07/02/25 07/02/25 Unknown History
mometasone 220 mcg/actuation(60 1 inh inhalation BID 07/03/25 07/03/25 Unknown History
doses) breath activated powder
inhaler (Asmanex Twisthaler)
Review of Systems
-
Hematologic/Lymphatic: Other (No new symptoms reported. Denies any difficulty breathing this morning)
Vitals / Labs / Diagnostic Testing
Vital Signs
Temp Pulse Resp BP Pulse Ox
98.6 F 83 20 126/65 96
07/03/25 14:26 07/03/25 13:00 07/03/25 13:00 07/03/25 13:00 07/03/25 13:00
Lab Data
07/03/25 03:50
Laboratory Results
07/03/25
11:05
pH Cancelled
pCO2 Cancelled
pO2 Cancelled
HCO3 Cancelled
O2 Delivery Level Cancelled
Diagnostic Testing:
Physical Exam
-
HEENT: Normocephalic
Cardiovascular: S1/S2
Respiratory: Clear
GI: Soft and Non Distended
Neurology: Awake and Alert
Skin: Warm
General: Comfortable
Assessment
-
#1, Acute hypoxic respiratory failure
- Imaging reviewed, concern for Pneumonia vs CT findings suggestive of post treatment changes with known h/o Lung CA.
- Afebrile, normal WBC count. Significantly elevated Procalcitonin. Denies cough or expectoration. Initiate Rocephin/Azithromycin. Await MRSA scree. Legionella and pneumococcal antigen negative
- Has underlying emphysema and now bilateral lower lungs atelectasis, likely due to compression fracture and decreased mobility
- Incentive spirometry, wean O2 as tolerated. Assess for need for home oxygen prior to discharge
- Optimize underlying obstructive airway disease, add Duoneb QID scheduled. Continue ICS.
- Speech/Swallow evaluation as aspiration is a concern
#2. H/o COPD/Emphysema
- Does not appear to be in exacerbation
- Duoneb QID, incentive spirometry
#3. h/o Stage IV Lung cancer, RUL with brain metastasis
- Follows up with [facility].
- Original diagnoses of stage IV NSCLC w/ brain metastasis in December 2024. S/p whole brain radiation therapy in 12/2024.
- Subsequently initiated chemoimmunotherapy in January w/ carboplatin/ alimta/ keytruda. She is now s/p 4 cylces - last 04/07.
- Patient has chronically been on dexamethasone and Keppra, continue
Other medical diagnoses:
- HTN
- Mild hyponatremia
- h/o Colonic stricture
- Abd pain, resolved
Total time spent on this consultation/encounter __65__ minutes which includes review of history, physical exam, medications, laboratory data, personal review of imaging, extensive review of outpatient records, discussion with care team and
respiratory therapy.
Data:
CT A/P 06/2025: 1. Air is seen within the urinary bladder. This may be related to recent bladder instrumentation, in the absence of bladder instrumentation concern is raised for enteric vesicular fistula.
2. No evidence of intestinal obstruction, bowel inflammatory process, nephrolithiasis, hydronephrosis, cholecystitis, or abscess formation.
3. Compression fracture of the superior endplate of L3, new/increased compared to prior CT dated 06/08/2025. Additional chronic compression fractures as above.
CT Chest 06/2025: 1. No evidence of pulmonary embolism or thoracic aortic dissection.
2. 1.8 cm nodule within the right upper lobe, likely corresponding to the patient's known lung cancer. Reticular interstitial thickening and groundglass opacity adjacent to the nodule within the right upper lobe. Differential diagnosis includes
postradiation change, pneumonia, and subsegmental atelectasis. These correlate with treatment history.
3. Minimal ground-glass opacity within the left upper lobe, which may also be related to posttreatment change, pneumonia, or subsegmental atelectasis.
4. Mild centrilobular emphysema.
PET-CT 04/2025: Stable spiculated right upper lobe pulmonary nodule. 2.0 x 1.5 cm, moderately FDG avid, most in keeping with malignancy.
MRI Brain 02/2025: Findings consistent with widespread metastatic disease to the brain. Largest lesion, which is in the anterior left frontal lobe, causes 4 mm left to right midline shift. Degree of midline shift is similar to the recent prior head
CT. Masses have developed since prior brain MRI from 06/06/2023
Mild cerebral atrophy along with chronic small vessel ischemia in the cerebral white matter
Inflammatory findings in the maxillary sinuses, ethmoid sinuses, left sphenoid sinus, mastoid air cells (left greater than right)
ECHO 06/2024: 1. Normal left ventricular size and systolic function without regional wall
motion abnormalities. Estimated left ventricular ejection fraction 52% by
Sidhu's method. Normal diastolic function.
2. Normal right ventricular size and systolic function.
3. No significant valvular abnormalities.
4. No pericardial effusion.
5. No evidence of pulmonary hypertension.
--- NOTE | 2025-07-04 07:08 | W.PN.HOSP.TC ---
Today's Communication/Plan
-
cont abx
wean O2 supplementation as tolerated
bronchodilators as per Pulm
bowel regimen, Fleet Enema
Monitor H&H platelet
transfuse PRBC if Hgb <7
Assessment / Plan
Assessment / Plan
Physical Exam
General: no acute distress, appears comfortable at this time
HEENT: EOMI normocephalic atraumatic
Respiratory: Clear; No Wheezes, Rales, Rhonchi or Crackles, stable respiratory status but requiring 5L at time of evaluation
Cardiac: S1/S2, Regular Rhythm and Tachycardia; No Murmur, Rub, Gallop or JVD
GI: soft, mild tenderness, hypoactive bowel sounds.
Musculoskeletal: No Clubbing, No Cyanosis and No Edema
Neuro: AOx2 disoriented to time conversant largely coherent some confusion noted
Psych: Calm
69F COPD, GERD, HTN, stage IV non-squamous cell lung cancer-adenocarcinoma with brain mets s/p WBRT-4 cycles last done on 04/07 (carbo/Alimta/Keytruda), anxiety, depression, vertebral compression fractures s/p vertebroplasty at T10 T12 p/w acute on
chronic abdominal pain started night prior to presentation following resolution severe constipation after laxative use. Patient had blowout diarrhea with associate/following severe pain /10. Denied fever/chills/chest pain/dysuria. AOx2,
disoriented to time, conversant coherent. Patient has been functionally declining for some time now d/t cancer. Recently bedbound for past few weeks requiring use of diaper.
Acute intractable abdominal pain since improved
History of colonic stricture removal and surgery in the past
Gas noted in Bladder CT abd/pelvis, possible enterovesical fistula unlikely as per CRS
Urinalysis suggestive UTI
-gentle IVF hydration support, ok to dc if tolerating diet and good oral intake
-CRS eval appreciated
-cont pain control
-pain since improved
-follow urine cx gram neg bacilli
-Empiric Cefazolin 07/03 switched to Ceftriaxone 07/04
-urology eval appreciated started flomax d/t concern retention, bladder scan prn
Hx COPD baseline room air
New Hypoxia requiring 6L w/ associate sinus tachycardia
CXR concerning for possible RML pna suspect aspiration
-EKG appreciated sinus tachy, chest pain free
-CT Chest neg for PE
- Tachycardia possibly d/t pain since improved with pain control
-Incentive spirometer
-started on empiric unasyn switched to Cefazolin, later switched to ceftriaxone and azithromycin
-Pulm eval appreciated Duoneb QID, incentive spirometer
Anemia
Thrombocytopenia
-drop in Hgb and Plt following admission suspect dilutional
-monitor H&H Platelet
-Hematology eval requested
Stage IV lung cancer with metastasis to brain-
vertebral compression fractures s/p vertebroplasty at T10 T12
Chronic Opiate Dependence
-Continue oral Decadron, Keppra at home doses.
-pain control
-Bowel regimen for opiate induced constipation ppx
-07/04 Brain MRI w/wo contrast Multifocal intraparenchymal metastatic disease. Overall mild improvement of brain metastases compared to the previous brain MRI from
03/10/2025.
-wheelchair/bedbound past few weeks as per , PT eval requested
Constipation
bowel regimen as above
once Fleet enema 07/04
Mild Hyponatremia
-monitor
Essential hypertension-
-Continue metoprolol tartrate 100 mg BID with holding parameters
-Lisinopril initially held d/t soft low pressures since resumed
Hyperlipidemia
-Continue statin.
DVT ppx SCD
CODE STATUS- DNR.
Ongoing goals of care discussion
Discussed with patient, patient's Brian, and patient's daughter Marii
I spent a total of 55 minutes with the patient or on the floor. More than 50% of this time involved counseling and coordination of care.
Anticipated Discharge: 24 - 48 hours
Subjective/Interval History
-
Date of Service: July 04, 2025
No acute distress, sitting up comfortably in bed. Remains disoriented to time. Conversant largely coherent but confused at times.
Objective Data
-
Labs:
Laboratory Results
07/04/25
05:23
WBC 6.5
Hgb 7.3 L
Hct 22.2 L
Plt Count 99 L
Sodium 132 L
Potassium 4.0
Chloride 106
Carbon Dioxide 27
BUN 25 H
Creatinine 0.4 L
Glucose 125 H
Calcium 8.3 L
Vital Signs:
Vital Signs
Temp Pulse Resp BP Pulse Ox
98.3 F 92 10 169/99 97
07/03/25 23:50 07/04/25 06:00 07/04/25 06:00 07/04/25 06:00 07/04/25 06:00
I&O
07/03/25 07/04/25 07/05/25
06:59 06:59 06:59
Intake Total 930 / 930 700 / 700
Output Total 900 / 900
Balance 930 / 930 -200 / -200
[2025-07-04] MEDS: NON-FORMULARY ITEM 1 INH INH ×2 (07:39→20:13)
[2025-07-04] MEDS: DUONEB 3 ML INH ×4 (07:39→20:13)
[2025-07-04] MEDS: FLOMAX 0.4 MG PO (08:14)
[2025-07-04] MEDS: ZITHROMAX 500 MG PO (08:14)
[2025-07-04] MEDS: FOLVITE 1 MG PO (08:14)
[2025-07-04] MEDS: LOPRESSOR 100 MG PO ×2 (08:14→20:09)
[2025-07-04] MEDS: SENOKOT-S 1 TABLET PO ×2 (08:14→20:09)
[2025-07-04] MEDS: PROTONIX 40 MG PO ×2 (08:14→20:10)
[2025-07-04] MEDS: DECADRON 4 MG PO (08:15)
[2025-07-04] MEDS: ROCEPHIN 1000 MG IV (08:15)
[2025-07-04] MEDS: MIACALCIN/FORTICAL NASAL SPRAY 1 SPRAY NASAL (08:15)
[2025-07-04] MEDS: KEPPRA 500 MG PO ×2 (08:15→20:09)
[2025-07-04] MEDS: STERILE WATER FOR INJECTION 10 ML IV (08:15)
[2025-07-04] MEDS: TYLENOL 500 MG PO ×2 (08:15→20:09)
--- NOTE | 2025-07-04 09:59 | CM ---
Hospice spoke with spouse.
Spouse is discussing with family options.
Maintained on pain meds as needed.
Pt remains on comfort care.
PLAN Family will decide on hospice plan
--- NOTE | 2025-07-04 10:07 | W.PN.URO.CBU ---
Today's Communication / Plan
-
await ucx
continue flomax
Assessment / Plan
-
air in bladder on ct- suspect combo of previous cath's and UTI
currently emptying satisfactorily
continue flomax
f/u ucx
will follow
updated by phone
Diagnosis
-
Date of Service: July 04, 2025
-
Patient Diagnosis:
met lung ca
partial urinary retention
air in bladder on CT
suspected UTI
Subjective
-
pt without specific complaints this am
feels she is emptying
incontinent with pure-wick
pvrs have been below 200cc
ucx pending
Objective
-
Vital Signs
Temp Pulse Resp BP Pulse Ox
97.8 F 102 14 160/95 92
07/04/25 07:24 07/04/25 08:14 07/04/25 07:42 07/04/25 08:14 07/04/25 07:42
Intake and Output
07/03/25 07/04/25 07/05/25
06:59 06:59 06:59
Intake Total 930 / 930 700 / 700
Output Total 900 / 900
Balance 930 / 930 -200 / -200
Intake:
Oral fluids 30 / 30 400 / 400
IV fluids (Total) 660 / 660 300 / 300
IV piggybacks 240 / 240
Output:
Urine, Voided 250 / 250
Straight cath output 650 / 650
Other:
How many times incontinent 1
SMALL amount urine
How many times incontinent 1
SATURATED amount urine
Laboratory Results
07/04/25 05:23
Physical Exam
-
General - no acute distress
Abdomen - soft, minimally tender
[2025-07-04] MEDS: FLEET MINERAL OIL ENEMA 133 ML RECTAL (10:36)
[2025-07-04] MEDS: DILAUDID 1 MG IV ×2 (11:10→15:47)
--- NOTE | 2025-07-04 13:11 | PTCARENOTE ---
pt aao to self. states no pain but screams when turned. pain med given as ordered. [id number]. ivf running as ordered. pt taken to mri for study. straight cath for urine sample. enema given as ordered with no results. son at bedside. reviewed pt
condition and plan of care. answered questions about hospice care.
[2025-07-04 13:41] LABS: Hematocrit 23.4 % (37.0-47.0); Hemoglobin 7.5 g/dL (12.0-16.0)
--- NOTE | 2025-07-04 14:23 | PTOTSP ---
Speech Therapy Assessment
Very limited exam due to patient refusal beyond a few sips of thin liquid. Minimal throat clear post thin liquid by straw x1. Family denies obvious difficulty with intake prior to admission. Discussed results of previous VSE (05/2025) with family -
VSE did not show aspiration events but did find pharyngeal stasis and a slow to empty esophagus.
Overall, patient is at elevated risk for aspiration given chronic risk factors of deconditioned state w/ compromised immune system, limited mobility and dependence for oral care/feeding in setting of new hypoxia requiring O2 supplementation and CXR
showing possible pneumonitis.
Recommend:
1. Continue current diet of regular solids and thin liquids.
2. Meds as best tolerated
3. Aspiration and reflux precautions.
4. Intersperse liquids/solids to assist with pharyngeal and esophageal clearance.
5. Dietary guidance for nutritional supplements given very limited intake.
ST will follow and reassess as patient able to tolerate.
[2025-07-04] MEDS: LIPITOR 10 MG PO (17:10)
[2025-07-04] MEDS: ZESTRIL 40 MG PO (17:10)
[2025-07-04] MEDS: DECADRON 2 MG PO (20:09)
[2025-07-04] MEDS: ROXICODONE 7.5 MG PO (20:10)
[2025-07-05] VITALS (30 sets, daily range): BP systolic 120–163; BP diastolic 63–137; PULSE 86; O2SAT 96; BMI 22.2
[2025-07-05] MEDS: NSS 1000 IV ×2 (03:28→16:13)
[2025-07-05] MEDS: TYLENOL PO ×2 (03:40→19:40)
--- NOTE | 2025-07-05 04:07 | PTCARENOTE ---
Received pt at change of shift. Oriented only to self. Q2T. 5L NC with pulse ox at 94%. Pt very sensitive to touch. PRN pain medication administered per order (see MAR). Pt arousable but very drowsy all throughout shift. NSS continues to run
at 60 ml/hr. Hygiene care provided. No events noted overnight.
[2025-07-05 04:09] LABS: Hematocrit 21.6 % (37.0-47.0); Hemoglobin 7.0 g/dL (12.0-16.0); Mean Corp Hgb Conc. 32.4 g/dL (33.0-37.0); Mean Corpuscular Volume 96.4 fL (81.0-99.0); Platelet Count 97 10^3/uL (130-400); Red Cell Dist. Width 17.9 % (11.5-14.5)
[2025-07-05 04:15] LABS: Blood Urea Nitrogen 17 mg/dl (7-17); Calcium 8.4 mg/dl (8.4-10.2); Carbon Dioxide 24 mmol/L (22-30); Chloride 106 mmol/L (98-107); Estimated Creatinine Clearance 84 ml/min; Glucose 129 mg/dl (70-99); Magnesium 2.1 mg/dl (1.6-2.3); Potassium 4.2 mmol/L (3.5-5.1); Sodium 132 mmol/L (135-145); eGFR > 60.00
--- NOTE | 2025-07-05 06:10 | PTCARENOTE ---
No urine output throughout the night. Bladder scanned at 06:00 for 259 ml. Small, soft, BM.
--- NOTE | 2025-07-05 06:40 | W.PN.URO.CBU ---
Today's Communication / Plan
-
treat UTI- then prophylaxis with methenamine
continue flomax
Assessment / Plan
-
air in bladder on ct- suspect combo of previous cath's and UTI
currently emptying satisfactorily
check pvr's prn at this point
continue flomax and would continue as outpt
treat UTI- then would suggest daily methenamine 1gram daily as outpt given mild retention and recurrent infx
pt can schedule f/u with dr andrew as outpt
bladder air not concerning at this time- due to UTI/retention and cath- no clinical evid of fistula
Diagnosis
-
Date of Service: July 05, 2025
-
Patient Diagnosis:
met lung ca
partial urinary retention
air in bladder on CT
UTI
Subjective
-
no clinical change
ucx + for gram neg rods
pvr's checked- all under 300cc- most under 200cc
Objective
-
Vital Signs
Temp Pulse Resp BP Pulse Ox
97.8 F 89 22 130/101 95
07/05/25 04:08 07/05/25 06:00 07/05/25 06:00 07/05/25 06:00 07/05/25 05:00
Intake and Output
07/03/25 07/04/25 07/05/25
06:59 06:59 06:59
Intake Total 930 / 930 700 / 700 1320 / 1320
Output Total 900 / 900 400 / 400
Balance 930 / 930 -200 / -200 920 / 920
Intake:
Oral fluids 30 / 30 400 / 400 600 / 600
IV fluids (Total) 660 / 660 300 / 300 720 / 720
IV piggybacks 240 / 240
Output:
Urine, Voided 250 / 250 400 / 400
Straight cath output 650 / 650
Other:
How many times incontinent 1
SMALL amount urine
How many times incontinent 1
SATURATED amount urine
Number of approximated MODERATE 2
amounts of urine
Laboratory Results
07/05/25 03:31
07/05/25 03:31
Physical Exam
-
General - chronically ill appearing, no acute distress
[2025-07-05] MEDS: DUONEB 3 ML INH ×3 (07:35→20:28)
[2025-07-05] MEDS: NON-FORMULARY ITEM 1 INH INH ×2 (07:35→20:29)
--- NOTE | 2025-07-05 08:52 | W.PN.HOSP.TC ---
Today's Communication/Plan
-
Oxycodone prn mod severe pain.
Dilaudid switched to prn severe breakthrough pain
Bladd scan prn
Cont abx
1PRBC transfusion
restraints prn
dailyprn Klonopin (home med) prn IV valium anxiety/agitation
Assessment / Plan
Assessment / Plan
Physical Exam
General: no acute distress, appears comfortable at this time
HEENT: EOMI normocephalic atraumatic
Respiratory: Clear; No Wheezes, Rales, Rhonchi or Crackles, stable respiratory status but requiring 5L at time of evaluation
Cardiac: S1/S2, Regular Rhythm and Tachycardia; No Murmur, Rub, Gallop or JVD
GI: soft, mild tenderness, hypoactive bowel sounds.
Musculoskeletal: No Clubbing, No Cyanosis and No Edema
Neuro: AOx2 disoriented to time conversant largely coherent some confusion noted, fluctuating mental status noted throughout the day
Psych: Calm
69F COPD, GERD, HTN, stage IV non-squamous cell lung cancer-adenocarcinoma with brain mets s/p WBRT-4 cycles last done on 04/07 (carbo/Alimta/Keytruda), anxiety, depression, vertebral compression fractures s/p vertebroplasty at T10 T12 p/w acute on
chronic abdominal pain started night prior to presentation following resolution severe constipation after laxative use. Patient had blowout diarrhea with associate/following severe pain 06/25. Denied fever/chills/chest pain/dysuria. AOx2,
disoriented to time, conversant coherent. Patient has been functionally declining for some time now d/t cancer. Recently bedbound for past few weeks requiring use of diaper.
Acute intractable abdominal pain since improved
History of colonic stricture removal and surgery in the past
Gas noted in Bladder CT abd/pelvis, possible enterovesical fistula unlikely as per CRS
Urinalysis suggestive UTI
-gentle IVF hydration support, ok to dc if tolerating diet and good oral intake
-CRS eval appreciated
-cont pain control
-pain since improved cont Fentanyl Patch, Oxycodone prn mod severe pain, Dilaudid prn severe break through pain
-follow urine cx gram neg bacilli
-Empiric Cefazolin 07/03 switched to Ceftriaxone 07/04
-urology eval appreciated started flomax d/t concern retention, bladder scan prn
-intermittently requiring straight cath (700 cc at one point)
Hx COPD baseline room air
New Hypoxia requiring 6L w/ associate sinus tachycardia
CXR concerning for possible RML pna suspect aspiration
-EKG appreciated sinus tachy, chest pain free
-CT Chest neg for PE
- Tachycardia possibly d/t pain since improved with pain control
-Incentive spirometer
-started on empiric unasyn switched to Cefazolin, later switched to ceftriaxone and azithromycin
-Pulm eval appreciated Duoneb QID, incentive spirometer
- O2 requirement since improved to 3L.
Anemia
Thrombocytopenia
-drop in Hgb and Plt following admission suspect dilutional
-monitor H&H Platelet
-Hematology eval appreciated
Acute Metabolic Encephalopathy vs Delirium/Agitation w severe sinus tachycardia
Likely Polypharmacy
-cont home dailyprn Klonopin
-IV Valium 2 mg Q6HPRN agitation/anxiety
-IV Lopressor 5 mg Q4HPRN persistent Tachycardia >120
-transfuse 1PRBC for possible symptomatic anemia contributing to tachycardia
-restraints prn
Stage IV lung cancer with metastasis to brain-
vertebral compression fractures s/p vertebroplasty at T10 T12
Chronic Opiate Dependence
-Continue oral Decadron, Keppra at home doses.
-pain control
-Bowel regimen for opiate induced constipation ppx
-07/04 Brain MRI w/wo contrast Multifocal intraparenchymal metastatic disease. Overall mild improvement of brain metastases compared to the previous brain MRI from
03/10/2025.
-wheelchair/bedbound past few weeks as per
Constipation
bowel regimen as above
once Fleet enema 07/04
constipation since resolved
Mild Hyponatremia
-monitor
Essential hypertension-
-Continue metoprolol tartrate 100 mg BID with holding parameters
-Lisinopril initially held d/t soft low pressures since resumed
Hyperlipidemia
-Continue statin.
PT/OT appreciated SNF vs Home PT
DVT ppx SCD
CODE STATUS- DNR.
Ongoing goals of care discussion
Discussed with patient, patient's Brian, and patient's daughter Marii
I spent a total of 55 minutes with the patient or on the floor. More than 50% of this time involved counseling and coordination of care.
Anticipated Discharge: 24 - 48 hours
Subjective/Interval History
-
Date of Service: July 05, 2025
Seen and examined at bedside in no acute distress sitting up comfortably in bed. AOx2 disoriented to time conversant largely coherent. Mental status fluctuating throughout the day. per RN noted severe agitation later in day w/ associate severe
tachycardia required restraints. Patient later calmed down and became more cooperative.
Objective Data
-
Labs:
Laboratory Results
07/05/25 07/05/25
03:31 12:00
WBC 6.6
Hgb 7.0 L Pending
Hct 21.6 L Pending
Plt Count 97 L
Sodium 132 L
Potassium 4.2
Chloride 106
Carbon Dioxide 24
BUN 17
Creatinine 0.4 L
Glucose 129 H
Calcium 8.4
Vital Signs:
Vital Signs
Temp Pulse Resp BP Pulse Ox
97.8 F 88 16 130/101 92
07/05/25 04:08 07/05/25 07:39 07/05/25 07:39 07/05/25 06:00 07/05/25 07:39
I&O
1007/05/25 07/06/25
06:59 06:59 06:59
Intake Total 700 / 700 1320 / 1320
Output Total 900 / 900 400 / 400
Balance -200 / -200 920 / 920
--- NOTE | 2025-07-05 09:15 | W.PN.PUL3 ---
Today's Communication / Plan
-
Hypoxia likely on the basis of deconditioning, bibasilar atelectasis, weakness/immobility
O2 has been weaned thus far to 3L, eventual home O2 eval
UTI noted, PCT elevated--less likely PNA source, can narrow abx to culture results
PT/OT evals are crucial, OOB, IS use
Eventual plans for d/c if improving per team
Assessment
-
Patient is a very pleasant 69-year-old female with known history of COPD, stage IV non-small cell lung cancer with brain metastasis s/p chemo and whole brain radiation, who presented to the hospital for worsening abdominal discomfort. Patient
reportedly has severe constipation, known history of vertebral compression fractures and uses MiraLAX at home. In view of constipation she also took some prune juice which subsequently led to diarrhea. In view of abdominal pain she presented to
the emergency room. Workup here has been negative for any acute abdominal pathology and she has been evaluated by surgery and urology service. In the emergency room patient was noted to be hypoxic and additional imaging was pursued. CT chest was
negative for pulmonary embolism however showed increased opacities in the right upper and middle lobe around the area of original lung cancer, thought to be pneumonia versus CT changes suggestive of lung cancer treatment. Pulmonary consultation was
requested for further input.
Acute hypoxic respiratory failure
Bibasilar atelectasis wtih low lung volumes suspect restrictive lung disease
R perihilar opacity r/o PNA
Mosaicism on CT
Severe constipation
UTI
Other medical diagnoses:
H/o COPD/Emphysema
h/o Stage IV Lung cancer, RUL with brain metastasis
- HTN
- Mild hyponatremia
- h/o Colonic stricture
- Abd pain, resolved
Plan
Currently 92% on 3L, this has been weaned from 6L
Baseline use of no oxygen at home
Eventual home O2 eval
PCT 3.65 suggesting infection
Cultures reviewed, she has GNB UTI
Cannot produce sputum
Narrow abx to cover urine
Imaging reviewed, concern for Pneumonia vs CT findings suggestive of post treatment changes with known h/o Lung CA.
MRSA screen, Legionella and pneumococcal antigen negative
Doubtful there is respiratory source, no sputum for review
Has underlying emphysema and now bilateral lower lungs atelectasis, likely due to compression fracture and decreased mobility
Incentive spirometry, wean O2 as tolerated. Assess for need for home oxygen prior to discharge
Optimize underlying obstructive airway disease, continue Duoneb QID scheduled. Continue ICS.
Speech/Swallow evaluation as aspiration is a concern
Appreciate eval-patient refused trials
Prior VSE 05/2025 did not show aspiration events but did find pharyngeal stasis and a slow to empty esophagus.
She is considered elevated risk, diet changes per team
COPD-Does not appear to be in exacerbation
- Duoneb QID, incentive spirometry
Lung cancer
- Follows up with [facility].
- Original diagnoses of stage IV NSCLC w/ brain metastasis in December 2024. S/p whole brain radiation therapy in 12/2024.
- Subsequently initiated chemoimmunotherapy in January w/ carboplatin/ alimta/ keytruda. She is now s/p 4 cylces - last 04/07.
- Patient has chronically been on dexamethasone and Keppra, continue
PT/OT
May need SNF placement
Data:
CT A/P 06/2025: 1. Air is seen within the urinary bladder. This may be related to recent bladder instrumentation, in the absence of bladder instrumentation concern is raised for enteric vesicular fistula.
2. No evidence of intestinal obstruction, bowel inflammatory process, nephrolithiasis, hydronephrosis, cholecystitis, or abscess formation.
3. Compression fracture of the superior endplate of L3, new/increased compared to prior CT dated 06/08/2025. Additional chronic compression fractures as above.
CT Chest 06/2025: 1. No evidence of pulmonary embolism or thoracic aortic dissection.
2. 1.8 cm nodule within the right upper lobe, likely corresponding to the patient's known lung cancer. Reticular interstitial thickening and groundglass opacity adjacent to the nodule within the right upper lobe. Differential diagnosis includes
postradiation change, pneumonia, and subsegmental atelectasis. These correlate with treatment history.
3. Minimal ground-glass opacity within the left upper lobe, which may also be related to posttreatment change, pneumonia, or subsegmental atelectasis.
4. Mild centrilobular emphysema.
PET-CT 04/2025: Stable spiculated right upper lobe pulmonary nodule. 2.0 x 1.5 cm, moderately FDG avid, most in keeping with malignancy.
MRI Brain 02/2025: Findings consistent with widespread metastatic disease to the brain. Largest lesion, which is in the anterior left frontal lobe, causes 4 mm left to right midline shift. Degree of midline shift is similar to the recent prior head
CT. Masses have developed since prior brain MRI from 06/06/2023
Mild cerebral atrophy along with chronic small vessel ischemia in the cerebral white matter
Inflammatory findings in the maxillary sinuses, ethmoid sinuses, left sphenoid sinus, mastoid air cells (left greater than right)
ECHO 06/2024: 1. Normal left ventricular size and systolic function without regional wall motion abnormalities. Estimated left ventricular ejection fraction 52% by Sidhu's method. Normal diastolic function.
2. Normal right ventricular size and systolic function.
3. No significant valvular abnormalities.
4. No pericardial effusion.
5. No evidence of pulmonary hypertension.
Total time spent on this consultation/encounter __51__ minutes which includes review of history, physical exam, medications, laboratory data, personal review of imaging, extensive review of outpatient records, discussion with care team and
respiratory therapy.
Subjective Data
-
Date of Service:
Date of Service: July 05, 2025
Chief Complaint: Pulmonary Follow Up
Subjective:
No new complaints, working with PT
Weaned to 3L, satting >90%
Weakness noted
Objective Data
Data Reviewed
Vital Signs / I&O / Oxygen:
Vital Signs
Temp Pulse Resp BP Pulse Ox
97.8 F 88 16 130/101 92
07/05/25 04:08 07/05/25 07:39 07/05/25 07:39 07/05/25 06:00 07/05/25 07:39
Intake and Output
07/04/25 07/05/25 07/06/25
06:59 06:59 06:59
Intake Total 700 / 700 1320 / 1320
Output Total 900 / 900 400 / 400
Balance -200 / -200 920 / 920
SaO2 92
Nasal Cannula flow liters per 3
minute
Physical Exam
General: Comfortable and Other (NAD. deconditioned appearing)
HEENT: Normocephalic, Anicteric, Moist Mucous Membranes and Other (alopecia noted)
Cardiovascular: S1-S2 and Regular Rhythm
Respiratory: Clear and Non-Labored Respirations
GI: Soft, Non Distended and Non Tender
Neurology: Awake, Alert, Oriented and No Motor Deficits
Skin: Warm, Dry and Other (pale)
Labs/Micro/Reports
Lab Data
07/05/25 03:31
Microbiology
07/03/25 08:17 Urine Urine Culture - Preliminary
Gram negative bacilli
07/03/25 03:50 Nose MRSA Screen - Final
No Methicillin Resistant Staphylococcus aureus isolated.
[2025-07-05] MEDS: MIACALCIN/FORTICAL NASAL SPRAY 1 SPRAY NASAL (09:19)
[2025-07-05] MEDS: STERILE WATER FOR INJECTION 10 ML IV (09:20)
[2025-07-05] MEDS: ROCEPHIN 1000 MG IV (09:20)
[2025-07-05] MEDS: DECADRON 4 MG PO (09:21)
[2025-07-05] MEDS: PROTONIX 40 MG PO (09:22)
[2025-07-05] MEDS: LOPRESSOR 100 MG PO (09:22)
[2025-07-05] MEDS: ZITHROMAX 500 MG PO (09:22)
[2025-07-05] MEDS: KEPPRA 500 MG PO (09:22)
[2025-07-05] MEDS: TYLENOL 500 MG PO ×2 (09:22→13:15)
[2025-07-05] MEDS: FOLVITE 1 MG PO (09:23)
[2025-07-05] MEDS: SENOKOT-S PO ×2 (09:23→19:40)
[2025-07-05] MEDS: FLOMAX 0.4 MG PO (09:23)
[2025-07-05] MEDS: ROXICODONE 7.5 MG PO (10:53)
--- NOTE | 2025-07-05 11:17 | WOUNDNOTE ---
LLE (DISTAL KNEE)
--- NOTE | 2025-07-05 11:17 | WOUNDNOTE ---
R KNEE (LATERAL DISTAL)
--- NOTE | 2025-07-05 11:19 | WOUNDNOTE ---
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 Patient bedbound recently. She lives with her and daughter. hospice following.
See H&P for complete history.
PMH: lung ca with brain mets, UTI, robotic LAR for sigmoid diverticulitis 2 years ago, compression fractures, vertebroplasty.
Wound Location and type/assessment: Patient admitted with: sacral/buttocks stage 2 vs broken blisters, R medial thigh linear red qian from previous incontinence brief use, multiple stages of healing arm dermal skin tears (R>L). Bilateral distal
knee dermal skin tears. Patient picks her skin. +Anasarca.
Appetite: poor.
Pressure redistribution devices in place: Centrella Max air bed. Patient declining turning intermittently. Air chair cushion. Daughter stated she has an adjustable bed with what she thinks is an mattress at home.
Plan: Silicone border foam changed on sacrum. Silicone border foam applied to distal knee skin tears. RUE dressing changed. Patient turned with help from HELDER Somers during skin care. Patient declined to be turned on her side. Heels off bed with
pillow. Patient high risk for additional skin breakdown despite preventative measures in place d/t overall medical condition.
Will confirm orders with Dr. Ojeda and discussed with HELDER Somers.
Care plan to be updated and will follow as needed.
[2025-07-05 12:19] LABS: Hematocrit 22.4 % (37.0-47.0); Hemoglobin 7.1 g/dL (12.0-16.0)
[2025-07-05 12:20] LABS: Reticulocyte Count 0.9 % (0.4-2.8)
--- NOTE | 2025-07-05 12:32 | CON.ONC ---
Consultation
-
Date Consultation Requested: 07/04/25
Date Consultation Performed: 07/05/25
Requesting Provider: Deny Ojeda MD
Performing Provider: Marcia Huber MD, So, Chrissie Mitchell MD
Reason for Consultation: Progressive Anemia, Metastatic non-small cell lung carcinoma
Impression
Impression
Stage IV Non-small cell lung cancer with multiple brain metastases s/p WBRT, 4 cycles of carboplatin/ alimta/ keytruda
Anemia
Thrombocytopenia
Lower Extremity Weakness
Urinalysis suggestive of UTI
Plan
Plan
#Stage IV Non-small cell lung cancer with multiple brain metastases s/p WBRT, 4 cycles of carboplatin/ alimta/ keytruda
Follows Dr. Steve Ibrahim at [facility]
#Anemia
Hgb: 11.7-->8.4--> 7.3-->7.1-->7.1; non-tachycardic
Iron Studies: Iron 20, TIBC 142 , %Saturation 14 Low; Ferritin 1440 High
Iron studies suggestive of likely Anemia of Chronic Disease-- drop in hemoglobin also noted in previous admissions, but given the progressive anemia during this admission, further work up needed to exclude other causes:
--ongoing GI losses in setting of recent steroid use-> hemestool test, reticulocyte count, ESR
--hemolytic anemia in setting of recent chemotherapy (Keytruda last dose: 05/26/2025)--> LDH, Haptoglobin, Direct Darlene test, Fractionated Bilirubin
--kidney disease- creatinine seems stable
Continue to monitor CBC/H&H, signs of bleeding
#Thrombocytopenia
Plt: 174--> 112-->109-->99-->97
-may be related to ongoing UTI/inflammatory processes
HIT score: 5 (Intermediate probability)
Low index of suspicion for HIT--Although decreasing trend in platelet is noted, there doesn't seem to be a rapid,steep decline and plt seems to also be stabilizing when comparing today's with yesterday's values. Concurrent decrease is Hgb also make
HIT less likely-- can continue Heparin with continued monitoring
Continue to monitor CBC, signs of bleeding
#Bilateral Leg Weakness
Compression Fracture s/p vertebropasty T10 T12
Lumbar Spinal MRI (06/12/2025)-- RHONDA
Mild loss of height and compressions fracture at L3
Significant height loss at T12
No evidence of retropulsion.
Likely related to ongoing spinal conditions which has been previously thoroughly investigated by both Orthopedics and Radiology Oncology.
OT/PT following
Patient History
History of Present Illness
Ms. Palacios is a 70-year-old female who is known to the [facility] with a past medical history significant for non�small cell lung cancer (adenocarcinoma subtype) with multiple brain metastases status post whole-brain radiation and palliative
carboplatin/Alimta/Keytruda (4 cycles), compression fracture s/p vertebropasty presenting with abdominal pain and lower extremity weakness.
The patient is a poor historian; additional information was obtained from her and daughter at bedside. Four days prior to consultation, she developed a sudden onset of severe, constant abdominal pain. Family reports that she had experienced
constipation for 3�4 days preceding symptom onset, which has been typical since starting chemotherapy and oxycodone. She takes Miralax daily at baseline.
Additionally, the patient has had progressive lower extremity weakness over the past month which resulted in the patient being unable to independently ambulate as she used to, associated with urinary and fecal incontinence.
Hematology/Oncology team was consulted given her history of metastatic cancer and progressive anemia.
Past-Medical/Surgical History
Non-Small Cell Lung Cancer (Adenocarcinoma subtype) with Multiple Brain Metastases
Chronic Anemia
Compression Vertebral Deformity s/p vertebroplasty at T10 T12
Dysphagia
GERD
Sigmoid Stricture/Diverticulitis s/p Colonic Resection
Hypertension
Hyperlipidemia
Patient Medication
�Medication �Instructions �Recorded �Confirmed �Last Taken �Type
folic acid 1 mg tablet 1 mg PO DAILY Supplement 01/29/25 07/02/25 04/17/25 History
levetiracetam 500 mg tablet 500 mg PO BID Seizures #0 tabs 02/14/25 07/02/25 06/08/25 Rx
(Keppra)
atorvastatin 10 mg tablet (Lipitor) 10 mg PO QPM High Cholesterol 03/01/25 07/02/25 06/08/25 History
dexamethasone 4 mg tablet 4 mg PO DAILY Anti-Inflammatory 03/01/25 07/02/25 06/08/25 History
lisinopril 40 mg tablet 40 mg PO QPM Blood Pressure 03/01/25 07/02/25 06/08/25 History
metoprolol tartrate 100 mg tablet 100 mg PO BID Blood Pressure 03/01/25 07/02/25 06/08/25 History
lidocaine-prilocaine 2.5 %-2.5 % 1 applic topical DAILYPRN PRN port 03/04/25 07/02/25 04/17/25 14:39 History
topical cream access
acetaminophen 500 mg tablet 500 mg PO Q6H Pain 06/09/25 07/02/25 06/08/25 History
(Tylenol Extra Strength)
polyethylene glycol 3350 17 gram 17 g PO DAILYPRN PRN constipation 06/09/25 07/02/25 Unknown History
oral powder packet (Miralax)
pantoprazole 40 mg tablet,delayed 40 mg PO BID Gastrointestinal 06/11/25 07/02/25 06/08/25 Rx
release Issue 30 days #60 tabs
calcitonin (salmon) 200 1 spray intranasal DAILY bone pain 07/02/25 07/02/25 Unknown History
unit/actuation nasal spray
clonazepam 0.5 mg tablet 0.5 mg PO DAILYPRN PRN 07/02/25 07/02/25 Unknown History
anxiety/sleep
dexamethasone 2 mg tablet 2 mg PO DAILY@199907/02/25 07/02/25 Unknown History
Anti-Inflammatory
fentanyl 12 mcg/hr transdermal 12 mcg topical Q72H Pain 07/02/25 07/02/25 Unknown History
patch
oxycodone 15 mg tablet 7.5 mg PO Q4 Cancer pain 07/02/25 07/02/25 Unknown History
mometasone 220 mcg/actuation(60 1 inh inhalation BID 07/03/25 07/03/25 Unknown History
doses) breath activated powder Lung/Breathing Issues
inhaler (Asmanex Twisthaler)
Active Medications
Generic Name Dose Route Start Last Admin
Trade Name Freq PRN Reason Stop Dose Admin
Acetaminophen 500 mg 07/02/25 20:00 07/05/25 09:22
Acetaminophen 500 Mg Tablet PO 07/30/25 19:59 500 mg
Q6H HILDA Administration
Albuterol/Ipratropium 3 ml 07/03/25 20:00 07/05/25 11:24
Ipratropium 0.5/Albuterol 3 Mg (3 Ml Ampul) INH 3 ml
R QID HILDA Administration
Protocol
Atorvastatin Calcium 10 mg 07/03/25 18:00 07/04/25 17:10
Atorvastatin (Lipitor) 10 Mg Tablet PO 07/31/25 17:59 10 mg
QPM HILDA Administration
Azithromycin 500 mg 07/04/25 08:00 07/05/25 09:22
Azithromycin 250 Mg Tablet PO 07/08/25 08:01 500 mg
DAILY HILDA Administration
Calamine 0 ml 07/05/25 10:16
Calamine Lotion 120 Ml Bottle (6 Oz) TOPICAL 08/02/25 10:15
TIDPRN PRN
itching
Calcitonin 1 spray 07/03/25 08:00 07/05/25 09:19
Calcitonin Nasal [place] (200 Int. Units/[place]) 3.7 Ml Spraypump NASAL 07/31/25 07:59 1 spray
DAILY HILDA Administration
Ceftriaxone Sodium 1,000 mg 07/04/25 08:00 07/05/25 09:20
Ceftriaxone 1000 Mg / 10 Ml Vial IV 1,000 mg
Q24H HILDA Administration
Clonazepam 0.5 mg 07/02/25 18:36
Clonazepam 0.5 Mg Tablet PO 07/30/25 18:35
DAILYPRN PRN
anxiety/sleep
Dexamethasone 2 mg 07/02/25 20:00 07/04/25 20:09
Dexamethasone 2 Mg Tablet PO 07/30/25 19:59 2 mg
DAILY@2000 HILDA Administration
Dexamethasone 4 mg 07/02/25 14:00 07/05/25 09:21
Dexamethasone 4 Mg Tablet PO 07/30/25 13:59 4 mg
DAILY HILDA Administration
Fentanyl 1 patch 07/02/25 13:00 07/02/25 13:32
Fentanyl 12 Mcg/Hr Patch TRANSDERM 07/16/25 12:59 1 patch
Q72H HILDA Administration
Fentanyl 1 patch 07/02/25 13:00 07/02/25 13:32
Fentanyl 25 Mcg/Hr Patch TRANSDERM 07/16/25 12:59 1 patch
Q72H HILDA Administration
Folic Acid 1 mg 07/03/25 08:00 07/05/25 09:23
Folic Acid 1 Mg Tablet PO 07/31/25 07:59 1 mg
DAILY HILDA Administration
Heparin Sodium (Porcine) 500 unit 07/02/25 14:00
Heparin Flush Pf (100 Unit/Ml) 5 Ml Syringe IV 07/30/25 13:59
PER PROTOCOL PRN
SUBQ PORT
Hydromorphone HCl 1 mg 07/02/25 12:56 07/04/25 15:47
Hydromorphone 1 Mg/Ml Carpuject IV 07/16/25 12:55 1 mg
Q3HPRN PRN Administration
SEVERE PAIN
Sodium Chloride 1,000 mls @ 80 mls/hr 07/04/25 06:30 07/05/25 03:28
Nss IV 1,000 mls
[id number] HILDA Administration
Levetiracetam 500 mg 07/02/25 20:00 07/05/25 09:22
Levetiracetam 500 Mg Regular Release Tablet PO 07/30/25 19:59 500 mg
BID HILDA Administration
Lidocaine/Prilocaine 1 gram 07/02/25 12:01
Lidocaine 2.5%/Prilocaine 2.5% (Cream) 5 Gram Tube TOPICAL 07/30/25 12:00
DAILYPRN PRN
port access
Lisinopril 40 mg 07/02/25 18:00 07/04/25 17:10
Lisinopril 20 Mg Tablet PO 07/30/25 17:59 40 mg
QPM HILDA Administration
Metoprolol Tartrate 100 mg 07/02/25 20:00 07/05/25 09:22
Metoprolol 100 Mg Regular Release Tablet PO 07/30/25 19:59 100 mg
BID HILDA Administration
Mometasone [Asmanex 0 inh 07/03/25 20:00 07/05/25 07:35
Twisthaler] 220 Mcg/ INH 07/31/25 19:59 1 inh
Act - 1 Inh Bid R BID HILDA Administration
Oxycodone HCl 7.5 mg 07/02/25 12:56 07/05/25 10:53
Oxycodone 5 Mg Regular Release Tablet PO 07/16/25 12:55 7.5 mg
Q4HPRN PRN Administration
MODERATE PAIN
Pantoprazole Sodium 40 mg 07/02/25 20:00 07/05/25 09:22
Pantoprazole 40 Mg Delayed Release Tablet PO 07/30/25 19:59 40 mg
BID HILDA Administration
Patch Removal 0 patch 07/02/25 13:00 07/02/25 13:44
Remove Fentanyl 12.5 Mcg/Hr Patch REMOVE 07/16/25 12:59 12.5 patch
Q72H HILDA Administration
Patch Removal 0 patch 07/05/25 13:00
Remove Fentanyl 25 Mcg/Hr Patch REMOVE 07/19/25 12:59
Q72H HILDA
Senna/Docusate Sodium 1 tablet 07/03/25 20:00 07/05/25 09:23
Docusate W/Senna (Pari-Colace) Tablet PO 07/31/25 19:59 Not Given
BID HILDA
Sodium Chloride 0 flush 07/02/25 19:00
Sodium Chloride 0.9% (Flush) Syringe IV 07/30/25 18:59
PER PROTOCOL HILDA
Sterile Water 10 ml 07/04/25 08:00 07/05/25 09:20
Sterile Water For Injection 10 Ml Vial IV 08/01/25 07:59 10 ml
Q24H HILDA Administration
Tamsulosin HCl 0.4 mg 07/03/25 12:00 07/05/25 09:23
Tamsulosin 0.4 Mg Capsule PO 07/31/25 11:59 0.4 mg
DAILY HILDA Administration
Review of Systems
-
Constitutional: Reports Weakness (Lower Extremity ); Denies Fever
EENT: Reports No Symptoms
Respiratory: Denies Cough or Trouble Breathing
Cardiac: Denies Chest Pain or Palpitations
GI: Denies Nausea, Vomiting or Black Stools
: Reports Incontinence; Denies Dysuria or Frequency
Musculoskeletal: Reports Other (LE pain)
Skin: Reports Other (Ecchymosis)
Neuro: Reports Weakness; Denies Headache or Lightheadedness
Endocrine: Reports No Symptoms
Hematologic/Lymphatic: Reports Bruising
Physical Exam
-
General: Conversant, Appears Chronically Ill and Other (attached to O2 Nasal Cannula); Negative Fever
HEENT: Other (Normocephalic, Anicteric Sclera)
Cardiology: Normal Sinus Rhythm, S1 and S2
Pulmonary: Clear
GI: Soft, Distended and Other (Nontender)
Musculoskeletal: No Edema and Other (LE: 2/5 muscle strength)
Extremities: Pulses Present
Skin: Warm and Other (Ecchymosis)
Psych: Confused
Labs
Lab Results
WBC 6.6 10^3/uL (4.8-10.8) 07/05/25 03:31
RBC 2.24 10^6/uL (4.20-5.40) L 07/05/25 03:31
Hgb 7.1 g/dL (12.0-16.0) L 07/05/25 12:09
Hct 22.4 % (37.0-47.0) L 07/05/25 12:09
MCV 96.4 fL (81.0-99.0) 07/05/25 03:31
MCH 31.3 pg (27.0-31.0) H 07/05/25 03:31
MCHC 32.4 g/dL (33.0-37.0) L 07/05/25 03:31
RDW 17.9 % (11.5-14.5) H 07/05/25 03:31
Plt Count 97 10^3/uL (130-400) L 07/05/25 03:31
MPV 11.2 fL (7.4-10.4) H 07/05/25 03:31
Abs Immat Gran (auto) 0.5 10^3/uL (0-0.05) H 07/02/25 04:58
Absolute Neuts (auto) 6.0 10^3/uL (1.4-6.5) 07/02/25 04:58
Absolute Lymphs (auto) 0.3 10^3/uL (1.2-3.4) L 07/02/25 04:58
Absolute Monos (auto) 0.1 10^3/uL (0.1-0.6) 07/02/25 04:58
Absolute Eos (auto) 0.0 10^3/uL (0-0.7) 07/02/25 04:58
Absolute Basos (auto) 0.1 10^3/uL (0-0.2) 07/02/25 04:58
Immature Gran % 7.4 % (0-0.5) H 07/02/25 04:58
Neutrophils % 86.0 % (42.2-75.2) H 07/02/25 04:58
Lymphocytes % 4.4 % (20.5-51.1) L 07/02/25 04:58
Monocytes % 1.0 % (1.7-9.3) L 07/02/25 04:58
Eosinophils % 0.3 % (0-6) 07/02/25 04:58
Basophils % 0.9 % (0-2) 07/02/25 04:58
Creatinine 0.4 mg/dL (0.6-1.0) L 07/05/25 03:31
Vital Signs
Vital Signs
Temp Pulse Resp BP Pulse Ox
97.9 F 88 13 151/86 94
07/05/25 07:50 07/05/25 11:24 07/05/25 11:24 07/05/25 10:00 07/05/25 11:24
--- NOTE | 2025-07-05 12:34 | HOSPNOTE ---
Met with family and discussed hospice and the philosophy. The plan is for patient to go home with Scott [facility]IR[facility] who they had in the past and palliative care. aware and will send referrals. Once hospice is needed will be contacted and we will
sign patient on at home when patient and family are ready. We will sign off unless things change and we are needed immediately.
[2025-07-05] MEDS: DURAGESIC 12 MCG/HR PATCH 1 PATCH TRANSDERM (13:14)
[2025-07-05] MEDS: REMOVE DURAGESIC PATCH 12.5 PATCH REMOVE (13:14)
[2025-07-05] MEDS: DURAGESIC 25 MCG/HR PATCH 1 PATCH TRANSDERM (13:14)
[2025-07-05] MEDS: REMOVE DURAGESIC PATCH 25 PATCH REMOVE (13:15)
[2025-07-05 13:26] LABS: LDH 366 U/L (120-246)
[2025-07-05] MEDS: DUONEB INH (15:23)
--- NOTE | 2025-07-05 16:16 | CM ---
F/U: CLEMENT Pandya was informed and read that the [facility] Liaison is going to meet with family. Meeting happened and family only wants Palliative Care and to continue with [facility]. CLEMENT Pandya updated Dede from [facility]. CLEMENT
Mumtaz spoke to the Hospitalist who will put in oxygen test for tomorrow. Met with family who confirmed plan, understand that it would be like mid week and that CLEMENT Pandya would need to set up Home O2. Referral made to Palliative Care. PLAN: Home
w/ VN/PT w/ [facility] as well as Home O2.
[2025-07-05] MEDS: ZESTRIL 40 MG PO (17:04)
[2025-07-05] MEDS: LIPITOR 10 MG PO (17:04)
[2025-07-05] MEDS: DILAUDID 1 MG IV (17:19)
[2025-07-05] MEDS: LOPRESSOR 5 MG IV ×2 (18:33→20:44)
[2025-07-05] MEDS: KLONOPIN 0.5 MG PO (19:29)
--- NOTE | 2025-07-05 19:29 | PTCARENOTE ---
Patient frequently taking off oxygen and dropping to 82% on RA. Attempting to educate patient to keep O2 on unsuccessful. Patient would take O2 out before RN would even leave the room. Patient also becoming tachycardic and agitated. Pt's HR
increasing to 150s-170s. When attempting to get an EKG, patient started swinging at staff and did attempt to bite PCT. Pt confused and disoriented, attempts at reorientation unsuccessful. TT to and cross coverage, . Dr. De Leon
to bedside and ordered b/l wrist restraints and Lopressor 5mg IV PRN, see MAR. also to bedside to evaluate patient.
[2025-07-05] MEDS: KEPPRA PO (19:39)
[2025-07-05] MEDS: PROTONIX PO (19:39)
[2025-07-05] MEDS: DECADRON PO (19:39)
[2025-07-05] MEDS: LOPRESSOR PO (19:39)
[2025-07-05] MEDS: KEPPRA 500 MG IV (20:07)
[2025-07-05] MEDS: VALIUM INJECTION 2 MG IV (21:39)
--- NOTE | 2025-07-05 23:46 | PTCARENOTE ---
patient agitated and uncooperative with this rn at beginning of shift. patient would not take night time pills. TT CARDIAC CARE NURSE to ask to switch meds to IV, see mar. 1 unit of blood transfusing. call romero in reach.
[2025-07-06] VITALS (25 sets, daily range): BP systolic 119–177; BP diastolic 73–134; PULSE 95; O2SAT 91–97
[2025-07-06] MEDS: DILAUDID 1 MG IV ×5 (00:39→23:16)
[2025-07-06] MEDS: TYLENOL PO (03:05)
[2025-07-06 05:27] LABS: Blood Urea Nitrogen 11 mg/dl (7-17); Calcium 8.6 mg/dl (8.4-10.2); Carbon Dioxide 24 mmol/L (22-30); Chloride 109 mmol/L (98-107); Estimated Creatinine Clearance 84 ml/min; Glucose 112 mg/dl (70-99); Magnesium 1.7 mg/dl (1.6-2.3); Potassium 3.6 mmol/L (3.5-5.1); Sodium 133 mmol/L (135-145); eGFR > 60.00
[2025-07-06 05:30] LABS: Hematocrit 28.2 % (37.0-47.0); Hemoglobin 8.7 g/dL (12.0-16.0); Mean Corp Hgb Conc. 30.9 g/dL (33.0-37.0); Mean Corpuscular Volume 94.3 fL (81.0-99.0); Platelet Count 85 10^3/uL (130-400); Red Cell Dist. Width 20.4 % (11.5-14.5)
[2025-07-06] MEDS: DUONEB 3 ML INH (07:06)
[2025-07-06] MEDS: NON-FORMULARY ITEM 1 INH INH ×2 (07:06→19:53)
[2025-07-06] MEDS: LOPRESSOR 5 MG IV (07:26)
[2025-07-06] MEDS: ROCEPHIN 1000 MG IV (07:28)
[2025-07-06] MEDS: STERILE WATER FOR INJECTION 10 ML IV (07:28)
[2025-07-06] MEDS: PROTONIX 40 MG PO ×2 (07:29→19:37)
[2025-07-06] MEDS: ZITHROMAX PO ×2 (07:29→10:51)
[2025-07-06] MEDS: LOPRESSOR 100 MG PO ×2 (07:29→19:37)
[2025-07-06] MEDS: TYLENOL 500 MG PO ×3 (07:29→19:39)
[2025-07-06] MEDS: SENOKOT-S 1 TABLET PO ×2 (07:29→19:37)
[2025-07-06] MEDS: FOLVITE 1 MG PO (07:29)
[2025-07-06] MEDS: KEPPRA 500 MG PO ×2 (07:29→19:37)
[2025-07-06] MEDS: DECADRON 4 MG PO (07:29)
--- NOTE | 2025-07-06 08:12 | W.PN.HOSP.TC ---
Today's Communication/Plan
-
cont current care for now
No routine Lab draws
Anticipate discharge to in hospice tomorrow Saturday 07/07
Assessment / Plan
Assessment / Plan
Physical Exam
General: no acute distress, appears comfortable at this time
HEENT: EOMI normocephalic atraumatic
Respiratory: Clear; No Wheezes, Rales, Rhonchi or Crackles, stable respiratory status but requiring 5L at time of evaluation
Cardiac: S1/S2, Regular Rhythm and Tachycardia; No Murmur, Rub, Gallop or JVD
GI: soft, mild tenderness, hypoactive bowel sounds.
Musculoskeletal: No Clubbing, No Cyanosis and No Edema
Neuro: AOx1, oriented only to self, conversant largely coherent some confusion noted, fluctuating mental status noted throughout the day, intermittently agitated
Psych: Calm
69F COPD, GERD, HTN, stage IV non-squamous cell lung cancer-adenocarcinoma with brain mets s/p WBRT-4 cycles last done on 04/07 (carbo/Alimta/Keytruda), anxiety, depression, vertebral compression fractures s/p vertebroplasty at T10 T12 p/w acute on
chronic abdominal pain started night prior to presentation following resolution severe constipation after laxative use. Patient had blowout diarrhea with associate/following severe pain 06/25. Patient has been functionally declining for some time
now d/t cancer. Recently bedbound for past few weeks requiring use of diaper.
Acute intractable abdominal pain since improved
History of colonic stricture removal and surgery in the past
Gas noted in Bladder CT abd/pelvis, possible enterovesical fistula unlikely as per CRS
Urinalysis suggestive UTI
-gentle IVF hydration support completed
-CRS eval appreciated
-cont pain control
-pain since improved cont Fentanyl Patch, Oxycodone prn mod severe pain, Dilaudid prn severe break through pain
-urine cx initially noted ESBL E.coli however repeat urine culture noted no growth
-Empiric Cefazolin 07/03 switched to Ceftriaxone 07/04, further de-escalated to Augmentin
-urology eval appreciated started flomax d/t concern retention, bladder scan prn
-intermittently requiring straight cath (700 cc at one point)
Hx COPD baseline room air
New Hypoxia required 6L w/ associate sinus tachycardia, pt since weaned down O2
CXR concerning for possible RML pna suspect aspiration
-EKG appreciated sinus tachy, chest pain free
-CT Chest neg for PE
- Tachycardia possibly d/t pain since improved with pain control
-Incentive spirometer
-started on empiric unasyn switched to Cefazolin, later switched to ceftriaxone and azithromycin, completed 3 days azithromycin 500 mg, de-escalated to Augmentin as above
-scheduled Duoneb discontinued d/t severe tachycardia, atrovent prn
-Pulm eval appreciated
07/06 Home Oxygen assessment appreciated:
Patient is in need of oxygen at 2 liters/minute via nasal cannula continuously due to pulse oximetry of 87% on room air at rest. Oxygen will help to improve hypoxemia. Patient is immobile/bedbound within the home. DuoNeb therapy has been tried and
is ineffective in treating hypoxemia related symptoms. Oxygen is needed to improve symptoms.
Anemia
Thrombocytopenia
-drop in Hgb and Plt following admission suspect dilutional, likely Anemia of chronic dz, infection, cancer contributing
-monitor H&H Platelet
-transfused 1 PRBC 7.1 with appropriate response noted 8.7 (transfused d/t tachycardia concern symptomatica anemia)
-Hematology eval appreciated
Acute Metabolic Encephalopathy vs Delirium/Agitation w severe sinus tachycardia
Likely Polypharmacy
-cont home dailyprn Klonopin
-IV Valium 2 mg Q6HPRN agitation/anxiety
-IV Lopressor 5 mg Q4HPRN persistent Tachycardia >120
-transfusion as above
-restraints prn
Stage IV lung cancer with metastasis to brain-
vertebral compression fractures s/p vertebroplasty at T10 T12
Chronic Opiate Dependence
-Continue oral Decadron, Keppra at home doses.
-pain control
-Bowel regimen for opiate induced constipation ppx
-07/04 Brain MRI w/wo contrast Multifocal intraparenchymal metastatic disease. Overall mild improvement of brain metastases compared to the previous brain MRI from
03/10/2025.
-wheelchair/bedbound past few weeks as per
-Oncology eval appreciated pt not a candidate for anti-cancer therapy, needs chronic steroids for brain mets which negate immunostimulatory effects Keytruda
Constipation
bowel regimen as above
once Fleet enema 07/04
constipation since resolved
Mild Hyponatremia
-monitor
Essential hypertension-
-Continue metoprolol tartrate 100 mg BID with holding parameters
-Lisinopril initially held d/t soft low pressures since resumed
Hyperlipidemia
-Continue statin.
PT/OT appreciated SNF vs Home PT
DVT ppx SCD
CODE STATUS- DNR.
07/06 Initially family had declined hospice at beginning of hospitalization, following extensive interdisciplinary goals of care discussions, patient's reached out to hospice and reported family had come to an agreement regarding pursuing
hospice care. Hospice appropriate end stage metastatic lung ca, with brain mets, failure to thrive, not a candidate for further ca tx, prognosis likely days to week, if not less. Patient would benefit from inpt care management pain and suspect
terminal delirium.
Discussed with patient and patient's Brian
I spent a total of 45 minutes with the patient or on the floor. More than 50% of this time involved counseling and coordination of care.
Anticipated Discharge: Within 24 hours
Subjective/Interval History
-
Date of Service: July 06, 2025
confused, oriented only to self, requiring 5L oxygen supplementation this morning. Brian present during evaluation.
Objective Data
-
Labs:
Laboratory Results
07/06/25
04:51
WBC 7.6
Hgb 8.7 L D
Hct 28.2 L
Plt Count 85 L
Sodium 133 L
Potassium 3.6
Chloride 109 H
Carbon Dioxide 24
BUN 11
Creatinine 0.4 L
Glucose 112 H
Calcium 8.6
Vital Signs:
Vital Signs
Temp Pulse Resp BP Pulse Ox
97.8 F 139 15 152/86 97
07/06/25 07:34 07/06/25 07:26 07/06/25 07:08 07/06/25 07:26 07/06/25 07:08
I&O
07/05/25 07/06/25 07/07/25
06:59 06:59 06:59
Intake Total 1320 / 1320 1690 / 1690
Output Total 400 / 400 1200 / 1200
Balance 920 / 920 490 / 490
--- NOTE | 2025-07-06 09:16 | W.PN.PUL3 ---
Today's Communication / Plan
-
Remains on 3L but likely can be weaned down, sats 98%--home O2 eval
PT/OT following, family declined rehab
Onc team recommending GOC discussions
Abx continued for UTI
If not improving, would recommend the same--palliative referral
No further recs from our standpoint, we will sign off at this time, please call with questions
Assessment
-
Patient is a very pleasant 69-year-old female with known history of COPD, stage IV non-small cell lung cancer with brain metastasis s/p chemo and whole brain radiation, who presented to the hospital for worsening abdominal discomfort. Patient
reportedly has severe constipation, known history of vertebral compression fractures and uses MiraLAX at home. In view of constipation she also took some prune juice which subsequently led to diarrhea. In view of abdominal pain she presented to
the emergency room. Workup here has been negative for any acute abdominal pathology and she has been evaluated by surgery and urology service. In the emergency room patient was noted to be hypoxic and additional imaging was pursued. CT chest was
negative for pulmonary embolism however showed increased opacities in the right upper and middle lobe around the area of original lung cancer, thought to be pneumonia versus CT changes suggestive of lung cancer treatment. Pulmonary consultation was
requested for further input.
Acute hypoxic respiratory failure
Bibasilar atelectasis wtih low lung volumes suspect restrictive lung disease
R perihilar opacity r/o PNA
Mosaicism on CT
Severe constipation
UTI
Other medical diagnoses:
H/o COPD/Emphysema
h/o Stage IV Lung cancer, RUL with brain metastasis
- HTN
- Mild hyponatremia
- h/o Colonic stricture
- Abd pain, resolved
Plan
Currently 92% on 3L, this has been weaned from 6L
Baseline use of no oxygen at home
Home O2 eval this AM- 87% on RA, but this is overall improving, down to 1-2L now
PCT 3.65 suggesting infection
Cultures reviewed, she has GNB UTI
Cannot produce sputum
Narrow abx to cover urine
Imaging reviewed, concern for Pneumonia vs CT findings suggestive of post treatment changes with known h/o Lung CA.
MRSA screen, Legionella and pneumococcal antigen negative
Doubtful there is respiratory source, no sputum for review
Has underlying emphysema and now bilateral lower lungs atelectasis, likely due to compression fracture and decreased mobility
Incentive spirometry, wean O2 as tolerated. Assess for need for home oxygen prior to discharge
Optimize underlying obstructive airway disease, continue Duoneb QID scheduled. Continue ICS.
Speech/Swallow evaluation as aspiration is a concern
Appreciate eval-patient refused trials
Prior VSE 05/2025 did not show aspiration events but did find pharyngeal stasis and a slow to empty esophagus.
She is considered elevated risk, diet changes per team
COPD-Does not appear to be in exacerbation
- Duoneb QID, incentive spirometry
Lung cancer
- Follows up with [facility].
- Original diagnoses of stage IV NSCLC w/ brain metastasis in December 2024. S/p whole brain radiation therapy in 12/2024.
- Subsequently initiated chemoimmunotherapy in January w/ carboplatin/ alimta/ keytruda. She is now s/p 4 cylces - last 04/07.
- Patient has chronically been on dexamethasone and Keppra, continue
PT/OT
May need SNF placement
Data:
CT A/P 06/2025: 1. Air is seen within the urinary bladder. This may be related to recent bladder instrumentation, in the absence of bladder instrumentation concern is raised for enteric vesicular fistula.
2. No evidence of intestinal obstruction, bowel inflammatory process, nephrolithiasis, hydronephrosis, cholecystitis, or abscess formation.
3. Compression fracture of the superior endplate of L3, new/increased compared to prior CT dated 06/08/2025. Additional chronic compression fractures as above.
CT Chest 06/2025: 1. No evidence of pulmonary embolism or thoracic aortic dissection.
2. 1.8 cm nodule within the right upper lobe, likely corresponding to the patient's known lung cancer. Reticular interstitial thickening and groundglass opacity adjacent to the nodule within the right upper lobe. Differential diagnosis includes
postradiation change, pneumonia, and subsegmental atelectasis. These correlate with treatment history.
3. Minimal ground-glass opacity within the left upper lobe, which may also be related to posttreatment change, pneumonia, or subsegmental atelectasis.
4. Mild centrilobular emphysema.
PET-CT 04/2025: Stable spiculated right upper lobe pulmonary nodule. 2.0 x 1.5 cm, moderately FDG avid, most in keeping with malignancy.
MRI Brain 02/2025: Findings consistent with widespread metastatic disease to the brain. Largest lesion, which is in the anterior left frontal lobe, causes 4 mm left to right midline shift. Degree of midline shift is similar to the recent prior head
CT. Masses have developed since prior brain MRI from 06/06/2023
Mild cerebral atrophy along with chronic small vessel ischemia in the cerebral white matter
Inflammatory findings in the maxillary sinuses, ethmoid sinuses, left sphenoid sinus, mastoid air cells (left greater than right)
ECHO 06/2024: 1. Normal left ventricular size and systolic function without regional wall motion abnormalities. Estimated left ventricular ejection fraction 52% by Sidhu's method. Normal diastolic function.
2. Normal right ventricular size and systolic function.
3. No significant valvular abnormalities.
4. No pericardial effusion.
5. No evidence of pulmonary hypertension.
Total time spent on this consultation/encounter __45__ minutes which includes review of history, physical exam, medications, laboratory data, personal review of imaging, extensive review of outpatient records, discussion with care team and
respiratory therapy.
Subjective Data
-
Date of Service:
Date of Service: July 06, 2025
Chief Complaint: Pulmonary Follow Up
Subjective:
Doing well this AM, remains on 3L but satting 98%
No new complaints
Minor cough noted
Objective Data
Data Reviewed
Vital Signs / I&O / Oxygen:
Vital Signs
Temp Pulse Resp BP Pulse Ox
97.8 F 139 15 152/86 97
07/06/25 07:34 07/06/25 07:26 07/06/25 07:08 07/06/25 07:26 07/06/25 07:08
Intake and Output
07/05/25 07/06/25 07/07/25
06:59 06:59 06:59
Intake Total 1320 / 1320 1690 / 1690
Output Total 400 / 400 1200 / 1200
Balance 920 / 920 490 / 490
SaO2 97
Nasal Cannula flow liters per 5
minute
Physical Exam
General: Comfortable and Other (NAD. deconditioned appearing)
HEENT: Normocephalic, Anicteric, Moist Mucous Membranes and Other (alopecia noted)
Cardiovascular: S1-S2 and Regular Rhythm
Respiratory: Clear and Non-Labored Respirations
GI: Soft, Non Distended and Non Tender
Neurology: Awake, Alert, Oriented and No Motor Deficits
Skin: Warm, Dry and Other (pale)
Labs/Micro/Reports
Lab Data
07/06/25 04:51
07/06/25 04:51
Microbiology
07/03/25 08:17 Urine Urine Culture - Final
Escherichia coli - ESBL
07/04/25 10:56 Urine Urine Culture - Final
NO GROWTH
07/03/25 03:50 Nose MRSA Screen - Final
No Methicillin Resistant Staphylococcus aureus isolated.
[2025-07-06] MEDS: MIACALCIN/FORTICAL NASAL SPRAY 1 SPRAY NASAL (11:05)
[2025-07-06] MEDS: AUGMENTIN 875 MG/125 MG 1 TABLET PO ×2 (11:05→19:39)
--- NOTE | 2025-07-06 11:56 | W.PN.ONC ---
Today's Communication / Plan
-
She is declining and not a candidate for any anti-cancer therapy
She needs continued dexamethasone because of brain mets, but chronic steroids negates the immunostimulatory effects of Keytruda
Discussed goals of care with patient, and with daughter outside the room
They have met with palliative care and hospice, and are interested in going home with palliative care initially
Continue PT/OT, pain mgmt, supportive care, d/c planning
Impression
Impression
Failure to thrive
pain, compression fractures
Stage IV Non-small cell lung cancer with multiple brain metastases s/p WBRT, 4 cycles of carboplatin/ alimta/ keytruda
Anemia
Thrombocytopenia
Lower Extremity Weakness
Urinalysis suggestive of UTI
Plan
Plan
She is declining and not a candidate for any anti-cancer therapy
She needs continued dexamethasone because of brain mets, but chronic steroids negates the immunostimulatory effects of Keytruda
Discussed goals of care with patient, and with daughter outside the room
They have met with palliative care and hospice, and are interested in going home with palliative care initially
Continue PT/OT, pain mgmt, supportive care, d/c planning
Subjective/Objective
Subjective/Objective
daughter at bedside, patient answers yes/no to every question, sometime inappropriately (e.g., says 'no' when asked if she has any pain.)
Vital Signs:
Vital Signs
Temp Pulse Resp BP Pulse Ox
98.4 F 139 15 152/86 87
07/06/25 11:50 07/06/25 07:26 07/06/25 07:08 07/06/25 07:26 07/06/25 11:00
Lab Results:
Laboratory Data
WBC 7.6 10^3/uL (4.8-10.8) 07/06/25 04:51
Hgb 8.7 g/dL (12.0-16.0) L D 07/06/25 04:51
Plt Count 85 10^3/uL (130-400) L 07/06/25 04:51
eGFR > 60.00 07/06/25 04:51
--- NOTE | 2025-07-06 14:20 | PTCARENOTE ---
Patient received from isotope hydrologist. Patient resting comfortably in bed. AAO name and place, remains tachycardic. Currently on 4L N/C, will attempt to wean. Patient just before isotope hydrologist last night needed to be restrained for taking off
monitoring equipment, pulling at lines, and signs of aggression. Will reassess need for restraints especially when family arrives. Continues with complaints of pain, see MAR. Fluids to continue to be stopped. Possible discharge tomorrow? No
testing scheduled at this time. Call romero in reach.
--- NOTE | 2025-07-06 16:12 | CM ---
F/U: CLEMENT [facility] began to arrange Home O2 because patient completed the Oxygen Test with Respiratory, but learned in the afternoon, the called [facility] to request Hospice consult. [facility] met with the family earlier this week who decided against it.
Likely there will be meeting tomorrow to discuss inpatient hospice. PLAN: Anticipate Inpatient Hospice.
[2025-07-06] MEDS: ROXICODONE 7.5 MG PO (16:22)
[2025-07-06] MEDS: FLOMAX 0.4 MG PO (16:22)
--- NOTE | 2025-07-06 16:40 | HOSPNOTE ---
Spouse reached out to state they are ready for hospice services. Reviewed records and patient is inpatient appropriate. Hospice will meet with spouse in the morning to sign consents. CM, Attending and Primary Nurse updated.
[2025-07-06] MEDS: LIPITOR 10 MG PO (17:54)
[2025-07-06] MEDS: ZESTRIL 40 MG PO (17:54)
[2025-07-06] MEDS: DECADRON 2 MG PO (19:37)
[2025-07-07] VITALS (7 sets, daily range): BP systolic 141–169; BP diastolic 69–106; BMI 22.2
--- NOTE | 2025-07-07 02:17 | DOWNTIME ---
There was a [employer] Client Management Liaison Downtime on 07/07/2025 from 0100 to 07/07/2025 at 0215. Downtime documentation of patient's care, including medication administrations, has been reconciled in the electronic record per guidelines. Refer to the
patient's paper chart under the miscellaneous tab to see printed paper medication records and downtime forms.
[2025-07-07] MEDS: TYLENOL PO ×2 (02:18→09:38)
[2025-07-07] MEDS: DILAUDID 1 MG IV ×3 (04:42→11:06)
--- NOTE | 2025-07-07 05:04 | PTCARENOTE ---
patient's at bedside overnight. patient becomes restless at times, usually when it pain. PRN pain medication given, see mar. Plan for inpatient hospice today. assessment and vitals as charted. call romero in reach.
[2025-07-07] MEDS: NON-FORMULARY ITEM 1 INH INH (07:20)
[2025-07-07] MEDS: LOPRESSOR 5 MG IV (08:43)
[2025-07-07] MEDS: SENOKOT-S PO (09:38)
[2025-07-07] MEDS: FOLVITE PO (09:39)
[2025-07-07] MEDS: MIACALCIN/FORTICAL NASAL SPRAY NASAL (09:39)
--- NOTE | 2025-07-07 09:53 | PTCARENOTE ---
Patient very restless this morning. Patient soiled and needing pericare. Patient also moaning frequently and saying 'ouch' but unable to elaborate on pain. Pt also tachycardic, attempted to give oral medications starting with Metoprolol. Pt refused
and would not take medication. IV Dilaudid and Lopressor given, see MAR. Pt's HR still tachycardic at times into the 140s. Dilaudid appeared to have short term effect, patient less restless but still moaning and verbalizing pain. Pt's at
bedside and updated with care. Assessment and VS as charted.
--- NOTE | 2025-07-07 11:07 | W.DCSUMMARY ---
Discharge Summary
Discharge Data
Date of Admission: 07/02/25
Date of Discharge: 07/07/25
-
Pending Results: No
Hospital Course
Primary diagnosis
Failure to thrive
Stage IV lung cancer with metastasis to brain
Acute hypoxic respiratory failure
Anemia
Thrombocytopenia
Acute metabolic encephalopathy
Intractable abdominal pain
Constipation
Mild hyponatremia
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
chronic abdominal pain started night prior to presentation following resolution severe constipation after laxative use. Patient had blowout diarrhea with associate/following severe pain 06/25. Patient has been functionally declining for some time
now d/t cancer. Recently bedbound for past few weeks requiring use of diaper. During hospitalization patient was evaluated by urology, colorectal surgery and pulmonary and oncology. Patient was started on antibiotic which was eventually
de-escalated to Augmentin. Urology recommended starting Flomax due to concern for retention. CT of the chest was negative for pulmonary embolism and per pulmonary CT findings suggestive of posttreatment changes with known history of lung cancer.
Tachycardia improved with pain control. Patient also received blood transfusion. Patient with metabolic encephalopathy versus delirium which was deemed likely polypharmacy. Patient chronic opioid dependent due to stage IV lung malignancy with
metastases to brain. Per oncology patient not a candidate for further anticancer therapy and needs chronic steroids for brain metastasis which indicate immuno stimulatory effects of Keytruda. Palliative care was recommended by multiple specialties
in setting of metastasis to lung cancer with brain metastasis, failure to thrive, not a candidate for further cancer treatment. Patient required multiple doses of IV pain medication. Hospice was consulted and family signed onto hospice.
Discharge Plan
-
Patient Disposition: Hospice - Inpatient
Discharge Diagnosis/Procedures: Failure to thrive
Abdominal pain
Stage IV lung cancer with metastasis to brain
Activity Restrictions/Additional Instructions:
Wound Care Instructions
Sacral/buttocks ulcers-clean with saline, silicone border foam, change q 3 days and prn loosened dressing.
Arm skin tears-clean with saline, Vaseline gauze, gauze, stockinet, change every 3 days and prn loosened dressing.
Distal knee skin tears-clean with saline, silicone border foam, change q 3 days and prn loosened dressing.
Turning schedule
Elevate heels off bed with pillow/s.
Air mattress.
Referrals:
Winifred Catalan DO [Family Provider, Family Practice]
Prescriptions:
No Action
folic acid 1 mg Tablet
1 mg PO DAILY
levetiracetam [Keppra] 500 mg Tablet
500 mg PO BID Qty: 0 0RF
atorvastatin [Lipitor] 10 mg tablet
10 mg PO QPM
metoprolol tartrate 100 mg tablet
100 mg PO BID
dexamethasone 4 mg tablet
4 mg PO DAILY
lisinopril 40 mg tablet
40 mg PO QPM
lidocaine-prilocaine 2.5-2.5 % Cream
1 applic TOPICAL DAILYPRN PRN (Reason: port access)
polyethylene glycol 3350 [Miralax] 17 gram Powder In Packet
17 g PO DAILYPRN PRN (Reason: constipation)
acetaminophen [Tylenol Extra Strength] 500 mg tablet
500 mg PO Q6H
pantoprazole 40 MG tablet,delayed release (DR/EC)
40 mg PO BID 30 Days Qty: 60 0RF
fentanyl 12 mcg/hr patch 72 hour
12 mcg topical Q72H
oxycodone 15 mg tablet
7.5 mg PO Q4
clonazepam 0.5 mg tablet
0.5 mg PO DAILYPRN PRN (Reason: anxiety/sleep)
calcitonin (salmon) 200 unit/actuation spray,non-aerosol
1 spray intranasal DAILY
dexamethasone 2 mg tablet
2 mg PO DAILY@1999
Asmanex Twisthaler 220 mcg/ actuation (60) Aerosol Powdr Breath Activated
1 inh INHALATION BID
Discharge Orders:
Discharge Patient (As Directed); Ordered 07/07/25
Ordered By: Asim Pearl
Discharge Date and Time
Print Language: HUNGARIAN
--- NOTE | 2025-07-07 11:15 | W.PN.HOSP.TC ---
Addendum entered and electronically signed by Asim Pearl MD 07/08/25 11:08:
sacral/buttocks stage 2 poa
Acute hypoxic respiratory failure
Original Note:
Today's Communication/Plan
-
transition to GIP
Assessment / Plan
Assessment / Plan
Physical Exam
General: in mild acute distress
HEENT: EOMI normocephalic atraumatic
Respiratory: mild rhonchi anterior, oxygen
Cardiac: S1/S2, Regular Rhythm and Tachycardia;
GI: soft, mild tenderness, hypoactive bowel sounds.
Musculoskeletal: No Clubbing, No Cyanosis and No Edema
Neuro: AOx1, oriented only to self, conversant largely coherent some confusion noted,
Psych: anxious
69F COPD, GERD, HTN, stage IV non-squamous cell lung cancer-adenocarcinoma with brain mets s/p WBRT-4 cycles last done on 04/07 (carbo/Alimta/Keytruda), anxiety, depression, vertebral compression fractures s/p vertebroplasty at T10 T12 p/w acute on
chronic abdominal pain started night prior to presentation following resolution severe constipation after laxative use. Patient had blowout diarrhea with associate/following severe pain 06/25. Patient has been functionally declining for some time
now d/t cancer. Recently bedbound for past few weeks requiring use of diaper.
Acute intractable abdominal pain since improved
History of colonic stricture removal and surgery in the past
Gas noted in Bladder CT abd/pelvis, possible enterovesical fistula unlikely as per CRS
Urinalysis suggestive UTI
-gentle IVF hydration support completed
-CRS eval appreciated
-cont pain control
-pain since improved cont Fentanyl Patch, Oxycodone prn mod severe pain, Dilaudid prn severe break through pain
-urine cx initially noted ESBL E.coli however repeat urine culture noted no growth
-Empiric Cefazolin 07/03 switched to Ceftriaxone 07/04, further de-escalated to Augmentin
-urology eval appreciated started flomax d/t concern retention, bladder scan prn
-intermittently requiring straight cath (700 cc at one point)
Hx COPD baseline room air
New Hypoxia required 6L w/ associate sinus tachycardia, pt since weaned down O2
CXR concerning for possible RML pna suspect aspiration
-EKG appreciated sinus tachy, chest pain free
-CT Chest neg for PE
- Tachycardia possibly d/t pain since improved with pain control
-Incentive spirometer
-started on empiric unasyn switched to Cefazolin, later switched to ceftriaxone and azithromycin, completed 3 days azithromycin 500 mg, de-escalated to Augmentin as above
-scheduled Duoneb discontinued d/t severe tachycardia, atrovent prn
-Pulm bryon appreciated
07/06 Home Oxygen assessment appreciated:
Patient is in need of oxygen at 2 liters/minute via nasal cannula continuously due to pulse oximetry of 87% on room air at rest. Oxygen will help to improve hypoxemia. Patient is immobile/bedbound within the home. DuoNeb therapy has been tried and
is ineffective in treating hypoxemia related symptoms. Oxygen is needed to improve symptoms.
Anemia
Thrombocytopenia
-drop in Hgb and Plt following admission suspect dilutional, likely Anemia of chronic dz, infection, cancer contributing
-monitor H&H Platelet
-transfused 1 PRBC 7.1 with appropriate response noted 8.7 (transfused d/t tachycardia concern symptomatica anemia)
-Hematology eval appreciated
Acute Metabolic Encephalopathy vs Delirium/Agitation w severe sinus tachycardia
Likely Polypharmacy
-cont home dailyprn Klonopin
-IV Valium 2 mg Q6HPRN agitation/anxiety
-IV Lopressor 5 mg Q4HPRN persistent Tachycardia >120
-transfusion as above
-restraints prn
Stage IV lung cancer with metastasis to brain-
vertebral compression fractures s/p vertebroplasty at T10 T12
Chronic Opiate Dependence
-Continue oral Decadron, Keppra at home doses.
-pain control
-Bowel regimen for opiate induced constipation ppx
-07/04 Brain MRI w/wo contrast Multifocal intraparenchymal metastatic disease. Overall mild improvement of brain metastases compared to the previous brain MRI from
03/10/2025.
-wheelchair/bedbound past few weeks as per
-Oncology eval appreciated pt not a candidate for anti-cancer therapy, needs chronic steroids for brain mets which negate immunostimulatory effects Keytruda
Constipation
bowel regimen as above
once Fleet enema 07/04
constipation since resolved
Mild Hyponatremia
-monitor
Essential hypertension-
-Continue metoprolol tartrate 100 mg BID with holding parameters
-Lisinopril initially held d/t soft low pressures since resumed
Hyperlipidemia
-Continue statin.
n
DVT ppx SCD
CODE STATUS- DNR.
Family has decided for hospice
Anticipated Discharge: Today
Subjective/Interval History
-
Date of Service: July 07, 2025
Sleeping upon opening eyes seems confused
Objective Data
-
Vital Signs:
Vital Signs
Temp Pulse Resp BP Pulse Ox
98.5 F 121 18 169/99 94
07/07/25 08:25 07/07/25 10:00 07/07/25 10:00 07/07/25 10:00 07/07/25 10:04
I&O
07/06/25 07/07/25 07/08/25
06:59 06:59 06:59
Intake Total 1690 / 1690
Output Total 1200 / 1200
Balance 490 / 490
[2025-07-07] MEDS: DECADRON PO (11:29)
[2025-07-07] MEDS: FLOMAX PO (11:29)
[2025-07-07] MEDS: AUGMENTIN 875 MG/125 MG PO (11:29)
[2025-07-07] MEDS: PROTONIX PO (11:29)
[2025-07-07] MEDS: LOPRESSOR PO (11:29)
[2025-07-07] MEDS: KEPPRA PO (11:29)
--- NOTE | 2025-07-07 12:26 | PN.CDI ---
CDI
- -
CDI:
Physician Documentation Request
Admit Date: 07/02/25 09:08
Dear Doctor Dae,
Patient admitted with acute intractable abdominal pain.
07/06 PN, 'Hx COPD baseline room air....New Hypoxia required 6L w/ associate sinus tachycardia.'
Oxygen use documented below:
Selected Entries
07/02/25
17:00 07/02/25
20:13 07/02/25
22:50
Nasal Cannula flow liters per minute 6 6 6
07/03/25
08:00 07/03/25
19:45 07/04/25
01:27
Nasal Cannula flow liters per minute 6 6 6
Please provide in your note the diagnosis associated with the above oxygen use:
Acute hypoxic respiratory failure
Hypoxia only
Other
Use of terms such as suspected, likely, concern for, or probable (associated with a specific diagnosis that is being evaluated, monitored, or treated as if it exists) are acceptable and can be coded in the inpatient setting, when documented at the
time of discharge.
Thank you,
Caroline ADAMS,RN,CCDS
CDI Specialist
Available via tiger text
Please use your independent medical judgment in providing your response.
--- NOTE | 2025-07-07 12:59 | PN.CDI ---
CDI
- -
CDI:
Physician Documentation Request
Admit Date: 07/02/25 09:08
Dear Doctor Dae,
Patient admitted with acute intractable abdominal pain.
07/05 [facility] note, 'Patient admitted with: sacral/buttocks stage 2 vs broken blisters...Silicone border foam changed on sacrum..'
Physician documentation of the type and location of wounds is required for compliant documentation. Based on the above clinical findings and your assessment, please provide the following in your progress note:
Type (etiology) of ulcer/wound:
- Pressure (decubitus) ulcer
- Other
- Unable to determine
For a pressure ulcer, please also include the stage* of the ulcer:
- Stage 1 - Skin intact, non-blanchable redness
- Stage 2 - Partial thickness loss of dermis, includes intact or open blister
- Stage 3 - Full thickness tissue not including bone, tendon or muscle
- Stage 4 - Full thickness tissue loss, including exposed bone, tendon or muscle
- Unstageable - Full thickness loss in which the base of the ulcer is covered by slough (yellow, appiah, corbett, green or brown) and/or eschar (appiah, brown or black) in the wound bed.
- Unable to determine
Use of terms such as suspected, likely, concern for, or probable (associated with a specific diagnosis that is being evaluated, monitored, or treated as if it exists) are acceptable and can be coded in the inpatient setting, when documented at the
time of discharge.
Thank you,
Caroline ADAMS,RN,CCDS
CDI Specialist
Available via [place] text
Please use your independent medical judgment in providing your response.
*Source: National Pressure Ulcer Advisory Panel (NPUAP)
--- NOTE | 2025-07-07 16:32 | CM ---
F/U: Patient signed onto [facility] ([facility] PLAN: Inpatient Hospice.
== END 2025-07-07 11:40 | disposition hospice, inpatient (51) | DRG 689 ==
LOC: IMU 09:08
PROVIDERS: Nurse Practitioner Gerontology; Physician Assistant; Student in an Organized Health Care Education/Training Program; ADMITTING PHYSICIAN Internal Medicine; ATTENDING PHYSICIAN Hospitalist; CONSULT PHYSICIAN Internal Medicine; CONSULT PHYSICIAN Specialist; CONSULT PHYSICIAN Surgery; EMERGENCY PHYSICIAN Student in an Organized Health Care Education/Training Program; FAMILY PHYSICIAN Family Medicine; OTHER PHYSICIAN Internal Medicine Hematology & Oncology
DX: N39.0 Urinary tract infection, site not specified (principal); G93.41 Metabolic encephalopathy; J96.01 Acute respiratory failure with hypoxia; C79.31 Secondary malignant neoplasm of brain; C34.90 Malignant neoplasm of unspecified part of unspecified bronchus or lung; M48.54XA Collapsed vertebra, not elsewhere classified, thoracic region, initial encounter for fracture; M48.56XA Collapsed vertebra, not elsewhere classified, lumbar region, initial encounter for fracture; E22.2 Syndrome of inappropriate secretion of antidiuretic hormone; N32.1 Vesicointestinal fistula; C78.7 Secondary malignant neoplasm of liver and intrahepatic bile duct; C79.51 Secondary malignant neoplasm of bone; F11.20 Opioid dependence, uncomplicated; J98.11 Atelectasis; R62.7 Adult failure to thrive; D69.6 Thrombocytopenia, unspecified; Z74.01 Bed confinement status; I10 Essential (primary) hypertension; E78.5 Hyperlipidemia, unspecified; Z79.899 Other long term (current) drug therapy; Z66 Do not resuscitate; J43.9 Emphysema, unspecified; K21.9 Gastro-esophageal reflux disease without esophagitis; D63.8 Anemia in other chronic diseases classified elsewhere; F41.9 Anxiety disorder, unspecified; F32.A Depression, unspecified; Z87.891 Personal history of nicotine dependence; Z92.21 Personal history of antineoplastic chemotherapy; G89.3 Neoplasm related pain (acute) (chronic); L89.152 Pressure ulcer of sacral region, stage 2
CPT/HCPCS: 70450; 70553; 71045; 71275; 74176; 80048; 80053; 81003; 81015; 82247; 82248; 82607; 82728; 82746; 83010; 83540; 83550; 83605; 83615; 83690; 83735; 83880; 84100; 84145; 85014; 85018; 85025; 85027; 85045; 85652; 86850; 86880; 86900; 86901; 86920; 87070; 87077; 87086; 87186; 92610; 93005; 94640; 96361; 96374; 96375; 97163; 97167; 97530; 99285; A9575; P9016; Q9967

== ENCOUNTER 2025-07-07 11:43 | Inpatient (IN) | payer OTHER, SELFPAY ==
--- NOTE | 2025-07-07 11:24 | ADM.HSP ---
Admission - Hospice
History of Present Illness
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
chronic abdominal pain started night prior to presentation following resolution severe constipation after laxative use. Patient had blowout diarrhea with associate/following severe pain 06/25. Patient has been functionally declining for some time
now d/t cancer. Recently bedbound for past few weeks requiring use of diaper. During hospitalization patient was evaluated by urology, colorectal surgery and pulmonary and oncology. Patient was started on antibiotic which was eventually
de-escalated to Augmentin. Urology recommended starting Flomax due to concern for retention. CT of the chest was negative for pulmonary embolism and per pulmonary CT findings suggestive of posttreatment changes with known history of lung cancer.
Tachycardia improved with pain control. Patient also received blood transfusion. Patient with metabolic encephalopathy versus delirium which was deemed likely polypharmacy. Patient chronic opioid dependent due to stage IV lung malignancy with
metastases to brain. Per oncology patient not a candidate for further anticancer therapy and needs chronic steroids for brain metastasis which indicate immuno stimulatory effects of Keytruda. Palliative care was recommended by multiple specialties
in setting of metastasis to lung cancer with brain metastasis, failure to thrive, not a candidate for further cancer treatment. Patient required multiple doses of IV pain medication. Hospice was consulted and family signed onto hospice.
Reason for Hospice Admission
GIP
Review of Systems
Unable to obtain full review of systems at this time due to: Acuity
Assessment/Medication Plan
Physical Exam
General: in mild acute distress
HEENT: EOMI normocephalic atraumatic
Respiratory: mild rhonchi anterior, oxygen
Cardiac: S1/S2, Regular Rhythm and Tachycardia;
GI: soft, mild tenderness, hypoactive bowel sounds.
Musculoskeletal: No Clubbing, No Cyanosis and No Edema
Neuro: AOx1, oriented only to self, conversant largely coherent some confusion noted,
Psych: anxious
Assessment
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
chronic abdominal pain started night prior to presentation following resolution severe constipation after laxative use. Patient had blowout diarrhea with associate/following severe pain 06/25. Patient has been functionally declining for some time
now d/t cancer. Recently bedbound for past few weeks requiring use of diaper. During hospitalization patient was evaluated by urology, colorectal surgery and pulmonary and oncology. Patient was started on antibiotic which was eventually
de-escalated to Augmentin. Urology recommended starting Flomax due to concern for retention. CT of the chest was negative for pulmonary embolism and per pulmonary CT findings suggestive of posttreatment changes with known history of lung cancer.
Tachycardia improved with pain control. Patient also received blood transfusion. Patient with metabolic encephalopathy versus delirium which was deemed likely polypharmacy. Patient chronic opioid dependent due to stage IV lung malignancy with
metastases to brain. Per oncology patient not a candidate for further anticancer therapy and needs chronic steroids for brain metastasis which indicate immuno stimulatory effects of Keytruda. Palliative care was recommended by multiple specialties
in setting of metastasis to lung cancer with brain metastasis, failure to thrive, not a candidate for further cancer treatment. Patient required multiple doses of IV Dilaudid medication. Hospice was consulted and family signed onto hospice. Plan
will be to start patient on Dilaudid infusion.
Failure to thrive
Stage IV lung cancer with metastasis to brain
Acute hypoxic respiratory failure
Anemia
Thrombocytopenia
Acute metabolic encephalopathy
Intractable abdominal pain
Constipation
Mild hyponatremia
Plan
patient on GIP hospice measures
Start patient on Dilaudid infusion with boluses protocol
Antianxiety medication
Haldol if needed
Antinausea medication
DVT prophylaxis none as on hospice
DNR/DNI
Discussed with RN
Discussed with hospice team
[2025-07-07] MEDS: DILAUDID 50 IV (12:05)
[2025-07-07] MEDS: DILAUDID 0.25 MG IV ×3 (12:19→14:47)
--- NOTE | 2025-07-07 12:27 | HOSPNOTE ---
10:45AM - Patient admitted to Hospice GIP level of care for management of pain that can not be managed in an outpatient setting. Consents signed by Isidoro. Hospice will make visits daily.
[2025-07-07 14:00] VITALS: BP 152/105
--- NOTE | 2025-07-07 15:14 | PTCARENOTE ---
Patient transferred to [address] [place] [address] with Dilaudid gtt, green paper in lock box.
[2025-07-07 15:17] VITALS: BP 177/103
[2025-07-07] MEDS: VALIUM INJECTION 2 MG IV (15:35)
[2025-07-07] MEDS: DILAUDID 0.5 MG IV ×3 (15:36→17:43)
[2025-07-07] MEDS: DILAUDID 1 MG IV (18:48)
[2025-07-07 19:32] VITALS: BP 146/86
[2025-07-07] MEDS: KEPPRA 500 MG IV (20:06)
[2025-07-07] MEDS: DECADRON 2 MG IV (20:07)
[2025-07-08] MEDS: DILAUDID 1 MG IV ×4 (00:54→06:18)
[2025-07-08] MEDS: VALIUM INJECTION 2 MG IV ×6 (00:55→22:11)
[2025-07-08] MEDS: ROBINUL 0.2 MG IV ×3 (00:55→22:11)
[2025-07-08 08:19] VITALS: BP 134/76
[2025-07-08] MEDS: KEPPRA 500 MG IV ×2 (08:51→22:05)
[2025-07-08] MEDS: DECADRON 4 MG IV (08:51)
[2025-07-08] MEDS: DILAUDID 1.5 MG IV ×5 (08:56→22:10)
--- NOTE | 2025-07-08 11:00 | W.PN.HSP.1 ---
Assessment / Plan
-
Physical Exam
General: comfortable
HEENT: EOMI normocephalic atraumatic
Respiratory: non tachypneic
Cardiac: S1/S2, Regular Rhythm and Tachycardia;
GI: non distended
Neuro: intermittently opens eyes
Psych: calm
Assessment
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
chronic abdominal pain started night prior to presentation following resolution severe constipation after laxative use. Patient had blowout diarrhea with associate/following severe pain 06/25. Patient has been functionally declining for some time
now d/t cancer. Recently bedbound for past few weeks requiring use of diaper. During hospitalization patient was evaluated by urology, colorectal surgery and pulmonary and oncology. Patient was started on antibiotic which was eventually
de-escalated to Augmentin. Urology recommended starting Flomax due to concern for retention. CT of the chest was negative for pulmonary embolism and per pulmonary CT findings suggestive of posttreatment changes with known history of lung cancer.
Tachycardia improved with pain control. Patient also received blood transfusion. Patient with metabolic encephalopathy versus delirium which was deemed likely polypharmacy. Patient chronic opioid dependent due to stage IV lung malignancy with
metastases to brain. Per oncology patient not a candidate for further anticancer therapy and needs chronic steroids for brain metastasis which indicate immuno stimulatory effects of Keytruda. Palliative care was recommended by multiple specialties
in setting of metastasis to lung cancer with brain metastasis, failure to thrive, not a candidate for further cancer treatment. Patient required multiple doses of IV Dilaudid medication. Hospice was consulted and family signed onto hospice. Plan
will be to start patient on Dilaudid infusion.
Failure to thrive
Stage IV lung cancer with metastasis to brain
Acute hypoxic respiratory failure
Anemia
Thrombocytopenia
Acute metabolic encephalopathy
Intractable abdominal pain
Constipation
Mild hyponatremia
Plan
patient on GIP hospice measures
Started patient on Dilaudid infusion with boluses protocol as required multiple dose of IV prn meds -currently on step 4.
Antianxiety medication
Haldol if needed
Antinausea medication
DVT prophylaxis none as on hospice
DNR/DNI
Discussed with RN
d/w with patient daughter at bedside
Today's Communication
GIP measures
on dilaudid gtt
Interval History
-
remains on dilaudid gtt
intermittent in pain.
Physical Exam
-
Temp Pulse Resp BP Pulse Ox
98.3 F 128 22 134/76 70
07/08/25 08:19 07/08/25 08:19 07/08/25 08:19 07/08/25 08:19 07/08/25 08:19
--- NOTE | 2025-07-08 11:52 | HOSPNOTE ---
pen rider visited with Harleen Palacios in room 2140 at [facility]. Patient was surrounded by immediate family members who reported she was not in pain at this time. Family informed pen rider that she was a member at an [facility] denominational in [place] and
they were trying to contact the previous food service coordinator who knew Harleen well to make a pastoral visit. Harleen is a very private person and just did not want anyone to know that she was declining. Her cancer was diagnosed in December and after 2 round of chemo
she started to decline. She was walking a few months ago but is now actively dying. Sas Administrator instructed the family on the Hospice philosophy and breavement resources available. Sas Administrator provided emotional and spiritual support to the patient and
family through presence, touch and prayer. Sas Administrator informed family to call Hospice office if immediate visit is needed by pen rider or clergy. Sas Administrator will visit in a week.
--- NOTE | 2025-07-08 13:04 | HOSPNOTE ---
Family at bedside and emotional support provided. Patient is lethargic and on 1.5mg of dilaudid drip. Patient has required IV pushes prior to care and repositioning. Patient continues to be inpatient appropriate for management of pain and shortness
of breath. Patient will be seen daily.
--- NOTE | 2025-07-08 14:48 | HOSPNOTE ---
MANAGER REGULATORY VISITED 70 YEAR OLD PATIENT TO CONDUCT INITIAL SEX WORKER OR ESCORT ASSESSMENT. PATIENT RECENTLY ADMITTED ONTO HOSPICE SERVICES AND GIP LEVEL OF CARE WITH THE PRIMARY DIAGNOSIS OF LUNG CANCER. NURSE REPORTED MEDICATIONS ADMINISTERED, PATIENT
RESTING, AND FAMILY MEMBERS AT PATIENT'S BEDSIDE. SEX WORKER OR ESCORT GREETED PATIENT AND PATIENT'S FAMILY MEMBERS UPON ENTERING PATIENT'S ROOM. SEX WORKER OR ESCORT EXPLAINED ENROLLMENT MANAGEMENT DIRECTOR ROLE IT RELATES TO THE HOSPICE TEAM. PATIENT'S DAUGHTER RADHA INTRODUCED HERSELF WELL
PATIENT�S AMY SULLIVAN AND PATIENT'S SPOUSE SHEKHAR, THEY REPORTED THEY ARE OKAY AND COPING APPROPRIATELY. PATIENT ASLEEP AND APPEARED TO BE RESTING COMFORTABLY, EVIDENT BY HER NOT RESPONDING TO SEX WORKER OR ESCORT VOICE AND TOUCH. SHEKHAR REPORTED HIS SUPPORTS ARE
RADHA, AMY SULLIVAN, HIS BROTHER, AND FRIENDS. RADHA REPORTED HER SUPPORTS ARE HER FATHER, HER SPOUSE NATE, AND HER MOM GROUP.
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 PATIENT'S PARENTS AND SIBLINGS ARE . SPOUSE IS THE PRIMARY CAREGIVER AND POA. PATIENT HAS 2 CHILDREN RADHA WHO RESIDES
LOCALLY AND IS ACTIVE IN PATIENT'S CARE AND CANDIDO WHO IS ESTRANGED FROM THE FAMILY. SHE HAS 3 GRANDDAUGHTERS NICOL WHO 15 YEARS OF AGE, INNA WHO IS 9 YEARS OF AGE, AND ISABEL WHO IS 6 YEARS OF AGE. NICOL VISITED PATIENT YESTERDAY, PATIENT IS
EXTREMELY CLOSE TO INNA AND ISABEL. SEX WORKER OR ESCORT ENCOURAGED RADHA AND NATE TO INFORM INNA AND ISABEL TEACHERS/COUNSELORS TO ENSURE THEY HAVE THE SUPPORTED NEEDED. RADHA REPORTED INNA AND ISABEL PATERNAL GRANDMOTHER PASSED A YEAR AGO.
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 SHE LOVED TATUM AND PLANTS, FEEDING AND TALKING TO BIRDS, SHE DOWNLOADED AN JAMIE THAT TOLD HER WHAT KIND OF BIRD IT WAS BE LISTENING TO IT. SHE
LOVED SOFT BLANKETS AND WOULD PURCHASE THEM WHENEVER SHE COULD. SHE LOVED LISTENING TO [employer] HYMNS AND HER FAVORITE SONG WAS AMAZING MATTHEW.
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 [place], HER WISHES ARE TO BE BURIED AT [facility], AND AUDREY & SONS HOME LOCATED AT [address] [place] [address] IS IN
CHARGE OF THE ARRANGEMENTS. FAMILY DECLINED BEREAVEMENT SERVICES AT THIS TIME. PRAYER AND EMOTIONAL SUPPORT PROVIDED
PATIENT MEETS [facility] FOR SN ASSESSMENTS. MANAGEMENT OF PAIN, AND SHORTNESS OF BREATH THAT COULD NOT BE MANAGED AT HOME AND/OR IN AN OUTPATIENT SETTING. DISCHARGE PLANNING CONTINUES.
SEX WORKER OR ESCORT WILL PROVIDE SUPPORTIVE SERVICES ONCE A WEEK WHILE ON [facility] LEVEL OF CARE.
[2025-07-08] MEDS: DILAUDID 50 IV (18:27)
[2025-07-08 19:28] VITALS: BP 147/84
[2025-07-08 19:34] VITALS: BP 147/84
[2025-07-08] MEDS: DECADRON 2 MG IV (22:05)
[2025-07-09] MEDS: ROBINUL 0.2 MG IV ×3 (03:47→12:40)
[2025-07-09] MEDS: DILAUDID 1.5 MG IV ×4 (03:47→12:34)
[2025-07-09] MEDS: VALIUM INJECTION 2 MG IV ×3 (05:38→12:41)
[2025-07-09 07:47] VITALS: BP 152/89
--- NOTE | 2025-07-09 08:33 | CM ---
patient chart reviewed
hospice GIP
PLAN: GIP hospice
[2025-07-09] MEDS: KEPPRA 500 MG IV (09:42)
[2025-07-09] MEDS: DECADRON 4 MG IV (09:42)
--- NOTE | 2025-07-09 11:06 | W.PN.HSP.1 ---
Assessment / Plan
-
Physical Exam
General: comfortable
Respiratory: non tachypneic
Cardiac: Tachycardia;
GI: non distended
Neuro: intermittently opens eyes
Psych: calm
Assessment
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
chronic abdominal pain started night prior to presentation following resolution severe constipation after laxative use. Patient had blowout diarrhea with associate/following severe pain 06/25. Patient has been functionally declining for some time
now d/t cancer. Recently bedbound for past few weeks requiring use of diaper. During hospitalization patient was evaluated by urology, colorectal surgery and pulmonary and oncology. Patient was started on antibiotic which was eventually
de-escalated to Augmentin. Urology recommended starting Flomax due to concern for retention. CT of the chest was negative for pulmonary embolism and per pulmonary CT findings suggestive of posttreatment changes with known history of lung cancer.
Tachycardia improved with pain control. Patient also received blood transfusion. Patient with metabolic encephalopathy versus delirium which was deemed likely polypharmacy. Patient chronic opioid dependent due to stage IV lung malignancy with
metastases to brain. Per oncology patient not a candidate for further anticancer therapy and needs chronic steroids for brain metastasis which indicate immuno stimulatory effects of Keytruda. Palliative care was recommended by multiple specialties
in setting of metastasis to lung cancer with brain metastasis, failure to thrive, not a candidate for further cancer treatment. Patient required multiple doses of IV Dilaudid medication. Hospice was consulted and family signed onto hospice. Plan
will be to start patient on Dilaudid infusion.
Failure to thrive
Stage IV lung cancer with metastasis to brain
Acute hypoxic respiratory failure
Acute urinary retention
Anemia
Thrombocytopenia
Acute metabolic encephalopathy
Intractable abdominal pain
Constipation
Mild hyponatremia
Plan
patient on GIP hospice measures
Started patient on Dilaudid infusion with boluses protocol as required multiple dose of IV prn meds -currently on step 4.
Antianxiety medication
Increase antisecretory frequency medication. Can also consider scopoalmine patch if needed
Haldol if needed
Antinausea medication
Rasheed catheter for end-of-life care
DVT prophylaxis none as on hospice
DNR/DNI
Discussed with RN
d/w with patient daughter at bedside
Today's Communication
Continue with GIP measures
Interval History
-
Per daughter patient with increased gurgling noise which seems to be the discomfort to the patient
Physical Exam
-
Temp Pulse Resp BP Pulse Ox
97.4 F 128 18 152/89 57
07/09/25 07:47 07/09/25 07:47 07/09/25 07:47 07/09/25 07:47 07/09/25 07:47
--- NOTE | 2025-07-09 11:21 | HOSPNOTE ---
Patient continues to be inpatient hospice appropriate for management of pain and agitation. Patient is on a dilaudid drip. Family at bedside and emotional support provided. Patient is unresponsive at this time and does appear comfortable. Increased
secretions noted and was given Robinol. Spoke with floor RN and encouraged to medicate prior to turning or repositioning. Patient will be seen daily.
--- NOTE | 2025-07-09 16:10 | W.PN.DEATH ---
Pronouncement of
-
Called to see patient to pronounce.
No spontaneous heart tones or respirations noted.
Patient not responsive to verbal stimuli.
Patient is pronounced .
Time of : 15:45
Date of : 07/09/25
Cause of : Stage IV lung cancer with metastasis to brain
Acute hypoxic respiratory failure
Family Notified: Yes
--- NOTE | 2025-07-09 16:12 | W.DCSUMMARY ---
Discharge Summary
Discharge Data
Date of Admission: 07/07/25
Date of Discharge: 07/09/25
-
Pending Results: No
Hospital Course
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
chronic abdominal pain started night prior to presentation following resolution severe constipation after laxative use. Patient had blowout diarrhea with associate/following severe pain 06/25. Patient has been functionally declining for some time
now d/t cancer. Recently bedbound for past few weeks requiring use of diaper. During hospitalization patient was evaluated by urology, colorectal surgery and pulmonary and oncology. Patient was started on antibiotic which was eventually
de-escalated to Augmentin. Urology recommended starting Flomax due to concern for retention. CT of the chest was negative for pulmonary embolism and per pulmonary CT findings suggestive of posttreatment changes with known history of lung cancer.
Tachycardia improved with pain control. Patient also received blood transfusion. Patient with metabolic encephalopathy versus delirium which was deemed likely polypharmacy. Patient chronic opioid dependent due to stage IV lung malignancy with
metastases to brain. Per oncology patient not a candidate for further anticancer therapy and needs chronic steroids for brain metastasis which indicate immuno stimulatory effects of Keytruda. Palliative care was recommended by multiple specialties
in setting of metastasis to lung cancer with brain metastasis, failure to thrive, not a candidate for further cancer treatment. Patient required multiple doses of IV Dilaudid medication. Hospice was consulted and family signed onto hospice.
Patient was maintained on IV Dilaudid infusion. Patient required multiple additional boluses regiment. Patient also required antisecretory medication. Patient on 07/09/2025 at 1545.
Discharge Plan
-
Patient Disposition:
Date/Time
Date/Time: 07/09/25 15:45
Discharge Date and Time
Discharge Date/Time: 07/09/25 15:45
Print Language: KHMER
== END 2025-07-09 15:45 | disposition expired | DRG 951 ==
LOC: 2 NORTH 11:43
PROVIDERS: ADMITTING PHYSICIAN Hospitalist
DX: Z51.5 Encounter for palliative care (principal); G93.41 Metabolic encephalopathy; J96.01 Acute respiratory failure with hypoxia; C79.31 Secondary malignant neoplasm of brain; C34.90 Malignant neoplasm of unspecified part of unspecified bronchus or lung; E87.1 Hypo-osmolality and hyponatremia; F11.20 Opioid dependence, uncomplicated; I10 Essential (primary) hypertension; J44.9 Chronic obstructive pulmonary disease, unspecified; K59.00 Constipation, unspecified; F32.A Depression, unspecified; F41.9 Anxiety disorder, unspecified; K21.9 Gastro-esophageal reflux disease without esophagitis; Z74.01 Bed confinement status; D64.9 Anemia, unspecified; D69.6 Thrombocytopenia, unspecified; R62.7 Adult failure to thrive; Z66 Do not resuscitate